=== PATIENT | male | born 1965 | race Caucasian/White ===

== ENCOUNTER 2016-10-08 23:39 | Inpatient (IN) | payer OTHER ==
[~2016-10-08] VITALS: Ht 190.5 cm; Wt 142.4 kg
--- NOTE | 2016-10-09 00:35 | NUR ---
PT AMBULATORY TO ER BED 12. PT C/O RIGHT LEG PAIN. PT WITH RIGHT LEG ABSCESS X 5 DAYS AND COVERED BY GUYANESE OINTMENT SINCE YESTERDAY. PT AOX4 RR EVEN AND UNLABORED. DAUGHTER AT BEDSIDE TO TRANSLATE. NO NVD AT THIS TIME. PT NOT DIAPHORETIC. PT GOWNED AND PLACED ON MONITOR WAITING FOR MD WOLFE.
--- NOTE | 2016-10-09 00:36 | NUR ---
DR. SIMMS AT BEDSIDE FOR EVAL.
--- NOTE | 2016-10-09 00:54 | NUR ---
LAB AT BEDSIDE FOR BLOOD/BLOOD CX DRAW.
[2016-10-09] MEDS ORDERED: MORPHINE SULFATE INJ 4 MG/ML DISP.SYRIN ONE (01:00)
[2016-10-09] MEDS ORDERED: ONDANSETRON HCL/PF 4 MG/2 ML VIAL IVP ONE (01:00)
[2016-10-09] MEDS ORDERED: VANCOMYCIN 1 GM in IV D5W 250 ML IV ONE (01:00)
[2016-10-09] MEDS ORDERED: MORPHINE SULFATE INJ 2 MG/ML DISP.SYRIN IV ONE (01:00)
[2016-10-09] MEDS ORDERED: ONDANSETRON HCL/PF 4 MG/2 ML VIAL ONE (01:00)
[2016-10-09] MEDS ORDERED: VANCOMYCIN 1 GM VIAL ONE (01:01)
[2016-10-09 01:19] LABS: BASOPHILS % (AUTO) 0.7 % (0.0-2.0); EOSINOPHILS # (AUTO) 0.1 /CMM (0.0-0.7); EOSINOPHILS % (AUTO) 3.1 % (0.0-6.0); HEMATOCRIT 35 % (39-51); HEMOGLOBIN 12.2 g/dL (13.5-17.5); LYMPHOCYTES # (AUTO) 1.2 /CMM (0.8-4.8); LYMPHOCYTES % (AUTO) 26.4 % (20.0-44.0); MEAN CORPUSCULAR HEMOGLOBIN 36 PG (26.0-33.0); MEAN CORPUSCULAR HGB CONC 35 g/dl (31.0-36.0); MEAN CORPUSCULAR VOLUME 102 fL (80-96); MONOCYTES # (AUTO) 0.6 /CMM (0.1-1.30); MONOCYTES % (AUTO) 12.3 % (2.0-12.0); NEUTROPHILS # (AUTO) 2.6 /CMM (1.8-8.9); NEUTROPHILS % (AUTO) 57.5 % (43.0-81.0); PLATELET COUNT (AUTO) 60 /CMM (150-450); RDW COEFFICIENT OF VARIATION 15.2 (11.5-15.0); RED BLOOD CELL COUNT(AUTO) 3.43 MIL/uL (4.5-6.0); WHITE BLOOD COUNT (AUTO) 4.6 K/uL (4.3-11.0)
[2016-10-09] MEDS ORDERED: IV NS 0.9% 1,000 ML ONE ×2 (01:28→09:42)
[2016-10-09] MEDS ORDERED: IV SET PRIMARY 1 EA INFUS.SET MC ONE (01:28)
[2016-10-09 01:30] LABS: CALCIUM, SERUM 8.5 mg/dL (8.5-10.1); CREATININE 1.1 mg/dL (0.6-1.3); POTASSIUM 3.4 mmol/L (3.5-5.1)
[2016-10-09] MEDS ORDERED: IV NS 0.9% 1,000 ML BAG IV ONE (01:30)
--- NOTE | 2016-10-09 01:40 | NUR ---
PANEL CALL MADE
--- NOTE | 2016-10-09 01:42 | NUR ---
DR. SIMMS SPOKE TO DR. HERB CATES REGARDING ADMISSION.
[2016-10-09] MEDS ORDERED: PROP40TA7 PO (01:55)
[2016-10-09] MEDS ORDERED: INSU100V28 SQ (01:55)
[2016-10-09] MEDS ORDERED: INSU3INS6 SQ (01:55)
[2016-10-09] MEDS ORDERED: METF500T4 PO (01:55)
[2016-10-09 02:00] VITALS: BP 149/94
--- NOTE | 2016-10-09 02:00 | NUR ---
PT [facility]ED [facility]
[2016-10-09 02:05] LABS: EOSINOPHILS % (MANUAL) 1 % (0-4); LYMPHOCYTES % (MANUAL) 23 % (16-48); MONOCYTES % (MANUAL) 10 % (0-11.0); NEUTROPHILS % (MANUAL) 66 (42-76)
[2016-10-09 02:10] VITALS: BP 149/94
--- NOTE | 2016-10-09 02:10 | NUR ---
RN ADMITTING NOTES RECEIVED REPORT FROM TUBING MACHINE OPERATORJAMISON. Pt ARRIVED ON FLOOR VIA GURNEY. AMBULATED WITH STEADY GAIT TO BED. NO S/S OF ACUTE DISTRESS OR SOB NOTED. Pt IS A/OX3, VERBAL, ABLE TO MAKE NEEDS KNOWN. IV ACCESS ON RAC #18G. SAFETY MEASURES IN PLACE. BED LOW, LOCKED, HOB ELEVATED, SIDE RAILS UP, CALL LIGHT AND BEDSIDE TABLE WITHIN REACH. WILL CONTINUE TO MONITOR Pt THROUGHOUT THE NIGHT FOR SAFETY.
[2016-10-09] MEDS ORDERED: Z GUARD REMEDY 2 OZ OINT TP PRN (03:30)
[2016-10-09] MEDS ORDERED: KETOROLAC TROMETHAMINE INJ 30 MG/ML VIAL IV PRN (03:30)
[2016-10-09] MEDS ORDERED: ENOXAPARIN SODIUM 40 MG/0.4 ML DISP.SYRIN SQ SCH (03:30)
[2016-10-09] MEDS ORDERED: DEXTROSE 50%-WATER 50 ML DISP.SYRIN IV PRN (03:30)
[2016-10-09] MEDS ORDERED: ONDANSETRON HCL/PF 4 MG/2 ML VIAL IVP PRN (03:30)
[2016-10-09] MEDS: INSULIN DETEMIR 100 UNIT/ML CARTRIDGE SQ SCH ×3 (03:30→21:38)
[2016-10-09] MEDS ORDERED: KETOROLAC TROMETHAMINE INJ 30 MG/ML VIAL IV ONE (03:30)
[2016-10-09] MEDS ORDERED: ACETAMINOPHEN 325 MG TABLET PO PRN (03:30)
--- NOTE | 2016-10-09 03:30 | NUR ---
RN NOTES LATE ADMISSION. CANNOT GIVE LEVEMIR AT THIS TIME. WILL ENDORSE TO NEXT RN TO START 1ST DOSE AT THE PROPER TIME TONIGHT.
[2016-10-09] MEDS ORDERED: ENOXAPARIN SODIUM 40 MG/0.4 ML DISP.SYRIN SQ ONE (03:34)
[2016-10-09] MEDS ORDERED: KETOROLAC TROMETHAMINE INJ 30 MG/ML VIAL ONE (03:34)
[2016-10-09] MEDS: BLOOD SUGAR DIAGNOSTIC 1 EACH STRIP IN SCH ×5 (03:56→21:20)
[2016-10-09] MEDS ORDERED: SECONDARY IV SET 1 EA INFUS.SET MC ONE ×3 (05:31→16:21)
[2016-10-09] MEDS ORDERED: PIPERACILLIN /TAZOBACTAM 3.375 G VIAL IV ONE (05:31)
[2016-10-09] MEDS ORDERED: IV D5W 50 ML IV ONE (05:31)
[2016-10-09] MEDS: PIPERACILLIN /TAZOBACTAM 3.375 G in IV D5W 50 ML IV SCH ×4 (06:08→23:37)
[2016-10-09 06:23] LABS: BASOPHILS % (AUTO) 0.9 % (0.0-2.0); EOSINOPHILS # (AUTO) 0.2 /CMM (0.0-0.7); EOSINOPHILS % (AUTO) 4.9 % (0.0-6.0); HEMATOCRIT 34 % (39-51); HEMOGLOBIN 12.1 g/dL (13.5-17.5); LYMPHOCYTES % (AUTO) 28.5 % (20.0-44.0); MEAN CORPUSCULAR HEMOGLOBIN 36 PG (26.0-33.0); MEAN CORPUSCULAR HGB CONC 36 g/dl (31.0-36.0); MEAN CORPUSCULAR VOLUME 101 fL (80-96); MONOCYTES # (AUTO) 0.4 /CMM (0.1-1.30); MONOCYTES % (AUTO) 11.4 % (2.0-12.0); NEUTROPHILS % (AUTO) 54.3 % (43.0-81.0); PLATELET COUNT (AUTO) 59 /CMM (150-450); RED BLOOD CELL COUNT(AUTO) 3.38 MIL/uL (4.5-6.0); WHITE BLOOD COUNT (AUTO) 3.6 K/uL (4.3-11.0)
--- NOTE | 2016-10-09 06:35 | NUR ---
RN CLOSING NOTES NO SIGNIFICANT CHANGES TO Pt's CONDITION. ALL NEEDS MET AND ATTENDED TO. SAFETY MEASURES IN PLACE. WILL ENDORSE TO DAYSHIFT RN FOR Pt's WENDY.
[2016-10-09 06:47] LABS: CALCIUM, SERUM 8.2 mg/dL (8.5-10.1); PHOSPHORUS 3.4 mg/dL (2.5-4.9); POTASSIUM 3.4 mmol/L (3.5-5.1)
[2016-10-09 06:55] LABS: MAGNESIUM 0.8 mg/dL (1.8-2.4)
--- NOTE | 2016-10-09 06:55 | NUR ---
RN NOTES BG 183. ADMINISTERED 4UN OF INSULIN PER SLIDING SCALE.
[2016-10-09] MEDS: INSULIN REGULAR, HUMAN 100 UNIT/ML 3 ML VIAL SQ PRN ×2 (07:08→15:24)
[2016-10-09 07:15] LABS: BAND % (MANUAL) 1 % (0.0-5.0); EOSINOPHILS % (MANUAL) 5 % (0-4); LYMPHOCYTES % (MANUAL) 24 % (16-48); MONOCYTES % (MANUAL) 8 % (0-11.0); NEUTROPHILS % (MANUAL) 62 (42-76)
[2016-10-09 08:00] VITALS: BP 147/80
[2016-10-09] MEDS ORDERED: POTASSIUM CHLORIDE 20 MEQ TAB.PRT.SR PO ONE (09:00)
[2016-10-09] MEDS ORDERED: FEE PK DOSING 1 MIN EA MC ONE (09:12)
[2016-10-09] MEDS ORDERED: IV SET PRIMARY PUMP SET 1 EA INFUS.SET MC ONE (09:22)
[2016-10-09] MEDS ORDERED: IV NS 0.9% 50 ML IV ONE (09:23)
[2016-10-09] MEDS: METFORMIN 500 MG TABLET PO SCH ×2 (09:54→17:56)
[2016-10-09] MEDS: Magnesium 1GM/D5W 100ML PREMIX 100 ML IV SCH ×4 (09:55→15:52)
[2016-10-09] MEDS: PROPRANOLOL HCL 40 MG TABLET PO SCH ×2 (09:55→17:57)
[2016-10-09] MEDS ORDERED: VANCOMYCIN 1.5 GM in IV D5W 500 ML IV SCH (11:00)
[2016-10-09 11:21] LABS: ALBUMIN 1.9 g/dL (3.4-5.0); BILIRUBIN,DIRECT 0.2 mg/dL (0.0-0.2); TOTAL PROTEIN, SERUM 6.3 g/dL (6.4-8.2)
--- NOTE | 2016-10-09 11:25 | NUR ---
WOUND CARE CONSULT: PT PRESENTS WITH RAISED RED BUMP TO RT LATERAL LOWER LEG, PRESENT ON ADMISSION. RECOMMENDATIONS MADE FOR SKIN PROTECTION. RECOMMEND SURGICAL CONSULT. WILL SEE PRN. PT IS AMBULATORY AND CONTINENT. FELIX SCORE IS CURRENTLY 21. Addendum: 10/09/16 at 1126 by JAILENE FAGAN WNDNU Amended: Links added.
[2016-10-09] MEDS ORDERED: ALBUTEROL FS 2.5 MG/3 ML VIAL.NEB NEB PRN (13:30)
--- NOTE | 2016-10-09 14:14 | NUR ---
PER RN CONGREGATIONAL PATIENT IS NOT NPO AT THIS TIME. RN WILL HOLD DINNER FOR ABDOMEN ULTRASOUND TO BE DONE THIS EVENING AT 1730
[2016-10-09] MEDS: MORPHINE SULFATE INJ 2 MG/ML DISP.SYRIN IV PRN ×2 (15:17→19:56)
[2016-10-09 16:00] VITALS: BP_SYST 142; BP_DIAS 90; BP_DIAS 98
[2016-10-09] MEDS ORDERED: LIDOCAINE 2%-EPI 1:100,000 30 ML VIAL TP ONE (16:30)
--- NOTE | 2016-10-09 19:20 | NUR ---
RN OPEN NOTES RECEIVED PATIENT AWAKE IN BED WITH FAMILY AT BEDSIDE. NO SIGNS OF DISTRESS OR DISCOMFORT BREATHING EVEN AND UNLABORED. STATES PAIN IS 9/10 IN R LEG. IV ACCESS IN RAC WITH VANCO CURRENTLY INFUSING, PATENT AND INTACT, NO SIGNS OF REDNESS OR INFILTRATION. BED IN LOW LOCKED POSITION WITH SIDE RAILS X2. CALL LIGHT WITHIN REACH. WILL CONTINUE TO MONITOR.
--- NOTE | 2016-10-09 19:34 | NUR ---
PATIENT IS NOTED IN A STABLE JOVIAL MOOD.PATIENT NOTED WITH ORDER :CONSENT FOR INCISION AND DRAINAGE OF WOUND TO RIGHT LOWER EXT.REPORT GIVEN TO INCOMING SHIFT.PATIENT WAS NOT MEDICATED FOR 342 BLOOD SUGAR INSULIN DOSE WAS PREVIOUSLY GIVEN AT A LATER TIME.METFORMIN GIVEN .PATIENT IS STABLE .
--- NOTE | 2016-10-09 19:56 | NUR ---
RN NOTES ADMINISTERED MORPHINE 2MG IV ORDERED FOR PAIN 9/10 IN R LOWER LEG. VSS. WILL CONTINUE TO MONITOR.
[2016-10-09 20:00] VITALS: BP 163/97
[2016-10-09 20:09] VITALS: BP 163/97
[2016-10-09] MEDS: *INSULIN REGULAR(HUMULIN R)HUM 100 UNIT/ML VIAL SQ PRN (21:48)
[2016-10-10] MEDS ORDERED: MORPHINE SULFATE INJ 2 MG/ML DISP.SYRIN ONE (00:08)
[2016-10-10] MEDS: MORPHINE SULFATE INJ 2 MG/ML DISP.SYRIN IV PRN (00:28)
--- NOTE | 2016-10-10 00:28 | NUR ---
RN NOTES ADMINISTERED MORPHINE 2MG IV ORDERED FOR PAIN 8/10 IN R LOWER LEG. VSS. WILL CONTINUE TO MONITOR.
[2016-10-10] MEDS: VANCOMYCIN 1.5 GM in IV D5W 500 ML IV SCH ×2 (02:31→16:42)
[2016-10-10] MEDS ORDERED: MORPHINE SULFATE INJ 4 MG/ML DISP.SYRIN ONE (06:17)
[2016-10-10] MEDS: PIPERACILLIN /TAZOBACTAM 3.375 G in IV D5W 50 ML IV SCH ×3 (06:24→20:44)
[2016-10-10] MEDS: MORPHINE SULFATE INJ 4 MG/ML DISP.SYRIN IV PRN ×4 (06:25→17:42)
--- NOTE | 2016-10-10 06:25 | NUR ---
RN NOTES ADMINISTERED MORPHINE 2MG IV ORDERED FOR PAIN 9/10 IN R LOWER LEG. VSS. WILL CONTINUE TO MONITOR.
[2016-10-10] MEDS: BLOOD SUGAR DIAGNOSTIC 1 EACH STRIP IN SCH ×4 (06:27→21:57)
[2016-10-10] MEDS: INSULIN REGULAR, HUMAN 100 UNIT/ML 3 ML VIAL SQ PRN ×3 (06:27→18:54)
[2016-10-10] MEDS ORDERED: MORPHINE SULFATE INJ 4 MG/ML DISP.SYRIN IV PRN ×2 (06:30)
[2016-10-10 07:12] LABS: BASOPHILS % (AUTO) 1.1 % (0.0-2.0); EOSINOPHILS # (AUTO) 0.3 /CMM (0.0-0.7); EOSINOPHILS % (AUTO) 6.8 % (0.0-6.0); HEMATOCRIT 35 % (39-51); HEMOGLOBIN 12.3 g/dL (13.5-17.5); LYMPHOCYTES # (AUTO) 0.8 /CMM (0.8-4.8); LYMPHOCYTES % (AUTO) 20.2 % (20.0-44.0); MEAN CORPUSCULAR HEMOGLOBIN 36 PG (26.0-33.0); MEAN CORPUSCULAR HGB CONC 35 g/dl (31.0-36.0); MEAN CORPUSCULAR VOLUME 102 fL (80-96); MONOCYTES # (AUTO) 0.4 /CMM (0.1-1.30); NEUTROPHILS # (AUTO) 2.5 /CMM (1.8-8.9); NEUTROPHILS % (AUTO) 61.9 % (43.0-81.0); PLATELET COUNT (AUTO) 64 /CMM (150-450); RDW COEFFICIENT OF VARIATION 15.2 (11.5-15.0); RED BLOOD CELL COUNT(AUTO) 3.42 MIL/uL (4.5-6.0)
[2016-10-10 07:28] LABS: CALCIUM, SERUM 8.1 mg/dL (8.5-10.1); CREATININE 1.1 mg/dL (0.6-1.3)
[2016-10-10 07:38] LABS: CHOLESTEROL 398 mg/dL (<200); HDL CHOLESTEROL 35 mg/dL (40-60); LDL 142 mg/dL (0-99); TRIGLYCERIDES 676 mg/dL (30-150)
--- NOTE | 2016-10-10 07:50 | NUR ---
RN CLOSING NOTES PATIENT AWAKE IN BED. A/O X4. NO SIGNS OF DISTRESS OR DISCOMFORT BREATHING EVEN AND UNLABORED. DENIES ANY PAIN AT THIS TIME. IV ACCESS IN RAC WITH VANCO CURRENTLY INFUSING, PATENT AND INTACT, NO SIGNS OF REDNESS OR INFILTRATION. ALL NEEDS MET. NO SIGNIFICANT CHANGES THROUGH THE NIGHT. BED IN LOW LOCKED POSITION WITH SIDE RAILS X2. CALL LIGHT WITHIN REACH. ENDORSED TO AM SHIFT FOR WENDY.
[2016-10-10 08:00] VITALS: BP 124/69
--- NOTE | 2016-10-10 08:30 | NUR ---
PATIENT AWAKE IN BED. A/O X4. NO SIGNS OF DISTRESS OR DISCOMFORT BREATHING EVEN AND UNLABORED. DENIES ANY PAIN AT THIS TIME. IV ACCESS IN RAC, PATENT AND INTACT, NO SIGNS OF REDNESS OR INFILTRATION. PATIENT REQUESTING FOR IV TO BE MOVED BECAUSE IT IS PAINFUL AND WILL NOT TAKE ANY MORE MEDS THROUGH THIS LINE. IV MOVED TO LAC 20G. NO S/S OF INFILTRATION, REDNESS OR SWELLING. BED IN LOW LOCKED POSITION WITH SIDE RAILS X2. CALL LIGHT WITHIN REACH.
[2016-10-10 08:31] LABS: THYROID STIMULATING HORMONE 2.655 uIU/mL (0.358-3.74)
[2016-10-10 08:54] LABS: EOSINOPHILS % (MANUAL) 5 % (0-4); MONOCYTES % (MANUAL) 6 % (0-11.0); NEUTROPHILS % (MANUAL) 72 (42-76)
[2016-10-10 08:56] LABS: LYMPHOCYTES % (MANUAL) 17 % (16-48)
[2016-10-10] MEDS ORDERED: ENOXAPARIN SODIUM 40 MG/0.4 ML DISP.SYRIN SQ SCH (09:00)
[2016-10-10] MEDS: METFORMIN 500 MG TABLET PO SCH ×2 (09:16→17:16)
[2016-10-10] MEDS: FOLIC ACID 1 MG TABLET PO SCH (09:16)
[2016-10-10] MEDS: THIAMINE HCL 100 MG TABLET PO SCH (09:16)
[2016-10-10] MEDS: PROPRANOLOL HCL 40 MG TABLET PO SCH ×2 (09:16→17:16)
--- NOTE | 2016-10-10 09:30 | NUR ---
MORPHINE PRN 2MG/0.5ML GIVEN FOR PAIN 8-10. WILL CONTINUE TO MONITOR AND REASSESS.
[2016-10-10] MEDS ORDERED: SECONDARY IV SET 1 EA INFUS.SET MC ONE (11:36)
[2016-10-10] MEDS: Magnesium 1GM/D5W 100ML PREMIX 100 ML IV SCH ×4 (11:42→19:28)
[2016-10-10 16:00] VITALS: BP 124/73
--- NOTE | 2016-10-10 17:52 | NUR ---
MORPHINE PRN 2MG/0.5ML GIVEN FOR PAIN 8-10. WILL CONTINUE TO MONITOR AND REASSESS.
--- NOTE | 2016-10-10 18:15 | NUR ---
CALL MADE TO [place] TO CONNECT WITH SHREDDER TENDER PEAT RUTH GILMORE. PT REFUSED TO EAT DINNER AND BLOOD SUGAR WAS 422. CALLED TO REQUEST ORDER DUE TO PATIENT NOT EATING. SHREDDER TENDER PEAT ORDER FOR 10 UNITS REGULAR INSULIN TO BE GIVEN AND FOLLOW UP INSULIN AT .
--- NOTE | 2016-10-10 19:05 | NUR ---
RN CLOSING NOTES PATIENT AWAKE IN BED. A/O X4. NO SIGNS OF DISTRESS OR DISCOMFORT BREATHING EVEN AND UNLABORED. RLE SWOLLEN, RED AND HOT TO TOUCH. MEPILEX ON WOUND. WOULD FAWAD BARBA CALLED FROM [facility] AND MESSAGE WAS LEFT FOR FOLLW UP TREATMENT. UPON PAIN REASSESSMENT, PT PAIN LEVEL AT 3 AND WITHIN PAIN GOAL LEVEL. DENIES ANY PAIN AT THIS TIME. IV ACCESS IN RAC WITH VANCO CURRENTLY INFUSING, PATENT AND INTACT, NO SIGNS OF REDNESS OR INFILTRATION. ALL NEEDS MET. NO SIGNIFICANT CHANGES THROUGH THE NIGHT. BED IN LOW LOCKED POSITION WITH SIDE RAILS X2. CALL LIGHT WITHIN REACH. ENDORSED TO AM SHIFT FOR WENDY. Addendum: 10/10/16 at 1911 by YAYO BOWEN RN RN CLOSING NOTES PATIENT AWAKE IN BED. A/O X4. NO SIGNS OF DISTRESS OR DISCOMFORT BREATHING EVEN AND UNLABORED. RLE SWOLLEN, RED AND HOT TO TOUCH. MEPILEX ON WOUND. WOULD FAWAD BARBA CALLED FROM [facility] CLIN[facility] AND MESSAGE WAS LEFT FOR FOLLW UP TREATMENT. UPON PAIN REASSESSMENT, PT PAIN LEVEL AT 3 AND WITHIN PAIN GOAL LEVEL. IV ACCESS IN LAC WITH VANCO CURRENTLY INFUSING, PATENT AND INTACT, NO SIGNS OF REDNESS OR INFILTRATION. ALL NEEDS MET. NO SIGNIFICANT CHANGES THROUGH THE NIGHT. BED IN LOW LOCKED POSITION WITH SIDE RAILS X2. CALL LIGHT WITHIN REACH. ENDORSED TO PM SHIFT FOR WENDY.
--- NOTE | 2016-10-10 19:30 | NUR ---
MS/RN NOTES PT AWAKE, SITTING UP IN BED WITH FAMILY AT BEDSIDE. A/OX3, SPEAKS ZAMBIAN. ON ROOM AIR, NO SOB OR DISTRESS NOTED. BREATHING EVEN AND UNLABORED. IV TO LAC PATENT AND INTACT. PT TO RECEIVE LAST BAG OF MAGNESIUM BY DAY SHIFT RN. BED IN LOW/LOCKED POSITION WITH CALL LIGHT IN REACH. SIDE RAILS UPX2. WILL CONTINUE TO MONITOR
[2016-10-10 20:00] VITALS: BP 143/82
[2016-10-10 20:07] VITALS: BP 143/82
--- NOTE | 2016-10-10 20:50 | NUR ---
MS/RN NOTES ADMINISTERED SCHEDULED 1800 ZOSYN LATE. PT RECEIVED 3 BAGS OF MAGNESIUM DURING DAY SHIFT WHICH DELAYED ADMINISTRATION OF ABX.
[2016-10-10] MEDS: ZOLPIDEM TARTRATE 5 MG TABLET PO PRN (21:57)
[2016-10-10] MEDS: INSULIN DETEMIR 100 UNIT/ML CARTRIDGE SQ SCH (22:02)
[2016-10-10] MEDS: *INSULIN REGULAR(HUMULIN R)HUM 100 UNIT/ML VIAL SQ PRN (22:03)
--- NOTE | 2016-10-10 22:16 | NUR ---
MS/RN NOTES BLOOD COSWB=425, SCHEDULED LEVEMIR AND 10 UNITS OF INSULIN PER SLIDING SCALE ADMINISTERED. SNACKS PROVIDED AT BEDSIDE. WILL MONITOR FOR S/S OF HYPOGLYCEMIA Addendum: 10/10/16 at 2220 by CHUCKY ZELAYA RN FAMILY MEMBER BROUGHT FOOD FROM HOME FOR DINNER
--- NOTE | 2016-10-10 22:28 | NUR ---
MS/RN NOTES PT NOTED THAT HE HAS NOT BEEN ABLE TO SLEEP THE LAST COUPLE NIGHTS. OFFERED PRN AMBIEN 10MG PO. PT ACCEPTED AND ADMINISTERED. WILL MONITOR FOR EFFECTIVENESS
[2016-10-11] MEDS: PIPERACILLIN /TAZOBACTAM 3.375 G in IV D5W 50 ML IV SCH ×4 (02:14→17:52)
[2016-10-11] MEDS: VANCOMYCIN 1.5 GM in IV D5W 500 ML IV SCH ×2 (03:43→14:46)
--- NOTE | 2016-10-11 05:32 | NUR ---
MS/RN NOTES PT PULLED OUT HIS IV. NEW IV INSERTED TO RIGHT HAND #22. IVF RESUMED.
[2016-10-11] MEDS: BLOOD SUGAR DIAGNOSTIC 1 EACH STRIP IN SCH ×4 (06:46→21:26)
[2016-10-11] MEDS: INSULIN REGULAR, HUMAN 100 UNIT/ML 3 ML VIAL SQ PRN ×2 (06:48→17:07)
--- NOTE | 2016-10-11 06:53 | NUR ---
MS/RN NOTES BLOOD KUDTU=084, ADMINISTERED 16 UNITS OF INSULIN PER SLIDING SCALE. WILL MONITOR FOR S/S OF HYPO/HYPERGLYCEMIA
--- NOTE | 2016-10-11 07:00 | NUR ---
MS/RN NOTES PT ASLEEP, EASILY AROUSABLE TO NAME/TOUCH. ON ROOM AIR, NO SOB OR DISTRESS NOTED. BREATHING EVEN AND UNLABORED. DENIES PAIN AT THIS TIME. MADE PT COMFORTABLE THROUGHOUT SHIFT. ALL NEEDS MET AND ATTENDED. IV TO RIGHT HAND PATENT AND INTACT. BED IN LOW/LOCKED POSITION WITH CALL LIGHT IN REACH. SIDE RAILS UPX2. WILL ENDORSE TO AM SHIFT WENDY.
[2016-10-11 07:11] LABS: CALCIUM, SERUM 8.4 mg/dL (8.5-10.1); CREATININE 1.2 mg/dL (0.6-1.3); POTASSIUM 4.3 mmol/L (3.5-5.1)
--- NOTE | 2016-10-11 07:30 | NUR ---
RN MS NOTES PT IN BED, ASLEEP, EASILY AROUSABLE BY VERBAL STIMULI, ALERT AND ORIENTED, NO COMPLAINT OF PAIN AT THIS TIME, RESPIRATIONS NORMAL AND NOT LABORED, CALL LIGHT WITHIN REACH.
[2016-10-11 07:39] LABS: FERRITIN 1311 ng/mL (8-388)
[2016-10-11 07:42] LABS: IRON, SERUM 117 ug/dl (50-175); TOTAL IRON BINDING CAPACITY 235 ug/dl (250-450)
[2016-10-11 08:00] VITALS: BP 154/88
[2016-10-11 08:07] LABS: IMMUNOGLOBULIN A, SERUM 548 mg/dL (90-386); IMMUNOGLOBULIN G, SERUM 1338 mg/dL (700-1600); IMMUNOGLOBULIN M, SERUM 228 mg/dL (20-172)
[2016-10-11] MEDS ORDERED: SECONDARY IV SET 1 EA INFUS.SET MC ONE (09:00)
[2016-10-11] MEDS: FOLIC ACID 1 MG TABLET PO SCH (09:05)
[2016-10-11] MEDS: PROPRANOLOL HCL 40 MG TABLET PO SCH ×2 (09:05→16:58)
[2016-10-11] MEDS: METFORMIN 500 MG TABLET PO SCH ×2 (09:06→16:57)
[2016-10-11] MEDS: THIAMINE HCL 100 MG TABLET PO SCH (09:06)
[2016-10-11] MEDS: Magnesium 1GM/D5W 100ML PREMIX 100 ML IV SCH ×6 (09:06→20:00)
--- NOTE | 2016-10-11 09:12 | NUR ---
RN MS NOTES PT SEEN BY RUTH CELESTIN, PLAN OF CARE DISCUSSED WITH PT, VERBALIZED UNDERSTANDING, MD AWARE OF ABNORMAL LAB RESULTS, ORDERS MADE AND CARRIED OUT.
[2016-10-11] MEDS: MORPHINE SULFATE INJ 4 MG/ML DISP.SYRIN IV PRN ×2 (12:06→19:05)
--- NOTE | 2016-10-11 13:00 | NUR ---
RN MS NOTES PT IN BED, SLEEPS INTERMITTENTLY, PAIN MEDICATION GIVEN FOR PAIN MANAGEMENT, BREATHING PATTERN NORMAL, CALL LIGHT WITHIN REACH, ABLE TO AMBULATE TO THE BATHROOM WITH STEADY GAIT, NEEDS ATTENDED.
[2016-10-11] MEDS: *INSULIN REGULAR(HUMULIN R)HUM 100 UNIT/ML VIAL SQ PRN ×2 (13:34→21:41)
[2016-10-11 16:00] VITALS: BP 144/79
--- NOTE | 2016-10-11 18:45 | NUR ---
RN MS NOTES PT IN BED, AWAKE, ALERT AND ORIENTED, NO COMPLAINT OF PAIN OR ANY DISCOMFORT AT THIS TIME, RESPIRATIONS NORMAL AND NOT LABORED, AMBULATES TO THE BATHROOM WITH STEADY GAIT, TREATMENT AND DRESSING CHANGE DONE TO RIGHT LOWER LEG WOUND, NO DRAINAGE NOTED, PM MEDS GIVEN, ALL NEEDS ATTENDED.
--- NOTE | 2016-10-11 19:30 | NUR ---
MS RN INITIAL NOTE RECEIVED PT AWAKE AND ALERT, AMBULATORY, ORIENTED X3, CLEAN/DRY AND COMFORTABLE, SAFETY MEASURES WILL BE MAINTAINED AT ALL TIMES, NEEDS WILL BE ANTICIPATED AND ATTENDED TO PROMPTLY.
[2016-10-11 20:00] VITALS: BP 121/70
[2016-10-11 20:38] VITALS: BP 121/70
[2016-10-11] MEDS ORDERED: INSULIN DETEMIR 100 UNIT/ML CARTRIDGE SQ SCH (22:00)
[2016-10-11] MEDS: ZOLPIDEM TARTRATE 5 MG TABLET PO PRN (22:07)
[2016-10-12] MEDS: PIPERACILLIN /TAZOBACTAM 3.375 G in IV D5W 50 ML IV SCH ×4 (00:22→20:08)
[2016-10-12] MEDS: VANCOMYCIN 1.5 GM in IV D5W 500 ML IV SCH ×2 (03:28→17:06)
[2016-10-12] MEDS: MORPHINE SULFATE INJ 4 MG/ML DISP.SYRIN IV PRN ×3 (05:48→16:18)
[2016-10-12] MEDS: INSULIN REGULAR, HUMAN 100 UNIT/ML 3 ML VIAL SQ PRN ×3 (06:23→17:20)
--- NOTE | 2016-10-12 07:01 | NUR ---
MS RN CLOSING NOTE PT REMAINED STABLE DURING PROPAGATION WORKER WITH NO SIGNIFICANT CHANGE IN CONDITION NOTED, WILL ENDORSE TO INCOMING NURSE FOR WENDY.
[2016-10-12 07:02] LABS: BASOPHILS % (AUTO) 0.9 % (0.0-2.0); EOSINOPHILS # (AUTO) 0.2 /CMM (0.0-0.7); EOSINOPHILS % (AUTO) 5.5 % (0.0-6.0); HEMATOCRIT 36 % (39-51); HEMOGLOBIN 12.7 g/dL (13.5-17.5); LYMPHOCYTES # (AUTO) 0.9 /CMM (0.8-4.8); MEAN CORPUSCULAR HEMOGLOBIN 36 PG (26.0-33.0); MEAN CORPUSCULAR HGB CONC 35 g/dl (31.0-36.0); MEAN CORPUSCULAR VOLUME 103 fL (80-96); MONOCYTES # (AUTO) 0.5 /CMM (0.1-1.30); MONOCYTES % (AUTO) 11.4 % (2.0-12.0); NEUTROPHILS # (AUTO) 2.4 /CMM (1.8-8.9); NEUTROPHILS % (AUTO) 59.2 % (43.0-81.0); PLATELET COUNT (AUTO) 70 /CMM (150-450); RDW COEFFICIENT OF VARIATION 15.7 (11.5-15.0); RED BLOOD CELL COUNT(AUTO) 3.49 MIL/uL (4.5-6.0); WHITE BLOOD COUNT (AUTO) 4.1 K/uL (4.3-11.0)
--- NOTE | 2016-10-12 07:25 | NUR ---
RN OPEN NOTES RECEIVED REPORT FROM DIGITAL PRINT OPERATOR. PATIENT IS IN BED, AWAKE AND ORIENTED TO NAME, PLACE AND TIME. NO SIGNS AND SYMPTOMS OF DISTRESS. DENIED PAIN. BED IN LOW POSITION, LOCKED AND TWO SIDE RAILS ARE UP. WILL CONTINUE TO MONITOR AND ASSESS PATIENT THROUGH OUT MY SHIFT.
[2016-10-12 07:30] LABS: CALCIUM, SERUM 8.8 mg/dL (8.5-10.1); CREATININE 1.1 mg/dL (0.6-1.3); POTASSIUM 4.2 mmol/L (3.5-5.1)
[2016-10-12] MEDS: BLOOD SUGAR DIAGNOSTIC 1 EACH STRIP IN SCH ×4 (07:30→21:12)
[2016-10-12 07:38] LABS: MAGNESIUM 1.1 mg/dL (1.8-2.4)
--- NOTE | 2016-10-12 07:42 | NUR ---
CRITICAL VALUE OD MAGNESIUM 1.1 REPORTED BY THE LAB. HIRAM CELESTIN NOTIFIED AND NEW ORDERS RECEIVED.
[2016-10-12 08:00] VITALS: BP 145/90
[2016-10-12] MEDS ORDERED: Magnesium 1GM/D5W 100ML PREMIX PIGGYBACK IV ONE (08:00)
[2016-10-12 08:37] LABS: BAND % (MANUAL) 4 % (0.0-5.0); EOSINOPHILS % (MANUAL) 6 % (0-4); LYMPHOCYTES % (MANUAL) 23 % (16-48); MONOCYTES % (MANUAL) 6 % (0-11.0); NEUTROPHILS % (MANUAL) 61 (42-76)
[2016-10-12] MEDS ORDERED: SECONDARY IV SET 1 EA INFUS.SET MC ONE (08:44)
[2016-10-12] MEDS: METFORMIN 500 MG TABLET PO SCH ×2 (09:06→17:07)
[2016-10-12] MEDS: Magnesium 1GM/D5W 100ML PREMIX 100 ML IV SCH ×8 (09:06→23:07)
[2016-10-12] MEDS: FOLIC ACID 1 MG TABLET PO SCH (09:06)
[2016-10-12] MEDS: PROPRANOLOL HCL 40 MG TABLET PO SCH ×2 (09:07→17:07)
[2016-10-12] MEDS: THIAMINE HCL 100 MG TABLET PO SCH (09:07)
[2016-10-12] MEDS ORDERED: HYDROCODONE/APAP 5/325MG 1 EACH TABLET PO PRN (09:30)
[2016-10-12 13:13] LABS: *SPE A/G RATIO 0.7 (0.7-1.7); *SPE ALBUMIN 2.5 g/dL (2.9-4.4); *SPE ALPHA-1-GLOBULIN 0.2 g/dL (0.0-0.4); *SPE ALPHA-2-GLOBULIN 0.7 g/dL (0.4-1.0); *SPE GLOBULIN, TOTAL 3.6 g/dL (2.2-3.9); *SPE M-SPIKE Not Observed g/dL (Not Observed); *SPE PROTEIN TOTAL 6.1 g/dL (6.0-8.5); *SPEGAMMA GLOBULIN 1.7 g/dL (0.4-1.8)
[2016-10-12 16:00] VITALS: BP 159/55
--- NOTE | 2016-10-12 18:31 | NUR ---
RN CLOSING NOTES PATIENT IS IN BED, ALERT AND ORIENTED TO NAME, PLACE AND TIME. NO SIGNS AND SYMPTOMS OF DISTRESS. PAIN LEVEL 7-9/10 CONTROLLED WITH NORCO AND MORPHINE. MAGNESIUM LEVEL 1.1, 8 BAGS OF MAGNESIUM ORDERED, 6 BAGS WERE GIVEN IN BETWEEN OTHER IVPB ANTIBIOTIC. PATIENT WOULD LIKE TO GO HOME IN AM. INCISION AND DRAINAGE COMPLETED AT BEDSIDE, PICTURE WERE TAKEN AND PLACED IN THE CHART. PATIENT TOLERATED PROCEDURE WELL. BED IN LOW POSITION, LOCKED AND TWO SIDE RAILS ARE UP. PATIENT KEPT CLEAN AND SAFE. WILL ENDORSE TO SHIPYARD HELPER NURSE.
--- NOTE | 2016-10-12 19:30 | NUR ---
RN NOTES RECEIVED PATIENT UP IN BED, AO X 3, ABLE TO MAKE NEEDS KNOWN. NO ACUTE DISTRESS NOTED. DENIES ANY PAIN AT THIS TIME. IV SITE PATENT, INTACT; FLUSHED. NO SYMPTOMS OF HYPER/HYPOGLYCEMIA. SAFETY REMINDERS GIVEN. ON LOW BED WITH BILATERAL UPPER SIDE RAILS UP. CALL LIGHT WITHIN EASY REACH. WILL CONTINUE TO MONITOR.
[2016-10-12 20:00] VITALS: BP 151/98
[2016-10-12] MEDS: MAGNESIUM OXIDE 400 MG TABLET PO SCH (21:13)
[2016-10-12] MEDS: INSULIN DETEMIR 100 UNIT/ML CARTRIDGE SQ SCH (21:15)
[2016-10-12] MEDS: *INSULIN REGULAR(HUMULIN R)HUM 100 UNIT/ML VIAL SQ PRN (21:23)
[2016-10-12] MEDS ORDERED: Magnesium 1GM/D5W 100ML PREMIX 200 ML IV ONE (21:29)
[2016-10-13] MEDS: MAG HYDROX/AL HYDROX/SIMETH 30 ML UDC PO PRN ×2 (00:37→16:00)
[2016-10-13] MEDS: PIPERACILLIN /TAZOBACTAM 3.375 G in IV D5W 50 ML IV SCH ×3 (00:37→13:48)
[2016-10-13] MEDS: VANCOMYCIN 1.5 GM in IV D5W 500 ML IV SCH ×2 (03:19→17:08)
--- NOTE | 2016-10-13 06:03 | NUR ---
RN NOTES PATIENT ASLEEP, EASILY AROUSABLE. RESPIRATIONS EVEN. NO SIGNS OF PAIN NOTED. DUE MEDS GIVEN WITH NO ASE NOTED. NEEDS ATTENDED. SAFETY PRECAUTIONS AND COMFORT MEASURES IN PLACE. WILL GIVE REPORT TO DAY SHIFT FOR CONTINUITY OF CARE.
[2016-10-13] MEDS: INSULIN REGULAR, HUMAN 100 UNIT/ML 3 ML VIAL SQ PRN ×3 (06:38→17:26)
[2016-10-13] MEDS: BLOOD SUGAR DIAGNOSTIC 1 EACH STRIP IN SCH ×4 (06:38→21:43)
[2016-10-13 06:54] LABS: BASOPHILS % (AUTO) 1.1 % (0.0-2.0); EOSINOPHILS # (AUTO) 0.2 /CMM (0.0-0.7); EOSINOPHILS % (AUTO) 5.4 % (0.0-6.0); HEMATOCRIT 36 % (39-51); HEMOGLOBIN 12.4 g/dL (13.5-17.5); LYMPHOCYTES # (AUTO) 1.1 /CMM (0.8-4.8); LYMPHOCYTES % (AUTO) 26.3 % (20.0-44.0); MEAN CORPUSCULAR HEMOGLOBIN 36 PG (26.0-33.0); MEAN CORPUSCULAR HGB CONC 35 g/dl (31.0-36.0); MEAN CORPUSCULAR VOLUME 103 fL (80-96); MONOCYTES # (AUTO) 0.6 /CMM (0.1-1.30); MONOCYTES % (AUTO) 13.3 % (2.0-12.0); NEUTROPHILS # (AUTO) 2.2 /CMM (1.8-8.9); NEUTROPHILS % (AUTO) 53.9 % (43.0-81.0); PLATELET COUNT (AUTO) 67 /CMM (150-450); RDW COEFFICIENT OF VARIATION 15.5 (11.5-15.0); RED BLOOD CELL COUNT(AUTO) 3.45 MIL/uL (4.5-6.0); WHITE BLOOD COUNT (AUTO) 4.1 K/uL (4.3-11.0)
[2016-10-13 07:01] LABS: CREATININE 1.1 mg/dL (0.6-1.3); MAGNESIUM 1.3 mg/dL (1.8-2.4)
--- NOTE | 2016-10-13 07:13 | NUR ---
MS/RN NOTES RECEIVED PT ASLEEP IN BED, EASILY AWAKENS. ALERT AND ORIENTED X3, NO/C/O PAIN OR DISCOMFORTS AT THIS TIME. ON ROOM AIR, BREATHING EVEN AND UNLABORED. IV ACCESS TO LEFT FOREARM PATENT AND INTACT. BED IN LOW POSITION AND LOCKED. CALL LIGHT IN REACH WITH SIDE RAILS UPX2. WILL MAINTAIN ALL SAFETY MEASURES AND WILL CONTINUE TO MONITOR PT ACCORDINGLY.
[2016-10-13 08:00] VITALS: BP 128/71
[2016-10-13] MEDS: FOLIC ACID 1 MG TABLET PO SCH (08:59)
[2016-10-13] MEDS: THIAMINE HCL 100 MG TABLET PO SCH (08:59)
[2016-10-13] MEDS: METFORMIN 500 MG TABLET PO SCH ×2 (08:59→16:41)
[2016-10-13] MEDS: PROPRANOLOL HCL 40 MG TABLET PO SCH ×2 (09:00→16:41)
--- NOTE | 2016-10-13 09:12 | NUR ---
PATIENT WANTS TO SPEAK WITH ORDERING PHYSICIAN REGARDING XRAY BONE SURVEY PRIOR TO EXAM. RN AWARE.
--- NOTE | 2016-10-13 09:37 | NUR ---
RN NOTES PATIENT WITH LOW MAGNESIUM LEVEL OF 1.3, TO BE REPLACED WITH 4 BAGS OF 1MG /100ML D5W. WILL CONTINUE TO MONITOR
[2016-10-13 10:13] LABS: BAND % (MANUAL) 1 % (0.0-5.0); EOSINOPHILS % (MANUAL) 6 % (0-4); LYMPHOCYTES % (MANUAL) 18 % (16-48); MONOCYTES % (MANUAL) 14 % (0-11.0); NEUTROPHILS % (MANUAL) 61 (42-76)
[2016-10-13] MEDS: Magnesium 1GM/D5W 100ML PREMIX 100 ML IV SCH ×4 (10:45→16:01)
[2016-10-13] MEDS ORDERED: SECONDARY IV SET 1 EA INFUS.SET MC ONE (10:47)
--- NOTE | 2016-10-13 12:30 | NUR ---
RN NOTES PATIENT WENT FOR X-RAY OF BONE SURVEY AMBULATORY ACCOMPANIED BY AND GENERAL CAR SUPERVISOR YARD.
[2016-10-13 16:00] VITALS: BP 128/69
[2016-10-13] MEDS ORDERED: LEVOFLOXACIN (500MG) 500 MG TABLET PO SCH ×2 (18:00→20:00)
--- NOTE | 2016-10-13 19:14 | NUR ---
MR/RN CLOSING NOTES PATIENT RESTING IN BED WITH DAUGHTER AT BEDSIDE. ALERT AND ORIENTED X3, NO VERBALIZATION OF PAIN DURING THE DAY. ON ROOM AIR, BREATHING EVEN AND UNLABORED. ALL DUE MEDS GIVEN ORDERED AND TOLERATED. IV ACCESS TO LEFT FOREARM PATENT AND INTACT. BED IN LOW POSITION AND LOCKED. CALL LIGHT IN REACH WITH SIDE RAILS UPX2. ALL SAFETY MEASURES MAINTAINED. ALL NEEDS AND CARE PROVIDED WELL. ENDORSED TO MEAT PRODUCTS DEMONSTRATOR NURSE FOR WENDY.
--- NOTE | 2016-10-13 19:20 | NUR ---
RN NOTES PT AWAKE, SITTING IN THE BED WITH FAMILY AT BEDSIDE. PT ALERT AND ORIENTED X3, DENIES ANY PAIN AND DISCOMFORT AT THIS TIME. ON ROOM AIR AND TOLERATED WELL. IV ACCESS ON LEFT FORE ARM INTACT AND FLUSHES WELL, NO REDNESS OR SIGNS OF INFILTRATE NOTED. DRESSING ON RIGHT LOWER LEG INTACT, DRY AND CLEAN. KEPT BED IN THE LOWEST POSITION, LOCKED SIDE RAILS UP X2 WITH CALL LIGHT WITH IN REACH. KEPT COMFORTABLE AND ATTENDED. WILL CONTINUE TO MONITOR PT.
[2016-10-13 20:00] VITALS: BP 125/61
[2016-10-13] MEDS: MAGNESIUM OXIDE 400 MG TABLET PO SCH (21:42)
[2016-10-13] MEDS: *INSULIN REGULAR(HUMULIN R)HUM 100 UNIT/ML VIAL SQ PRN (21:47)
--- NOTE | 2016-10-13 21:47 | NUR ---
RN NOTES BLOOD SUGAR CHECKED 287 MG/DL, 6 UNITS REGULAR INSULIN GIVEN SUBCU, UNABLE TO SCAN MEDICATION. DUE LEVEMIR 40 UNITS GIVEN SUBCU. WILL CONTINUE TO MONITOR PT.
[2016-10-13] MEDS: INSULIN DETEMIR 100 UNIT/ML CARTRIDGE SQ SCH (21:48)
[2016-10-13 22:00] VITALS: BP 125/61
[2016-10-14] MEDS: VANCOMYCIN 1.5 GM in IV D5W 500 ML IV SCH (03:16)
[2016-10-14] MEDS: BLOOD SUGAR DIAGNOSTIC 1 EACH STRIP IN SCH (06:32)
[2016-10-14] MEDS: INSULIN REGULAR, HUMAN 100 UNIT/ML 3 ML VIAL SQ PRN (06:33)
--- NOTE | 2016-10-14 06:33 | NUR ---
RN NOTES BLOOD SUGAR CHECKED 183 MG/DL, 4 UNITS INSULIN GIVEN SUBCU. NO SIGNS OF HYPOGLYCEMIA NOTED. WILL CONTINUE TO MONITOR PT.
[2016-10-14 06:46] LABS: BASOPHILS % (AUTO) 0.9 % (0.0-2.0); EOSINOPHILS # (AUTO) 0.2 /CMM (0.0-0.7); EOSINOPHILS % (AUTO) 5.3 % (0.0-6.0); HEMATOCRIT 35 % (39-51); HEMOGLOBIN 12.1 g/dL (13.5-17.5); LYMPHOCYTES # (AUTO) 1.1 /CMM (0.8-4.8); LYMPHOCYTES % (AUTO) 25.6 % (20.0-44.0); MEAN CORPUSCULAR HEMOGLOBIN 36 PG (26.0-33.0); MEAN CORPUSCULAR HGB CONC 35 g/dl (31.0-36.0); MEAN CORPUSCULAR VOLUME 102 fL (80-96); MONOCYTES # (AUTO) 0.7 /CMM (0.1-1.30); MONOCYTES % (AUTO) 15.5 % (2.0-12.0); NEUTROPHILS # (AUTO) 2.3 /CMM (1.8-8.9); NEUTROPHILS % (AUTO) 52.7 % (43.0-81.0); PLATELET COUNT (AUTO) 61 /CMM (150-450); RDW COEFFICIENT OF VARIATION 15.9 (11.5-15.0); WHITE BLOOD COUNT (AUTO) 4.4 K/uL (4.3-11.0)
--- NOTE | 2016-10-14 06:56 | NUR ---
RN NOTES PT AWAKE IN BED, NO SOB, NOT IN DISTRESS, ON ROOM AIR AND TOLERATED WELL. ALL DUE MEDS GIVEN. VITAL SIGNS STABLE, AFEBRILE. NO COMPLAIN OF PAIN. NO EPISODE OF NAUSEA AND VOMITING. KEPT RIGHT LOWER LEG ELEVATED. FALL PRECAUTION OBSERVED. NO SIGNIFICANT CHANGE IN CONDITION NOTED. WILL ENDORSE TO MORNING RN FOR CONTINUITY OF CARE.
[2016-10-14 07:18] LABS: CALCIUM, SERUM 9.1 mg/dL (8.5-10.1); CREATININE 1.1 mg/dL (0.6-1.3); PHOSPHORUS 3.7 mg/dL (2.5-4.9); POTASSIUM 3.8 mmol/L (3.5-5.1)
--- NOTE | 2016-10-14 07:49 | NUR ---
RN MS NOTES RECEIVED PT ASLEEP IN BED, EASILY AROUSABLE. ALERT AND ORIENTED X3, NO/C/O PAIN OR DISCOMFORTS AT THIS TIME. ON ROOM AIR, BREATHING EVEN AND UNLABORED. PIV TO LEFT FOREARM, PATENT AND INTACT, FLUSHES WELL, BED IN LOWEST POSITION AND LOCKED. CALL LIGHT IN REACH WITH SIDE RAILS UPX2. WILL MAINTAIN ALL SAFETY MEASURES AND WILL CONTINUE TO MONITOR PT ACCORDINGLY.
[2016-10-14 08:00] VITALS: BP 140/70
[2016-10-14 08:30] LABS: EOSINOPHILS % (MANUAL) 4 % (0-4); LYMPHOCYTES % (MANUAL) 14 % (16-48); MONOCYTES % (MANUAL) 9 % (0-11.0); NEUTROPHILS % (MANUAL) 73 (42-76)
[2016-10-14 08:54] VITALS: BP 140/70
[2016-10-14] MEDS: PROPRANOLOL HCL 40 MG TABLET PO SCH (08:54)
[2016-10-14] MEDS: THIAMINE HCL 100 MG TABLET PO SCH (08:54)
[2016-10-14] MEDS: FOLIC ACID 1 MG TABLET PO SCH (08:55)
[2016-10-14] MEDS: METFORMIN 500 MG TABLET PO SCH (08:55)
[2016-10-14 09:04] LABS: MAGNESIUM 1.1 mg/dL (1.8-2.4)
--- NOTE | 2016-10-14 09:30 | NUR ---
RN MS NOTES INFORMED PHARMACIST PATIENT'S MAGNESIUM LEVEL IS 1.1, PER PHARMACIST, WILL TAKE CARE OF IT.
[2016-10-14 10:17] LABS: BETA-2 MICROGLOBULIN, SERUM 2.4 mg/L (0.6-2.4)
--- NOTE | 2016-10-14 10:50 | NUR ---
RN MS NOTES PATIENT AMBULATING IN THE HALLWAY, SPOKE WITH ME AND I DISCUSSED PLAN OF CARE FOR TODAY, INFORMED PATIENT OF LOW MAGNESIUM LEVEL AND STILL WAITING FOR A DOCTORS ORDER OR A PHARMACIST ORDER FOR REPLACEMENT, PATIENT VERBALIZED UNDERSTANDING, HE ALSO ASKED ABOUT MEDICATION TIME AND INFORMED HIM OF NEXT MEDICATION DUE TIME. SAW PATIENT WALK BACK TO HIS ROOM.
--- NOTE | 2016-10-14 11:00 | NUR ---
RN MS NOTES INFORMED BY BRAND ATTENDANT PATIENT IS SITTING OUTSIDE THE FRONT LOBBY, MYRNA VELASCO WENT DOWNSTAIRS TO TALK TO THE PATIENT AND ENCOURAGED HIM TO GO BACK UPSTAIRS.
--- NOTE | 2016-10-14 11:05 | NUR ---
RN MS NOTES PER CRISIS NURSE, PATIENT INSISTED ON STAYING OUTSIDE THE LOBBY TO GET SOME FRESH AIR, ASKED THE SECURITY GUARDS SIDE SPLITTER TO WATCH THE PATIENT'S WHEREABOUTS AND CRISIS NURSE WENT BACK UPSTAIRS.
--- NOTE | 2016-10-14 11:10 | NUR ---
RN MS NOTES RECEIVED A CALL FROM HISTOLOGY TECHNICIAN, THAT PATIENT HAS LEFT THE FACILITY AGAINST MEDICAL ADVICE WITH THE PERIPHERAL IV LINE INTACT, THIS OPERATOR/ASSISTANT FOREMAN AND CAR DRYER WENT DOWNSTAIRS TO THE LOBBY TO LOOK FOR THE PATIENT, BUT HE'S NOWHERE TO BE FOUND. CHARGE NURSE MADE AWARE, NURSING GEAR REPAIR SUPERVISOR AWARE. Addendum: 10/14/16 at 1153 by ABHAY RANGEL RN ADDENDUM: DOCTOR JODY MADE AWARE.
--- NOTE | 2016-10-14 11:38 | NUR ---
STEPH MS NOTES POLICE REPORT FILED, ENDOSCOPY TECHNICIAN #[id number], INCIDENT REPORT # [id number].
--- NOTE | 2016-10-14 12:01 | NUR ---
RN MS NOTES LAUREN DAUGHTER MADE AWARE THAT THE PATIENT LEFT AGAINST MEDICAL ADVICE.
[2016-10-15] MEDS ORDERED: SULF1TAB48 PO (12:25)
== END 2016-10-14 11:10 | disposition left against medical advice (07) | DRG 383 ==
LOC: ER 23:41 → MED 10-09 01:47
PROVIDERS: ADMIT Nurse Practitioner Acute Care; ATTEND Nurse Practitioner Acute Care
PROC: 0JBN0ZZ Excision of Right Lower Leg Subcutaneous Tissue and Fascia, Open Approach (ICD-10-PCS; principal; 2016-10-13)
DX: L03.115 Cellulitis of right lower limb (principal); D61.818 Other pancytopenia; E11.40 Type 2 diabetes mellitus with diabetic neuropathy, unspecified; D69.59 Other secondary thrombocytopenia; E11.65 Type 2 diabetes mellitus with hyperglycemia; K70.30 Alcoholic cirrhosis of liver without ascites; E53.8 Deficiency of other specified B group vitamins; E83.42 Hypomagnesemia; D53.9 Nutritional anemia, unspecified; D73.1 Hypersplenism; E66.01 Morbid (severe) obesity due to excess calories; E78.5 Hyperlipidemia, unspecified; E87.6 Hypokalemia; F10.20 Alcohol dependence, uncomplicated; F17.210 Nicotine dependence, cigarettes, uncomplicated; I10 Essential (primary) hypertension; I87.8 Other specified disorders of veins; J44.9 Chronic obstructive pulmonary disease, unspecified; Z68.39 Body mass index [BMI] 39.0-39.9, adult; R74.0 Nonspecific elevation of levels of transaminase and lactic acid dehydrogenase [LDH]; L85.3 Xerosis cutis; I83.11 Varicose veins of right lower extremity with inflammation; B19.20 Unspecified viral hepatitis C without hepatic coma
CPT/HCPCS: 36415; 76700-TC; 77075-TC; 80048-TC; 80061-TC; 80076-TC; 80202-TC; 82105; 82232; 82728-TC; 82746; 82784; 82962-TC; 83540-TC; 83605-TC; 83735-TC; 84100-TC; 84155; 84165; 84439-TC; 84443-TC; 85025-TC; 86334; 86706; 86803; 87040-TC; 87070-TC; 87081-TC; 87340; 93970-TC; A4216; A4606; A6253; A6402; A6403; J1650; J1815; J1885; J2270; J2405; J2543; J3370; J3475; J3490; J7030; J7060; Z7610

== ENCOUNTER 2016-10-14 13:01 | Inpatient (IN) | payer OTHER ==
[~2016-10-14] VITALS: Ht 182.9 cm; Wt 140.6 kg
[~2016-10-14 13:01] MED LIST: INSU100V28 SQ; INSU3INS6 SQ; METF500T4 PO; PROP40TA7 PO
--- NOTE | 2016-10-14 13:34 | NUR ---
EPIC PAGED, DR.SIMONA Young MANAGER RELIABILITY
--- NOTE | 2016-10-14 13:39 | NUR ---
CALLED NURSING SUP. FOR MS BED
--- NOTE | 2016-10-14 14:19 | NUR ---
REPORT TO MYRNA. PT AWAITING TRANSFER TO FLOOR.
--- NOTE | 2016-10-14 14:35 | NUR ---
MS CHILD CARE LEADER NOTE PATIENT IS ALERT AND ORIENTED x4. NO PAIN AT THIS TIME. NO SOB OR DISTRESS NOTED. CALL LIGHT WITHIN REACH. SAFETY MEASURES IMPLEMENTED. ABLE TO COMMUNICATE NEEDS. IV INTACT AND PATENT NO REDNESS OR SWELLING NOTED. ADMITTED FROM EMERGENCY DEPARTMENT FOR CELLULITIS. AWAITING FOR MD ORDERS, LABS AND MED ORDERS. [facility] DIET. WILL CONTINUE TO MONITOR
--- NOTE | 2016-10-14 14:36 | NUR ---
PATIENT REFUSED TO HAVE PICTURE TAKEN UPON ADMISSION
[2016-10-14] MEDS ORDERED: IV D5/0.45 NACL 1,000 ML IV PRN (16:51)
[2016-10-14] MEDS ORDERED: ACETAMINOPHEN 325 MG TABLET PO PRN (17:00)
[2016-10-14] MEDS ORDERED: ONDANSETRON HCL/PF 4 MG/2 ML VIAL IVP PRN (17:00)
[2016-10-14] MEDS ORDERED: ZOLPIDEM TARTRATE 5 MG TABLET PO PRN (17:00)
[2016-10-14] MEDS ORDERED: *INSULIN REGULAR(HUMULIN R)HUM 100 UNIT/ML VIAL SQ PRN (17:00)
[2016-10-14] MEDS ORDERED: Z GUARD REMEDY 2 OZ OINT TP PRN (17:00)
[2016-10-14] MEDS ORDERED: MAGNESIUM HYDROXIDE 30 ML UDC PO PRN (17:00)
[2016-10-14] MEDS ORDERED: MAG HYDROX/AL HYDROX/SIMETH 30 ML UDC PO PRN (17:00)
[2016-10-14] MEDS ORDERED: DEXTROSE 50%-WATER 50 ML DISP.SYRIN IV PRN (17:00)
[2016-10-14] MEDS ORDERED: HYDROCODONE/APAP 5/325MG 1 EACH TABLET PO PRN (17:00)
[2016-10-14] MEDS: BLOOD SUGAR DIAGNOSTIC 1 EACH STRIP IN SCH ×2 (17:11→23:31)
[2016-10-14] MEDS ORDERED: MORPHINE SULFATE INJ 4 MG/ML DISP.SYRIN IV PRN (17:30)
[2016-10-14 17:38] LABS: AMYLASE 78 U/L (25-115); LIPASE 197 U/L (73-393)
--- NOTE | 2016-10-14 18:44 | NUR ---
MS RN CLOSING NOTE PATIENT IS ALERT AND ORIENTED x4. NO PAIN AT THIS TIME. NO SOB OR DISTRESS NOTED. CALL LIGHT WITHIN REACH AT ALL TIMES. SAFETY MEASURES IMPLEMENTED. ABLE TO COMMUNICATE NEEDS. IV INTACT AND PATENT NO REDNESS OR SWELLING NOTED. AMBULATORY. WILL ENDORSE TO CORPORATE LAW ASSISTANT NURSE
--- NOTE | 2016-10-14 19:45 | NUR ---
MS2/RN RECEIVE PATIENT ALERT, AWAKE, ORIENTED, WITH C/O STOMACH PAIN 9/10, MEDICATED WITH MORPHINE 2 MG IVP ORDERED. WILL MONITOR.
[2016-10-14 20:00] VITALS: BP 164/97
--- NOTE | 2016-10-14 20:00 | NUR ---
MS2/RN PATIENT IS VERY AGITATED AT THIS TIME DUE TO C/O ABDOMINAL PAIN, HE REFUSED SKIN ASSESSMENT.
--- NOTE | 2016-10-14 20:15 | NUR ---
ANGELICA/RN CHECKED THE PATIENT AGAIN, PER PATIENT, HE IS STILL IN PAIN EVEN AFTER THE MORPHINE. RE- ASSESS IN 20 MINUTES MORE AND IF STILL IN PAIN LET HIM KNOW. Addendum: 10/14/16 at 2204 by APARNA WYLIE RN ADDITIONAL INFORMATIONS OF THE ABOVE DOCUMENTATION. SPOKE TO FAWAD HINTON, AND HE TOLD ME TO RE-ASSESS IN 20 MINUTES MORE AND IF STILL IN PAIN, LET HIM KNOW.
[2016-10-14] MEDS ORDERED: MORPHINE SULFATE INJ 2 MG/ML DISP.SYRIN IV ONE (21:00)
[2016-10-14] MEDS ORDERED: IV SET PRIMARY PUMP SET 1 EA INFUS.SET MC ONE (21:18)
[2016-10-14] MEDS ORDERED: MORPHINE SULFATE INJ 4 MG/ML DISP.SYRIN IV ONE (21:30)
--- NOTE | 2016-10-14 21:30 | NUR ---
MS2/RN PATIENT REPORTS PAIN LEVEL 10/10, CALLED AND SPOKE TO FAWAD HINTON, WITH ORDER TO GIVE MORPHINE 2 MG IVP X 1. CARRIED OUT.
--- NOTE | 2016-10-14 21:41 | NUR ---
MS2/RN PATIENT IS SLEEPING AT THIS TIME, AROUSABLE, APPEAR COMFORTABLE, NO SIGNS OF DISTRESS NOTED, WILL CONTINUE TO MONITOR.
--- NOTE | 2016-10-14 23:11 | NUR ---
MS2/RN BLOOD SUGAR CHECKED, BLOOD SUGAR = 484, RECHECKED, BLOOD SUGAR = 467, ASYMPTOMATIC. MARY JANE MENDEZ MADE AWARE. PER MARY JANE, GIVE THE COVERAGE PER SLIDING SCALE, NO NEED TO DO BLOOD DRAW. 10 UNIT REGULAR INSULIN GIVEN. WILL MONITOR.
--- NOTE | 2016-10-15 04:37 | NUR ---
MS2/RN PATIENT IS SLEEPING AT THIS TIME, COMFORTABLE, NO DISTRESS NOTED, CALL LIGHT IN REACH WILL CONTINUE TO MONITOR.
[2016-10-15 06:32] LABS: BASOPHILS % (AUTO) 0.5 % (0.0-2.0); EOSINOPHILS # (AUTO) 0.2 /CMM (0.0-0.7); EOSINOPHILS % (AUTO) 3.2 % (0.0-6.0); HEMATOCRIT 35 % (39-51); HEMOGLOBIN 12.6 g/dL (13.5-17.5); LYMPHOCYTES # (AUTO) 1.1 /CMM (0.8-4.8); LYMPHOCYTES % (AUTO) 20.4 % (20.0-44.0); MEAN CORPUSCULAR HEMOGLOBIN 36 PG (26.0-33.0); MEAN CORPUSCULAR HGB CONC 35 g/dl (31.0-36.0); MEAN CORPUSCULAR VOLUME 102 fL (80-96); MONOCYTES # (AUTO) 0.7 /CMM (0.1-1.30); MONOCYTES % (AUTO) 13.7 % (2.0-12.0); NEUTROPHILS # (AUTO) 3.3 /CMM (1.8-8.9); NEUTROPHILS % (AUTO) 62.2 % (43.0-81.0); PLATELET COUNT (AUTO) 72 /CMM (150-450); RDW COEFFICIENT OF VARIATION 15.8 (11.5-15.0); RED BLOOD CELL COUNT(AUTO) 3.48 MIL/uL (4.5-6.0); WHITE BLOOD COUNT (AUTO) 5.4 K/uL (4.3-11.0)
[2016-10-15] MEDS: INSULIN REGULAR, HUMAN 100 UNIT/ML 3 ML VIAL SQ PRN ×3 (06:39→17:08)
[2016-10-15] MEDS: BLOOD SUGAR DIAGNOSTIC 1 EACH STRIP IN SCH ×3 (06:42→17:02)
--- NOTE | 2016-10-15 06:42 | NUR ---
MS2/RN PATIENT AWAKE AT THIS TIME, COMFORTABLE, NO C/O PAIN, BLOOD SUGAR PER ACCU CHECK = 327 COVERED PER SLIDING SCALE, NO S/S OF HYPERGLYCEMIA, ALL NEEDS ATTENDED AT THIS TIME. WILL CONTINUE TO MONITOR.
[2016-10-15 06:44] LABS: ALBUMIN 2.1 g/dL (3.4-5.0); BILIRUBIN,TOTAL 1.8 mg/dL (0.2-1.0); CALCIUM, SERUM 9.2 mg/dL (8.5-10.1); CREATININE 1.1 mg/dL (0.6-1.3); PHOSPHORUS 4.1 mg/dL (2.5-4.9); POTASSIUM 4.1 mmol/L (3.5-5.1); TOTAL PROTEIN, SERUM 6.8 g/dL (6.4-8.2)
[2016-10-15 06:45] LABS: INR 1.11 (0.87-1.13)
[2016-10-15 06:52] LABS: THYROID STIMULATING HORMONE 1.302 uIU/mL (0.358-3.74)
[2016-10-15] MEDS ORDERED: PANTOPRAZOLE 40 MG TABLET.DR PO SCH (07:30)
--- NOTE | 2016-10-15 07:55 | NUR ---
MS RN OPENING NOTE PATIENT IS ALERT AND ORIENTED x4. NO PAIN AT THIS TIME. NO SOB OR DISTRESS NOTED. CALL LIGHT WITHIN REACH. SAFETY MEASURES IMPLEMENTED. ABLE TO COMMUNICATE NEEDS. IV INTACT AND PATENT NO REDNESS OR SWELLING NOTED. AWAITING CONSULT WITH DR. GARRETT TODAY AND DR. MARTIN. WILL CONTINUE TO MONITOR.
[2016-10-15 08:00] VITALS: BP 142/92
[2016-10-15 08:52] LABS: EOSINOPHILS % (MANUAL) 3 % (0-4); LYMPHOCYTES % (MANUAL) 19 % (16-48); MONOCYTES % (MANUAL) 11 % (0-11.0); NEUTROPHILS % (MANUAL) 67 (42-76)
[2016-10-15] MEDS ORDERED: IV NS 0.9% 250 ML IV ONE (11:48)
[2016-10-15] MEDS ORDERED: SECONDARY IV SET 1 EA INFUS.SET MC ONE (11:48)
[2016-10-15] MEDS ORDERED: IV SET PRIMARY PUMP SET 1 EA INFUS.SET MC ONE (11:48)
[2016-10-15] MEDS: Magnesium 1GM/D5W 100ML PREMIX 100 ML IV SCH ×5 (11:58→16:37)
[2016-10-15] MEDS ORDERED: SULF1TAB48 PO (12:25)
[2016-10-15 16:00] VITALS: BP 144/78
--- NOTE | 2016-10-15 18:00 | NUR ---
MS JAW SKINNER NOTE PATIENT IS ALERT AND ORIENTED x4. NO PAIN AT THIS TIME. NO SOB OR DISTRESS NOTED. CALL LIGHT WITHIN REACH AT ALL TIMES. ALL DUE MEDICATION GIVEN ORDERED. ALL DISCHARGE INSTRUCTIONS GIVEN TO PATIENT AND AT BEDSIDE, VERBAL DISCHARGE INSTRUCTIONS RETURNED. ALL BELONGINGS WITH PATIENT AND . IV REMOVED, SKIN INTACT AND PATENT. REFUSED TO HAVE PICTURES TAKEN OF SKIN.
== END 2016-10-15 18:00 | disposition home or self-care (01) | DRG 383 ==
LOC: ER 13:03 → MEDSG2 14:14
PROVIDERS: ADMIT Internal Medicine; ATTEND Internal Medicine
DX: L03.115 Cellulitis of right lower limb (principal); D61.818 Other pancytopenia; E11.40 Type 2 diabetes mellitus with diabetic neuropathy, unspecified; E11.621 Type 2 diabetes mellitus with foot ulcer; D52.9 Folate deficiency anemia, unspecified; E11.65 Type 2 diabetes mellitus with hyperglycemia; K70.30 Alcoholic cirrhosis of liver without ascites; I10 Essential (primary) hypertension; E83.42 Hypomagnesemia; E87.6 Hypokalemia; E78.5 Hyperlipidemia, unspecified; F10.20 Alcohol dependence, uncomplicated; F17.210 Nicotine dependence, cigarettes, uncomplicated; J44.9 Chronic obstructive pulmonary disease, unspecified; E66.01 Morbid (severe) obesity due to excess calories; D47.2 Monoclonal gammopathy; Z68.41 Body mass index [BMI] 40.0-44.9, adult; B19.20 Unspecified viral hepatitis C without hepatic coma; S51.812A Laceration without foreign body of left forearm, initial encounter; X58.XXXA Exposure to other specified factors, initial encounter; Y93.9 Activity, unspecified; Y92.009 Unspecified place in unspecified non-institutional (private) residence as the place of occurrence of the external cause; L85.3 Xerosis cutis; I83.018 Varicose veins of right lower extremity with ulcer other part of lower leg; L97.819 Non-pressure chronic ulcer of other part of right lower leg with unspecified severity; I87.8 Other specified disorders of veins; L97.519 Non-pressure chronic ulcer of other part of right foot with unspecified severity
CPT/HCPCS: 36415; 80053-TC; 80061-TC; 82150-TC; 82962-TC; 83540-TC; 83690-TC; 83735-TC; 84100-TC; 84443-TC; 85025-TC; 85610-TC; 85652-TC; 85730-TC; 87040-TC; 97001-TC; A4606; J1815; J2270; J3475; J3490; J7050; Z7610

== ENCOUNTER 2016-11-23 12:45 | Emergency (ER) | payer OTHER ==
[~2016-11-23] VITALS: Ht 190.5 cm; Wt 136.1 kg
[2016-11-23 12:45] VITALS: BP 138/85
[~2016-11-23 12:45] MED LIST changes: +SULF1TAB48 PO
== END 2016-11-23 13:09 | disposition home or self-care (01) ==
LOC: ER 12:47
DX: H60.92 Unspecified otitis externa, left ear (principal); E78.5 Hyperlipidemia, unspecified; F17.200 Nicotine dependence, unspecified, uncomplicated; I10 Essential (primary) hypertension; E11.9 Type 2 diabetes mellitus without complications
CPT/HCPCS: 82962; 99283; A4606; Z7610

== ENCOUNTER 2017-06-04 19:04 | Emergency (ER) | payer OTHER ==
[~2017-06-04] VITALS: Ht 177.8 cm; Wt 81.6 kg
--- NOTE | 2017-06-04 19:20 | NUR ---
PT AMBULATORY TO ER BED 2. PT BIBSELF C/O "FEVER AND URINARY FREQUENCY X 3 DAYS". VSS/RESP EVEN UNLABORED/NAD NOTED/SKIN WARM AND DRY/DENIES N-V-D/AOX4. AWAITING MD SKY.
--- NOTE | 2017-06-04 19:25 | NUR ---
URINE SPECIMEN OBTAINED AND SENT TO THE LAB.
[2017-06-04] MEDS ORDERED: ACETAMINOPHEN 325 MG TABLET PO ONE (19:30)
--- NOTE | 2017-06-04 19:45 | NUR ---
PT REFUSED EKG, MADE AWARE.
--- NOTE | 2017-06-04 19:45 | NUR ---
18G IV TO R AC X 1 ATTEMPT USING ASEPTIC TECH, BLOOD CULT X 2 AND BLOOD HANDED OVER TO LAB AT THE BEDSIDE. IV FLUSHES EASILY, NO S/S INFILTRATION NOTED.
[2017-06-04 19:48] LABS: BASOPHILS % (AUTO) 0.6 % (0.0-2.0); EOSINOPHILS % (AUTO) 0.7 % (0.0-6.0); HEMATOCRIT 29 % (39-51); HEMOGLOBIN 10.4 g/dL (13.5-17.5); LYMPHOCYTES # (AUTO) 0.5 /CMM (0.8-4.8); LYMPHOCYTES % (AUTO) 11.9 % (20.0-44.0); MEAN CORPUSCULAR HEMOGLOBIN 34 PG (26.0-33.0); MEAN CORPUSCULAR HGB CONC 36 g/dl (31.0-36.0); MEAN CORPUSCULAR VOLUME 94 fL (80-96); MONOCYTES # (AUTO) 0.5 /CMM (0.1-1.30); MONOCYTES % (AUTO) 10.6 % (2.0-12.0); NEUTROPHILS # (AUTO) 3.5 /CMM (1.8-8.9); NEUTROPHILS % (AUTO) 76.2 % (43.0-81.0); PLATELET COUNT (AUTO) 90 /CMM (150-450); RDW COEFFICIENT OF VARIATION 14.5 (11.5-15.0); RED BLOOD CELL COUNT(AUTO) 3.07 MIL/uL (4.5-6.0); WHITE BLOOD COUNT (AUTO) 4.5 K/uL (4.3-11.0)
[2017-06-04] MEDS ORDERED: KETOROLAC TROMETHAMINE INJ 30 MG/ML VIAL ONE (19:49)
[2017-06-04] MEDS ORDERED: ACETAMINOPHEN 325 MG TABLET ONE (19:49)
--- NOTE | 2017-06-04 19:53 | NUR ---
XRAY AT BEDSIDE.
[2017-06-04] MEDS ORDERED: KETOROLAC TROMETHAMINE INJ 30 MG/ML VIAL IV ONE (20:00)
[2017-06-04 20:05] LABS: APPEARANCE,URINE Slightly Cloudy (CLEAR); BILIRUBIN,URINE MODERATE (NEGATIVE); BLOOD, URINE Large Ery/uL (NEGATIVE); COLOR,URINE Brown (YELLOW); KETONES,URINE Trace (NEGATIVE); LEUKOCYTE ESTERASE ,URINE Negative (NEGATIVE); NITRITE, URINE Negative (NEGATIVE); PROTEIN,URINE >=300 mg/dl (NEGATIVE); UGLUCOSE 100 MG/DL mg/dL (NEGATIVE); UROBILINOGEN,URINE >=8.0 EU/dL (0.2)
--- NOTE | 2017-06-04 20:19 | NUR ---
PT TO CT VIA STRETCHER, VSS.
[2017-06-04 20:21] LABS: ALBUMIN 1.8 g/dL (3.4-5.0); BILIRUBIN,DIRECT 0.5 mg/dL (0.0-0.2); BILIRUBIN,TOTAL 1.4 mg/dL (0.2-1.0); CALCIUM, SERUM 8.5 mg/dL (8.5-10.1); CREATININE 1.1 mg/dL (0.6-1.3); POTASSIUM 4.1 mmol/L (3.5-5.1); TOTAL PROTEIN, SERUM 6.6 g/dL (6.4-8.2)
[2017-06-04 20:30] LABS: INR 1.14 (0.85-1.15)
--- NOTE | 2017-06-04 20:30 | NUR ---
PT BACK FROM CT.
[2017-06-04 20:39] LABS: BACTERIA,URINE Few /HPF (None Seen); RBC,URINE TOO NUMEROUS TO COUN /HPF (0-2); SQUAMOUS EPITHELIAL CELL,UR Few /HPF (None Seen); WBC,URINE TOO NUMEROUS TO COUN /HPF (0-3)
--- NOTE | 2017-06-04 22:19 | NUR ---
IV removed. Catheter intact and site benign. Pressure and 4x4 applied to site. No bleeding noted. Patient discharged to home in stable condition. Written and verbal after care instructions given. Patient verbalizes understanding of instruction. Patient ambulatory with a steady gait.
[2017-06-04 22:20] VITALS: BP 118/69
== END 2017-06-04 22:21 | disposition home or self-care (01) ==
LOC: ER 19:14
DX: N30.01 Acute cystitis with hematuria (principal); D64.9 Anemia, unspecified; D69.6 Thrombocytopenia, unspecified; K74.60 Unspecified cirrhosis of liver; K76.6 Portal hypertension; B19.20 Unspecified viral hepatitis C without hepatic coma; E11.9 Type 2 diabetes mellitus without complications; E66.01 Morbid (severe) obesity due to excess calories; F17.210 Nicotine dependence, cigarettes, uncomplicated; E78.5 Hyperlipidemia, unspecified; I10 Essential (primary) hypertension; I70.0 Atherosclerosis of aorta; J44.9 Chronic obstructive pulmonary disease, unspecified; Z79.4 Long term (current) use of insulin
CPT/HCPCS: 36415; 71045; 74176; 80048; 80076; 81001; 82962; 83605; 85025; 85730; 87040 ×2; 87086; 93005; 96374; 99285; A4606; J1885; Z7610; 81000-TC

== ENCOUNTER 2017-09-02 13:55 | Emergency (ER) | payer OTHER ==
[~2017-09-02] VITALS: Ht 190.5 cm; Wt 120.2 kg
[~2017-09-02 13:55] MED LIST changes: +METF-440 PO; -METF500T4 PO
--- NOTE | 2017-09-02 14:01 | NUR ---
PATIENT TO ED TO RIGHT FLANK PAIN RADIATING TO ABDOMEN, PATIENT REPORTED NAUSEA AND VOMITTING. PATIENT IS AA04. APPEARS IN NO DISTRESS. RESPIRATION EVEN AND UNLABORED. SKIN IS WARM TO TOUCH AND NON DIAPHORETIC. PT IS AFEBRILE. VSS. PT ALSO NOTED WITH BLE SWELLING,
[2017-09-02] MEDS ORDERED: IV NS 0.9% 1,000 ML BAG IV ONE (14:30)
[2017-09-02 14:54] LABS: BASOPHILS % (AUTO) 1.3 % (0.0-2.0); EOSINOPHILS % (AUTO) 4.2 % (0.0-6.0); HEMATOCRIT 30 % (39-51); HEMOGLOBIN 11.1 g/dL (13.5-17.5); LYMPHOCYTES # (AUTO) 0.9 /CMM (0.8-4.8); LYMPHOCYTES % (AUTO) 23.7 % (20.0-44.0); MEAN CORPUSCULAR HGB CONC 37 g/dl (31.0-36.0); MEAN CORPUSCULAR VOLUME 96 fL (80-96); MONOCYTES # (AUTO) 0.4 /CMM (0.1-1.30); MONOCYTES % (AUTO) 11.2 % (2.0-12.0); NEUTROPHILS # (AUTO) 2.2 /CMM (1.8-8.9); NEUTROPHILS % (AUTO) 59.6 % (43.0-81.0); PLATELET COUNT (AUTO) 85 /CMM (150-450); RDW COEFFICIENT OF VARIATION 14.8 (11.5-15.0); RED BLOOD CELL COUNT(AUTO) 3.17 MIL/uL (4.5-6.0); WHITE BLOOD COUNT (AUTO) 3.7 K/uL (4.3-11.0)
[2017-09-02 14:56] LABS: INR 1.13 (0.85-1.15)
[2017-09-02 15:19] LABS: CALCIUM, SERUM 8.2 mg/dL (8.5-10.1); CREATININE 0.9 mg/dL (0.6-1.3); POTASSIUM 3.7 mmol/L (3.5-5.1)
[2017-09-02 15:25] LABS: ALBUMIN 2.2 g/dL (3.4-5.0); BILIRUBIN,DIRECT 0.3 mg/dL (0.0-0.2); BILIRUBIN,TOTAL 1.1 mg/dL (0.2-1.0); TOTAL PROTEIN, SERUM 5.8 g/dL (6.4-8.2)
[2017-09-02 15:26] LABS: TROPONIN I 0.021 ng/mL (0.00-0.056)
[2017-09-02 16:02] VITALS: BP 148/90
--- NOTE | 2017-09-02 16:03 | NUR ---
Patient discharged to home in stable condition. Written and verbal after care instructions given. Patient verbalizes understanding of instruction.IV removed. Catheter intact and site benign. Pressure and 4x4 applied to site. No bleeding noted.
[2017-09-02 16:05] LABS: APPEARANCE,URINE Clear (CLEAR); BILIRUBIN,URINE Negative (NEGATIVE); BLOOD, URINE Moderate Ery/uL (NEGATIVE); COLOR,URINE Yellow (YELLOW); KETONES,URINE Negative (NEGATIVE); LEUKOCYTE ESTERASE ,URINE Negative (NEGATIVE); NITRITE, URINE Negative (NEGATIVE); PH,URINE 6.5 (5.0-8.0); PROTEIN,URINE Negative (NEGATIVE); UGLUCOSE Negative (NEGATIVE); UROBILINOGEN,URINE 0.2 EU/dL (0.2)
[2017-09-02 16:19] LABS: BACTERIA,URINE None seen /HPF (None Seen); SQUAMOUS EPITHELIAL CELL,UR Few /HPF (None Seen); WBC,URINE 0-2 /HPF (0-3)
== END 2017-09-02 16:04 | disposition home or self-care (01) ==
LOC: ER 14:00
DX: D61.818 Other pancytopenia (principal); K70.30 Alcoholic cirrhosis of liver without ascites; F10.20 Alcohol dependence, uncomplicated; E11.65 Type 2 diabetes mellitus with hyperglycemia; I10 Essential (primary) hypertension; J44.9 Chronic obstructive pulmonary disease, unspecified; E78.5 Hyperlipidemia, unspecified; E66.1 Drug-induced obesity; D64.9 Anemia, unspecified; F17.200 Nicotine dependence, unspecified, uncomplicated; Z86.19 Personal history of other infectious and parasitic diseases; Z88.2 Allergy status to sulfonamides; Z79.4 Long term (current) use of insulin; Z79.84 Long term (current) use of oral hypoglycemic drugs
CPT/HCPCS: 36415; 71045; 80048; 80076; 80305; 81001; 83605; 83690; 83880; 84484; 85025; 85730; 87040 ×2; 93005; 96360; 99285; A4606; J7030; Z7610; 81000-TC; J7040

== ENCOUNTER 2017-11-14 05:06 | Emergency (ER) | payer OTHER ==
[~2017-11-14] VITALS: Ht 190.5 cm; Wt 111.1 kg
[~2017-11-14 05:06] MED LIST changes: -METF-440 PO; +METF500T6 PO
[2017-11-14 05:07] VITALS: BP 148/102
[2017-11-14] MEDS ORDERED: HYDROCODONE/APAP 5/325MG 1 EACH TABLET ONE (05:35)
[2017-11-14] MEDS: HYDROCODONE/APAP 5/325MG 1 EACH TABLET PO ONE (05:38)
== END 2017-11-14 05:40 | disposition home or self-care (01) ==
LOC: ER 05:07
DX: L03.115 Cellulitis of right lower limb (principal); I10 Essential (primary) hypertension; J44.9 Chronic obstructive pulmonary disease, unspecified; E11.9 Type 2 diabetes mellitus without complications; E78.5 Hyperlipidemia, unspecified; E66.9 Obesity, unspecified; D69.6 Thrombocytopenia, unspecified; R16.1 Splenomegaly, not elsewhere classified; F10.10 Alcohol abuse, uncomplicated; F17.200 Nicotine dependence, unspecified, uncomplicated; Y90.9 Presence of alcohol in blood, level not specified; Z86.19 Personal history of other infectious and parasitic diseases; Z79.4 Long term (current) use of insulin
CPT/HCPCS: 99283; A4606; Z7610

== ENCOUNTER 2017-12-25 20:14 | Inpatient (IN) | payer OTHER ==
[~2017-12-25] VITALS: Ht 190.5 cm; Wt 111.6 kg
[~2017-12-25 20:14] MED LIST changes: +METF-440 PO; -METF500T6 PO
--- NOTE | 2017-12-25 20:42 | NUR ---
BIBWIFE C/O SHARP LEFT CALF PAIN W/ SWELLING AND REDNESS, WARM TO TOUCH X 4 DAYS, WORSE TODAY. PT IS AAOX4. SKIN HOT AND DRY TO TOUCH. MILD S/S OF DISTRESS NOTED WHEN PT MOVES HIS LEFT FOOT CAUSING SEVERE SHARP PAIN. PT STATES HE HAS HX OF LOWER EXTREMITY SWELLING/REDNESS. RESPIRATIONS EVEN AND UNLABORED. PT PLACED ON WATER PROJECT ENGINEER AND POX. PT SAFETY AND COMFORT MEASURES IN PLACE. BEDSIDE. AWAITING MD FOR EVAL.
[2017-12-25] MEDS ORDERED: MORPHINE SULFATE INJ 4 MG/ML DISP.SYRIN ONE (20:52)
[2017-12-25] MEDS ORDERED: ONDANSETRON HCL/PF 4 MG/2 ML VIAL ONE (20:52)
[2017-12-25] MEDS ORDERED: ONDANSETRON HCL/PF 4 MG/2 ML VIAL IVP ONE (21:00)
[2017-12-25] MEDS ORDERED: VANCOMYCIN 1 GM in IV D5W 250 ML IV ONE (21:00)
[2017-12-25] MEDS ORDERED: MORPHINE SULFATE INJ 2 MG/ML DISP.SYRIN IV ONE (21:00)
[2017-12-25 21:08] LABS: BASOPHILS % (AUTO) 0.3 % (0.0-2.0); EOSINOPHILS % (AUTO) 2.4 % (0.0-6.0); HEMATOCRIT 30 % (39-51); HEMOGLOBIN 10.2 g/dL (13.5-17.5); LYMPHOCYTES % (AUTO) 14.3 % (20.0-44.0); MEAN CORPUSCULAR HGB CONC 34 g/dl (31.0-36.0); MEAN CORPUSCULAR VOLUME 97 fL (80-96); MONOCYTES # (AUTO) 1.5 /CMM (0.1-1.30); MONOCYTES % (AUTO) 22.1 % (2.0-12.0); NEUTROPHILS # (AUTO) 4.2 /CMM (1.8-8.9); NEUTROPHILS % (AUTO) 60.9 % (43.0-81.0); PLATELET COUNT (AUTO) 93 /CMM (150-450); RDW COEFFICIENT OF VARIATION 14.9 (11.5-15.0); RED BLOOD CELL COUNT(AUTO) 3.09 MIL/uL (4.5-6.0); WHITE BLOOD COUNT (AUTO) 6.9 K/uL (4.3-11.0)
[2017-12-25 21:19] LABS: CALCIUM, SERUM 8.7 mg/dL (8.5-10.1); CARBON DIOXIDE 31 mmol/L (21-32); CHLORIDE 102 mmol/L (98-107); CREATININE 1.6 mg/dL (0.6-1.3); GLUCOSE 167 mg/dL (74-106); POTASSIUM 3.6 mmol/L (3.5-5.1); SODIUM SERUM 136 mmol/L (136-145); UREA NITROGEN, BLOOD 32 mg/dL (7-18)
[2017-12-25 21:22] LABS: INR 1.11 (0.85-1.15)
[2017-12-25 21:26] LABS: TROPONIN I < 0.017 ng/mL (0.00-0.056)
[2017-12-25 21:31] LABS: ALANINE AMINOTRANSFERASE 36 U/L (12-78); ALBUMIN 2.2 g/dL (3.4-5.0); ALKALINE PHOSPHATASE 63 U/L (46-116); ASPARTATE AMINOTRANSFERASE 44 U/L (15-37); B-TYPE NATRIURETIC PEPTIDE 443 PG/ML (0-125); BILIRUBIN,DIRECT 0.5 mg/dL (0.0-0.2); BILIRUBIN,TOTAL 1.6 mg/dL (0.2-1.0); TOTAL PROTEIN, SERUM 6.8 g/dL (6.4-8.2)
[2017-12-25] MEDS ORDERED: VANCOMYCIN 1 GM VIAL ONE (21:41)
--- NOTE | 2017-12-25 22:07 | NUR ---
in tube conversion technician out of pt's room. pt requested to walk to the restroom assistated by
--- NOTE | 2017-12-25 22:19 | NUR ---
urine sample collected and called lab for pear picker
[2017-12-25 22:44] LABS: APPEARANCE,URINE SL CLOUDY (CLEAR); BILIRUBIN,URINE NEGATIVE (NEGATIVE); BLOOD, URINE 3+ Ery/uL (NEGATIVE); COLOR,URINE YELLOW (YELLOW); KETONES,URINE NEGATIVE (NEGATIVE); LEUKOCYTE ESTERASE ,URINE NEGATIVE (NEGATIVE); NITRITE, URINE NEGATIVE (NEGATIVE); PROTEIN,URINE 2+ mg/dl (NEGATIVE); UGLUCOSE NEGATIVE (NEGATIVE); UROBILINOGEN,URINE 0.2 EU/dL (0.2)
[2017-12-25 22:45] LABS: EOSINOPHILS % (MANUAL) 3 % (0-4); LYMPHOCYTES % (MANUAL) 20 % (16-48); MONOCYTES % (MANUAL) 17 % (0-11.0); NEUTROPHILS % (MANUAL) 60 (42-76)
[2017-12-25 22:52] LABS: BACTERIA,URINE None seen /HPF (None Seen); SQUAMOUS EPITHELIAL CELL,UR Few /HPF (None Seen)
[2017-12-26] MEDS ORDERED: ZOLPIDEM TARTRATE 5 MG TABLET PO PRN (01:00)
[2017-12-26] MEDS ORDERED: CLONIDINE HCL 0.1 MG TABLET PO PRN (01:00)
[2017-12-26] MEDS ORDERED: DEXTROSE 50%-WATER 50 ML DISP.SYRIN IV PRN (01:00)
[2017-12-26] MEDS ORDERED: ONDANSETRON HCL/PF 4 MG/2 ML VIAL IVP PRN (01:00)
[2017-12-26] MEDS ORDERED: ACETAMINOPHEN 325 MG TABLET PO PRN (01:00)
[2017-12-26] MEDS ORDERED: POLYETHYLENE GLYCOL 3350 17 GM POWD.PACK PO PRN (01:00)
[2017-12-26] MEDS ORDERED: MORPHINE SULFATE INJ 2 MG/ML DISP.SYRIN IV PRN (01:00)
--- NOTE | 2017-12-26 01:05 | NUR ---
REPORT GIVEN TO JACLYN PANDYA FOR WENDY
[2017-12-26 01:10] VITALS: BP 133/75
--- NOTE | 2017-12-26 01:10 | NUR ---
ADMISSION NOTES: RECEIVED REPORT FROM [facility] PACKING ROOM INSPECTOR. PT CAME IN TO THE UNIT, AMBULATORY ACCOMPANIED BY RESPIRATORY PHYSICIAN AND PT'S . TECH CLAIMED PT REFUSED WHEELCHAIR AND INSISTED TO WALK INSTEAD. PT IS A/O X3 ON RA RESPIRATION EVEN AND UNLABORED, NOW C/O SO MUCH PAIN DUE TO AMBULATING FROM ER TO 2ND FLOOR, REQUESTING FOR MORPHINE, STATED [facility]CO NEVER HELP WITH HIS PAIN. PT HAS RIGHT AC G 18, PATENT AND FLUSHING WELL, ON HL. PT INSISTED TO WEAR STREET CLOTHES, REFUSED WEARING HOSPITAL GOWN. ALSO PT ONLY LET US PERFORM BODY CHECK ON LEGS, TOOK PICTURE OF BLE, BUT PT REFUSED CHECKING UPPER BODY AND SACRAL/PERINEUM AREA, STATED HE'S NOT COMFORTABLE. INVENTORY OF BELONGINGS COMPLETED BY KRISTA CORRIGAN, PT REFUSED TO CHECK WHAT'S INSIDE HIS WALLET, EDUCATION PROVIDED TO PT. PT'S LLE NOTED TO BE RED, SWOLLEN, HOT TO TOUCH, PT ABLE TO MOVE AND WIGGLE TOES, WITH GOOD CAPILLARY REFILL NOTED, PT HAS POSITIVE SENSATION NOTED ON LEGS, PEDAL DORSALIS PEDIS PULSE NOTED. BLE US WAS NEGATIVE. ENCOURAGED PT TO ELEVATED LEGS, PROVIDED WITH PILLOWS. DISCUSSED PLAN OF CARE TO PT AND FAMILY. ORIENTED PT TO UNIT POLICY AND HOURLY ROUNDING, USE OF CALL LIGHT SYSTEM. SAFETY PRECAUTIONS FOR FALL INITIATED, CALL LIGHT IN REACH, WILL CONTINUE MONITORING PT.
[2017-12-26 01:30] VITALS: BP 137/75
[2017-12-26] MEDS: MORPHINE SULFATE INJ 4 MG/ML DISP.SYRIN IV PRN ×4 (01:39→20:28)
--- NOTE | 2017-12-26 01:39 | NUR ---
PRN MORPHINE: PT C/O SO MUCH PAIN 12/13 ON LEFT LEG, STATED ITS BURNING AND SHARP, PRN MORPHINE 2MG IVP ADMINISTERED AT THIS TIME, WILL CONTINUE TO MONITOR AND REASSESS
--- NOTE | 2017-12-26 02:21 | NUR ---
PRN AMBIEN: PT REQUESTED FOR SLEEPING MEDICATION, OKAY TO GIVE AT THIS TIME, PT IS A NEW ADMIT, PRN AMBIEN 5MG ADMINISTERED AT THIS TIME.
[2017-12-26] MEDS ORDERED: IPRATROPIUM NEB FS 0.5 MG/2.5 ML AMPUL.NEB NEB PRN (02:30)
[2017-12-26] MEDS ORDERED: ALBUTEROL FS 2.5 MG/3 ML VIAL.NEB NEB PRN (02:30)
--- NOTE | 2017-12-26 03:00 | NUR ---
RN NOTES: ORDER FOR POTASSIUM CHLORIDE 20MEQ IN 1/2 NS AT 75ML/HR, NOT AVAILABLE IN OMNICELL, HANDED THE PAPER ORDER TO RN SUP, UNFORTUNATELY THIS IVF NOT AVAILABLE IN ANY OF THE OMNICELL IN THE HOSPITAL (ER OMNICELL, N[facility] LOCKER, 3WEST OMNICELL, MS2 OMNICELL), CONTACTED MD METAL MOLDER, PER MD TO GIVE 1/2 NS AT 75 ML/HR.
[2017-12-26] MEDS: IV 1/2NS 1000 ML 1,000 ML IV PRN (03:18)
--- NOTE | 2017-12-26 03:25 | NUR ---
RN NOTES: PT SLEEPING COMFORTABLY, RESPIRATION EVEN AND UNLABORED, BLE OFFLOADED ON PILLOWS
[2017-12-26] MEDS ORDERED: PIPERACILLIN /TAZOBACTAM 2.25 G VIAL IV ONE (04:44)
[2017-12-26] MEDS: PIPERACILLIN /TAZOBACTAM 2.25 G in IV D5W 50 ML IV SCH ×2 (05:11→13:02)
--- NOTE | 2017-12-26 05:15 | NUR ---
RN NOTES: PLACED NEW IV SET UP , TUBING FOR IV ATB ZOSYN THE MEDICATION NOT SHOWING ANY COMPATIBILITY REPORT FOR 1/2 NS AND ZOSYN.
--- NOTE | 2017-12-26 05:29 | NUR ---
RN NOTES: PT REFUSED URINAL, INSISTED ON AMBULATING TO THE RESTROOM TO VOID, EVEN THOUGH HE'S HAVING A HARD TIME AMBULATING DUE TO SWELLING ON HIS LEGS
[2017-12-26] MEDS: BLOOD SUGAR DIAGNOSTIC 1 EACH STRIP IN SCH ×4 (05:47→21:30)
[2017-12-26] MEDS: INSULIN REGULAR, HUMAN 100 UNIT/ML 3 ML VIAL SQ PRN ×4 (05:48→21:31)
--- NOTE | 2017-12-26 06:14 | NUR ---
PRN MORPHINE: PT C/O LEFT CALF PAIN REQUESTING FOR MORPHINE, PS 11/12, PRN MORPHINE 2MG IVP ADMINISTERED AT THIS TIME, WILL CONTINUE TO MONITOR AND REASSESS
--- NOTE | 2017-12-26 07:06 | NUR ---
RN CLOSING NOTES: PT IN BED, AWAKE, ON RA, RESPIRATION EVEN AND UNLABORED, LAST PAIN MEDICATION ADMINISTERED AT 0610AM. IV ACCESS ON RIGHT AC PATENT AND FLUSHING WELL, ON HL. NO S/S OF INFILTRATION NOTED. VS REMAINS STABLE, BLE OFFLOADED, NEEDS ATTENDED. FOR WOUND CARE CONSULT. SAFETY PRECAUTIONS FOR FALL REMAINS ENGAGED, CALL LIGHT IN REACH, WILL ENDORSE TO DAY RN FOR CONTINUITY OF CARE.
[2017-12-26 07:36] LABS: BASOPHILS % (AUTO) 0.1 % (0.0-2.0); HEMATOCRIT 28 % (39-51); HEMOGLOBIN 9.2 g/dL (13.5-17.5); LYMPHOCYTES % (AUTO) 14.2 % (20.0-44.0); MEAN CORPUSCULAR HGB CONC 33 g/dl (31.0-36.0); MEAN CORPUSCULAR VOLUME 101 fL (80-96); MONOCYTES # (AUTO) 1.4 /CMM (0.1-1.30); MONOCYTES % (AUTO) 19.5 % (2.0-12.0); NEUTROPHILS # (AUTO) 4.6 /CMM (1.8-8.9); NEUTROPHILS % (AUTO) 63.2 % (43.0-81.0); PLATELET COUNT (AUTO) 79 /CMM (150-450); RDW COEFFICIENT OF VARIATION 16.1 (11.5-15.0); RED BLOOD CELL COUNT(AUTO) 2.73 MIL/uL (4.5-6.0); WHITE BLOOD COUNT (AUTO) 7.2 K/uL (4.3-11.0)
[2017-12-26 07:55] LABS: THYROID STIMULATING HORMONE 2.767 uIU/mL (0.358-3.74)
[2017-12-26] MEDS: PANTOPRAZOLE 40 MG TABLET.DR PO SCH (07:55)
[2017-12-26 08:00] VITALS: BP 117/73
[2017-12-26 08:06] LABS: ALBUMIN 1.8 g/dL (3.4-5.0); CALCIUM, SERUM 8.1 mg/dL (8.5-10.1); CREATININE 1.4 mg/dL (0.6-1.3); PHOSPHORUS 3.5 mg/dL (2.5-4.9); POTASSIUM 3.7 mmol/L (3.5-5.1)
[2017-12-26 08:08] LABS: MAGNESIUM 1.2 mg/dL (1.8-2.4)
[2017-12-26] MEDS: METOPROLOL TARTRATE 25 MG TABLET PO SCH ×2 (08:23→20:09)
[2017-12-26] MEDS: ASPIRIN 81 MG TAB.CHEW PO SCH (08:24)
[2017-12-26] MEDS: LISINOPRIL (5MG) 5 MG TABLET PO SCH (08:25)
[2017-12-26] MEDS: HYDROCODONE/APAP 5/325MG 1 EACH TABLET PO PRN ×2 (08:26→22:38)
[2017-12-26] MEDS ORDERED: FEE PK DOSING 1 MIN EA MC ONE (08:48)
--- NOTE | 2017-12-26 08:55 | NUR ---
MS RN Initial notes Patient is up sitting in the bed, had breakfast with good appetite. Breathing on room air, tolerating well. Complaint of leg pain 7/10, both legs with redness and warmth. PO PRN [place] given, will reassess. Per patient he is taking [place] 10 at home, will inform MD. Maintained safety. Will cont to monitor.
[2017-12-26 09:06] LABS: EOSINOPHILS % (MANUAL) 2 % (0-4); LYMPHOCYTES % (MANUAL) 17 % (16-48); MONOCYTES % (MANUAL) 18 % (0-11.0); NEUTROPHILS % (MANUAL) 63 (42-76)
[2017-12-26] MEDS: Magnesium 1GM/D5W 100ML PREMIX 100 ML IV SCH ×4 (11:53→19:53)
[2017-12-26] MEDS: VANCOMYCIN 1.5 GM in IV D5W 500 ML IV SCH (15:06)
[2017-12-26 16:00] VITALS: BP 138/70
--- NOTE | 2017-12-26 18:42 | NUR ---
MS RN Closing notes Patient is A/O x4, smoker, smoking cessation teaching and education provided, verbalized understanding, patient prefers not to stop at this time and aware of the risk and benefits of quit smoking, patient signed smoking consent and place in the chart. Leg pain managed by IV PRN Morphine and PO PRN [place]. Low magnesium level, supplemented today. Continued on IV Zosyn and IV Vancomycin for cellulitis legs as ordered. VS stable, ambulates independently. Call light within reach. Will endorse to oncoming RN.
--- NOTE | 2017-12-26 19:10 | NUR ---
RN INITIAL NOTES: RECEIVED REPORT FROM YAZMIN CHOI. PT AMBULATING IN THE HALLWAY WITH FAMILY MEMBER. PT IS A/O X3 ON RA RESPIRATION EVEN AND UNLABORED. PT HAS SMOKING PRIVILEGES, CONSENT SECURED, AND PT BEEN GOING DOWN TO SMOKE, PRIMARY REASON TO WHY THE MEDICATION/MAGNESIUM REPLACEMENT AND ANTIBIOTICS GOT BACK UP/BEHIND WITH SCHEDULE ADMINISTRATION TIME. [id number] TIMES PT HAS BEEN EDUCATED, BUT PT VERY PASSIVE ABOUT IT AND INSISTING THAT HE CANT HELP BUT SMOKE. EDUCATE AT BED SIDE ASIDE FROM PT. PT KNOWN TO BE NON COMPLIANT, AND ALTHOUGH ENCOURAGE TO ELEVATE HIS LEGS HE KEPT TAKING OFF THE PILLOWS AND AMBULATE IN THE HALLWAY AND LATER ON HE WILL COMPLAIN THAT HE'S LEGS BEEN IN PAIN. ENCOURAGE PT TO REST HIS LEGS ONE WAY TO KEEP THE BLOOD FLOWING AND RELIEVE PAIN, BUT PT NEVER LISTEN. IV ACCESS ON RIGHT AC PATENT AND FLUSHING WELL, INFUSING WITH MAGNESIUM BAG REPLACEMENT AT THIS TIME. ONE MORE BAG TO HANG FOR AIR CARRIER OPERATIONS INSPECTOR. EDUCATE PT AND FAMILY REGARDING IMPORTANCE OF KEEPING TRACT WITH MEDICATION ESPECIALLY WITH IV ANTIBIOTIC AND ITS SIGNIFICANCE TO BE ADMINISTERED AT SCHEDULED TIME. SAFETY PRECAUTIONS FOR FALL INITIATED, CALL LIGHT IN REACH, WILL CONTINUE MONITORING PT.
--- NOTE | 2017-12-26 19:26 | NUR ---
rn notes: organizational effectiveness director inpatient care manager rn awa came to see the pt discussed plan of care, pt and pt's communicating to the md, also id came to see the pt at this time
[2017-12-26] MEDS ORDERED: CEFTRIAXONE 1 G VIAL ONE (19:49)
[2017-12-26 20:00] VITALS: BP 125/67
[2017-12-26] MEDS: ACYCLOVIR 200 MG CAPSULE PO SCH (20:01)
[2017-12-26 20:06] VITALS: BP 125/67
--- NOTE | 2017-12-26 20:28 | NUR ---
prn morphine: pt c/o left calf pain, requesting for morphine, prn morphine 2mg ivp administered to the pt at this time, will continue to monitor and reassess
[2017-12-26] MEDS: CEFTRIAXONE 1 G in IV D5W 50 ML IV SCH (20:55)
[2017-12-26] MEDS ORDERED: SILVER SULFADIAZINE CREAM 25 GM TUBE ONE (21:13)
[2017-12-26] MEDS: SILVER SULFADIAZINE CREAM 25 GM TUBE TP SCH (21:26)
[2017-12-26] MEDS: ATORVASTATIN 40 MG TABLET PO SCH (21:30)
--- NOTE | 2017-12-26 21:32 | NUR ---
accu check 187: blood sugar checked result obtained is 187, 3units of insulin given per sliding scale, will monitor for any s/s of hypoglycemia
--- NOTE | 2017-12-26 21:42 | NUR ---
rn notes: pt insisted to smoke at this time, informed pt this will be the last smoking session he can have for the night, informed security, pt will,be accompanied by aidee lin, son accompanied the pt too. also informed pt's family that because its past visiting hours they can only stay for maximum of 10minutes.
--- NOTE | 2017-12-26 22:05 | NUR ---
STEPH NOTES: PT CAME BACK TO THE UNIT ACCOMPANIED BY KRISTA BERMUDEZ
--- NOTE | 2017-12-26 22:38 | NUR ---
prn norco: pt c/o 7/10 pain on left calf, requesting for pain medication. prn norco 5/325mg tab po administered at this time. will continue to monitor and reassess
[2017-12-27] MEDS: IV 1/2NS 1000 ML 1,000 ML IV PRN (00:33)
[2017-12-27] MEDS: MORPHINE SULFATE INJ 4 MG/ML DISP.SYRIN IV PRN ×4 (00:35→22:20)
--- NOTE | 2017-12-27 00:36 | NUR ---
PRN MORPHINE: PT C/O 01/12 LEFT CALF PAIN REQUESTING FOR MORPHINE, PRN MORPHINE 2MG IVP ADMINISTERED AT THIS TIME, WILL CONTINUE TO MONITOR AND REASSESS
--- NOTE | 2017-12-27 03:44 | NUR ---
RN NOTES: CONFISCATED PT'S CIGARETTE, PLACED ON BAG WITH PT'S BRAKE ADJUSTER IT
[2017-12-27] MEDS ORDERED: MORPHINE SULFATE INJ 4 MG/ML DISP.SYRIN ONE (04:29)
[2017-12-27] MEDS: BLOOD SUGAR DIAGNOSTIC 1 EACH STRIP IN SCH ×4 (06:45→21:10)
[2017-12-27] MEDS: INSULIN REGULAR, HUMAN 100 UNIT/ML 3 ML VIAL SQ PRN ×4 (06:46→21:13)
--- NOTE | 2017-12-27 06:47 | NUR ---
prn morphine: pt's c/o so much pain in his left calf requesting for morphine, prn morphine 2mg ivp administered at this time, will continue to monitor and reassess. also blood sugar is 136, 2units of insulin given per sliding scale
--- NOTE | 2017-12-27 06:59 | NUR ---
rn closing notes: pt in bed, awake, remains a/o x3, needs to be firm with decision and rules and regulation of the hospital as pt very manipulative and stubborn and wants to do things on his own way. iv access patent and flushing well, on hl, free from s/s of infiltration. pt refused ivf. ble kept offloaded on 2pillows. vs remains stable, needs attended. safety precautions for fall initiated, call light in reach, will endorse to day rn for continuity of care.
[2017-12-27 07:12] LABS: CALCIUM, SERUM 8.4 mg/dL (8.5-10.1); CREATININE 1.3 mg/dL (0.6-1.3); MAGNESIUM 1.7 mg/dL (1.8-2.4); POTASSIUM 4.7 mmol/L (3.5-5.1)
--- NOTE | 2017-12-27 07:55 | NUR ---
MS RN Initial notes Patient is ambulating independently, anxious and wants to smoke at times. Patient is aware of the risk and benefit of quit smoking and cessation aide to quit smoking but prefers not to stop smoking despite of teaching and education provided. Breathing on room air, tolerating well. BLE still with redness, encourage to elevate with pillows while in bed, verbalized understanding. Will cont to monitor.
[2017-12-27 08:00] VITALS: BP 111/77
[2017-12-27] MEDS: ASPIRIN 81 MG TAB.CHEW PO SCH (08:11)
[2017-12-27] MEDS: ACYCLOVIR 200 MG CAPSULE PO SCH ×2 (08:11→16:41)
[2017-12-27] MEDS: LISINOPRIL (5MG) 5 MG TABLET PO SCH (08:11)
[2017-12-27] MEDS: METOPROLOL TARTRATE 25 MG TABLET PO SCH ×2 (08:12→21:10)
[2017-12-27] MEDS: PANTOPRAZOLE 40 MG TABLET.DR PO SCH (08:13)
[2017-12-27] MEDS: VANCOMYCIN 1.5 GM in IV D5W 500 ML IV SCH (08:59)
[2017-12-27] MEDS: SILVER SULFADIAZINE CREAM 25 GM TUBE TP SCH ×2 (09:56→16:41)
[2017-12-27] MEDS ORDERED: FUROSEMIDE 20 MG/2 ML VIAL IV ONE (12:00)
[2017-12-27] MEDS: SPIRONOLACTONE 25 MG TABLET PO SCH (12:21)
[2017-12-27] MEDS: Magnesium 1GM/D5W 100ML PREMIX 100 ML IV SCH ×2 (13:42→14:57)
[2017-12-27 16:00] VITALS: BP 116/73
--- NOTE | 2017-12-27 18:41 | NUR ---
MS RN Closing notes Patient is A/O x4, good appetite. Leg pain managed by IV PRN Morphine. Low magnesium level, supplemented today. IVF not infusing, patient refusing despite of education and teaching. Continued on IV Zosyn and IV Vancomycin for cellulitis legs per ID. VS stable, afebrile during the shift, ambulates independently. Call light within reach. Will endorse to oncoming RN.
--- NOTE | 2017-12-27 19:10 | NUR ---
RN OPENING NOTES PT AWAKE AND ALERT, WALKING THE UNIT. NO COMPLAINS OF SOB OR DISTRESS AT THIS TIME. PT HAS A RIGHT AC #18, INTACT AND PATENT. PT REFUSING IVF MD AWARE. SAFETY PRECAUTIONS IN PLACE, BED IN LOWEST LOCKED POSITION, X2 SIDE RAILS UP, AND CALL LIGHT WITHIN REACH. WILL CONTINUE TO MONITOR.
[2017-12-27 20:00] VITALS: BP 118/66
[2017-12-27] MEDS: CEFTRIAXONE 1 G in IV D5W 50 ML IV SCH (21:00)
[2017-12-27] MEDS: ATORVASTATIN 40 MG TABLET PO SCH (21:10)
[2017-12-28] MEDS: VANCOMYCIN 1.5 GM in IV D5W 500 ML IV SCH (01:10)
[2017-12-28] MEDS: MORPHINE SULFATE INJ 4 MG/ML DISP.SYRIN IV PRN ×3 (03:06→17:11)
[2017-12-28] MEDS: BLOOD SUGAR DIAGNOSTIC 1 EACH STRIP IN SCH ×3 (07:08→16:31)
--- NOTE | 2017-12-28 07:15 | NUR ---
MS RN Initial notes Patient in bed, awake, A/O x4. Breathing on room air, tolerating well. BLE still with redness, encourage to elevate with pillows while in bed, verbalized understanding. IVF not infusing due to refusal. Call light within reach. Will cont to monitor.
[2017-12-28 07:20] LABS: CALCIUM, SERUM 7.4 mg/dL (8.5-10.1); CREATININE 1.4 mg/dL (0.6-1.3); MAGNESIUM 1.5 mg/dL (1.8-2.4); POTASSIUM 4.6 mmol/L (3.5-5.1)
--- NOTE | 2017-12-28 07:57 | NUR ---
RN CLOSING NOTES PT AWAKE AND ALERT. NO COMPLAINS OF SOB OR DISTRESS AT THIS TIME. PT HAS A RIGHT FOREARM #18, INTACT AND PATENT. PT REFUSING IVF MD AWARE. PT WENT OUT TO SMOKE AT 2030. ALL MEDICATIONS GIVEN ORDERED. ALL NEEDS MET. SAFETY PRECAUTIONS IN PLACE, BED IN LOWEST LOCKED POSITION, X2 SIDE RAILS UP, AND CALL LIGHT WITHIN REACH. WILL ENDORSE TO DAY SHIFT NURSE FOR CONTINUITY OF CARE.
[2017-12-28 08:03] VITALS: BP 101/65
[2017-12-28] MEDS: ACYCLOVIR 200 MG CAPSULE PO SCH ×2 (09:01→16:23)
[2017-12-28] MEDS: SPIRONOLACTONE 25 MG TABLET PO SCH (09:01)
[2017-12-28] MEDS: LISINOPRIL (5MG) 5 MG TABLET PO SCH (09:02)
[2017-12-28] MEDS: METOPROLOL TARTRATE 25 MG TABLET PO SCH (09:02)
[2017-12-28] MEDS: ASPIRIN 81 MG TAB.CHEW PO SCH (09:02)
[2017-12-28] MEDS: PANTOPRAZOLE 40 MG TABLET.DR PO SCH (09:03)
[2017-12-28] MEDS: SILVER SULFADIAZINE CREAM 25 GM TUBE TP SCH ×2 (09:07→16:26)
--- NOTE | 2017-12-28 10:10 | NUR ---
WOUND CARE CONSULT: PT PRESENTS WITH REDNESS, SWELLING TO LEFT LOWER LEG, PRESENT ON ADMISSION. PT ENCOURAGED TO ELEVATE LEG. DEFER TO MD. PT IS AMBULATORY AND CONTINENT. WILL SEE PRN.
[2017-12-28] MEDS ORDERED: MAGN400T26 PO (11:12)
[2017-12-28] MEDS ORDERED: ASPI-1169 PO (11:12)
[2017-12-28] MEDS ORDERED: ATOR40TA PO (11:12)
[2017-12-28] MEDS ORDERED: Silver Sulfadiazine Cream TP (11:12)
[2017-12-28] MEDS ORDERED: ACYC200C PO (11:12)
[2017-12-28] MEDS ORDERED: METO25TA20 PO (11:12)
[2017-12-28] MEDS ORDERED: SPIR25TA PO (11:12)
[2017-12-28] MEDS ORDERED: FURO-144 PO (11:12)
[2017-12-28] MEDS ORDERED: LISI5TAB45 PO (11:12)
[2017-12-28] MEDS: INSULIN REGULAR, HUMAN 100 UNIT/ML 3 ML VIAL SQ PRN ×2 (12:09→16:31)
[2017-12-28 16:00] VITALS: BP 132/69
[2017-12-28] MEDS: Magnesium 1GM/D5W 100ML PREMIX 100 ML IV SCH ×2 (16:48→17:53)
[2017-12-28] MEDS ORDERED: LACTOBACILLUS RHAMNOSUS GG 1 EACH CAP.SPRINK PO SCH (17:00)
--- NOTE | 2017-12-28 18:17 | NUR ---
MS RN Closing notes Patient is A/O x4, good appetite. Leg pain managed by IV PRN Morphine. Low magnesium level, supplemented today. IVF not infusing, patient refused despite of education and teaching. Continued on IV Zosyn and IV Vancomycin for cellulitis legs per ID. VS stable, afebrile during the shift, ambulates independently. Call light within reach. D/C planning, will endorse to oncoming RN.
--- NOTE | 2017-12-28 19:00 | NUR ---
RN OPENING NOTES PT AWAKE AND ALERT, WALKING THE UNIT. NO COMPLAINS OF SOB OR DISTRESS AT THIS TIME. PT HAS A RIGHT FOREARM #18, INTACT AND PATENT. PT REFUSING IVF MD AWARE. SAFETY PRECAUTIONS IN PLACE, BED IN LOWEST LOCKED POSITION, X2 SIDE RAILS UP, AND CALL LIGHT WITHIN REACH. WILL CONTINUE TO MONITOR.
--- NOTE | 2017-12-28 19:20 | NUR ---
RN NOTES PT STATING THAT HE WAS TOLD HE WAS LEAVING THIS EVENING. EXPLAINED TO PATIENT THAT IT WAS IMPORTANT TO BE SEEN BY INFECTIOUS DISEASE. LEFT MESSAGE FOR MARKET DEVELOPMENT EXECUTIVE, THAIS.
[2017-12-28 19:37] VITALS: BP 124/67
--- NOTE | 2017-12-28 19:55 | NUR ---
RN NOTES LOG TUMBLER THAIS ON FLOOR, PER HER PLAN: Stable, LLE looks slightly better, pt wants to go home, given his renal f-n will send on oral Doxy and Keflex, f/u with PMD and Dr Marcos de la fuente WILL FINISH DC PAPERWORK.
--- NOTE | 2017-12-28 20:05 | NUR ---
COUNTY PROGRAM TECHNICIAN NOTES PATIENT AMBULATED OFF OF THE UNIT AT 2004. FAMILY PICKING UP PT TO TAKE HOME. ALL DISCHARGE PAPERWORK SIGNED AND COPIED; ONE GIVEN TO PT AND ONE IN CHART. PATIENT VITAL SIGNS STABLE. ALL PATIENT BELONGINGS ACCOUNTED FOR AND SENT HOME WITH PATIENT. IV AND ID BAND REMOVED.
[2017-12-28] MEDS ORDERED: MAGNESIUM OXIDE 400 MG TABLET PO SCH (22:00)
== END 2017-12-28 20:05 | disposition home or self-care (01) | DRG 383 ==
LOC: ER 20:16 → MEDSG2 12-26 00:55
PROVIDERS: ADMIT Internal Medicine; ATTEND Internal Medicine
DX: L03.116 Cellulitis of left lower limb (principal); N17.0 Acute kidney failure with tubular necrosis; E44.0 Moderate protein-calorie malnutrition; D68.59 Other primary thrombophilia; E11.22 Type 2 diabetes mellitus with diabetic chronic kidney disease; E11.40 Type 2 diabetes mellitus with diabetic neuropathy, unspecified; E66.01 Morbid (severe) obesity due to excess calories; L03.115 Cellulitis of right lower limb; I73.9 Peripheral vascular disease, unspecified; K70.30 Alcoholic cirrhosis of liver without ascites; I12.9 Hypertensive chronic kidney disease with stage 1 through stage 4 chronic kidney disease, or unspecified chronic kidney disease; N18.9 Chronic kidney disease, unspecified; E78.5 Hyperlipidemia, unspecified; F17.210 Nicotine dependence, cigarettes, uncomplicated; J44.9 Chronic obstructive pulmonary disease, unspecified; Z79.4 Long term (current) use of insulin; Z68.30 Body mass index [BMI] 30.0-30.9, adult; B00.1 Herpesviral vesicular dermatitis; I87.8 Other specified disorders of veins; Z79.84 Long term (current) use of oral hypoglycemic drugs
CPT/HCPCS: 36415; 71045-TC; 80048-TC; 80053-TC; 80061-TC; 80076-TC; 80202-TC; 81000-TC; 82962-TC; 83540-TC; 83605-TC; 83735-TC; 83880; 84100-TC; 84443-TC; 84484-TC; 85025-TC; 85730-TC; 87040-TC; 87081-TC; 93970-TC; A4606; J0696; J1815; J1940; J2270; J2405; J2543; J3370; J3475; J3480; J3490; J7030; J7060; Z7610

== ENCOUNTER 2018-01-13 00:36 | Inpatient (IN) | payer OTHER ==
[~2018-01-13] VITALS: Ht 190.5 cm; Wt 119.7 kg
[~2018-01-13 00:36] MED LIST changes: +ACYC200C PO; +ASPI-1169 PO; +ATOR40TA PO; +FURO-144 PO; +LISI5TAB45 PO; +MAGN400T26 PO; +METO25TA20 PO; -PROP40TA7 PO; +SPIR25TA PO; -SULF1TAB48 PO; +Silver Sulfadiazine Cream TP
[2018-01-13] MEDS ORDERED: VANCOMYCIN 1 GM in IV D5W 250 ML IV ONE (01:00)
[2018-01-13] MEDS ORDERED: ONDANSETRON HCL/PF 4 MG/2 ML VIAL ONE (01:08)
[2018-01-13] MEDS ORDERED: MORPHINE SULFATE INJ 4 MG/ML DISP.SYRIN ONE (01:09)
[2018-01-13] MEDS ORDERED: VANCOMYCIN 1 GM VIAL ONE (01:09)
--- NOTE | 2018-01-13 01:20 | NUR ---
PATIENT CAME FROM HOME WITH FAMILY MEMBER. PATIENT IS ALERT/ORINTEDX4, WAS ABLE TO MAKE NEEDS KNOWN.PATIENT COMPLAINS OF LEFT LOWER LEG PAIN 10/10. LEFT LOWER LEG IS RED AND SWOLLEN. NO SOB, NO ACUTE RESPIRATORY DISTRESS NOTED AT THIS TIME. VITAL SIGNS ARE WNL, ON RA WITH SPO2 OF 100%. FAMILY MEMBER AT THE BEDSIDE. ALL SAFETY MEASURES ARE IMPLEMENTED, BED IN LOW, LOCKED POSITION, CALL LIGHT IN REACH. WILL CONT. TO MONITOR .
[2018-01-13 01:21] LABS: BASOPHILS % (AUTO) 0.4 % (0.0-2.0); EOSINOPHILS % (AUTO) 2.8 % (0.0-6.0); HEMATOCRIT 23 % (39-51); HEMOGLOBIN 7.7 g/dL (13.5-17.5); LYMPHOCYTES # (AUTO) 1.1 /CMM (0.8-4.8); LYMPHOCYTES % (AUTO) 15.9 % (20.0-44.0); MEAN CORPUSCULAR HGB CONC 33 g/dl (31.0-36.0); MEAN CORPUSCULAR VOLUME 100 fL (80-96); MONOCYTES # (AUTO) 0.9 /CMM (0.1-1.30); MONOCYTES % (AUTO) 13.2 % (2.0-12.0); NEUTROPHILS # (AUTO) 4.8 /CMM (1.8-8.9); NEUTROPHILS % (AUTO) 67.7 % (43.0-81.0); PLATELET COUNT (AUTO) 212 /CMM (150-450); RDW COEFFICIENT OF VARIATION 15.4 (11.5-15.0); RED BLOOD CELL COUNT(AUTO) 2.33 MIL/uL (4.5-6.0); WHITE BLOOD COUNT (AUTO) 7.1 K/uL (4.3-11.0)
--- NOTE | 2018-01-13 01:29 | NUR ---
BBSELF FROM HOME C/C LT CALF PAIN, REDNESS/SWELLING, DRAINAGE X 1 MOS, WAS ON ANTIBIOTICS FOR INFECTION W/ NO RELIEF. PT IS AAOX4. SKIN WNL. NO S/S OF ACUTE DISTRESS NOTED. RR EVEN AND UNLABORED. PT PLACED ON ARTIFICIAL FLOWERS DYER AND POX. PT SAFETY IN PLACE. BEDSIDE FOR EVAL
[2018-01-13] MEDS ORDERED: MORPHINE SULFATE INJ 2 MG/ML DISP.SYRIN IV ONE (01:30)
[2018-01-13] MEDS ORDERED: ONDANSETRON HCL/PF 4 MG/2 ML VIAL IV ONE (01:30)
[2018-01-13 01:45] LABS: CREATININE 1.3 mg/dL (0.6-1.3)
[2018-01-13 01:49] LABS: ALBUMIN 1.7 g/dL (3.4-5.0); BILIRUBIN,DIRECT 0.3 mg/dL (0.0-0.2); BILIRUBIN,TOTAL 0.6 mg/dL (0.2-1.0); TOTAL PROTEIN, SERUM 6.8 g/dL (6.4-8.2)
--- NOTE | 2018-01-13 02:20 | NUR ---
DR. DAVID VENEGAS, AWAITING CALL BACK
--- NOTE | 2018-01-13 02:41 | NUR ---
REPORT GIVEN TO STEPH SIDDIQI FOR WENDY
--- NOTE | 2018-01-13 02:43 | NUR ---
DR. DAVID VENEGAS, AWAITING CALL BACK
[2018-01-13 03:00] VITALS: BP 165/88
--- NOTE | 2018-01-13 03:00 | NUR ---
0300 PATIENT AMBULATED TO UNIT WITH CANE ACCOMPANIED BY RN EMMY, ASSISTED TO ROOM 104 AND TO BED. ADMISSION CARE RENDERED, VITAL SIGNS TAKEN, PT. WITH C/O SEVERE PAIN ON HIS LEFT LEG, NO ADMISSION ORDERS YET WHEN CHECKED. NOTED LEFT LEG WITH SWELLING AND REDNESS AND OPEN WOUND ON RIGHT GREAT TOE. ORIENTED TO ROOM AND CALL LIGHT PLACED WITHIN REACH AND INSTRUCTED TO CALL FOR ASSISTANCE.
[2018-01-13] MEDS ORDERED: ACETAMINOPHEN 325 MG TABLET PO PRN (03:30)
[2018-01-13] MEDS ORDERED: Z GUARD REMEDY 2 OZ OINT TP PRN (03:30)
[2018-01-13] MEDS ORDERED: DEXTROSE 50%-WATER 50 ML DISP.SYRIN IV PRN (03:30)
[2018-01-13] MEDS ORDERED: ONDANSETRON HCL/PF 4 MG/2 ML VIAL IVP PRN (03:30)
[2018-01-13] MEDS ORDERED: MAGNESIUM HYDROXIDE 30 ML UDC PO PRN (03:30)
[2018-01-13] MEDS ORDERED: ENOXAPARIN SODIUM 40 MG/0.4 ML DISP.SYRIN SQ SCH ×2 (03:30→04:05)
[2018-01-13] MEDS ORDERED: HYDROCODONE/APAP 5/325MG 1 EACH TABLET PO PRN (03:30)
[2018-01-13] MEDS ORDERED: ZOLPIDEM TARTRATE 5 MG TABLET PO PRN (03:30)
--- NOTE | 2018-01-13 03:30 | NUR ---
DR. CHANDA HERNANDEZ NOTIFIED OF PATIENT'S CONDITION, SEVERE PAIN TO BLE. PATIENT RECEIVED MORPHINE 4MG IN ER AND PATIENT CLAIMS THAT IT DOES NOT EVEN TOUCH HIM- NE NEW ORDERS RECEIVED
[2018-01-13] MEDS ORDERED: ENOXAPARIN SODIUM 40 MG/0.4 ML DISP.SYRIN SQ ONE (03:33)
[2018-01-13] MEDS ORDERED: MORPHINE SULFATE INJ 2 MG/ML DISP.SYRIN ONE (03:42)
[2018-01-13] MEDS: MORPHINE SULFATE INJ 2 MG/ML DISP.SYRIN IV PRN ×4 (03:45→22:44)
--- NOTE | 2018-01-13 03:45 | NUR ---
MORPHINE 2MG IVP IS GIVEN FOR BLE PAIN 01/12
--- NOTE | 2018-01-13 05:15 | NUR ---
PAIN REASSESSMENT -NO RELIEF
--- NOTE | 2018-01-13 06:10 | NUR ---
MESSAGE LEFT TO DR. CHANDA HERNANDEZ VIA EXCHANGE - PATIENT STILL C/O SEVERE PAIN 01/12 - AWATING FOR RESPONSE
--- NOTE | 2018-01-13 06:20 | NUR ---
DR. TAVAREZ CALLED BACK- NO NEW ORDERS FOR PAIN MANAGEMENT GIVEN, ORDER FOR PATIO PRIVILEGES RECEIVED
[2018-01-13] MEDS ORDERED: FEE PK DOSING 1 MIN EA MC ONE (06:59)
--- NOTE | 2018-01-13 07:10 | NUR ---
ROTARY PLANER SET UP OPERATOR NOTE RECEIVED PATIENT IN STABLE CONDITION, NO RESPIRATORY DISTRESS NOTED. COMPLAINING OF PAIN IN LEFT LOWER EXTREMITY, WILL ADMINISTER MORPHINE IV. IV SITE ON RIGHT AC INTACT SALINE LOCK. ABLE TO MAKE NEEDS KNOWN. BED IN LOCKED LOW POSITION, CALL LIGHT WITHIN REACH, WILL CONTINUE TO MONITOR.
[2018-01-13 08:00] VITALS: BP 133/65
[2018-01-13] MEDS: ASPIRIN 81 MG TAB.CHEW PO SCH (08:30)
[2018-01-13] MEDS: ACYCLOVIR 200 MG CAPSULE PO SCH ×2 (08:31→16:55)
[2018-01-13] MEDS: METFORMIN 500 MG TABLET PO SCH ×2 (08:31→16:55)
[2018-01-13] MEDS: LISINOPRIL (5MG) 5 MG TABLET PO SCH (08:31)
[2018-01-13] MEDS: SPIRONOLACTONE 25 MG TABLET PO SCH (08:31)
[2018-01-13] MEDS: FUROSEMIDE 40 MG TABLET PO SCH (08:31)
[2018-01-13] MEDS: METOPROLOL TARTRATE 25 MG TABLET PO SCH ×2 (08:31→21:00)
[2018-01-13] MEDS: BLOOD SUGAR DIAGNOSTIC 1 EACH STRIP IN SCH ×4 (08:33→21:26)
[2018-01-13] MEDS: HYDROCODONE/APAP 10/325MG 1 EA TABLET PO PRN (10:15)
[2018-01-13] MEDS: VANCOMYCIN 1.25 GM in IV D5W 500 ML IV SCH (12:14)
[2018-01-13] MEDS: INSULIN REGULAR, HUMAN 100 UNIT/ML 3 ML VIAL SQ PRN ×3 (12:15→21:33)
[2018-01-13 16:00] VITALS: BP 110/55
[2018-01-13] MEDS: MAG HYDROX/AL HYDROX/SIMETH 30 ML UDC PO PRN (16:53)
--- NOTE | 2018-01-13 19:34 | NUR ---
DISPENSING OPTICIAN APPRENTICE CLOSING PATIENT SLEEPING IN BED IN STABLE CONDITION, IV SITE INTACT ON RIGHT HAND. ABLE TO MAKE NEEDS KNOWN. BED IN LOW LOCKED POSITION, CALL LIGHT WITHIN REACH, ENDORSED TO GUNITE NOZZLE OPERATOR NURSE FOR CONTINUITY OF CARE.
[2018-01-13 20:00] VITALS: BP 107/54
[2018-01-13] MEDS: ATORVASTATIN 40 MG TABLET PO SCH (21:31)
[2018-01-13] MEDS: ENOXAPARIN SODIUM 40 MG/0.4 ML DISP.SYRIN SQ SCH (21:32)
[2018-01-13] MEDS: INSULIN GLARGINE, 100 UNIT/ML CARTRIDGE SQ SCH (21:34)
[2018-01-14] MEDS: VANCOMYCIN 1.25 GM in IV D5W 500 ML IV SCH ×2 (01:17→13:51)
--- NOTE | 2018-01-14 02:15 | NUR ---
RN NOTES PT REQUESTED NORCO, WHEN NORCO WAS RETRIEVED AND GIVEN, PT REFUSED. NORCO WAS WASTED WITH JOSE CHOI.
[2018-01-14] MEDS: MORPHINE SULFATE INJ 2 MG/ML DISP.SYRIN IV PRN ×3 (02:34→16:31)
[2018-01-14 04:00] VITALS: BP 117/63
[2018-01-14 06:23] LABS: BASOPHILS % (AUTO) 0.6 % (0.0-2.0); EOSINOPHILS % (AUTO) 3.8 % (0.0-6.0); HEMATOCRIT 22 % (39-51); HEMOGLOBIN 7.4 g/dL (13.5-17.5); LYMPHOCYTES # (AUTO) 1.1 /CMM (0.8-4.8); LYMPHOCYTES % (AUTO) 16.1 % (20.0-44.0); MEAN CORPUSCULAR HGB CONC 34 g/dl (31.0-36.0); MEAN CORPUSCULAR VOLUME 99 fL (80-96); MONOCYTES % (AUTO) 14.5 % (2.0-12.0); NEUTROPHILS # (AUTO) 4.4 /CMM (1.8-8.9); PLATELET COUNT (AUTO) 176 /CMM (150-450); RDW COEFFICIENT OF VARIATION 15.2 (11.5-15.0); WHITE BLOOD COUNT (AUTO) 6.7 K/uL (4.3-11.0)
[2018-01-14 06:50] LABS: CALCIUM, SERUM 7.7 mg/dL (8.5-10.1); CREATININE 1.2 mg/dL (0.6-1.3); PHOSPHORUS 2.9 mg/dL (2.5-4.9); POTASSIUM 4.2 mmol/L (3.5-5.1)
[2018-01-14 06:54] LABS: MAGNESIUM 1.2 mg/dL (1.8-2.4); THYROID STIMULATING HORMONE 2.889 uIU/mL (0.358-3.74)
--- NOTE | 2018-01-14 07:00 | NUR ---
MS RN INITAL NOTES RECEIVED PT PACING ROOM IN SEVERE PAIN. PT WANTED MORPHINE FOR LEG PAIN. LEFT LEG IS RED BUT BANDAGED. PT IS A/OX4. ON ROOM AIR SAT 97%. ADVISED PATIENT TO REST LEGS ON ELEVATED PILLOWS. PT STATES " NO, I NEED TO WALK". CALL LIGHT IN REACH. WILL CONT TO MONITOR.
--- NOTE | 2018-01-14 07:20 | NUR ---
RN NOTES. RECEIVED LAB RESULT MAGNESIUM 1.2. SPOKE WITH JANES EDWARDS NP AND RELATED ABNORMAL LAB RESULT. FOREST FIRE MANAGEMENT OFFICER WITH NO NEW ORDER YET. VERBALIZED SHE WILL CALL BACK. ENDORSED TO AM NURSE
[2018-01-14] MEDS: BLOOD SUGAR DIAGNOSTIC 1 EACH STRIP IN SCH ×4 (07:52→21:40)
[2018-01-14 08:00] VITALS: BP 126/68
[2018-01-14] MEDS: ACYCLOVIR 200 MG CAPSULE PO SCH ×2 (08:46→16:31)
[2018-01-14] MEDS: LISINOPRIL (5MG) 5 MG TABLET PO SCH (08:47)
[2018-01-14] MEDS: METFORMIN 500 MG TABLET PO SCH ×2 (08:47→16:30)
[2018-01-14] MEDS: ASPIRIN 81 MG TAB.CHEW PO SCH (08:49)
[2018-01-14] MEDS: FUROSEMIDE 40 MG TABLET PO SCH (08:49)
[2018-01-14] MEDS: METOPROLOL TARTRATE 25 MG TABLET PO SCH ×2 (08:49→21:38)
--- NOTE | 2018-01-14 09:05 | NUR ---
WOUND CARE CONSULT: PT NOT IN HIS ROOM AT THIS TIME. PER NURSING STAFF, PT IS AMBULATORY AND CONTINENT. PT FOLLOWED BY DPM. DEFER TO PODIATRY TEAM FOR LOWER LEGS. WILL SEE PRN.
--- NOTE | 2018-01-14 09:58 | NUR ---
WOUND CARE CONSULT: PT FOLLOWED BY DR EASTON BUT HE INSISTED ON REMOVING HIS LEFT LOWER LEG DRESSING. DRESSING WAS SATURATED WITH YELLOW DRAINAGE. MSG LEFT FOR DR CRUZ. PT ENCOURAGED TO ELEVATE HIS LEG MUCH POSSIBLE. WILL SEE PRN. Addendum: 01/14/18 at 1000 by JAILENE FAGAN WNDNU PT STATED HIS LEG WAS ITCHING. DR EASTON NOTIFIED.
[2018-01-14] MEDS: SPIRONOLACTONE 25 MG TABLET PO SCH (10:07)
[2018-01-14] MEDS: Magnesium 1GM/D5W 100ML PREMIX 100 ML IV SCH ×7 (11:10→22:38)
--- NOTE | 2018-01-14 11:20 | NUR ---
MS RN NOTES NURSE RITIKA MENDEZ. PT STATES:"I DONT WANT TO START THAT RIGHT NOW. I'M WAITING FOR MY FRIEND". WILL HOLD MED UNTIL PT SAYS HE IS READY.
[2018-01-14] MEDS: NEOMY SULF/BACITRAC ZN/POLY 15 GM TUBE TP SCH (11:53)
[2018-01-14] MEDS: INSULIN REGULAR, HUMAN 100 UNIT/ML 3 ML VIAL SQ PRN ×2 (13:21→17:48)
[2018-01-14 16:00] VITALS: BP 117/59
--- NOTE | 2018-01-14 17:00 | NUR ---
MS RN NOTES ADVISED PT THROUGHOUT THE DAY TO ELEVATE LOWER EXTREMITIES. PT STATES: "YES, BUT I NEED TO WALK."
[2018-01-14] MEDS: LEVOFLOXACIN (500MG) 500 MG TABLET PO SCH (18:57)
--- NOTE | 2018-01-14 19:05 | NUR ---
MS RN CLOSING NOTES ENDORSED PT TO PM NURSE FOR WENDY. SAFETY PRECAUTIONS IN PLACE. ALL NEEDS ATTENDED TO. CALL LIGHT IN REACH.
--- NOTE | 2018-01-14 19:30 | NUR ---
DARIEN/RN RECEIVE PATIENT AWAKE, ALERT, ORIENTED, COMFORTABLE, NO DISTRESS NOTED, CALL LIGHT IN REACH. WILL MONITOR.
[2018-01-14 20:00] VITALS: BP 129/72
[2018-01-14] MEDS: CEFTRIAXONE 1 G in IV D5W 50 ML IV SCH (20:28)
[2018-01-14] MEDS ORDERED: LINEZOLID 600 MG TABLET PO SCH (21:00)
[2018-01-14] MEDS: ENOXAPARIN SODIUM 40 MG/0.4 ML DISP.SYRIN SQ SCH ×2 (21:00→21:39)
[2018-01-14] MEDS: ATORVASTATIN 40 MG TABLET PO SCH (21:38)
[2018-01-14] MEDS ORDERED: INSULIN GLARGINE, 100 UNIT/ML CARTRIDGE SQ ONE (21:54)
[2018-01-14] MEDS: INSULIN GLARGINE, 100 UNIT/ML CARTRIDGE SQ SCH (22:00)
[2018-01-15] MEDS: MORPHINE SULFATE INJ 2 MG/ML DISP.SYRIN IV PRN ×4 (00:34→21:15)
[2018-01-15] MEDS: VANCOMYCIN 1.25 GM in IV D5W 500 ML IV SCH ×2 (01:09→13:17)
[2018-01-15 04:00] VITALS: BP 98/48
[2018-01-15] MEDS: MAG HYDROX/AL HYDROX/SIMETH 30 ML UDC PO PRN (05:13)
[2018-01-15 06:23] LABS: CALCIUM, SERUM 8.3 mg/dL (8.5-10.1); CREATININE 1.4 mg/dL (0.6-1.3); MAGNESIUM 1.9 mg/dL (1.8-2.4); POTASSIUM 4.2 mmol/L (3.5-5.1)
[2018-01-15] MEDS: BLOOD SUGAR DIAGNOSTIC 1 EACH STRIP IN SCH ×4 (06:53→21:25)
[2018-01-15] MEDS: INSULIN REGULAR, HUMAN 100 UNIT/ML 3 ML VIAL SQ PRN ×2 (06:54→12:41)
--- NOTE | 2018-01-15 07:14 | NUR ---
MS/RN PATIENT AWAKE, COMFORTABLE, NO DISTRESS NOTED, ALL NEEDS ATTENDED AT THIS TIME. WILL CONTINUE TO MONITOR.
[2018-01-15 08:00] VITALS: BP 109/53
[2018-01-15] MEDS: SPIRONOLACTONE 25 MG TABLET PO SCH (08:47)
[2018-01-15] MEDS: LISINOPRIL (5MG) 5 MG TABLET PO SCH (08:47)
[2018-01-15] MEDS: FUROSEMIDE 40 MG TABLET PO SCH (08:47)
[2018-01-15] MEDS: METFORMIN 500 MG TABLET PO SCH ×2 (08:48→16:39)
[2018-01-15] MEDS: METOPROLOL TARTRATE 25 MG TABLET PO SCH ×2 (08:48→21:23)
[2018-01-15] MEDS: ASPIRIN 81 MG TAB.CHEW PO SCH (08:52)
[2018-01-15] MEDS: NEOMY SULF/BACITRAC ZN/POLY 15 GM TUBE TP SCH (09:07)
--- NOTE | 2018-01-15 10:00 | NUR ---
RN NOTES RADHA WASTED, WITNESSED BY MONAE CHOI.
[2018-01-15 15:54] VITALS: BP 110/55
[2018-01-15 16:00] VITALS: BP 110/55
[2018-01-15] MEDS: LEVOFLOXACIN (500MG) 500 MG TABLET PO SCH (17:09)
--- NOTE | 2018-01-15 17:11 | NUR ---
STEPH LUQUE TABLE DROPPED ON THE FLOOR, WASTED. ANOTHER TABLET TAKEN OUT OF OMNICELL.
--- NOTE | 2018-01-15 18:13 | NUR ---
RN NOTES PATIENT A/OX4, BREATHING EVEN AND UNLABORED, WOUND TREATMENT RENDERED, DRESSING CHANGED. PATIENT IN NO DISTRESS. AMBULATORY, SMOKING CESSATION EDUCATION PROVIDED, BUT PATIENT STILL INSISTS ON SMOKING. NEEDS ATTENDED AND MET, CALL LIGHT WITHIN REACH, WILL ENDORSE TO CREW MANAGER FOR WENDY.
[2018-01-15 20:00] VITALS: BP 112/57
--- NOTE | 2018-01-15 20:00 | NUR ---
DARIEN RN NOTES RECEIVED BEDSIDE REPORT FROM AM NURSE. PATIENT IS A/OX4, BREATHING EVEN AND UNLABORED, NO SOB NOTED AT THIS TIME. PATIENT IS AMBULATING IN THE HALLWAY IN NO DISTRESS BUT COMPLAINT OF LEFT LOWER LEG PAIN 7/10. RIGHT UPPER ARM IV LINE IS INTACT, PATIENT.ALL SAFETY MEASURES ARE IMPLEMENTED, BED IN LOW, LOCKED POSITION, CALL LIGHT IN REACH. WILL CONTINUE TO MONITOR.
[2018-01-15] MEDS: ENOXAPARIN SODIUM 40 MG/0.4 ML DISP.SYRIN SQ SCH (21:21)
[2018-01-15] MEDS: ATORVASTATIN 40 MG TABLET PO SCH (21:22)
[2018-01-15] MEDS: CEFTRIAXONE 1 G in IV D5W 50 ML IV SCH (21:24)
[2018-01-15] MEDS ORDERED: IV 1/2NS 1000 ML 1,000 ML IV PRN (21:30)
[2018-01-15] MEDS: INSULIN GLARGINE, 100 UNIT/ML CARTRIDGE SQ SCH (21:30)
[2018-01-16] MEDS: VANCOMYCIN 1.25 GM in IV D5W 500 ML IV SCH ×2 (01:15→14:06)
[2018-01-16] MEDS: MORPHINE SULFATE INJ 2 MG/ML DISP.SYRIN IV PRN ×4 (03:49→20:24)
[2018-01-16 04:00] VITALS: BP 111/53
[2018-01-16 05:43] LABS: BASOPHILS # (AUTO) 0.1 /CMM (0.0-0.2); BASOPHILS % (AUTO) 2.2 % (0.0-2.0); EOSINOPHILS % (AUTO) 3.8 % (0.0-6.0); LYMPHOCYTES # (AUTO) 0.9 /CMM (0.8-4.8); LYMPHOCYTES % (AUTO) 18.7 % (20.0-44.0); MEAN CORPUSCULAR HGB CONC 33 g/dl (31.0-36.0); MEAN CORPUSCULAR VOLUME 99 fL (80-96); MONOCYTES # (AUTO) 0.8 /CMM (0.1-1.30); MONOCYTES % (AUTO) 16.9 % (2.0-12.0); NEUTROPHILS # (AUTO) 2.8 /CMM (1.8-8.9); NEUTROPHILS % (AUTO) 58.4 % (43.0-81.0); PLATELET COUNT (AUTO) 149 /CMM (150-450); RDW COEFFICIENT OF VARIATION 15.2 (11.5-15.0); RED BLOOD CELL COUNT(AUTO) 2.06 MIL/uL (4.5-6.0); WHITE BLOOD COUNT (AUTO) 4.8 K/uL (4.3-11.0)
[2018-01-16 05:52] LABS: HEMATOCRIT 20 % (39-51); HEMOGLOBIN 6.7 g/dL (13.5-17.5)
[2018-01-16 05:59] LABS: CALCIUM, SERUM 8.2 mg/dL (8.5-10.1); CREATININE 1.4 mg/dL (0.6-1.3); POTASSIUM 4.1 mmol/L (3.5-5.1)
--- NOTE | 2018-01-16 06:00 | NUR ---
DARIEN RN NOTES Received call from lab patient's Hgb is 6.7. MD TO GRACE NOTIFIED, WAITING FOR NEW ORDERS.
--- NOTE | 2018-01-16 06:14 | NUR ---
RN NOTES TALKED TO DR TO GRACE AND NEW TELEPHONE ORDER TRANSFUSION OF ONE UNIT RBC IN PLACE. ONE UNIT RBC HAS BEEN ORDERED.
--- NOTE | 2018-01-16 07:30 | NUR ---
MS RN OPENING NOTES RECEIVED PATIENT IN STABLE CONDITION. IN NO APPARENT DISTRESS. BEDSIDE RAILS ARE UPX2. BED IS LOCKED AND LOWERED. CALL LIGHT IS WITHIN REACH. IV LINE IS INTACT AND PATENT. WILL CONTINUE TO MONITOR PATIENT
[2018-01-16] MEDS: BLOOD SUGAR DIAGNOSTIC 1 EACH STRIP IN SCH ×4 (07:59→22:55)
[2018-01-16 08:00] VITALS: BP 106/64
[2018-01-16] MEDS: LISINOPRIL (5MG) 5 MG TABLET PO SCH (08:00)
[2018-01-16] MEDS: ASPIRIN 81 MG TAB.CHEW PO SCH (08:00)
[2018-01-16] MEDS: SPIRONOLACTONE 25 MG TABLET PO SCH (08:00)
[2018-01-16] MEDS: METOPROLOL TARTRATE 25 MG TABLET PO SCH ×2 (08:00→21:00)
[2018-01-16] MEDS: FUROSEMIDE 40 MG TABLET PO SCH (08:00)
[2018-01-16] MEDS: METFORMIN 500 MG TABLET PO SCH ×2 (08:00→17:26)
[2018-01-16] MEDS: NEOMY SULF/BACITRAC ZN/POLY 15 GM TUBE TP SCH (08:02)
[2018-01-16 10:55] LABS: BASOPHILS % (AUTO) 0.5 % (0.0-2.0); EOSINOPHILS % (AUTO) 3.5 % (0.0-6.0); HEMATOCRIT 25 % (39-51); HEMOGLOBIN 8.3 g/dL (13.5-17.5); LYMPHOCYTES # (AUTO) 1.3 /CMM (0.8-4.8); LYMPHOCYTES % (AUTO) 17.2 % (20.0-44.0); MEAN CORPUSCULAR HGB CONC 34 g/dl (31.0-36.0); MEAN CORPUSCULAR VOLUME 99 fL (80-96); MONOCYTES # (AUTO) 1.2 /CMM (0.1-1.30); MONOCYTES % (AUTO) 15.7 % (2.0-12.0); NEUTROPHILS # (AUTO) 4.7 /CMM (1.8-8.9); NEUTROPHILS % (AUTO) 63.1 % (43.0-81.0); PLATELET COUNT (AUTO) 238 /CMM (150-450); RDW COEFFICIENT OF VARIATION 15.4 (11.5-15.0); RED BLOOD CELL COUNT(AUTO) 2.49 MIL/uL (4.5-6.0); WHITE BLOOD COUNT (AUTO) 7.5 K/uL (4.3-11.0)
[2018-01-16 11:31] LABS: EOSINOPHILS % (MANUAL) 3 % (0-4); LYMPHOCYTES % (MANUAL) 15 % (16-48); MONOCYTES % (MANUAL) 14 % (0-11.0); NEUTROPHILS % (MANUAL) 68 (42-76)
[2018-01-16 12:00] VITALS: BP 106/64
[2018-01-16] MEDS: INSULIN REGULAR, HUMAN 100 UNIT/ML 3 ML VIAL SQ PRN ×3 (12:29→23:19)
[2018-01-16 13:01] LABS: EOSINOPHILS % (MANUAL) 3 % (0-4); LYMPHOCYTES % (MANUAL) 13 % (16-48); MONOCYTES % (MANUAL) 14 % (0-11.0); NEUTROPHILS % (MANUAL) 70 (42-76)
--- NOTE | 2018-01-16 13:57 | NUR ---
ATTEMPTED TO ADMINISTER VANCOMYCIN FOR PATIENT BUT PATIENT INSISTED ON GOING OUTSIDE TO SMOKE AND THEN EAT IN THE [place]. ATTEMPTED TO START VANCOMYCIN AGAIN BUT PATIENT INSISTED ON TAKING A SHOWER. WILL ADMINISTER VANCOMYCIN AFTER THE PATIENT HAS TAKEN A SHOWER.
[2018-01-16 16:00] VITALS: BP 106/54
[2018-01-16] MEDS: LEVOFLOXACIN (500MG) 500 MG TABLET PO SCH (17:26)
--- NOTE | 2018-01-16 18:28 | NUR ---
MS RN CLOSING NOTES PATIENT IS IN STABLE CONDITION. IN NO APPARENT DISTRESS. BEDSIDE RAILS ARE UPX2. BED IS LOCKED AND LOWERED. CALL LIGHT IS WITHIN REACH. IV LINE IS INTACT AND PATENT. ALL NEEDS WERE MET. WILL ENDORSE CARE TO PIN INSERTER REGULATOR NURSE FOR WENDY.
--- NOTE | 2018-01-16 19:10 | NUR ---
RN MS NOTES RECEIVED PATIENT AWAKE ALERT AND ORIENTED X4, RESPIRATIONS EVEN AND UNLABORED WITH EQUAL RISE AND FALL OF CHEST, DENIES ANY PAIN OR DISCOMFORT AT THIS TIME. PATIENT IS AMBULATORY AND STABLE, PATIENT HAS SMOKING PRIVILEGES WITH CONSENT SIGNED. LEFT LOWER DRESSING INTACT. IV SITE TO RIGHT UA #18G INTACT AND PATENT, SAFETY PRECAUTIONS IN PLACE, ORIENTED TO STAFF AND CALL LIGHT, ALL NEEDS ATTENDED AT THIS TIME, PATIENT REMAINS COMFORTABLE CALL LIGHT WITHIN REACH WILL CONTINUE TO MONITOR.
[2018-01-16] MEDS: CEFTRIAXONE 1 G in IV D5W 50 ML IV SCH (19:53)
[2018-01-16 20:00] VITALS: BP 118/46
[2018-01-16] MEDS: INSULIN GLARGINE, 100 UNIT/ML CARTRIDGE SQ SCH (22:00)
[2018-01-16] MEDS: ATORVASTATIN 40 MG TABLET PO SCH (23:11)
[2018-01-16] MEDS: ENOXAPARIN SODIUM 40 MG/0.4 ML DISP.SYRIN SQ SCH (23:17)
--- NOTE | 2018-01-17 | NUR ---
RN MS NOTES PATIENT DID NOT WANT PICTURE TAKEN TO LEFT LEG, EXPLAINED PURPOSE OF PICTURE. PATIENT DOES NOT WANT DRESSING REMOVED AT THIS TIME SINCE IT WAS DONE IN AM WAS ABLE TO TAKE PICTURE OF RIGHT GREAT TOE AND RIGHT LOWER EXTREMITY.
[2018-01-17] MEDS: MORPHINE SULFATE INJ 2 MG/ML DISP.SYRIN IV PRN ×2 (00:34→08:33)
[2018-01-17] MEDS: VANCOMYCIN 1.25 GM in IV D5W 500 ML IV SCH (01:28)
[2018-01-17 04:00] VITALS: BP 108/55
[2018-01-17] MEDS: BLOOD SUGAR DIAGNOSTIC 1 EACH STRIP IN SCH ×4 (06:14→21:30)
[2018-01-17 06:42] LABS: CALCIUM, SERUM 8.2 mg/dL (8.5-10.1); CREATININE 1.4 mg/dL (0.6-1.3); POTASSIUM 4.2 mmol/L (3.5-5.1)
--- NOTE | 2018-01-17 06:49 | NUR ---
RN MS CLOSING NOTES PATIENT IS SLEEPING EASILY AROUSABLE, ALERT AND ORIENTED X4, RESPIRATIONS EVEN AND UNLABORED WITH EQUAL RISE AND FALL OF CHEST, DENIES ANY PAIN OR DISCOMFORT AT THIS TIME. PATIENT IS AMBULATORY AND STABLE, PATIENT HAS SMOKING PRIVILEGES WITH CONSENT SIGNED. LEFT LOWER DRESSING INTACT. IV SITE TO RIGHT UA #18G INTACT AND PATENT, NO REDNESS NO INFILTRATION PRESENT, SAFETY PRECAUTIONS IN PLACE, CALL LIGHT KEPT WITHIN REACH , ALL NEEDS ATTENDED AT THIS TIME, IV INFUSE ORDERED , PATIENT REMAINS COMFORTABLE CALL LIGHT WITHIN REACH WILL CONTINUE TO MONITOR AND ENDORSE TO NEXT SHIFT.
--- NOTE | 2018-01-17 07:30 | NUR ---
RN MS OPENING NOTES REPORT RECEIVED FROM PM NURSE.PATIENT OUT FOR SMOKING.WAITING FOR PATIENT TO COME BACK.
[2018-01-17 08:00] VITALS: BP 128/66
[2018-01-17] MEDS: ASPIRIN 81 MG TAB.CHEW PO SCH (09:16)
[2018-01-17] MEDS: SPIRONOLACTONE 25 MG TABLET PO SCH (09:16)
[2018-01-17] MEDS: FUROSEMIDE 40 MG TABLET PO SCH (09:17)
[2018-01-17] MEDS: LISINOPRIL (5MG) 5 MG TABLET PO SCH (09:17)
[2018-01-17] MEDS: METOPROLOL TARTRATE 25 MG TABLET PO SCH ×2 (09:17→20:33)
[2018-01-17] MEDS: METFORMIN 500 MG TABLET PO SCH ×2 (09:17→17:40)
[2018-01-17] MEDS: HYDROCODONE/APAP 10/325MG 1 EA TABLET PO PRN ×2 (09:26→19:06)
[2018-01-17] MEDS: NEOMY SULF/BACITRAC ZN/POLY 15 GM TUBE TP SCH (13:03)
[2018-01-17] MEDS: INSULIN REGULAR, HUMAN 100 UNIT/ML 3 ML VIAL SQ PRN ×2 (13:03→21:35)
[2018-01-17] MEDS ORDERED: MORPHINE SULFATE INJ 4 MG/ML DISP.SYRIN IV PRN (13:30)
--- NOTE | 2018-01-17 13:30 | NUR ---
RN NOTES PATIENT REFUSED INSULIN.
--- NOTE | 2018-01-17 13:54 | NUR ---
RN NOTES SEEN BY DRESSING CHANGE DONE AND UPDATED ABOUT PATIENT CONDITION AND ABOUT PATIENT GOING OUT FOR LONG TIME.GOT NEW ORDERS.
[2018-01-17 16:00] VITALS: BP 102/46
--- NOTE | 2018-01-17 16:38 | NUR ---
RN NOTES SEEN BY DIETITIAN CHANGED DIET TO CCHO.
--- NOTE | 2018-01-17 16:41 | NUR ---
RN NOTES SEEN BY FAWAD FARIAS ,REQUESTED TO INSERT PICC LINE.GOING HOME WITH ATB. EVENTUALLY.
[2018-01-17] MEDS: LEVOFLOXACIN (500MG) 500 MG TABLET PO SCH (17:36)
--- NOTE | 2018-01-17 18:30 | NUR ---
RN NOTES PATIENT REQUESTED AND REFUSED NORCO.DISCARDED.
[2018-01-17] MEDS: MORPHINE SULFATE INJ 4 MG/ML DISP.SYRIN IV PRN (19:05)
--- NOTE | 2018-01-17 19:23 | NUR ---
RN CLOSING NOTE PATIENT IS AXOX4 IN BED.NO SOB NO DISTRESS NOTED AT THIS TIME.ON ROOM AIR .PRN PAIN MEDICATION GIVEN.IV IS INTACT AND PATENT.PATIENT WENT OUT WITH OUT INFORMING STAFF MANY TIMES, AWARE.SAFETY MEASURES IN PLACE.PATIENT LEFT ROOM TO SMOKE.CALLED TO COME TO THE ROOM.ENDORSED TO PM NURSE FOR WENDY.
[2018-01-17 20:00] VITALS: BP 112/58
[2018-01-17] MEDS: CEFTRIAXONE 1 G in IV D5W 50 ML IV SCH (20:16)
[2018-01-17] MEDS: ENOXAPARIN SODIUM 40 MG/0.4 ML DISP.SYRIN SQ SCH (20:32)
[2018-01-17] MEDS: ATORVASTATIN 40 MG TABLET PO SCH (21:30)
[2018-01-17] MEDS: INSULIN GLARGINE, 100 UNIT/ML CARTRIDGE SQ SCH (21:33)
[2018-01-17] MEDS: MAG HYDROX/AL HYDROX/SIMETH 30 ML UDC PO PRN (22:09)
[2018-01-18] VITALS: BP 122/54
[2018-01-18] MEDS: MORPHINE SULFATE INJ 4 MG/ML DISP.SYRIN IV PRN (06:10)
[2018-01-18 06:27] LABS: BASOPHILS % (AUTO) 0.5 % (0.0-2.0); EOSINOPHILS % (AUTO) 1.7 % (0.0-6.0); HEMATOCRIT 24 % (39-51); HEMOGLOBIN 7.9 g/dL (13.5-17.5); LYMPHOCYTES % (AUTO) 16.1 % (20.0-44.0); MEAN CORPUSCULAR HGB CONC 34 g/dl (31.0-36.0); MEAN CORPUSCULAR VOLUME 99 fL (80-96); MONOCYTES # (AUTO) 0.8 /CMM (0.1-1.30); MONOCYTES % (AUTO) 13.7 % (2.0-12.0); NEUTROPHILS # (AUTO) 4.2 /CMM (1.8-8.9); PLATELET COUNT (AUTO) 168 /CMM (150-450); RED BLOOD CELL COUNT(AUTO) 2.38 MIL/uL (4.5-6.0); WHITE BLOOD COUNT (AUTO) 6.1 K/uL (4.3-11.0)
[2018-01-18 06:37] LABS: CALCIUM, SERUM 8.9 mg/dL (8.5-10.1); CREATININE 1.2 mg/dL (0.6-1.3); POTASSIUM 4.7 mmol/L (3.5-5.1)
[2018-01-18] MEDS: BLOOD SUGAR DIAGNOSTIC 1 EACH STRIP IN SCH ×3 (07:31→16:43)
--- NOTE | 2018-01-18 08:00 | NUR ---
M/S RN - AM Assessment Patient awake, A/O x 4, denies pain, no evidence of resp. distress. Saline lock on the RUE is patent, intact, with no complications. Skin is intact, left leg cellulitis improved, still noted with swelling. Patient educated on the importance of elevating BLE. Patient independent with bed mobility and ambulatory with steady gait. All attended and met. Patient educated on the plan of care. Possible discharge home today.
[2018-01-18 08:24] VITALS: BP 109/62
[2018-01-18] MEDS: METFORMIN 500 MG TABLET PO SCH ×2 (08:32→16:43)
[2018-01-18] MEDS: SPIRONOLACTONE 25 MG TABLET PO SCH (08:32)
[2018-01-18] MEDS: ASPIRIN 81 MG TAB.CHEW PO SCH (08:32)
[2018-01-18] MEDS: FUROSEMIDE 40 MG TABLET PO SCH (08:32)
[2018-01-18] MEDS: NEOMY SULF/BACITRAC ZN/POLY 15 GM TUBE TP SCH (08:33)
[2018-01-18] MEDS: LISINOPRIL (5MG) 5 MG TABLET PO SCH (08:33)
[2018-01-18] MEDS: METOPROLOL TARTRATE 25 MG TABLET PO SCH (08:34)
[2018-01-18] MEDS ORDERED: VANCOMYCIN 1 GM in IV D5W 250 ML IV SCH (09:00)
[2018-01-18] MEDS: INSULIN REGULAR, HUMAN 100 UNIT/ML 3 ML VIAL SQ PRN (12:23)
--- NOTE | 2018-01-18 14:00 | NUR ---
M/S RN - PICC line RUE PICC line in place, ok to use per PICC line STEPH [place]. Patient tolerated procedure well.
[2018-01-18 16:14] VITALS: BP 118/69
[2018-01-18] MEDS: HYDROCODONE/APAP 10/325MG 1 EA TABLET PO PRN (16:57)
--- NOTE | 2018-01-18 17:45 | NUR ---
M/S RN - Discharge Patient discharged to home with home health for IV antibiotic and wound management. Patient in stable condition. Reviewed discharge instructions with pt and he verbalized full understanding of all teachings including f/u care with his PCP. All belongings with the pt and he denies any missing items. VSS, denies pain, no c/o SOB, not in any form of distress. RUE PICC line both ports flushing well. Pt refused photos to be taken on his LLE venous ulceration and right great toe venous ulcer. Pt stated "I just want to go home now." Discharge papers signed and copy was given per protocol. Accompanied to the lobby and transported via private car by son.
== END 2018-01-18 18:36 | disposition home health service (06) | DRG 383 ==
LOC: ER 00:38 → MEDSG1 02:32
PROC: 02HV33Z Insertion of Infusion Device into Superior Vena Cava, Percutaneous Approach (ICD-10-PCS; principal; 2018-01-18)
PROC: B548ZZA Ultrasonography of Superior Vena Cava, Guidance (ICD-10-PCS; principal; 2018-01-18)
DX: L03.116 Cellulitis of left lower limb (principal); N17.0 Acute kidney failure with tubular necrosis; E43 Unspecified severe protein-calorie malnutrition; D69.6 Thrombocytopenia, unspecified; E11.51 Type 2 diabetes mellitus with diabetic peripheral angiopathy without gangrene; E11.42 Type 2 diabetes mellitus with diabetic polyneuropathy; E88.09 Other disorders of plasma-protein metabolism, not elsewhere classified; I87.2 Venous insufficiency (chronic) (peripheral); K74.60 Unspecified cirrhosis of liver; E11.9 Type 2 diabetes mellitus without complications; D63.8 Anemia in other chronic diseases classified elsewhere; E78.5 Hyperlipidemia, unspecified; Z79.84 Long term (current) use of oral hypoglycemic drugs; J44.9 Chronic obstructive pulmonary disease, unspecified; F17.210 Nicotine dependence, cigarettes, uncomplicated; E66.9 Obesity, unspecified; Z68.33 Body mass index [BMI] 33.0-33.9, adult; F19.10 Other psychoactive substance abuse, uncomplicated; B19.20 Unspecified viral hepatitis C without hepatic coma; N18.9 Chronic kidney disease, unspecified; L97.519 Non-pressure chronic ulcer of other part of right foot with unspecified severity; I12.9 Hypertensive chronic kidney disease with stage 1 through stage 4 chronic kidney disease, or unspecified chronic kidney disease; Z91.19 Patient's noncompliance with other medical treatment and regimen
CPT/HCPCS: 36415; 36569; 80048-TC; 80061-TC; 80076-TC; 80202-TC; 82962-TC; 83605-TC; 83735-TC; 84100-TC; 84443-TC; 85025-TC; 86850-TC; 86921-TC; 87040-TC; 87081-TC; 93926-TC; 93970-TC; A4606; A6253; C1751; G0378; J0696; J1650; J1815; J2270; J2405; J3370; J3475; J7050; J7060; Z7610

== ENCOUNTER 2018-03-23 23:50 | Emergency (ER) | payer OTHER ==
[~2018-03-23] VITALS: Ht 190.5 cm; Wt 113.4 kg
--- NOTE | 2018-03-24 00:05 | NUR ---
PT BIBRA C/O DYSURIA AND URINARY FREQUENCY X 1 DAY. PT DENIES HEMATURIA. PT ON MONITOR IN BED 11. WILL CONTINUE TO MONITOR.
--- NOTE | 2018-03-24 00:18 | NUR ---
URINE COLLECTED AND SENT TO LAB
[2018-03-24] MEDS ORDERED: LIDOCAINE 2% JEL UROJET 10 ML MM ONE ×2 (00:24→00:30)
[2018-03-24 00:39] LABS: APPEARANCE,URINE SL CLOUDY (CLEAR); BILIRUBIN,URINE NEGATIVE (NEGATIVE); BLOOD, URINE 3+ Ery/uL (NEGATIVE); COLOR,URINE YELLOW (YELLOW); KETONES,URINE TRACE (NEGATIVE); LEUKOCYTE ESTERASE ,URINE 1+ (NEGATIVE); NITRITE, URINE POSITIVE (NEGATIVE); PROTEIN,URINE 3+ mg/dl (NEGATIVE); UGLUCOSE NEGATIVE (NEGATIVE); UROBILINOGEN,URINE 0.2 EU/dL (0.2)
[2018-03-24 00:51] LABS: RBC,URINE 51-80 /HPF (0-2)
[2018-03-24 00:52] LABS: BACTERIA,URINE Few /HPF (None Seen); SQUAMOUS EPITHELIAL CELL,UR Rare /HPF (None Seen); WBC,URINE TOO NUMEROUS TO COUN /HPF (0-3)
[2018-03-24] MEDS ORDERED: PHENAZOPYRIDINE HCL 200 MG TABLET PO ONE (01:00)
[2018-03-24] MEDS ORDERED: ONDANSETRON HCL/PF 4 MG/2 ML VIAL IVP ONE (01:00)
[2018-03-24] MEDS ORDERED: CEFTRIAXONE 1GM BAG (ER ONLY) 50 ML IV ONE ×2 (01:00→01:21)
[2018-03-24] MEDS ORDERED: IV NS 0.9% 500 ML BAG IV ONE (01:00)
[2018-03-24] MEDS ORDERED: HYDROMORPHONE INJ 2 MG/ML DISP.SYRIN IV ONE (01:00)
--- NOTE | 2018-03-24 01:00 | NUR ---
ADDENDUM: Intravenous End Time Documentation: Rocephin 1 gram IVPB: start time: 0100 am; end time: 0129 am IV site: [facility] # [id number] Port #: 1
[2018-03-24 01:16] LABS: BASOPHILS # (AUTO) 0.1 /CMM (0.0-0.2); EOSINOPHILS % (AUTO) 1.1 % (0.0-6.0); HEMOGLOBIN 9.6 g/dL (13.5-17.5); LYMPHOCYTES # (AUTO) 0.7 /CMM (0.8-4.8); MEAN CORPUSCULAR HGB CONC 35 g/dl (31.0-36.0); MONOCYTES # (AUTO) 1.1 /CMM (0.1-1.30)
[2018-03-24] MEDS ORDERED: ONDANSETRON HCL/PF 4 MG/2 ML VIAL ONE (01:21)
[2018-03-24] MEDS ORDERED: HYDROMORPHONE 1 MG/1 ML DISP.SYRIN ONE (01:21)
[2018-03-24] MEDS ORDERED: PHENAZOPYRIDINE HCL 200 MG TABLET ONE (01:22)
[2018-03-24 01:24] LABS: BASOPHILS % (AUTO) 0.8 % (0.0-2.0); HEMATOCRIT 27 % (39-51); LYMPHOCYTES % (AUTO) 6.6 % (20.0-44.0); MEAN CORPUSCULAR VOLUME 97 fL (80-96); NEUTROPHILS % (AUTO) 80.5 % (43.0-81.0); PLATELET COUNT (AUTO) 85 /CMM (150-450); RED BLOOD CELL COUNT(AUTO) 2.81 MIL/uL (4.5-6.0); WHITE BLOOD COUNT (AUTO) 9.9 K/uL (4.3-11.0)
[2018-03-24 01:30] LABS: CALCIUM, SERUM 8.9 mg/dL (8.5-10.1)
--- NOTE | 2018-03-24 01:35 | NUR ---
PT TAKEN TO RADIOLOGY FOR CT VIA MALIA
[2018-03-24 01:37] LABS: ALBUMIN 2.5 g/dL (3.4-5.0); BILIRUBIN,DIRECT 0.3 mg/dL (0.0-0.2); BILIRUBIN,TOTAL 1.3 mg/dL (0.2-1.0); TOTAL PROTEIN, SERUM 6.6 g/dL (6.4-8.2)
[2018-03-24 01:41] LABS: EOSINOPHILS % (MANUAL) 1 % (0-4); LYMPHOCYTES % (MANUAL) 4 % (16-48); MONOCYTES % (MANUAL) 6 % (0-11.0); NEUTROPHILS % (MANUAL) 89 (42-76)
--- NOTE | 2018-03-24 02:40 | NUR ---
IV removed. Catheter intact and site benign. Pressure and 4x4 applied to site. No bleeding noted.Patient discharged to home in stable condition. Written and verbal after care instructions given. Patient verbalizes understanding of instruction. PT AMBULATORY WITH STEADY GAIT.
[2018-03-24 02:41] VITALS: BP 168/87
== END 2018-03-24 02:42 | disposition home or self-care (01) ==
LOC: ER 23:53
DX: N39.0 Urinary tract infection, site not specified (principal); I10 Essential (primary) hypertension; E11.9 Type 2 diabetes mellitus without complications; D64.9 Anemia, unspecified; E78.5 Hyperlipidemia, unspecified; E66.01 Morbid (severe) obesity due to excess calories; D69.6 Thrombocytopenia, unspecified; F17.200 Nicotine dependence, unspecified, uncomplicated; Z68.31 Body mass index [BMI] 31.0-31.9, adult; Z86.19 Personal history of other infectious and parasitic diseases; Z79.82 Long term (current) use of aspirin; Z79.84 Long term (current) use of oral hypoglycemic drugs; Z79.4 Long term (current) use of insulin; Z79.899 Other long term (current) drug therapy
CPT/HCPCS: 36415; 51702; 74176; 80048; 80076; 81001; 83605; 85025; 85730; 87040 ×2; 87077; 87086; 87186; 96365; 96375; 99284; 99406; A4606; J0696; J1170; J2405; J3490; J7040; Z7610; 81000-TC

== ENCOUNTER 2018-07-23 04:43 | Emergency (ER) | payer OTHER ==
[~2018-07-23] VITALS: Ht 177.8 cm; Wt 111.6 kg
--- NOTE | 2018-07-23 04:45 | NUR ---
PT BIBSELF COMPLAINING OF ABD PAIN X 30 MIN, -N/V/D. PT AXO4. RESPIRATIONS EVEN AND UNLABORED. PT APPEARS TO BE VERY ANXIOUS. PT PUT ON THE SOLAR INSTALLATION MANAGER AND PULSE OX. PENDING EVAL FROM ER .
[2018-07-23 05:08] LABS: BASOPHILS # (AUTO) 0.1 /CMM (0.0-0.2); BASOPHILS % (AUTO) 1.2 % (0.0-2.0); EOSINOPHILS % (AUTO) 7.8 % (0.0-6.0); HEMATOCRIT 29 % (39-51); HEMOGLOBIN 10.4 g/dL (13.5-17.5); LYMPHOCYTES # (AUTO) 1.2 /CMM (0.8-4.8); LYMPHOCYTES % (AUTO) 19.2 % (20.0-44.0); MEAN CORPUSCULAR HGB CONC 36 g/dl (31.0-36.0); MEAN CORPUSCULAR VOLUME 98 fL (80-96); MONOCYTES # (AUTO) 0.9 /CMM (0.1-1.30); MONOCYTES % (AUTO) 14.3 % (2.0-12.0); NEUTROPHILS # (AUTO) 3.6 /CMM (1.8-8.9); NEUTROPHILS % (AUTO) 57.5 % (43.0-81.0); PLATELET COUNT (AUTO) 117 /CMM (150-450); RED BLOOD CELL COUNT(AUTO) 2.99 MIL/uL (4.5-6.0); WHITE BLOOD COUNT (AUTO) 6.3 K/uL (4.3-11.0)
[2018-07-23 05:15] LABS: BILIRUBIN,DIRECT 0.2 mg/dL (0.0-0.2); BILIRUBIN,TOTAL 0.7 mg/dL (0.2-1.0); CALCIUM, SERUM 8.6 mg/dL (8.5-10.1); POTASSIUM 4.3 mmol/L (3.5-5.1); TOTAL PROTEIN, SERUM 6.6 g/dL (6.4-8.2)
[2018-07-23 05:16] LABS: CREATININE 1.4 mg/dL (0.6-1.3)
[2018-07-23 05:19] LABS: MAGNESIUM 1.4 mg/dL (1.8-2.4)
[2018-07-23 05:20] LABS: ALCOHOL, BLOOD < 3 mg/dL (0-0)
--- NOTE | 2018-07-23 05:20 | NUR ---
PT AMBULATORY WITH STEADY GAIT. URINE SAMPLE OBTAINED AND SENT TO LAB.
--- NOTE | 2018-07-23 05:30 | NUR ---
PT YELLING AND COMPLAINING OF PAIN, ER MD AWARE.
[2018-07-23] MEDS ORDERED: MORPHINE SULFATE INJ 2 MG/ML DISP.SYRIN ONE ×2 (05:43→05:51)
[2018-07-23] MEDS ORDERED: ONDANSETRON HCL/PF 4 MG/2 ML VIAL ONE (05:43)
[2018-07-23 05:45] LABS: APPEARANCE,URINE Clear (CLEAR); BILIRUBIN,URINE Negative (NEGATIVE); BLOOD, URINE Moderate Ery/uL (NEGATIVE); COLOR,URINE Yellow (YELLOW); KETONES,URINE Negative (NEGATIVE); LEUKOCYTE ESTERASE ,URINE Negative (NEGATIVE); NITRITE, URINE Negative (NEGATIVE); PH,URINE 6.5 (5.0-8.0); PROTEIN,URINE >=300 mg/dl (NEGATIVE); UGLUCOSE Negative (NEGATIVE)
--- NOTE | 2018-07-23 05:45 | NUR ---
AMOL HERRMANN AT BEDSIDE.
[2018-07-23] MEDS ORDERED: IV NS 0.9% 500 ML BAG IV ONE (06:00)
[2018-07-23] MEDS ORDERED: ONDANSETRON HCL/PF - ER 4 MG/2 ML VIAL IV ONE (06:00)
[2018-07-23] MEDS ORDERED: MORPHINE SULFATE INJ 2 MG/ML DISP.SYRIN IV ONE ×2 (06:00)
[2018-07-23] MEDS ORDERED: MAGNESIUM OXIDE 400 MG TABLET PO ONE (06:00)
[2018-07-23 06:06] LABS: BACTERIA,URINE None seen /HPF (None Seen); SQUAMOUS EPITHELIAL CELL,UR 0-2 /HPF (None Seen); WBC,URINE 0-2 /HPF (0-3)
[2018-07-23] MEDS ORDERED: MAGNESIUM OXIDE 400 MG TABLET ONE (06:08)
--- NOTE | 2018-07-23 06:14 | NUR ---
DOUBLE ORDER OF MAG OXIDE, NOT GIVEN.
--- NOTE | 2018-07-23 06:44 | NUR ---
PT RESTING IN BED COMFORTABLY, NAD NOTED.
--- NOTE | 2018-07-23 07:00 | NUR ---
Patient discharged to home in stable condition. Written and verbal after care instructions given. Patient verbalizes understanding of instruction. IV removed. Catheter intact and site benign. Pressure and 4x4 applied to site. No bleeding noted.
[2018-07-23 07:01] VITALS: BP 145/83
[2018-07-23] MEDS ORDERED: LIDOCAINE 1% INJ 50 ML MDV IJ ONE (12:06)
== END 2018-07-23 07:03 | disposition home or self-care (01) ==
LOC: ER 04:48
DX: K80.50 Calculus of bile duct without cholangitis or cholecystitis without obstruction (principal); E83.42 Hypomagnesemia; D64.9 Anemia, unspecified; D69.6 Thrombocytopenia, unspecified; J44.9 Chronic obstructive pulmonary disease, unspecified; E78.5 Hyperlipidemia, unspecified; E11.9 Type 2 diabetes mellitus without complications; I10 Essential (primary) hypertension; F17.210 Nicotine dependence, cigarettes, uncomplicated; Z86.19 Personal history of other infectious and parasitic diseases; Z79.4 Long term (current) use of insulin; Z79.82 Long term (current) use of aspirin; Z79.84 Long term (current) use of oral hypoglycemic drugs; Z79.899 Other long term (current) drug therapy
CPT/HCPCS: 36415; 80048; 80076; 80307; 81001; 82962; 83690; 83735; 85025; 96374; 96375; 99283; J2270 ×2; J2405; J3490; J7040; 81000-TC; G0480

== ENCOUNTER 2018-08-02 00:36 | Emergency (ER) | payer OTHER ==
[~2018-08-02] VITALS: Ht 190.5 cm; Wt 109.3 kg
[2018-08-02] MEDS ORDERED: KETOROLAC TROMETHAMINE INJ 30 MG/ML VIAL IV ONE (01:00)
[2018-08-02] MEDS ORDERED: HYDROMORPHONE INJ 2 MG/ML DISP.SYRIN IV ONE (01:00)
[2018-08-02] MEDS ORDERED: ONDANSETRON HCL/PF 4 MG/2 ML VIAL IVP ONE (01:00)
[2018-08-02] MEDS ORDERED: IV NS 0.9% 500 ML BAG IV ONE (01:00)
[2018-08-02] MEDS ORDERED: HYDROMORPHONE 1 MG/1 ML DISP.SYRIN ONE (01:04)
[2018-08-02] MEDS ORDERED: ONDANSETRON HCL/PF 4 MG/2 ML VIAL ONE (01:04)
[2018-08-02] MEDS ORDERED: KETOROLAC TROMETHAMINE 15 MG/ML VIAL ONE (01:04)
[2018-08-02 01:15] LABS: BASOPHILS # (AUTO) 0.1 /CMM (0.0-0.2); BASOPHILS % (AUTO) 0.9 % (0.0-2.0); EOSINOPHILS % (AUTO) 5.1 % (0.0-6.0); HEMATOCRIT 28 % (39-51); LYMPHOCYTES # (AUTO) 1.4 /CMM (0.8-4.8); LYMPHOCYTES % (AUTO) 19.9 % (20.0-44.0); MEAN CORPUSCULAR HGB CONC 36 g/dl (31.0-36.0); MEAN CORPUSCULAR VOLUME 99 fL (80-96); MONOCYTES % (AUTO) 14.3 % (2.0-12.0); NEUTROPHILS # (AUTO) 4.3 /CMM (1.8-8.9); NEUTROPHILS % (AUTO) 59.8 % (43.0-81.0); PLATELET COUNT (AUTO) 109 /CMM (150-450); RED BLOOD CELL COUNT(AUTO) 2.83 MIL/uL (4.5-6.0); WHITE BLOOD COUNT (AUTO) 7.1 K/uL (4.3-11.0)
[2018-08-02 01:22] LABS: CALCIUM, SERUM 8.6 mg/dL (8.5-10.1); CREATININE 1.5 mg/dL (0.6-1.3); POTASSIUM 4.3 mmol/L (3.5-5.1)
[2018-08-02 01:28] LABS: BILIRUBIN,DIRECT 0.2 mg/dL (0.0-0.2); BILIRUBIN,TOTAL 0.8 mg/dL (0.2-1.0); TOTAL PROTEIN, SERUM 6.5 g/dL (6.4-8.2)
[2018-08-02] MEDS ORDERED: HYDROCODONE/APAP 10/325MG 1 EA TABLET ONE (02:19)
[2018-08-02] MEDS ORDERED: HYDROCODONE/APAP 10/325MG 1 EA TABLET PO ONE (02:30)
[2018-08-02 02:35] VITALS: BP 140/88
== END 2018-08-02 02:35 | disposition home or self-care (01) ==
LOC: ER 00:39
DX: K80.20 Calculus of gallbladder without cholecystitis without obstruction (principal); F17.210 Nicotine dependence, cigarettes, uncomplicated; I10 Essential (primary) hypertension; E11.9 Type 2 diabetes mellitus without complications; D64.9 Anemia, unspecified; E78.5 Hyperlipidemia, unspecified; G89.4 Chronic pain syndrome; E66.01 Morbid (severe) obesity due to excess calories; Z68.30 Body mass index [BMI] 30.0-30.9, adult; Z79.82 Long term (current) use of aspirin; Z79.899 Other long term (current) drug therapy; Z79.84 Long term (current) use of oral hypoglycemic drugs; Z79.4 Long term (current) use of insulin
CPT/HCPCS: 36415; 71045; 76705; 80048; 80076; 83690; 84484; 85025; 93005; 96361; 96374; 96375; 99284; 99406; J1170; J1885; J2405; J7040

== ENCOUNTER 2018-08-14 02:09 | Inpatient (IN) | payer OTHER ==
[~2018-08-14] VITALS: Ht 182.9 cm; Wt 111.1 kg
--- NOTE | 2018-08-14 02:20 | NUR ---
PT BIBFAMILY C/O ABD PAIN AND VOMITING BLOOD X 2 HOURS. PATIENT SEEN HERE LAST WEEKEND AND DX WITH GALL STONES. PT AOX4. NAD NOTED. RESP EVEN AND UNLABORED. PT ON MONITOR IN BED 12 WITH FAMILY AT BEDSIDE. WILL CONTINUE TO MONITOR.
[2018-08-14] MEDS ORDERED: IV NS 0.9% 1,000 ML BAG IV ONE (02:30)
[2018-08-14] MEDS ORDERED: HYDROMORPHONE INJ 2 MG/ML DISP.SYRIN IV ONE (02:30)
[2018-08-14] MEDS ORDERED: PANTOPRAZOLE 40 MG VIAL IV ONE (02:30)
[2018-08-14] MEDS ORDERED: ONDANSETRON HCL/PF 4 MG/2 ML VIAL IVP ONE (02:30)
[2018-08-14] MEDS ORDERED: HYDROMORPHONE 1 MG/1 ML DISP.SYRIN ONE (03:03)
[2018-08-14] MEDS ORDERED: PANTOPRAZOLE 40 MG VIAL ONE (03:03)
[2018-08-14] MEDS ORDERED: ONDANSETRON HCL/PF 4 MG/2 ML VIAL ONE ×2 (03:03→05:06)
[2018-08-14 03:09] LABS: BASOPHILS % (AUTO) 0.7 % (0.0-2.0); EOSINOPHILS % (AUTO) 6.2 % (0.0-6.0); HEMATOCRIT 27 % (39-51); HEMOGLOBIN 9.6 g/dL (13.5-17.5); LYMPHOCYTES # (AUTO) 1.6 /CMM (0.8-4.8); LYMPHOCYTES % (AUTO) 26.3 % (20.0-44.0); MEAN CORPUSCULAR HGB CONC 35 g/dl (31.0-36.0); MEAN CORPUSCULAR VOLUME 99 fL (80-96); MONOCYTES # (AUTO) 0.7 /CMM (0.1-1.30); NEUTROPHILS # (AUTO) 3.5 /CMM (1.8-8.9); NEUTROPHILS % (AUTO) 55.8 % (43.0-81.0); PLATELET COUNT (AUTO) 108 /CMM (150-450); RED BLOOD CELL COUNT(AUTO) 2.78 MIL/uL (4.5-6.0); WHITE BLOOD COUNT (AUTO) 6.2 K/uL (4.3-11.0)
[2018-08-14 03:10] LABS: CALCIUM, SERUM 8.7 mg/dL (8.5-10.1); CREATININE 1.7 mg/dL (0.6-1.3)
--- NOTE | 2018-08-14 03:10 | NUR ---
BLOOD DRAWN AND GIVEN TO LAB
--- NOTE | 2018-08-14 03:12 | NUR ---
TECH AT BEDSIDE FOR EKG
[2018-08-14 03:14] LABS: ALBUMIN 2.9 g/dL (3.4-5.0); BILIRUBIN,DIRECT 0.2 mg/dL (0.0-0.2); BILIRUBIN,TOTAL 0.7 mg/dL (0.2-1.0); TOTAL PROTEIN, SERUM 6.3 g/dL (6.4-8.2)
--- NOTE | 2018-08-14 03:33 | NUR ---
PT TAKEN TO RADIOLOGY VIA MALIA
[2018-08-14] MEDS ORDERED: OCTREOTIDE 50 MCG/ML AMPUL IV ONE (04:00)
--- NOTE | 2018-08-14 04:01 | NUR ---
RADIOLOGY AT BEDSIDE FOR XRAY
[2018-08-14] MEDS ORDERED: OCTREOTIDE 100 MCG/ML VIAL ONE (04:20)
[2018-08-14] MEDS ORDERED: ONDANSETRON HCL/PF - ER 4 MG/2 ML VIAL IV ONE (04:30)
[2018-08-14] MEDS ORDERED: Z GUARD REMEDY 2 OZ OINT TP PRN (06:00)
[2018-08-14] MEDS ORDERED: IV LR 1000 ML 1,000 ML IV PRN (06:00)
[2018-08-14] MEDS ORDERED: ONDANSETRON HCL/PF 4 MG/2 ML VIAL IVP PRN (06:00)
[2018-08-14] MEDS ORDERED: MORPHINE SULFATE INJ 2 MG/ML DISP.SYRIN IV PRN (06:00)
[2018-08-14] MEDS ORDERED: ACETAMINOPHEN 325 MG TABLET PO PRN (06:00)
--- NOTE | 2018-08-14 06:20 | NUR ---
REPORT GIVEN TO STEPH WATKINS FOR WENDY
[2018-08-14 07:03] VITALS: BP 129/72
--- NOTE | 2018-08-14 07:30 | NUR ---
MS RN OPENING NOTE RECEIVED PT STANDING UP IN ROOM, ALERT AND ORIENTED X4. DENIES CHEST PAIN, SOB, N/V. BREATHING IS EVEN AND UNLABORED ON ROOM AIR. REPORTS THAT HE HAS ABD PAIN THAT "COMES AND GOES" AND HAS NONE AT THIS TIME. DENIES EPISODES OF EMESIS W/ BLOOD AT THIS TIME. PT REFUSING FULL SKIN CHECK AND TO CHANGE INTO GOWN AT THIS TIME. RIGHT AC #20 IV IS SALINE LOCKED WITHOUT REDNESS OR SWELLING. PT EDUCATED ON USE OF CALL LIGHT SYSTEM AND TO NOT EXIT THE BED WITHOUT STAFF ASSISTANCE. VERBALIZED UNDERSTANDING AND AGREEMENT. ALL NEEDS ATTENDED TO. BED IS LOCKED AND IN LOWEST POSITION, SIDE RAILS UP X2, CALL LIGHT AND POSSESSIONS WITHIN REACH.
[2018-08-14 08:00] VITALS: BP 134/77
[2018-08-14] MEDS ORDERED: PANTOPRAZOLE 40 MG VIAL IV SCH (09:00)
[2018-08-14] MEDS ORDERED: ZOLP10TA6 PO (09:18)
[2018-08-14] MEDS ORDERED: ERGO500040 PO (09:18)
[2018-08-14] MEDS ORDERED: OMEP20CA10 PO (09:18)
[2018-08-14] MEDS ORDERED: INSU100V7 SQ (09:18)
[2018-08-14] MEDS ORDERED: PROP40TA7 PO (09:18)
[2018-08-14] MEDS ORDERED: SITA1TAB6 PO (09:18)
[2018-08-14] MEDS ORDERED: TAMS-12 PO (09:18)
[2018-08-14] MEDS ORDERED: GLIM4TAB2 PO (09:18)
[2018-08-14] MEDS ORDERED: AMLO5TAB9 PO (09:18)
[2018-08-14] MEDS ORDERED: CARV12.52 PO (09:18)
[2018-08-14] MEDS ORDERED: LOSA1TAB39 PO (09:19)
[2018-08-14] MEDS ORDERED: ASPI-1152 PO (09:19)
--- NOTE | 2018-08-14 11:54 | NUR ---
MS RN NOTE SPOKE WITH JADIEL WANG NP REGARDING PT REQUEST TO SMOKE AND TO START DIET. ORDERS RECEIVED TO BEGIN CLEAR LIQUID DIET. PER JADIEL, PT IS NOT CLEAR FOR SMOKING PRIVILEGES AT THIS TIME. INFORMED PT AND OFFERED NICOTINE PATCH, PT DECLINED AT THIS TIME. INFORMED PT AND AT THE BEDSIDE THAT HE IS NOT CLEAR TO GO OUT AND SMOKE AT THIS TIME. PT AND VERBALIS UNDERSTANDING AND AGREEMENT. PROVIDED PT WITH ICE WATER AND JUICE.
[2018-08-14 12:38] LABS: BASOPHILS # (AUTO) 0.1 /CMM (0.0-0.2); BASOPHILS % (AUTO) 1.3 % (0.0-2.0); EOSINOPHILS % (AUTO) 5.6 % (0.0-6.0); HEMATOCRIT 27 % (39-51); HEMOGLOBIN 9.3 g/dL (13.5-17.5); LYMPHOCYTES # (AUTO) 1.2 /CMM (0.8-4.8); LYMPHOCYTES % (AUTO) 25.6 % (20.0-44.0); MEAN CORPUSCULAR HGB CONC 34 g/dl (31.0-36.0); MEAN CORPUSCULAR VOLUME 99 fL (80-96); MONOCYTES # (AUTO) 0.5 /CMM (0.1-1.30); MONOCYTES % (AUTO) 11.4 % (2.0-12.0); NEUTROPHILS # (AUTO) 2.6 /CMM (1.8-8.9); NEUTROPHILS % (AUTO) 56.1 % (43.0-81.0); PLATELET COUNT (AUTO) 99 /CMM (150-450); RED BLOOD CELL COUNT(AUTO) 2.73 MIL/uL (4.5-6.0); WHITE BLOOD COUNT (AUTO) 4.7 K/uL (4.3-11.0)
[2018-08-14 16:00] VITALS: BP 127/75
--- NOTE | 2018-08-14 17:30 | NUR ---
MS EMPLOYEE RELATIONS DIRECTOR NOTE PATIENT DISCHARGED HOME IN MEDICALLY STABLE CONDITION VIA PRIVATE CARE AND ACCOMPANIED BY . PATIENT IS A/OX4, DENIES CHEST PAIN, SHORTNESS OF BREATH, NAUSEA/VOMITING. NO EPISODES OF BLOODY EMESIS THROUGHOUT DURATION OF SHIFT. BREATHING EVEN, UNLABORED AND ON RA. RAC PIV REMOVED WITH CATHETER TIP INTACT, NO REDNESS OR SWELLING NOTED AT SITE. ALL BELONGING ACCOUNTED FOR AND BELONGINGS LIST SIGNED AND PLACED IN CHART. DISCHARGE EDUCATION PROVIDED PER PROTOCOL TO PATIENT AND . DISCUSSED RECOMMENDATION TO FOLLOW UP WITH PRIMARY AND GI WITHIN 1 WEEK WELL TO AVOID BLOOD THINNERS AND ASPIRIN. INFORMED TO CALL 911 OR RETURN TO NEAREST ER FOR EPISODES OF CHEST PAIN OR SOB, UNILATERAL CALF SWELLING, OR REOCCURRENCE OF CHIEF COMPLAINT. PATIENT AND VERBALIZED AGREEMENT AND UNDERSTANDING OF DISCHARGE RECOMMENDATIONS. NURSE ACCOMPANIED PATIENT TO MAIN LOBBY WITHOUT INCIDENT.
== END 2018-08-14 17:30 | disposition home or self-care (01) | DRG 253 ==
LOC: ER 02:11 → TELE 06:05 → MED 06:14
PROVIDERS: ADMIT Nurse Practitioner Acute Care; ATTEND Nurse Practitioner Acute Care
DX: K92.0 Hematemesis (principal); N17.0 Acute kidney failure with tubular necrosis; E43 Unspecified severe protein-calorie malnutrition; D68.59 Other primary thrombophilia; D69.6 Thrombocytopenia, unspecified; K70.30 Alcoholic cirrhosis of liver without ascites; E88.09 Other disorders of plasma-protein metabolism, not elsewhere classified; E11.9 Type 2 diabetes mellitus without complications; D63.8 Anemia in other chronic diseases classified elsewhere; E78.5 Hyperlipidemia, unspecified; F17.210 Nicotine dependence, cigarettes, uncomplicated; Z79.4 Long term (current) use of insulin; G89.4 Chronic pain syndrome; I10 Essential (primary) hypertension; J44.9 Chronic obstructive pulmonary disease, unspecified; E66.9 Obesity, unspecified; Z68.33 Body mass index [BMI] 33.0-33.9, adult; K80.20 Calculus of gallbladder without cholecystitis without obstruction; B19.20 Unspecified viral hepatitis C without hepatic coma; R59.0 Localized enlarged lymph nodes
CPT/HCPCS: 36415; 71045-TC; 80048-TC; 80076-TC; 82962-TC; 85025-TC; 85730-TC; 86850-TC; 87081-TC; C9113; G0378; J1170; J2354; J2405; J7030; J7120

== ENCOUNTER 2018-12-21 11:27 | Emergency (ER) | payer OTHER ==
[~2018-12-21] VITALS: Ht 190.5 cm; Wt 108.9 kg
[~2018-12-21 11:27] MED LIST changes: -ACYC200C PO; +AMLO5TAB9 PO; +ASPI-1152 PO; -ASPI-1169 PO; -ATOR40TA PO; +CARV12.52 PO; +ERGO500040 PO; -FURO-144 PO; +GLIM4TAB2 PO; +INSU100V7 SQ; -INSU3INS6 SQ; -LISI5TAB45 PO; +LOSA1TAB39 PO; -MAGN400T26 PO; -METF-440 PO; -METO25TA20 PO; +OMEP20CA11 PO; +PROP40TA7 PO; +SITA1TAB6 PO; -SPIR25TA PO; -Silver Sulfadiazine Cream TP; +TAMS-12 PO; +ZOLP10TA6 PO
--- NOTE | 2018-12-21 11:42 | NUR ---
IV LINE ESTABLISHED, BLOOD DRAWNED AND SENT TO LAB.
--- NOTE | 2018-12-21 11:45 | NUR ---
[id number], FROM HOME, C/O ABD PAIN LUQ 2hrs KAIAKO KURA TUARUA, FENTANYL 50MG GIVEN BY EMS BS 162. PT AAOX4, VSS. DENIES CP, SOB, DIZZINESS, N/V/D @ THIS TIME. AWAITING EVAL BY JACKSON/PA. WILL CONT TO MONITOR.
[2018-12-21 12:57] LABS: BASOPHILS # (AUTO) 0.1 /CMM (0.0-0.2); BASOPHILS % (AUTO) 1.4 % (0.0-2.0); EOSINOPHILS % (AUTO) 7.5 % (0.0-6.0); HEMATOCRIT 33 % (39-51); HEMOGLOBIN 11.7 g/dL (13.5-17.5); LYMPHOCYTES # (AUTO) 1.6 /CMM (0.8-4.8); LYMPHOCYTES % (AUTO) 26.8 % (20.0-44.0); MEAN CORPUSCULAR HGB CONC 36 g/dl (31.0-36.0); MEAN CORPUSCULAR VOLUME 96 fL (80-96); MONOCYTES # (AUTO) 0.7 /CMM (0.1-1.30); MONOCYTES % (AUTO) 11.2 % (2.0-12.0); NEUTROPHILS # (AUTO) 3.3 /CMM (1.8-8.9); NEUTROPHILS % (AUTO) 53.1 % (43.0-81.0); PLATELET COUNT (AUTO) 120 /CMM (150-450); RED BLOOD CELL COUNT(AUTO) 3.42 MIL/uL (4.5-6.0); WHITE BLOOD COUNT (AUTO) 6.1 K/uL (4.3-11.0)
[2018-12-21 12:59] LABS: APPEARANCE,URINE Slightly Cloudy (CLEAR); BILIRUBIN,URINE Negative (NEGATIVE); BLOOD, URINE Large Ery/uL (NEGATIVE); COLOR,URINE Yellow (YELLOW); KETONES,URINE Negative (NEGATIVE); LEUKOCYTE ESTERASE ,URINE Negative (NEGATIVE); NITRITE, URINE Negative (NEGATIVE); PROTEIN,URINE >=300 mg/dl (NEGATIVE); UGLUCOSE Negative (NEGATIVE)
[2018-12-21] MEDS ORDERED: MORPHINE SULFATE INJ 4 MG/ML DISP.SYRIN ONE (13:01)
[2018-12-21 13:05] LABS: BACTERIA,URINE Rare /HPF (None Seen); RBC,URINE TOO NUMEROUS TO COUN /HPF (0-2); SQUAMOUS EPITHELIAL CELL,UR Few /HPF (None Seen)
[2018-12-21 13:10] LABS: CALCIUM, SERUM 9.1 mg/dL (8.5-10.1); CARBON DIOXIDE 23 mmol/L (21-32); CHLORIDE 110 mmol/L (98-107); CREATININE 1.1 mg/dL (0.6-1.3); GLUCOSE 163 mg/dL (74-106); POTASSIUM 4.4 mmol/L (3.5-5.1); SODIUM SERUM 142 mmol/L (136-145); UREA NITROGEN, BLOOD 18 mg/dL (7-18)
[2018-12-21 13:14] LABS: ALANINE AMINOTRANSFERASE 25 U/L (12-78); ALBUMIN 2.5 g/dL (3.4-5.0); ALKALINE PHOSPHATASE 51 U/L (46-116); ASPARTATE AMINOTRANSFERASE 46 U/L (15-37); BILIRUBIN,DIRECT 0.2 mg/dL (0.0-0.2); BILIRUBIN,TOTAL 0.9 mg/dL (0.2-1.0); LIPASE 229 U/L (73-393); TOTAL PROTEIN, SERUM 6.5 g/dL (6.4-8.2)
[2018-12-21] MEDS: IV NS 0.9% 1,000 ML BAG IV ONE (13:24)
[2018-12-21] MEDS: MORPHINE SULFATE INJ 2 MG/ML DISP.SYRIN IV ONE (13:25)
--- NOTE | 2018-12-21 13:25 | NUR ---
MEDICATED FOR PAIN PER ERMD ORDER, PT ANNA WELL. GOODYEAR STITCHER @ BS FOR EVAL.
[2018-12-21] MEDS ORDERED: CT SWABBABLE VALVE TRANS SET 1 EA INFUS.SET MC ONE (14:00)
[2018-12-21] MEDS ORDERED: IV NS 0.9% 250 ML IV ONE (14:00)
[2018-12-21] MEDS ORDERED: IOHEXOL-300 100 ML VIAL IV ONE (14:00)
[2018-12-21 15:47] VITALS: BP 148/92
== END 2018-12-21 15:48 | disposition home or self-care (01) ==
LOC: ER 11:31
DX: K80.20 Calculus of gallbladder without cholecystitis without obstruction (principal); I10 Essential (primary) hypertension; E11.9 Type 2 diabetes mellitus without complications; D64.9 Anemia, unspecified; E78.5 Hyperlipidemia, unspecified; D69.6 Thrombocytopenia, unspecified; G89.4 Chronic pain syndrome; F17.210 Nicotine dependence, cigarettes, uncomplicated; E66.01 Morbid (severe) obesity due to excess calories; Z68.30 Body mass index [BMI] 30.0-30.9, adult; Z86.19 Personal history of other infectious and parasitic diseases; Z79.82 Long term (current) use of aspirin; Z79.899 Other long term (current) drug therapy; Z79.4 Long term (current) use of insulin
CPT/HCPCS: 36415; 74177; 76705; 80048; 80076; 81001; 83605; 83690; 84484; 85025; 85730; 96374; 99284; J2270; J7030; J7050; Q9967; 81000-TC

== ENCOUNTER 2020-09-01 15:55 | Emergency (ER) | payer MEDICAID, OTHER ==
[~2020-09-01] VITALS: Ht 190.5 cm; Wt 111.1 kg
[~2020-09-01 15:55] MED LIST changes: +AMLO-212 PO; -AMLO5TAB9 PO; -ASPI-1152 PO; +ASPI-1420 PO; -GLIM4TAB2 PO; +GLIM4TAB37 PO; -OMEP20CA11 PO; +OMEP20CA15 PO
--- NOTE | 2020-09-01 16:02 | NUR ---
THE PATIENT IS BIB DAUGHTER, L SIDED RIB, LUE PAIN, .SOB S/P GLF. RATES PAIN 10/10. ATTACHED TO THE MONITOR. WILL CONTINUE TO MONITOR THE PATIENT.
[2020-09-01] MEDS ORDERED: MORPHINE SULFATE INJ 4 MG/ML DISP.SYRIN ONE (16:08)
[2020-09-01 16:18] LABS: BASOPHILS # (AUTO) 0.1 /CMM (0.0-0.2); BASOPHILS % (AUTO) 1.6 % (0.0-2.0); EOSINOPHILS % (AUTO) 5.5 % (0.0-6.0); HEMATOCRIT 30 % (39-51); HEMOGLOBIN 10.2 g/dL (13.5-17.5); LYMPHOCYTES # (AUTO) 1.2 /CMM (0.8-4.8); LYMPHOCYTES % (AUTO) 21.4 % (20.0-44.0); MEAN CORPUSCULAR HGB CONC 35 g/dl (31.0-36.0); MEAN CORPUSCULAR VOLUME 100 fL (80-96); MONOCYTES # (AUTO) 0.6 /CMM (0.1-1.30); MONOCYTES % (AUTO) 10.8 % (2.0-12.0); NEUTROPHILS # (AUTO) 3.3 /CMM (1.8-8.9); NEUTROPHILS % (AUTO) 60.7 % (43.0-81.0); PLATELET COUNT (AUTO) 110 /CMM (150-450); RED BLOOD CELL COUNT(AUTO) 2.96 MIL/uL (4.5-6.0); WHITE BLOOD COUNT (AUTO) 5.4 K/uL (4.3-11.0)
[2020-09-01 16:26] LABS: CARBON DIOXIDE 25 mmol/L (21-32); CHLORIDE 111 mmol/L (98-107); CREATININE 1.2 mg/dL (0.6-1.3); GLUCOSE 225 mg/dL (74-106); POTASSIUM 4.8 mmol/L (3.5-5.1); SODIUM SERUM 143 mmol/L (136-145); UREA NITROGEN, BLOOD 23 mg/dL (7-18)
[2020-09-01] MEDS ORDERED: IV NS 0.9% 1,000 ML BAG IV ONE (16:30)
[2020-09-01] MEDS ORDERED: MORPHINE SULFATE INJ 2 MG/ML DISP.SYRIN IV ONE (16:30)
[2020-09-01] MEDS ORDERED: CT SWABBABLE VALVE TRANS SET 1 EA INFUS.SET MC ONE (16:49)
[2020-09-01] MEDS ORDERED: IOHEXOL-350 100 ML VIAL IV ONE (16:49)
[2020-09-01] MEDS ORDERED: IV NS 0.9% 250 ML IV ONE (16:49)
--- NOTE | 2020-09-01 16:57 | NUR ---
COVID SWAB DONE AND SENT TO THE LAB
--- NOTE | 2020-09-01 16:58 | NUR ---
THE PATIENT IS TAKEN TO CT
--- NOTE | 2020-09-01 16:59 | NUR ---
MOVE SHEET SUBMITTED
--- NOTE | 2020-09-01 17:12 | NUR ---
THE PATIENT IS BACK FROM CT
[2020-09-01] MEDS ORDERED: KETOROLAC TROMETHAMINE 15 MG/ML VIAL ONE ×2 (17:25→17:55)
[2020-09-01] MEDS ORDERED: KETOROLAC TROMETHAMINE INJ 30 MG/ML VIAL IV ONE ×2 (17:30→18:00)
[2020-09-01] MEDS ORDERED: METF-442 PO (17:37)
[2020-09-01] MEDS ORDERED: SITA1TAB6 PO (17:37)
[2020-09-01] MEDS ORDERED: KETOROLAC TROMETHAMINE INJ 30 MG/ML VIAL IM ONE (18:00)
--- NOTE | 2020-09-01 18:00 | NUR ---
Patient does not wish to proceed with medical care recommended by Dr. Bennett. Patient given information related to possible complications, up to and including , which could occur as a result of leaving the hospital at this time. Patient verbalizes understanding of risks involved due to leaving against medical advice. Patient has signed AMA form.
[2020-09-01 18:25] VITALS: BP 182/69
== END 2020-09-01 18:00 | disposition left against medical advice (07) ==
LOC: ER 15:56
DX: R07.9 Chest pain, unspecified (principal); R79.1 Abnormal coagulation profile; I11.9 Hypertensive heart disease without heart failure; Z20.822 Contact with and (suspected) exposure to COVID-19; F17.290 Nicotine dependence, other tobacco product, uncomplicated; E78.5 Hyperlipidemia, unspecified; K74.60 Unspecified cirrhosis of liver; G89.4 Chronic pain syndrome; E66.01 Morbid (severe) obesity due to excess calories; Z68.30 Body mass index [BMI] 30.0-30.9, adult; Z86.19 Personal history of other infectious and parasitic diseases; E11.9 Type 2 diabetes mellitus without complications; Z79.4 Long term (current) use of insulin; Z91.14 Patient's other noncompliance with medication regimen; D64.9 Anemia, unspecified; Z79.899 Other long term (current) drug therapy; M79.602 Pain in left arm
CPT/HCPCS: 36415; 71100; 71275; 73060; 73090; 80048; 83880; 84484; 85025; 85378; 87081; 87426; 93005; 96361; 96374; 96375; 99291; 99406; C9803; J1885 ×2; J2270; J7030; J7050; Q9967

== ENCOUNTER 2020-09-13 11:08 | Inpatient (IN) | payer MEDICAID ==
[~2020-09-13] VITALS: Ht 190.5 cm; Wt 126.1 kg
[~2020-09-13 11:08] MED LIST changes: -AMLO-212 PO; -ASPI-1420 PO; -CARV12.52 PO; -ERGO500040 PO; -GLIM4TAB37 PO; -INSU100V7 SQ; -LOSA1TAB39 PO; +METF-442 PO; -OMEP20CA15 PO; -TAMS-12 PO; -ZOLP10TA6 PO
[2020-09-13] MEDS ORDERED: MORPHINE SULFATE INJ 4 MG/ML DISP.SYRIN ONE (11:38)
[2020-09-13] MEDS ORDERED: ONDANSETRON HCL/PF 4 MG/2 ML VIAL ONE (11:38)
[2020-09-13 11:53] LABS: BASOPHILS % (AUTO) 0.2 % (0.0-2.0); EOSINOPHILS % (AUTO) 0.1 % (0.0-6.0); HEMATOCRIT 34 % (39-51); HEMOGLOBIN 11.4 g/dL (13.5-17.5); LYMPHOCYTES # (AUTO) 0.2 /CMM (0.8-4.8); LYMPHOCYTES % (AUTO) 1.5 % (20.0-44.0); MEAN CORPUSCULAR HGB CONC 34 g/dl (31.0-36.0); MEAN CORPUSCULAR VOLUME 99 fL (80-96); MONOCYTES # (AUTO) 0.4 /CMM (0.1-1.30); MONOCYTES % (AUTO) 4.1 % (2.0-12.0); NEUTROPHILS # (AUTO) 9.9 /CMM (1.8-8.9); NEUTROPHILS % (AUTO) 94.1 % (43.0-81.0); PLATELET COUNT (AUTO) 86 /CMM (150-450); RED BLOOD CELL COUNT(AUTO) 3.39 MIL/uL (4.5-6.0); WHITE BLOOD COUNT (AUTO) 10.6 K/uL (4.3-11.0)
--- NOTE | 2020-09-13 11:56 | NUR ---
DR. HILL NOTIFIED THAT PT'S BP IS 101/62 BECASUE PT HAS AN ORDER FOR MORPHINE. OK TO GIVE THE MORPHINE AND AWARE OF BP. NOTED AND CARRIED OUT
--- NOTE | 2020-09-13 11:58 | NUR ---
BIBS FROM HOME TO ER BED 7. AAOX4. SOB, BREATHING RAPID. BROUGHT IN FOR LEFT SIDED CHEST PAIN NON RADIATING X 10DAYS. 8/10 SHARP. AGGREVATED BY BREATHING. PER PT, HE HASNT SLEPT GOOD FOR THE PAST 10DAYS BECAUSE HE CANT LIE DOWN. PT IS NOTED WITH BILAT LOWER LEG EDEMA. PT PLACED ON 02 VIA NC @ 2LPM, SATTING @ 98% W/ SOME DISTRESS ALLEVIATION. WAS AT THE BEDSIDE FOR EVAL. ORDERS RECEIVED, NOTED AND CARRIED OUT. IV LINE ESTABLISHED ON THE L AC 18G, BLOOD DRAWN AND GIVEN TO PHLEB. PT ON MONITOR. EKG DONE.
[2020-09-13] MEDS ORDERED: VANCOMYCIN 1 GM in IV D5W 250 ML IV ONE (12:00)
[2020-09-13] MEDS ORDERED: MORPHINE SULFATE INJ 2 MG/ML DISP.SYRIN IV ONE (12:00)
[2020-09-13] MEDS ORDERED: ONDANSETRON HCL/PF 4 MG/2 ML VIAL IVP ONE (12:00)
[2020-09-13] MEDS ORDERED: CEFEPIME 1 GM in IV D5W 50 ML IV ONE (12:00)
[2020-09-13 12:06] LABS: CALCIUM, SERUM 8.3 mg/dL (8.5-10.1); CARBON DIOXIDE 26 mmol/L (21-32); CHLORIDE 105 mmol/L (98-107); CREATININE 3.4 mg/dL (0.6-1.3); GLUCOSE 158 mg/dL (74-106); POTASSIUM 4.6 mmol/L (3.5-5.1); SODIUM SERUM 138 mmol/L (136-145); UREA NITROGEN, BLOOD 44 mg/dL (7-18)
[2020-09-13 12:21] LABS: ALANINE AMINOTRANSFERASE 62 U/L (12-78); ALBUMIN 1.9 g/dL (3.4-5.0); ALKALINE PHOSPHATASE 116 U/L (46-116); ASPARTATE AMINOTRANSFERASE 50 U/L (15-37); BILIRUBIN,TOTAL 2.6 mg/dL (0.2-1.0); NT-PRO BNP 6391 pg/mL (0-125); TOTAL PROTEIN, SERUM 5.6 g/dL (6.4-8.2)
[2020-09-13 12:55] LABS: BAND % (MANUAL) 2 % (0.0-5.0); LYMPHOCYTES % (MANUAL) 1 % (16-48); MONOCYTES % (MANUAL) 4 % (0-11.0); NEUTROPHILS % (MANUAL) 93 (42-76)
[2020-09-13] MEDS ORDERED: LOSA100T31 PO (12:55)
--- NOTE | 2020-09-13 13:11 | NUR ---
DR COOLEY SPEAKING WITH DR HILL
--- NOTE | 2020-09-13 14:41 | NUR ---
nurse still unavailable to receive report or pt.
--- NOTE | 2020-09-13 14:50 | NUR ---
REPORT GIVEN TO STEPH EVANGELISTA FOR WENDY
--- NOTE | 2020-09-13 14:55 | NUR ---
DR. COOLEY AT BEDSIDE TALKING TO PT
--- NOTE | 2020-09-13 15:15 | NUR ---
RN NOTE PT REPORT GIVEN BY STEPH EVANGELISTA. PT BROUGHT IN RWISHEK, A/Ox4, BREATHING NC 2L SPO2 96% WITH NO SIGNS OF SOB OR RESP DISTRESS, BREATHING EVEN AND UNLABORED. PT AMBULATORY, STEADY GAIT. PT SR HR 80s. PT STATES 10/10 LT SIDED CHEST PAIN, WILL ADMIN PAIN MEDS PER MD ORDERS. PT HAS LAC #18, FLUSHED AND PATENT. PT RT LEG CELLULITIS NOTED. ALL PT SAFETY PRECAUTIONS IN PLACE, BED LOCKED AND IN LOWEST POSITION, SR UP x2, CALL LIGHT WITHIN REACH. PT SON AT BEDSIDE. WILL CONT TO MONITOR
--- NOTE | 2020-09-13 15:15 | NUR ---
pt transported to unit on gurney with EMT and RN at bedside w/ acls protocol. nad noted during transport. pt ambulatyed form gurney to bed on steady gait w/o assist
[2020-09-13] MEDS ORDERED: HEPARIN SODIUM, PORCINE 5000 UNITS/1 ML VIAL SQ SCH (15:30)
[2020-09-13] MEDS ORDERED: CEFAZOLIN IV SCH (15:30)
[2020-09-13] MEDS ORDERED: D5W IV SCH (15:30)
[2020-09-13] MEDS ORDERED: DEXTROSE 50%-WATER 50 ML DISP.SYRIN IV PRN (15:30)
[2020-09-13] MEDS ORDERED: HYDROMORPHONE MDV 1 MG in IV D5W 50 ML IV PRN (15:30)
[2020-09-13] MEDS ORDERED: ZOLPIDEM TARTRATE 5 MG TABLET PO PRN (15:30)
[2020-09-13] MEDS: HYDROMORPHONE 1 MG/1 ML DISP.SYRIN IV PRN (15:58)
[2020-09-13] MEDS: ANCEF 1 GM/50 ML D5W IV SCH ×2 (15:58→23:01)
[2020-09-13 16:00] VITALS: BP 105/56
[2020-09-13] MEDS ORDERED: ONDANSETRON HCL/PF 4 MG/2 ML VIAL IVP PRN (16:00)
[2020-09-13] MEDS: FUROSEMIDE 20 MG TABLET PO SCH (16:31)
[2020-09-13] MEDS: BLOOD SUGAR DIAGNOSTIC 1 EACH STRIP VI SCH ×2 (18:20→22:28)
[2020-09-13] MEDS: INSULIN REGULAR, HUMAN 100 UNIT/ML 3 ML VIAL SQ PRN ×2 (18:21→22:30)
--- NOTE | 2020-09-13 19:25 | NUR ---
RN OPENING NOTES: RECEIVED PT A/OX4 IN BED RESTING COMFORTABLY. PATIENT IN NO S/SX OF ACUTE DISTRESS AT THIS TIME. NO SOB NOTED. PATIENT'S BREATHING IS EVEN AND UNLABORED. PATIENT IS ON ROOM AIR; TOLERATING WELL WITH 02 SAT OF 96% AT THE TIME OF RECEIVED. PATIENT ON TELE MONITORING READING SINUS RHYTHM HR IS @80 AT THE TIME OF RECEIVED. PT IS AMBULATORY. PATIENT ON CONSISTENT CARB DIET; TOLERATES WELL. NOTED IV SITE ON L AC#18; PATENT, INTACT AND FLUSHING WELL; NO S/S OF INFECTION OR INFILTRATION. SAFETY MEASURES HAVE BEEN PROVIDED AND IMPLEMENTED. PATIENT BED ALARM IS ON. HEAD OF BED ELEVATED. BED IS LOCKED, IN LOWEST POSITION AND SIDE RAILS UP. CALL LIGHT WITHIN REACH OF THE PATIENT. APPLICABLE ISOLATION PRECAUTIONS IN PLACE. WILL CONTINUE TO MONITOR AND REASSESS FOR ANY CHANGES AND WILL CARRY OUT ANY ONGOING AND ACTIVE MD ORDER.
--- NOTE | 2020-09-13 19:30 | NUR ---
RN CLOSING NOTE PT IN STABLE CONDITION, CHEST PAIN 2/10 CURRENTLY. PT ON RA SPO2 96% WITH NO S/S OR RESP DISTRESS OR SOB. ALL PT SAFETY PRECAUTIONS IN PLACE. WENDY ENDORSED TO NUCLEAR PLANT EQUIPMENT OPERATOR RN
[2020-09-13 20:00] VITALS: BP 93/56
--- NOTE | 2020-09-13 23:00 | NUR ---
RN NOTES NO CHANGE IN PATIENT CONDITION AT THIS TIME PATIENT VITALS STABLE, NO SIGNS OF ACUTE RESPIRATORY DISTRESS. CLOTH CARRIER MADE AWARE. WILL CONTINUE TO MONITOR AND REASSESS FOR ANY CHANGES THROUGHOUT THE SHIFT.
[2020-09-14] VITALS (7 sets, daily range): BP systolic 93–110; BP diastolic 48–66
[2020-09-14] MEDS: HYDROMORPHONE 1 MG/1 ML DISP.SYRIN IV PRN (04:19)
--- NOTE | 2020-09-14 04:35 | NUR ---
RN NOTES PATIENT REMAINS IN NO ACUTE RESPIRATORY DISTRESS AT THIS TIME, NO CHANGES TO CONDITION/STATUS. NBA PLAYER WELL AWARE. WILL CONTINUE TO MONITOR AND REASSESS FOR ANY CHANGES THROUGHOUT THE SHIFT
[2020-09-14 06:41] LABS: BASOPHILS % (AUTO) 0.1 % (0.0-2.0); EOSINOPHILS % (AUTO) 0.2 % (0.0-6.0); HEMATOCRIT 33 % (39-51); HEMOGLOBIN 11.1 g/dL (13.5-17.5); LYMPHOCYTES # (AUTO) 0.5 /CMM (0.8-4.8); LYMPHOCYTES % (AUTO) 4.5 % (20.0-44.0); MEAN CORPUSCULAR HGB CONC 34 g/dl (31.0-36.0); MEAN CORPUSCULAR VOLUME 100 fL (80-96); MONOCYTES # (AUTO) 0.4 /CMM (0.1-1.30); MONOCYTES % (AUTO) 3.9 % (2.0-12.0); NEUTROPHILS # (AUTO) 9.6 /CMM (1.8-8.9); NEUTROPHILS % (AUTO) 91.3 % (43.0-81.0); PLATELET COUNT (AUTO) 82 /CMM (150-450); RED BLOOD CELL COUNT(AUTO) 3.27 MIL/uL (4.5-6.0); WHITE BLOOD COUNT (AUTO) 10.6 K/uL (4.3-11.0)
[2020-09-14 06:58] LABS: ALBUMIN 1.6 g/dL (3.4-5.0); BILIRUBIN,TOTAL 2.6 mg/dL (0.2-1.0); CALCIUM, SERUM 8.1 mg/dL (8.5-10.1); CREATININE 4.4 mg/dL (0.6-1.3); POTASSIUM 6.1 mmol/L (3.5-5.1); TOTAL PROTEIN, SERUM 5.2 g/dL (6.4-8.2)
--- NOTE | 2020-09-14 07:20 | NUR ---
RN OPENING NOTES RECEIVED PT AWAKE, A/O X4. STABLE ON ROOM AIR. NO SOB OR ANY S/SX OF ACUTE DISTRESS AT THIS TIME. TELE MONITORING READING SINUS RHYTHM. AMBULATORY. ON CONSISTENT CARB DIET. IV SITE ON L AC#18, INTACT AND FLUSHING WELL. DENIES PAIN AT THIS TIME. SAFETY MEASURES IMPLEMENTED. BED ALARM ON. HOB ELEVATED. BED LOCKED AND IN LOWEST POSITION WITH SIDE RAILS UP X2. CALL LIGHT WITHIN. WILL CONTINUE TO MONITOR.
[2020-09-14] MEDS: INSULIN REGULAR, HUMAN 100 UNIT/ML 3 ML VIAL SQ PRN ×2 (07:46→12:57)
[2020-09-14] MEDS: BLOOD SUGAR DIAGNOSTIC 1 EACH STRIP VI SCH ×4 (07:46→22:10)
[2020-09-14] MEDS: ANCEF 1 GM/50 ML D5W IV SCH (08:13)
[2020-09-14] MEDS: FUROSEMIDE 20 MG TABLET PO SCH (08:14)
[2020-09-14] MEDS ORDERED: SODIUM POLYSTYRENE SULFONATE 15 G/60 ML BOTTLE PO ONE (09:00)
[2020-09-14] MEDS: IV 1/2NS 1000 ML 1,000 ML IV PRN ×2 (09:02→19:50)
[2020-09-14] MEDS ORDERED: FUROSEMIDE 100 MG/10 ML VIAL IV ONE (10:00)
[2020-09-14 10:16] LABS: BAND % (MANUAL) 10 % (0.0-5.0); LYMPHOCYTES % (MANUAL) 4 % (16-48); MONOCYTES % (MANUAL) 5 % (0-11.0); NEUTROPHILS % (MANUAL) 81 (42-76)
[2020-09-14] MEDS ORDERED: CEFEPIME 1 GM VIAL IV SCH (13:00)
[2020-09-14] MEDS: CEFEPIME 2 GM in IV D5W 100 ML IV SCH (13:06)
[2020-09-14 13:30] LABS: CALCIUM, SERUM 7.9 mg/dL (8.5-10.1); CREATININE 4.7 mg/dL (0.6-1.3); POTASSIUM 5.2 mmol/L (3.5-5.1)
[2020-09-14] MEDS: VANCOMYCIN 1.25 GM in IV D5W 250 ML IV SCH (13:57)
--- NOTE | 2020-09-14 19:28 | NUR ---
RN CLOSING NOTES NO SIGNIFICANT CHANGES THROUGHOUT THE SHIFT. STABLE ON ROOM AIR. NO PAIN REPORTED AT THIS TIME. REFUSED INSULIN COVERAGE DESPITE EDUCATION X3. PULLED OUT IV, REFUSES REINSERTION AT THIS TIME. SAFETY PRECAUTIONS IN PLACE. WILL ENDORSE TO NIGHT RN FOR WENDY.
[2020-09-14] MEDS ORDERED: IV NS 0.9% 500 ML IV ONE (20:30)
--- NOTE | 2020-09-14 20:30 | NUR ---
RN NOTE RECEIVED PT LAYING FLAT ON BED ALERT AND ORIENTED, WITH AT BEDSIDE. COMPLAINS OF MILD SOB, O2 SAT AT 89-90. NO DISTRESS NOTED, HOB ELEVATED. O2 APPLIED AT 3LPM. PTS BP AT 90S DURING THE DAY. BP READS NOW AT 93/54 AND 86/46. DR COOLEY MADE AWARE. ORDERED TO START BOLUS NS 500ML. NEW IV LINE INSERTED ON LFA 20G WITH GOOD BLOOD RETURN. WILL CONTINUE TO MONITOR. TELE MONITOR SHOWS SR HR 92
--- NOTE | 2020-09-14 22:08 | NUR ---
RN NOTE NS BOLUS GIVEN, PT BP 104/61 HR 92. NO SIGNS OF DISTRESS.
[2020-09-14] MEDS: *INSULIN REGULAR(HUMULIN R)HUM 100 UNIT/ML VIAL SQ PRN (22:11)
[2020-09-15] VITALS (7 sets, daily range): BP systolic 102–114; BP diastolic 49–67
--- NOTE | 2020-09-15 00:58 | NUR ---
RN NOTE PT SLEEPING, AROUSES EASILY. NO SIGNS OF DISTRESS NOTED. PT ABLE TO MAKE NEEDS KNOWN. TOLERATING O2 THERAPY. WILL CONTINUE TO MONITOR.
[2020-09-15] MEDS: IV 1/2NS 1000 ML 1,000 ML IV PRN ×2 (04:03→16:37)
--- NOTE | 2020-09-15 04:38 | NUR ---
RN NOTE PT WITH EPISODES OF SOB ON EXERTION AND AMBULATING TO RESTROOM. GONE ABOUT 3 -4 TIMES. STAND BY ASSIST. ADVICE PT TO JUST URINAL BECAUSE OF SOB, PT INSISTENT TO GO TO RESTROOM, VERBALIZES UNDERSTANDING.
[2020-09-15 06:24] LABS: BASOPHILS % (AUTO) 0.1 % (0.0-2.0); EOSINOPHILS % (AUTO) 0.9 % (0.0-6.0); HEMATOCRIT 29 % (39-51); HEMOGLOBIN 9.8 g/dL (13.5-17.5); LYMPHOCYTES # (AUTO) 0.8 /CMM (0.8-4.8); LYMPHOCYTES % (AUTO) 4.6 % (20.0-44.0); MEAN CORPUSCULAR HGB CONC 34 g/dl (31.0-36.0); MEAN CORPUSCULAR VOLUME 99 fL (80-96); MONOCYTES # (AUTO) 0.5 /CMM (0.1-1.30); MONOCYTES % (AUTO) 2.7 % (2.0-12.0); NEUTROPHILS % (AUTO) 91.7 % (43.0-81.0); PLATELET COUNT (AUTO) 79 /CMM (150-450); WHITE BLOOD COUNT (AUTO) 17.5 K/uL (4.3-11.0)
--- NOTE | 2020-09-15 06:35 | NUR ---
RN NOTE PT ABLE TO MAKE NEEDS KNOWN. NOT IN ANY DISTRESS. DENIES SOB AT THIS TIME, RESTING IN BED. CONTINUE ON O2 VIA NC AT 3LPM. SATING 94 %. KEPT HOB ELEVATED. IVF 0.45% NS RUNNING AT 125ML/HR, IV REMAIN PATENT AND INTACT, NO SIGNS OF INFILTRATION NOTED. PT WITH WATERY STOOL. URINE SAMPLE COLLECTED, SENT TO LABS. ALL SAFETY MEASURES IN PLACE. WILL ENDORSE TO NEXT SHIFT NURSE FOR WENDY.
[2020-09-15 06:49] LABS: BILIRUBIN,TOTAL 2.3 mg/dL (0.2-1.0); CALCIUM, SERUM 7.4 mg/dL (8.5-10.1); CREATININE 4.7 mg/dL (0.6-1.3); MAGNESIUM 1.7 mg/dL (1.8-2.4); PHOSPHORUS 5.5 mg/dL (2.5-4.9); POTASSIUM 4.1 mmol/L (3.5-5.1); TOTAL PROTEIN, SERUM 4.8 g/dL (6.4-8.2)
[2020-09-15 07:18] LABS: BILIRUBIN,URINE SMALL (NEGATIVE); LEUKOCYTE ESTERASE ,URINE SMALL (NEGATIVE); NITRITE, URINE NEGATIVE (NEGATIVE); PROTEIN,URINE 100 mg/dl (NEGATIVE); UGLUCOSE NEGATIVE (NEGATIVE)
[2020-09-15 07:25] LABS: CREATININE, URINE 229.1 MG/DL (30.0-125.0); URINE TOTAL PROTEIN 153.5 mg/dL (0-11.9)
[2020-09-15 07:32] LABS: ALBUMIN 1.4 g/dL (3.4-5.0)
[2020-09-15 07:35] LABS: COLOR,URINE DARK YELLOW (YELLOW)
[2020-09-15 07:44] LABS: BACTERIA,URINE Moderate /HPF (None Seen); COARSE GRANULAR CASTS,URINE Few /LPF (None Seen); SQUAMOUS EPITHELIAL CELL,UR Few /HPF (None Seen); URINE AMORPHOUS URATE Moderate /HPF (None Seen)
[2020-09-15 08:04] LABS: BAND % (MANUAL) 11 % (0.0-5.0); EOSINOPHILS % (MANUAL) 2 % (0-4); LYMPHOCYTES % (MANUAL) 5 % (16-48); MONOCYTES % (MANUAL) 3 % (0-11.0); NEUTROPHILS % (MANUAL) 79 (42-76)
[2020-09-15] MEDS ORDERED: IPRATROPIUM NEB FS 0.5 MG/2.5 ML AMPUL.NEB NEB PRN (08:30)
[2020-09-15] MEDS ORDERED: ALBUTEROL FS 2.5 MG/0.5 ML VIAL.NEB NEB PRN (08:30)
[2020-09-15] MEDS ORDERED: FUROSEMIDE 20 MG/2 ML VIAL IV ONE (08:30)
[2020-09-15 08:35] LABS: EOSINOPHIL,URINE None Seen
[2020-09-15] MEDS: BLOOD SUGAR DIAGNOSTIC 1 EACH STRIP VI SCH ×4 (09:26→22:05)
[2020-09-15] MEDS: INSULIN REGULAR, HUMAN 100 UNIT/ML 3 ML VIAL SQ PRN ×2 (09:27→18:43)
[2020-09-15] MEDS: CEFEPIME 2 GM in IV D5W 100 ML IV SCH (13:31)
--- NOTE | 2020-09-15 19:20 | NUR ---
RN OPENING NOTES RECEIVED PT IN BED AWAKE, FAMILY AT BEDSIDE. PT IS A/O X4 ECUADOREAN SPEAKING, UNDERSTANDS THAI. DRESS CUTTER UTILIZED WHEN NEEDED. PT IS ON 3L OF O2 VIA NASAL CANNULA. NO SOB OR RESP DISTRESS NOTED. PT TOLERATING WELL. O2 SAT 94% PT ON TELE MONITORING HEART RATE OF 101 NOTED. BASELINE TO PT. IV SITE FLUSHED ASEPTICALLY. IVF 0.45% NS RUNNING ORDERED. NO S/S OF INFILTRATION NOTED. EDUCATED PT NOT TO GET OUT OF BED FOR SAFETY, CALL WHEN NEED OF ASSISTANCE, PT VERBALIZED UNDERSTANDING. SAFETY MEASURES IN PLACE HOB ELEVATED SIDE RAILS UP X2 BED LOCKED IN LOWEST POSITION WITH BED ALARM ON. CALL LIGHT WITHIN REACH.
[2020-09-15] MEDS: *INSULIN REGULAR(HUMULIN R)HUM 100 UNIT/ML VIAL SQ PRN (22:13)
[2020-09-16] VITALS: BP 108/60
--- NOTE | 2020-09-16 00:56 | NUR ---
RN NOTE PT USED RESTROOM, MADE BM X1 WNL FORMED. PT IS AMBULATORY WITH ASSIST, DISCOURAGE AMBULATION. PT BECOMES SHORT OF BREATH. PT EDUCATED ON USING THE URINAL. PT VERBALIZES UNDERSTANDING.
[2020-09-16] MEDS: VANCOMYCIN 1.25 GM in IV D5W 250 ML IV SCH (01:06)
[2020-09-16 04:00] VITALS: BP 133/60
[2020-09-16] MEDS: IV 1/2NS 1000 ML 1,000 ML IV PRN (04:14)
[2020-09-16 06:48] LABS: BASOPHILS # (AUTO) 0.1 /CMM (0.0-0.2); BASOPHILS % (AUTO) 0.4 % (0.0-2.0); EOSINOPHILS % (AUTO) 2.3 % (0.0-6.0); HEMATOCRIT 27 % (39-51); HEMOGLOBIN 9.3 g/dL (13.5-17.5); LYMPHOCYTES # (AUTO) 0.9 /CMM (0.8-4.8); LYMPHOCYTES % (AUTO) 5.5 % (20.0-44.0); MEAN CORPUSCULAR HGB CONC 34 g/dl (31.0-36.0); MEAN CORPUSCULAR VOLUME 98 fL (80-96); MONOCYTES % (AUTO) 5.8 % (2.0-12.0); NEUTROPHILS # (AUTO) 14.5 /CMM (1.8-8.9); PLATELET COUNT (AUTO) 69 /CMM (150-450); RED BLOOD CELL COUNT(AUTO) 2.77 MIL/uL (4.5-6.0); WHITE BLOOD COUNT (AUTO) 16.9 K/uL (4.3-11.0)
[2020-09-16 07:17] LABS: BILIRUBIN,TOTAL 2.1 mg/dL (0.2-1.0); CALCIUM, SERUM 7.3 mg/dL (8.5-10.1); CREATININE 4.5 mg/dL (0.6-1.3); POTASSIUM 3.5 mmol/L (3.5-5.1); TOTAL PROTEIN, SERUM 4.7 g/dL (6.4-8.2)
--- NOTE | 2020-09-16 07:20 | NUR ---
RN OPENING NOTES PATIENT RECEIVED SITTING AT EDGE OF BED. PT IS A/O X4 INDONESIAN SPEAKING, UNDERSTANDS WELSH. PT ON O2 THERAPY VIA NC AT 3 LPM WITH SLIGHT SOB NOTED UPON EXERTION. TELE MONITOR ON. LEFT HAND IV SITE #20 INTACT AND PATENT, RUNNING 0.45% NS RUNNING AT 75 ML/HR. NO S/S OF INFILTRATION NOTED. SAFETY PRECAUTIONS IMPLEMENTED, SIDE RAILS UP X2, BED LOCKED IN LOWEST POSITION, BED ALARM ON, CALL LIGHT WITHIN REACH. WILL CONTINUE TO MONITOR AND PROVIDE CARE THROUGHOUT SHIFT.
[2020-09-16] MEDS: BLOOD SUGAR DIAGNOSTIC 1 EACH STRIP VI SCH ×4 (07:30→21:27)
--- NOTE | 2020-09-16 07:32 | NUR ---
RN CLOSING NOTE PT REMAINS SITTING IN BED, VERBALIZES FEELING BETTER ABLE TO BREATHE. O2 SATURATION AT THIS TIME IS 95% STILL ONE 3L NASAL CANNULA. NO SIGNIFICANT CHANGES IN PT CONDITION. ALL NEEDS ATTENDED. ALL SAFETY MEASURES IN PLACE. HOB ELEVATED. SIDE RAILS UP X2 BED LOCKED IN LOWEST POSITION WITH BED ALARM ON. CALL LIGHT WITHIN REACH. ENDORSED TO DAY SHIFT FOR CONTINUATION OF CARE.
[2020-09-16 07:55] LABS: ALBUMIN 1.3 g/dL (3.4-5.0)
[2020-09-16 08:00] VITALS: BP 124/55
[2020-09-16 08:06] LABS: PTH, INTACT 99 pg/mL (15-65)
[2020-09-16] MEDS: HYDROCODONE/APAP 5/325MG TABLET PO PRN (08:47)
[2020-09-16] MEDS: INSULIN REGULAR, HUMAN 100 UNIT/ML 3 ML VIAL SQ PRN ×3 (08:50→17:00)
[2020-09-16 09:21] LABS: BAND % (MANUAL) 8 % (0.0-5.0); EOSINOPHILS % (MANUAL) 2 % (0-4); LYMPHOCYTES % (MANUAL) 4 % (16-48); METAMYELOCYTES % 1 % (0-0); MONOCYTES % (MANUAL) 4 % (0-11.0); MYELOCYTES % 1 % (0-0); NEUTROPHILS % (MANUAL) 80 (42-76)
[2020-09-16 12:00] VITALS: BP 116/58
[2020-09-16] MEDS: CEFEPIME 2 GM in IV D5W 100 ML IV SCH (12:14)
[2020-09-16 16:00] VITALS: BP 131/60
--- NOTE | 2020-09-16 18:43 | NUR ---
RN CLOSING NOTES PATIENT RESTING IN SEMI-FOWLERS POSITION. PT IS A/O X4 ESTONIAN SPEAKING, UNDERSTANDS ANGUILLAN. PT ON O2 THERAPY VIA NC AT 3 LPM WITH SLIGHT SOB NOTED UPON EXERTION. LEFT HAND IV SITE #20 INTACT AND PATENT, RUNNING 0.45% NS RUNNING AT 75 ML/HR. NO S/S OF INFILTRATION NOTED. SAFETY PRECAUTIONS IMPLEMENTED, SIDE RAILS UP X2, BED LOCKED IN LOWEST POSITION, BED ALARM ON, CALL LIGHT WITHIN REACH. WILL ENDORSE CARE TO UPCOMING SHIFT.
--- NOTE | 2020-09-16 19:35 | NUR ---
RN OPENING NOTES RECEIVED PT IN BED AWAKE, FAMILY AT BEDSIDE. PT IS A/O X4 COMORAN SPEAKING, UNDERSTANDS FAROESE. EXAMINER RATING CLERK UTILIZED WHEN NEEDED. PT IS ON 3L OF O2 VIA NASAL CANNULA. NO SOB OR RESP DISTRESS NOTED. PT TOLERATING WELL. PT ON MED SURG MONITORING. PT C/O OF PAIN WHEN FLUSHING IV, WILL REMOVE AND REINSERT. EDUCATED PT NOT TO GET OUT OF BED FOR SAFETY, CALL WHEN NEED OF ASSISTANCE, PT VERBALIZED UNDERSTANDING. SAFETY MEASURES IN PLACE HOB ELEVATED SIDE RAILS UP X2 BED LOCKED IN LOWEST POSITION WITH BED ALARM ON. CALL LIGHT WITHIN REACH.
[2020-09-16 20:00] VITALS: BP 137/59
[2020-09-16] MEDS: *INSULIN REGULAR(HUMULIN R)HUM 100 UNIT/ML VIAL SQ PRN (21:39)
[2020-09-17 04:00] VITALS: BP 149/71
[2020-09-17 06:20] LABS: BASOPHILS # (AUTO) 0.1 /CMM (0.0-0.2); EOSINOPHILS % (AUTO) 2.4 % (0.0-6.0); HEMATOCRIT 26 % (39-51); HEMOGLOBIN 8.4 g/dL (13.5-17.5); LYMPHOCYTES # (AUTO) 1.3 /CMM (0.8-4.8); LYMPHOCYTES % (AUTO) 10.8 % (20.0-44.0); MEAN CORPUSCULAR HGB CONC 32 g/dl (31.0-36.0); MEAN CORPUSCULAR VOLUME 92 fL (80-96); MONOCYTES # (AUTO) 0.9 /CMM (0.1-1.30); MONOCYTES % (AUTO) 7.7 % (2.0-12.0); NEUTROPHILS # (AUTO) 9.4 /CMM (1.8-8.9); NEUTROPHILS % (AUTO) 78.1 % (43.0-81.0); PLATELET COUNT (AUTO) 343 /CMM (150-450); RED BLOOD CELL COUNT(AUTO) 2.84 MIL/uL (4.5-6.0)
[2020-09-17 06:27] LABS: URIC ACID 3.6 mg/dL (2.6-7.2)
[2020-09-17 06:28] LABS: CALCIUM, SERUM 8.8 mg/dL (8.5-10.1); POTASSIUM 3.9 mmol/L (3.5-5.1)
--- NOTE | 2020-09-17 06:47 | NUR ---
RN CLOSING NOTE PT CONDITION REMAINS UNCHANGED. PT IS LABORED BREATHING ON EXERTION. PT DENIES PAIN. ALL NEEDS ATTENDED. SAFETY MEASURES IN PLACE HOB ELEVATED SIDE RAILS UP X2 BED LOCKED IN LOWEST POSITION WITH BED ALARM ON. CALL LIGHT WITHIN REACH. WILL ENDORSE TO DAY SHIFT FOR CONTINUATION OF CARE.
--- NOTE | 2020-09-17 07:20 | NUR ---
ms rn received on bed, awake,alert,oriented x 4,on o2 4l saturating 92%, denies pain at this time,no sob noted,will monitor patient's condition.
[2020-09-17 08:07] LABS: *SPE A/G RATIO 0.6 (0.7-1.7); *SPE ALBUMIN 1.5 g/dL (2.9-4.4); *SPE ALPHA-1-GLOBULIN 0.4 g/dL (0.0-0.4); *SPE ALPHA-2-GLOBULIN 0.8 g/dL (0.4-1.0); *SPE BETA GLOBULIN 0.8 g/dL (0.7-1.3); *SPE GLOBULIN, TOTAL 2.5 g/dL (2.2-3.9); *SPE M-SPIKE Not Observed g/dL (Not Observed); *SPEGAMMA GLOBULIN 0.6 g/dL (0.4-1.8)
[2020-09-17] MEDS: BLOOD SUGAR DIAGNOSTIC 1 EACH STRIP VI SCH ×4 (08:10→21:43)
[2020-09-17] MEDS: INSULIN REGULAR, HUMAN 100 UNIT/ML 3 ML VIAL SQ PRN ×2 (08:20→12:30)
[2020-09-17] MEDS: METOPROLOL TARTRATE 25 MG TABLET PO SCH ×2 (08:22→21:43)
--- NOTE | 2020-09-17 08:35 | NUR ---
ms rn was seen by dr jayce pool/ orders made and carried out.
--- NOTE | 2020-09-17 08:40 | NUR ---
ms patino breakfast served, due meds given, tolerating well.
[2020-09-17] MEDS ORDERED: KEY,NONCONTROL,TO KEEP IN PYXI 1 EA MC ONE (12:00)
[2020-09-17] MEDS: CEFEPIME 2 GM in IV D5W 100 ML IV SCH (12:27)
--- NOTE | 2020-09-17 13:30 | NUR ---
ms rn was seen by dr. berman w/ orders made and carried out.
[2020-09-17] MEDS: VANCOMYCIN 1.25 GM in IV D5W 250 ML IV SCH (13:48)
--- NOTE | 2020-09-17 18:00 | NUR ---
roel patino bs - 285- 9 uniots of regular insulin given.
--- NOTE | 2020-09-17 18:51 | NUR ---
ms rn on bed, no distress noted,all needs attended.
--- NOTE | 2020-09-17 19:30 | NUR ---
RN OPENING NOTE PATIENT IN BED, FAMILY AT BEDSIDE. ABLE TO MAKE NEEDS KNOWN. PATIENT CURRENTLY HAS 4 L OF O2 SUPPLEMENTATION, TOLERATING AT 94%. PATIENT COMPLAINS OF CHEST PAIN, HOWEVER, DID NOT WANT PAIN MEDICATION FOR IT. RFA IV ACCESS PATENT AND INTACT. SAFETY MEASURES IN PLACE: CALL LIGHT WITHIN REACH, BED IN LOCKED AND LOWEST POSITION, SIDE RAILS UP, HOB ELEVATED. WILL CONTINUE TO MONITOR PATIENT CLOSELY.
[2020-09-17 20:00] VITALS: BP 136/71
[2020-09-17] MEDS: *INSULIN REGULAR(HUMULIN R)HUM 100 UNIT/ML VIAL SQ PRN (22:16)
[2020-09-18 07:26] LABS: BASOPHILS % (AUTO) 0.1 % (0.0-2.0); EOSINOPHILS % (AUTO) 2.2 % (0.0-6.0); HEMATOCRIT 28 % (39-51); HEMOGLOBIN 9.7 g/dL (13.5-17.5); LYMPHOCYTES # (AUTO) 1.4 /CMM (0.8-4.8); LYMPHOCYTES % (AUTO) 7.3 % (20.0-44.0); MEAN CORPUSCULAR HGB CONC 34 g/dl (31.0-36.0); MEAN CORPUSCULAR VOLUME 97 fL (80-96); MONOCYTES # (AUTO) 1.8 /CMM (0.1-1.30); MONOCYTES % (AUTO) 8.9 % (2.0-12.0); NEUTROPHILS # (AUTO) 16.2 /CMM (1.8-8.9); NEUTROPHILS % (AUTO) 81.5 % (43.0-81.0); PLATELET COUNT (AUTO) 91 /CMM (150-450); RED BLOOD CELL COUNT(AUTO) 2.93 MIL/uL (4.5-6.0); WHITE BLOOD COUNT (AUTO) 19.9 K/uL (4.3-11.0)
[2020-09-18 08:00] VITALS: BP 142/72
[2020-09-18 08:03] LABS: CREATININE 2.8 mg/dL (0.6-1.3); POTASSIUM 3.3 mmol/L (3.5-5.1)
[2020-09-18] MEDS: BLOOD SUGAR DIAGNOSTIC 1 EACH STRIP VI SCH ×4 (08:10→22:56)
[2020-09-18] MEDS: METOPROLOL TARTRATE 25 MG TABLET PO SCH ×2 (08:11→22:37)
[2020-09-18] MEDS: INSULIN REGULAR, HUMAN 100 UNIT/ML 3 ML VIAL SQ PRN ×3 (08:48→18:12)
[2020-09-18] MEDS ORDERED: POTASSIUM CHLORIDE 20 MEQ TAB.PRT.SR PO ONE (09:00)
[2020-09-18] MEDS ORDERED: POTASSIUM CHLORIDE 10 MEQ TABLET.SA PO ONE (09:00)
[2020-09-18] MEDS: INSULIN GLARGINE, 100 UNIT/ML CARTRIDGE SQ SCH (09:00)
[2020-09-18 09:35] LABS: EOSINOPHILS % (MANUAL) 2 % (0-4); LYMPHOCYTES % (MANUAL) 7 % (16-48); MONOCYTES % (MANUAL) 8 % (0-11.0); MYELOCYTES % 1 % (0-0); NEUTROPHILS % (MANUAL) 82 (42-76)
[2020-09-18] MEDS: FUROSEMIDE 40 MG TABLET PO SCH (09:39)
[2020-09-18 12:00] VITALS: BP 138/77
--- NOTE | 2020-09-18 12:00 | NUR ---
Patient's verbalized that patient is anxious today and has been in the past. Per patient took marjuana for anxiety. MD Hamm made aware. Received order for XANAX 0.25 mg po prn.
[2020-09-18] MEDS: ALPRAZOLAM 0.25 MG TABLET PO PRN ×2 (12:17→22:38)
[2020-09-18] MEDS: CEFEPIME 2 GM in IV D5W 100 ML IV SCH (12:17)
--- NOTE | 2020-09-18 13:00 | NUR ---
PATIENT NOTED WITH TENDERNESS TO RIGHT FOREARM IV. RECEIVED ORDERS FOR MIDLINE BY DR COOLEY.CURRENTLY AWAITING MIDLINE NURSE.
[2020-09-18 16:00] VITALS: BP 138/69
--- NOTE | 2020-09-18 19:26 | NUR ---
RN CLOSING NOTES Patient is alert and oriented. Breathing even and unlabored. No c/o pain or discomfort. No iv line, currently awaiting midline . Patient noted with urine output of 1400cc during shift. Endorsed to next shift to follow up with iv line. Bed is in lowest and locked position. Call light with in reach. Family at bedside.
[2020-09-18 20:00] VITALS: BP 139/70
[2020-09-18] MEDS: *INSULIN REGULAR(HUMULIN R)HUM 100 UNIT/ML VIAL SQ PRN (22:53)
[2020-09-18] MEDS: ACETAMINOPHEN 325 MG TABLET PO PRN (23:00)
[2020-09-19] MEDS ORDERED: CEFEPIME 2 GM in IV D5W 100 ML IV SCH
[2020-09-19] MEDS: VANCOMYCIN 1.25 GM in IV D5W 250 ML IV SCH (02:00)
[2020-09-19 04:00] VITALS: BP 134/75
--- NOTE | 2020-09-19 05:39 | NUR ---
patient has a rt. upper midline put in yesterday. blood sugar 213 covered with 4 units of reg insulins.s.q. patient given xanax 0.25 [id number] 09/18/20. at bedside. both legs pink and swollen no c/o of pain. using urinal 450 out.
[2020-09-19 07:40] LABS: CALCIUM, SERUM 7.9 mg/dL (8.5-10.1); CREATININE 2.5 mg/dL (0.6-1.3); POTASSIUM 3.5 mmol/L (3.5-5.1)
[2020-09-19 07:47] LABS: BASOPHILS % (AUTO) 0.1 % (0.0-2.0); HEMATOCRIT 28 % (39-51); HEMOGLOBIN 9.5 g/dL (13.5-17.5); LYMPHOCYTES # (AUTO) 0.8 /CMM (0.8-4.8); MEAN CORPUSCULAR HGB CONC 34 g/dl (31.0-36.0); MEAN CORPUSCULAR VOLUME 98 fL (80-96); MONOCYTES % (AUTO) 9.6 % (2.0-12.0); NEUTROPHILS # (AUTO) 17.9 /CMM (1.8-8.9); NEUTROPHILS % (AUTO) 84.3 % (43.0-81.0); PLATELET COUNT (AUTO) 102 /CMM (150-450); RED BLOOD CELL COUNT(AUTO) 2.85 MIL/uL (4.5-6.0); WHITE BLOOD COUNT (AUTO) 21.2 K/uL (4.3-11.0)
--- NOTE | 2020-09-19 07:58 | NUR ---
RN OPENING NOTE RECEIVED PATIENT IN BED, AO X 3-4, ABLE TO RESPONDS ALL STIMULI. NO S/S OF DISTRESS OBSERVED. SKIN IS WARM TO TOUCH KEEP CLEAN/DRY, INTACT IV SITE, NO FEVER OBSERVED. RESPIRATORY EVEN AND UNLABORED WITH OXYGEN AT 4LPM, NO DISTRESS OBSERVED. KEPT ELEVATED HOB FOR ENSURE AIRWAY AND ASPIRATION PRECAUTION, ALSO LOWEST BED POSITION FOR SAFETY. CALL LIGHT WITHIN REACH, WILL CONTINUE TO MONITOR.
[2020-09-19] MEDS: METOPROLOL TARTRATE 25 MG TABLET PO SCH ×2 (08:27→21:52)
[2020-09-19] MEDS: FUROSEMIDE 40 MG TABLET PO SCH (08:27)
[2020-09-19] MEDS: BLOOD SUGAR DIAGNOSTIC 1 EACH STRIP VI SCH ×4 (08:27→21:45)
[2020-09-19] MEDS: POTASSIUM CHLORIDE 20 MEQ TAB.PRT.SR PO SCH (08:27)
[2020-09-19] MEDS: INSULIN REGULAR, HUMAN 100 UNIT/ML 3 ML VIAL SQ PRN ×3 (09:00→16:31)
[2020-09-19] MEDS ORDERED: CEFTRIAXONE 2 G in IV D5W 100 ML IV SCH (09:00)
[2020-09-19] MEDS: INSULIN GLARGINE, 100 UNIT/ML CARTRIDGE SQ SCH (09:04)
[2020-09-19 09:13] LABS: BAND % (MANUAL) 3 % (0.0-5.0); EOSINOPHILS % (MANUAL) 2 % (0-4); LYMPHOCYTES % (MANUAL) 4 % (16-48); MONOCYTES % (MANUAL) 10 % (0-11.0); MYELOCYTES % 1 % (0-0); NEUTROPHILS % (MANUAL) 80 (42-76)
[2020-09-19] MEDS: METOLAZONE 2.5 MG TABLET PO SCH (09:33)
[2020-09-19] MEDS: NS 0.9% IV SCH ×2 (11:52→17:03)
[2020-09-19] MEDS: NAFCILLIN IV SCH ×2 (11:52→17:03)
--- NOTE | 2020-09-19 18:52 | NUR ---
RN CLOSING NOTE PATIENT IN BED, NO S/S OF DISTRESS OBSERVED. SKIN IS WARM TO TOUCH,KEEP CLEAN/DRY. DRESSING CHANGE PROVIDED ON AFFECTED LEG . RESPIRATORY EVEN AND UNLABORED ON ROOM AIR(PATIENT REMOVED OXYGEN). KEPT ELEVATED HOB FOR ENSURE AIRWAY AND ASPIRATION PRECAUTION, ALSO LOWEST BED POSITION FOR SAFETY. CALL LIGHT WITHIN REACH, WILL ENDORSE OLIVE PICKER.
[2020-09-19 20:00] VITALS: BP 124/62
--- NOTE | 2020-09-19 20:00 | NUR ---
MS RN NOTE RECEIVED PATIENT IN BED. A/OX4. ON OXYGEN 2-3L/MIN. PATIENT KEEPS REMOVING O2, REMIND AND PLACE PATIENT BACK ON O2 BUT CONTINUES TO REMOVE. O2 SAT 91- 92% ON ROOM AIR. RESPIRATIONS ARE EVEN AND UNLABORED. NO S/S SOB NOTED. NO C/O PAIN AT THIS TIME. IN NO APPARENT DISTRESS. IV ACCESS IN YOHANNES MIDLINE PATENT AND SALINE LOCKED. FAMILY AT BEDSIDE. BED IS LOW AND LOCKED, HOB ELEVATED IN HIGH FOWLERS, SIDE RAILS UP X2, CALL LIGHT WITHIN REACH. WILL CONTINUE TO MONITOR THROUGHOUT SHIFT.
[2020-09-19] MEDS: HYDROCODONE/APAP 5/325MG TABLET PO PRN (20:12)
--- NOTE | 2020-09-19 20:15 | NUR ---
RN NOTE PATIENT STATES HE HAS CHEST PAIN 6-10/12. BP 124/62. NORCO 5/325 PULLED AND TAKEN OUT OF PACKAGING. PATIENT DID NOT WANT TO TAKE IT RIGHT AWAY, WANTED TO TAKE IT AFTER SONS MASSAGE, INFORMED PATIENT IT WILL TAKE A WHILE FOR MEDICATION TO WORK, AND I CAN NOT LEAVE IT AT BED SIDE SINCE IT IS A NARCOTIC. PATIENT STATED HE DID NOT WANT TO TAKE IT AT ALL. WILL WASTE MEDICATION IN THE NARCOTIC WASTE BIN.
[2020-09-19] MEDS: ALPRAZOLAM 0.25 MG TABLET PO PRN (20:19)
[2020-09-19] MEDS: *INSULIN REGULAR(HUMULIN R)HUM 100 UNIT/ML VIAL SQ PRN (21:55)
[2020-09-19] MEDS: ACETAMINOPHEN 325 MG TABLET PO PRN (21:56)
[2020-09-20] MEDS: NS 0.9% IV SCH ×4 (00:05→18:00)
[2020-09-20] MEDS: NAFCILLIN IV SCH ×4 (00:05→18:00)
[2020-09-20 04:00] VITALS: BP 122/72
--- NOTE | 2020-09-20 06:18 | NUR ---
MS RN NOTE PATIENT RESTING IN BED. A/OX4. PATIENT DID NOT WANT O2 ON THROUGHOUT SHIFT, CONTINUES TO SATURATE 91-92%.C/O CHEST PAIN DURING SHIFT BUT REFUSED TO TAKE NORCO. PATIENT STATED HIS BASSETT OCCURS WHEN HE COUGHS OR BREATHES IN DEEPLY. PATIENT DID TAKE A XANNAX AND DID HELP IMPROVE HIS ANXIETY AND MOOD. NO OTHER DISTRESS. IV IN YOHANNES MIDLINE. BED REMAINS LOW AND LOCKED, HOB ELEVATED IN HIGH FOWLERS, SIDE RAILS UP X2, CALL LIGHT WITHIN REACH. WILL ENDORSE TO ONCOMING SHIFT.
[2020-09-20 07:21] LABS: BASOPHILS % (AUTO) 0.2 % (0.0-2.0); HEMATOCRIT 28 % (39-51); HEMOGLOBIN 9.5 g/dL (13.5-17.5); LYMPHOCYTES # (AUTO) 0.8 /CMM (0.8-4.8); LYMPHOCYTES % (AUTO) 5.1 % (20.0-44.0); MEAN CORPUSCULAR HGB CONC 34 g/dl (31.0-36.0); MEAN CORPUSCULAR VOLUME 97 fL (80-96); MONOCYTES # (AUTO) 1.4 /CMM (0.1-1.30); MONOCYTES % (AUTO) 8.5 % (2.0-12.0); NEUTROPHILS # (AUTO) 13.7 /CMM (1.8-8.9); NEUTROPHILS % (AUTO) 84.2 % (43.0-81.0); PLATELET COUNT (AUTO) 105 /CMM (150-450); RED BLOOD CELL COUNT(AUTO) 2.85 MIL/uL (4.5-6.0); WHITE BLOOD COUNT (AUTO) 16.3 K/uL (4.3-11.0)
[2020-09-20] MEDS: BLOOD SUGAR DIAGNOSTIC 1 EACH STRIP VI SCH ×3 (07:30→17:55)
[2020-09-20 07:48] LABS: CALCIUM, SERUM 7.8 mg/dL (8.5-10.1); CREATININE 2.4 mg/dL (0.6-1.3); POTASSIUM 3.3 mmol/L (3.5-5.1)
--- NOTE | 2020-09-20 08:10 | NUR ---
RN OPENING NOTES WOW is not working properly IT contacted will be here in 30 min or less to fix WOW computer, i am unable to scan medications and get the meds to each patient on time at this time as i am awaiting for IT to come and HELP FIX. WILL NEED TO BORROW ANOTHER COMPUTER IF IT IS NOT HERE SOON, RECEIVED PT IN BED SLEEPING, NO DISTRESS NOTED, AND NO SOB NOTED, ALL SAFETY MEASURES IN PLACE, BED LOCKED LOW TO FLOOR, CALL LIGHT IN REACH.
[2020-09-20] MEDS: POTASSIUM CHLORIDE 20 MEQ TAB.PRT.SR PO SCH (09:07)
[2020-09-20 09:08] VITALS: BP 140/68
[2020-09-20] MEDS: METOLAZONE 2.5 MG TABLET PO SCH (09:08)
[2020-09-20] MEDS: METOPROLOL TARTRATE 25 MG TABLET PO SCH (09:08)
[2020-09-20] MEDS: FUROSEMIDE 40 MG TABLET PO SCH (09:08)
[2020-09-20] MEDS ORDERED: ALPR0.255 PO (09:16)
[2020-09-20] MEDS ORDERED: METO2.5T7 PO (09:16)
[2020-09-20] MEDS ORDERED: Insulin Glargine,Hum SQ (09:16)
[2020-09-20] MEDS ORDERED: *INS REG SQ (09:16)
[2020-09-20] MEDS ORDERED: METO25TA20 PO (09:16)
[2020-09-20] MEDS ORDERED: INSU100V28 SQ (09:16)
[2020-09-20] MEDS ORDERED: POTA20TA83 PO (09:16)
[2020-09-20] MEDS ORDERED: NAFC2FRO2 IV (09:16)
[2020-09-20] MEDS ORDERED: FURO40TA5 PO (09:16)
[2020-09-20] MEDS ORDERED: HYDR-3972 PO (09:16)
[2020-09-20] MEDS ORDERED: POTASSIUM CHLORIDE 20 MEQ TAB.PRT.SR PO ONE (09:30)
[2020-09-20] MEDS ORDERED: [UNRECOGNIZED DRUG - CODE] SQ (09:35)
[2020-09-20] MEDS ORDERED: HEPA50008 SQ (09:38)
[2020-09-20] MEDS: INSULIN REGULAR, HUMAN 100 UNIT/ML 3 ML VIAL SQ PRN (12:39)
--- NOTE | 2020-09-20 18:19 | NUR ---
RN NOTES 1603 TRANSPORT ARRIVED TO TRANSFER PT TO [facility] HOT THE [facility] HELD AND WILL BE ADMIN AT FACILITY, RN AGRICULTURAL LOAN OFFICER OF [facility] IS AWARE TO CONTINUE TO CARRY OUT THE ABT TX ORDERS AND THE FOLLOWING MD ORDER LIST PROVIDED IN PACKET TO FACILITY, IV SITES KEPT INTACT FOR FACILITY TO HAVE ACCESS AND PROVIDE CARE PER RECOMMENDATION, SAFE TRANSFER FROM [facility] TO [facility] AND OUT OF HOSPITAL TO TRANSPORT VEHICLE, DAUGHTER WITH PT AT SIDE AND WILL FOLLOW TO [facility], THE CHEST PAIN OF THE PT COMES AND GOES AT THE TIME THE ISSUE HAS NOT BEEN COMPLETELY RESOLVED BUT WILL CONTINUE TO MONITOR, FACILITY AWARE OF PT CONDITION AT THIS TIME AND WILL CLOSELY MONITOR FOR ANY SIGNIFICANT CHANGES. PT HAS CHOOSE TO GO TO FACILITY AT THIS TIME BUT AGREES TO F/U WITH MD AND BE COMPLIANT WITH ALL ORDERS AND ABT TX ORDERS.
[2020-09-21] MEDS ORDERED: INSULIN GLARGINE, 100 UNIT/ML CARTRIDGE SQ SCH (09:00)
[2020-09-21] MEDS ORDERED: HEPARIN SODIUM, PORCINE 5000 UNITS/1 ML VIAL SQ SCH (10:00)
== END 2020-09-20 18:20 | DRG 720 ==
LOC: ER 11:09 → MEDSG1 14:27 → TELE-TD 15:07 → TELE1 09-14 07:53 → MEDSG1 09-16 12:02
PROVIDERS: ADMIT Internal Medicine; ATTEND Internal Medicine
PROC: 05H533Z Insertion of Infusion Device into Right Subclavian Vein, Percutaneous Approach (ICD-10-PCS; principal; 2020-09-18)
PROC: B546ZZA Ultrasonography of Right Subclavian Vein, Guidance (ICD-10-PCS; 2020-09-18)
DX: A41.01 Sepsis due to Methicillin susceptible Staphylococcus aureus (principal); N17.0 Acute kidney failure with tubular necrosis; E43 Unspecified severe protein-calorie malnutrition; E87.2 Acidosis; J18.9 Pneumonia, unspecified organism; D69.59 Other secondary thrombocytopenia; E87.5 Hyperkalemia; K70.30 Alcoholic cirrhosis of liver without ascites; D53.9 Nutritional anemia, unspecified; E86.0 Dehydration; E11.9 Type 2 diabetes mellitus without complications; B19.20 Unspecified viral hepatitis C without hepatic coma; N39.0 Urinary tract infection, site not specified; E78.5 Hyperlipidemia, unspecified; F17.210 Nicotine dependence, cigarettes, uncomplicated; G89.4 Chronic pain syndrome; L03.115 Cellulitis of right lower limb; K80.20 Calculus of gallbladder without cholecystitis without obstruction; Z79.4 Long term (current) use of insulin; E88.09 Other disorders of plasma-protein metabolism, not elsewhere classified; Z79.84 Long term (current) use of oral hypoglycemic drugs; E66.9 Obesity, unspecified; Z68.34 Body mass index [BMI] 34.0-34.9, adult; Z91.81 History of falling; R07.89 Other chest pain; Z20.822 Contact with and (suspected) exposure to COVID-19; J44.0 Chronic obstructive pulmonary disease with (acute) lower respiratory infection; I10 Essential (primary) hypertension
CPT/HCPCS: 36415; 71045-TC; 73700-TC; 76770-TC; 80048-TC; 80053-TC; 80076-TC; 80202-TC; 81001; 82550-TC; 82553; 82570-TC; 82962-TC; 83605-TC; 83735-TC; 83880; 83970; 84100-TC; 84155; 84155-TC; 84165; 84300-TC; 84443-TC; 84484-TC; 84550-TC; 85025-TC; 85045-TC; 85610-TC; 85730-TC; 87040-TC; 87081-TC; 87086-TC; 93307-TC; 93970-TC; 94799-TC; A6403; C9803; G0378; J0690; J0692; J1170; J1815; J1940; J2270; J2405; J3370; J3490; J7040; J7050; J7060

== ENCOUNTER 2020-09-27 18:24 | Emergency (ER) | payer MEDICAID ==
[~2020-09-27] VITALS: Ht 188 cm; Wt 119.7 kg
[~2020-09-27 18:24] MED LIST changes: +*INS REG SQ; +ALPR0.255 PO; +FURO40TA5 PO; +HEPA50008 SQ; +HYDR-3972 PO; +Insulin Glargine,Hum SQ; -METF-442 PO; +METO2.5T7 PO; +METO25TA20 PO; +NAFC2FRO2 IV; +POTA20TA83 PO; -PROP40TA7 PO; -SITA1TAB6 PO
[2020-09-27] MEDS ORDERED: NAFCILLIN IV ONE (19:00)
[2020-09-27] MEDS ORDERED: D5W IV ONE (19:00)
--- NOTE | 2020-09-27 19:07 | NUR ---
SPOKE TO SHELLIE, FROM , SHE STATED PICC LINE FELL OFF 2 DAYS AGO, PATIENT MISSED ANTIBIOTIC AND WAS FEBRILE AT HOME, SO ANTIBIOTIC WAS CHANGED TO ZOSYN 3.375 GM IV Q8 X 10 DAYS AND VANCOMYCIN 1GM IV QD X10 DAYS - ANTIBIOTICS WERE NEVER STARTED DUE TO HAVING NO IV ACCESS. SO NOW, FAMILY ONLY WANTS RE-INSERTION OF PICC LINE AND TO START THE NEW IV ANTIBIOTICS AND THEN GO HOME.
--- NOTE | 2020-09-27 19:09 | NUR ---
[facility] [phone] SHELLIE
[2020-09-27] MEDS ORDERED: PIPERACILLIN /TAZOBACTAM 3.375 G VIAL IV ONE (19:19)
[2020-09-27] MEDS ORDERED: VANCOMYCIN 1 GM VIAL ONE (19:19)
[2020-09-27] MEDS: PIPERACILLIN /TAZOBACTAM 3.375 G in IV D5W 50 ML IV ONE (19:29)
[2020-09-27] MEDS: VANCOMYCIN 1 GM in IV D5W 250 ML IV ONE (19:57)
--- NOTE | 2020-09-27 20:58 | NUR ---
ANTIBIOTICS FINISHED. NO REACTION NOTED. PATIENT TOLERATED MEDICATION WELL.
--- NOTE | 2020-09-27 23:50 | NUR ---
PATIENT UNWILLING TO WAIT FOR PICC LINE NURSE. PATIENT IS DISCHARGED HOME. IV LEFT IN FOR HOME NURSE MOMO BY .
--- NOTE | 2020-09-27 23:51 | NUR ---
Patient discharged to home in stable condition. Written and verbal after care instructions given. Patient verbalizes understanding of instruction.
[2020-09-27 23:53] VITALS: BP 134/78
== END 2020-09-27 23:54 | disposition home or self-care (01) ==
LOC: ER 18:31
DX: L03.115 Cellulitis of right lower limb (principal); I10 Essential (primary) hypertension; E11.9 Type 2 diabetes mellitus without complications; D64.9 Anemia, unspecified; E78.5 Hyperlipidemia, unspecified; G89.4 Chronic pain syndrome; F17.210 Nicotine dependence, cigarettes, uncomplicated; Z79.899 Other long term (current) drug therapy; Z79.84 Long term (current) use of oral hypoglycemic drugs
CPT/HCPCS: 96365; 96368; 99284; J2543; J3370; J3490; J7030; J7060

== ENCOUNTER 2020-09-28 12:14 | Emergency (ER) | payer MEDICAID ==
[~2020-09-28] VITALS: Ht 190.5 cm; Wt 117.9 kg
--- NOTE | 2020-09-28 12:33 | NUR ---
BIB DAUGHTER FOR PICC LINE INSERTION. PT AAOX4, RR EVEN & UNLABORED. DENIES CP, SOB, DIZZINESS, N/V AT THIS TIME. PT SEEN & EVAL'D BY DR. ROBLES. WILL CONT TO MONITOR.
--- NOTE | 2020-09-28 12:34 | NUR ---
DR. COOLEY SPEAKING WITH DR. ROBLES
--- NOTE | 2020-09-28 12:34 | NUR ---
[facility] CALLED FOR PICC LINE
--- NOTE | 2020-09-28 12:52 | NUR ---
[facility] PHYSICAL LABORATORY ASSISTANT [phone]
[2020-09-28 12:56] LABS: BASOPHILS # (AUTO) 0.1 K/uL (0.0-0.2); BASOPHILS % (AUTO) 1.8 % (0.0-2.0); EOSINOPHILS % (AUTO) 3.4 % (0.0-6.0); HEMATOCRIT 23 % (39-51); HEMOGLOBIN 7.6 g/dL (13.5-17.5); LYMPHOCYTES % (AUTO) 15.7 % (20.0-44.0); MEAN CORPUSCULAR HGB CONC 34 g/dl (31.0-36.0); MEAN CORPUSCULAR VOLUME 99 fL (80-96); MONOCYTES # (AUTO) 0.8 K/uL (0.1-1.30); MONOCYTES % (AUTO) 12.5 % (2.0-12.0); NEUTROPHILS # (AUTO) 4.1 K/uL (1.8-8.9); NEUTROPHILS % (AUTO) 66.6 % (43.0-81.0); PLATELET COUNT (AUTO) 176 K/uL (150-450); RED BLOOD CELL COUNT(AUTO) 2.27 MIL/uL (4.5-6.0); WHITE BLOOD COUNT (AUTO) 6.2 K/uL (4.3-11.0)
[2020-09-28 13:04] LABS: CALCIUM, SERUM 7.6 mg/dL (8.5-10.1); CREATININE 2.1 mg/dL (0.6-1.3); POTASSIUM 4.7 mmol/L (3.5-5.1)
--- NOTE | 2020-09-28 13:24 | NUR ---
RENATE, PICC LINE RN AT FOR PICC INSERTION. PT SIGNED CONSENT FORM.
--- NOTE | 2020-09-28 14:24 | NUR ---
Patient discharged to home in stable condition. Written and verbal after care instructions given. Patient verbalizes understanding of instruction.
[2020-09-28 14:25] VITALS: BP 131/88
== END 2020-09-28 14:27 | disposition home or self-care (01) ==
LOC: ER 12:14
DX: L03.115 Cellulitis of right lower limb (principal); N28.9 Disorder of kidney and ureter, unspecified; D64.9 Anemia, unspecified; I10 Essential (primary) hypertension; E11.9 Type 2 diabetes mellitus without complications; E78.5 Hyperlipidemia, unspecified; F17.210 Nicotine dependence, cigarettes, uncomplicated; Z79.899 Other long term (current) drug therapy; Z79.4 Long term (current) use of insulin
CPT/HCPCS: 36415; 80048-TC; 85025-TC

== ENCOUNTER 2020-10-03 11:22 | Inpatient (IN) | payer MEDICAID ==
[~2020-10-03] VITALS: Ht 180.3 cm; Wt 109.8 kg
--- NOTE | 2020-10-03 12:34 | NUR ---
SENT HERE BY PMD DUE TO LOW H/H. PT AAOX4, VSS. RR EVEN & UNLABORED. DENIES CP, SOB, DIZZINESS, N/V AT THIS TIME. PT SEEN & EVAL'D BY DR. COY. WILL CONT TO MONITOR.
[2020-10-03 12:35] LABS: BASOPHILS # (AUTO) 0.1 K/uL (0.0-0.2); BASOPHILS % (AUTO) 1.4 % (0.0-2.0); LYMPHOCYTES % (AUTO) 16.7 % (20.0-44.0); MEAN CORPUSCULAR HGB CONC 34 g/dl (31.0-36.0); MEAN CORPUSCULAR VOLUME 98 fL (80-96); MONOCYTES # (AUTO) 0.8 K/uL (0.1-1.30); NEUTROPHILS # (AUTO) 3.7 K/uL (1.8-8.9); NEUTROPHILS % (AUTO) 63.9 % (43.0-81.0); PLATELET COUNT (AUTO) 108 K/uL (150-450); RED BLOOD CELL COUNT(AUTO) 2.04 MIL/uL (4.5-6.0); WHITE BLOOD COUNT (AUTO) 5.8 K/uL (4.3-11.0)
[2020-10-03 12:36] LABS: HEMATOCRIT 20 % (39-51)
[2020-10-03 12:37] LABS: HEMOGLOBIN 6.8 g/dL (13.5-17.5)
[2020-10-03 12:47] LABS: CALCIUM, SERUM 7.4 mg/dL (8.5-10.1); CREATININE 2.2 mg/dL (0.6-1.3); POTASSIUM 4.8 mmol/L (3.5-5.1)
--- NOTE | 2020-10-03 13:21 | NUR ---
covid swab done and sent to the lab
[2020-10-03] MEDS ORDERED: AMLO-212 PO (13:22)
[2020-10-03] MEDS ORDERED: PROP40TA7 PO (13:22)
[2020-10-03] MEDS ORDERED: ASPI-1420 PO (13:22)
[2020-10-03] MEDS ORDERED: LOSA100T31 PO (13:22)
[2020-10-03 13:23] LABS: BAND % (MANUAL) 2 % (0.0-5.0); EOSINOPHILS % (MANUAL) 3 % (0-4); LYMPHOCYTES % (MANUAL) 17 % (16-48); MONOCYTES % (MANUAL) 13 % (0-11.0); NEUTROPHILS % (MANUAL) 65 (42-76)
--- NOTE | 2020-10-03 13:27 | NUR ---
PT ASLEEP, EASILY AWAKEN BY VERBAL STIMULI. RR EVEN & UNLABORED. DENIES ANY DISCOMFORT AT THIS TIME. WILL CONT TO MONITOR. AT BS.
--- NOTE | 2020-10-03 13:44 | NUR ---
covid negative per lab
[2020-10-03] MEDS ORDERED: INSU100V3 IJ (14:33)
[2020-10-03] MEDS ORDERED: INSU100V7 SQ (14:33)
--- NOTE | 2020-10-03 14:58 | NUR ---
DR GORDON'S OFFICE CALLED FOR GI CONSULT ORDERED BY DR COOLEY FOR EGD,RAIN BOURGEOIS, SPOKE WITH YANELI
[2020-10-03] MEDS ORDERED: PROPRANOLOL HCL 40 MG TABLET PO SCH (15:00)
[2020-10-03] MEDS ORDERED: ALPRAZOLAM 0.25 MG TABLET PO PRN (15:00)
[2020-10-03] MEDS ORDERED: AMLODIPINE BESYLATE 5 MG TABLET PO SCH (15:00)
[2020-10-03] MEDS ORDERED: INSULIN REGULAR, HUMAN 100 UNIT/ML 3 ML VIAL SQ PRN ×2 (15:30→18:45)
[2020-10-03] MEDS ORDERED: HYDROMORPHONE MDV 0.5 MG in IV D5W 50 ML IV PRN (15:30)
[2020-10-03] MEDS ORDERED: HYDROCODONE/APAP 5/325MG TABLET PO PRN (15:30)
[2020-10-03] MEDS ORDERED: IV 1/2NS 1000 ML 1,000 ML IV PRN (15:30)
[2020-10-03] MEDS ORDERED: ACETAMINOPHEN 325 MG TABLET PO PRN (15:30)
[2020-10-03] MEDS ORDERED: HEPARIN SODIUM, PORCINE 5000 UNITS/1 ML VIAL SQ SCH (15:30)
[2020-10-03] MEDS ORDERED: ZOLPIDEM TARTRATE 5 MG TABLET PO PRN (15:30)
[2020-10-03] MEDS ORDERED: DEXTROSE 50%-WATER 50 ML DISP.SYRIN IV PRN (15:30)
[2020-10-03] MEDS ORDERED: HYDROMORPHONE 1 MG/1 ML DISP.SYRIN IV PRN (16:00)
[2020-10-03] MEDS ORDERED: ALPRAZOLAM 0.25 MG TABLET ONE (17:00)
[2020-10-03] MEDS ORDERED: BLOOD SUGAR DIAGNOSTIC 1 EACH STRIP IN SCH (18:00)
--- NOTE | 2020-10-03 18:05 | NUR ---
NURSING SUP GAVE [phone].
[2020-10-03] MEDS ORDERED: VANCOMYCIN 1 GM in IV D5W 250ml IV SCH (18:30)
[2020-10-03] MEDS ORDERED: VANCOMYCIN 1 GM in IV D5W 250ml IV ONE ×2 (18:30→21:00)
--- NOTE | 2020-10-03 18:37 | NUR ---
REPORT GIVEN TO STEPH HEBERT FOR WENDY.
[2020-10-03 20:35] VITALS: BP 156/95
[2020-10-03] MEDS: PROPRANOLOL HCL 40 MG TABLET PO SCH (21:00)
[2020-10-03] MEDS: CEFEPIME 1 GM in IV D5W 50 ML IV SCH (21:02)
[2020-10-03] MEDS ORDERED: Medication Not On Formulary EA (Insulin Glargine,Hum.rec.anlog (Lantus) 20 UNIT) SQ SCH (22:00)
[2020-10-03] MEDS: INSULIN GLARGINE, 100 UNIT/ML CARTRIDGE SQ SCH (22:00)
[2020-10-03 22:26] VITALS: BP 173/94
--- NOTE | 2020-10-03 22:30 | NUR ---
RN OPENING NOTES: RECEIVED PATIENT SLEEP IN BED AROUSABLE TO STIMULI, ALERT AND ORIENTED X3 CAME FROM ER WITH BLOOD TRANSFUSION ONGOING AT RIGHT MIDLINE INFUSING WELL, WITH 0.9NSS S/D, NO COMPLAIN OF PAIN AND DISCOMFORT AT THIS TIME, ON BED REST USING URINAL, PATIENT A TTEMPT TO GO TO BATHROOM 1 TIME WITH FAMILY STABLE WITH SUPERVISION, ORIENTED TO ROOM, REMIND PATIENT TO USE THE CALL LIGHTS, WHEN NEEDED ASSISTANCE, ON MONITORING DUE TO POSSIBLE BLEEDING DUE TO LOW H&H ON RACHEL MONITORING WITH READING OF SR HR-87, HOB AT 30 DEGREE ON ROOM AIR, KEPT CLEAN AND DRY, WILL CONTINUE TO MONITOR.
[2020-10-03] MEDS: CLONIDINE HCL 0.1 MG TABLET PO PRN (22:38)
[2020-10-03] MEDS: ZOLPIDEM TARTRATE 5 MG TABLET PO PRN (22:46)
[2020-10-03 23:21] VITALS: BP 158/93
[2020-10-03 23:45] VITALS: BP 158/93
[2020-10-04] VITALS (15 sets, daily range): BP systolic 110–169; BP diastolic 72–97
--- NOTE | 2020-10-04 | NUR ---
RN NOTES: BLOOD TRANSFUSION 2ND BAG OF RBC HH-6.8, WAS GIVEN,V/S ARE WITHIN NORMAL RANGE BP -151/85, HR-83, RR-19,TEMP 98.4, CONSENT FORM SIGNED, NO ADVERSE REACTION WAS OBSERVED
[2020-10-04] MEDS: BLOOD SUGAR DIAGNOSTIC 1 EACH STRIP IN SCH ×4 (01:00→17:37)
--- NOTE | 2020-10-04 01:02 | NUR ---
RN NOTES: BS-108 LANTUS NOT GIVEN DUE TO LOW SUGAR AND NPO STATUS
--- NOTE | 2020-10-04 03:58 | NUR ---
STEPH NOTES: VANCOMYCIN G Addendum: 10/04/20 at 0400 by KIMBERLYN CASH RN VANCOMYCIN 1 GM LATE ONE TIME IN D5W GIVEN AT 0400 DUE TO BLOOOD TRANSFUSION
--- NOTE | 2020-10-04 06:44 | NUR ---
RN CLOSING NOTES: PATIENT SLEEP IN BED COMFORTABLY, AROUSABLE TO STIMULI, NO COMPLAIN OF PAIN AND DISCOMFORT AT THIS TIME, BED IN LOW POSITION, CALL LIGHTS WITHIN REACH, PAATIENT WITH YOHANNES MIDLINE WITH ONGOING IV HYDRATION OF 1/2 NSS @75ML/HR INFUSING WELL. ON MONITORING FOR BLEEDING ,NO BLEEDING WAS OBSERVED, 2 PACKS OF LRBC TRANSFUSE NO ADVERSE REACTION WAS OBSERVED, PATIENT AMBULATES TO RESTROOM WITH SUPERVISION ALL NEEDS MET, KEPT CLEAN AND DRY, CONTINUE TO MONITOR, ENDORSE TO INCOMING SHIFT.
[2020-10-04] MEDS: CEFEPIME 1 GM in IV D5W 50 ML IV SCH ×2 (07:59→20:19)
[2020-10-04] MEDS: PROPRANOLOL HCL 40 MG TABLET PO SCH ×3 (08:07→21:29)
[2020-10-04] MEDS: AMLODIPINE BESYLATE 5 MG TABLET PO SCH (08:51)
[2020-10-04] MEDS: PANTOPRAZOLE 40 MG VIAL IV SCH ×3 (08:51→17:37)
[2020-10-04 09:12] LABS: BASOPHILS # (AUTO) 0.1 K/uL (0.0-0.2); BASOPHILS % (AUTO) 0.9 % (0.0-2.0); EOSINOPHILS % (AUTO) 4.7 % (0.0-6.0); HEMATOCRIT 24 % (39-51); HEMOGLOBIN 8.1 g/dL (13.5-17.5); LYMPHOCYTES # (AUTO) 1.1 K/uL (0.8-4.8); LYMPHOCYTES % (AUTO) 17.1 % (20.0-44.0); MEAN CORPUSCULAR HGB CONC 34 g/dl (31.0-36.0); MEAN CORPUSCULAR VOLUME 95 fL (80-96); MONOCYTES # (AUTO) 0.7 K/uL (0.1-1.30); MONOCYTES % (AUTO) 11.5 % (2.0-12.0); NEUTROPHILS # (AUTO) 4.2 K/uL (1.8-8.9); NEUTROPHILS % (AUTO) 65.8 % (43.0-81.0); PLATELET COUNT (AUTO) 110 K/uL (150-450); RED BLOOD CELL COUNT(AUTO) 2.48 MIL/uL (4.5-6.0); WHITE BLOOD COUNT (AUTO) 6.4 K/uL (4.3-11.0)
[2020-10-04 09:17] LABS: CALCIUM, SERUM 7.5 mg/dL (8.5-10.1); CREATININE 2.1 mg/dL (0.6-1.3)
--- NOTE | 2020-10-04 10:31 | NUR ---
WOUND CARE CONSULT: PT PRESENTS WITH RT LOWER LEG DRY WOUNDS AND REDNESS WITH TENDERNESS,PRESENT ON ADMISSION. PT ALSO MENTIONED ITCHING TO HIS BUTTOCKS. RECOMMENDATIONS MADE FOR SKIN CARE AND PROTECTION. DISCUSSED WITH NURSING STAFF. DR VALDEZ NOTIFIED OF DPM CONSULT REQUEST. IN AGREEMENT WITH PLAN OF CARE.
[2020-10-04] MEDS ORDERED: Z GUARD REMEDY 2 OZ OINT TP PRN ×2 (11:00)
--- NOTE | 2020-10-04 11:46 | NUR ---
RN OPENING NOTE PT AWAKE IN BED. A/O X4 AND UNDERSTANDS TAMAZIGHT. NO COMPLAINT OF PAIN OR NAUSEA PRESENT. ON RA WITH NO SOB OR RESPIRATORY DISTRESS PRESENT. ON COMMERCIAL ARTIST LETTERING. NO EDEMA PRESENT. RLE CELLULITIS PRESENT AND WOUND PICTURES IN CHART. TO BE SEEN BY BODY SERVICE TEAM MEMBER. PT IS SELF AMBULATORY WITH STEADY GAIT. YOHANNES PICCLINE PRESENT AND FLUSHES WELL. NPO STATUS DUE TO UPCOMING EGD. LABS AND ORDERS REVIEWED. SAFETY MEASURES IN PLACE. SIDE RAILS RAISED. BED LOWERED. CALL LIGHT WITHIN REACH. WILL CONTINUE TO MONITOR.
[2020-10-04] MEDS: SOD FERRIC GLUC 125 MG in IV NS 0.9% 100 ML IV SCH (14:22)
[2020-10-04] MEDS: ZOLPIDEM TARTRATE 5 MG TABLET PO PRN (17:37)
[2020-10-04] MEDS: CLOTRIMAZOLE 1% 15 GM TUBE TP SCH (17:38)
--- NOTE | 2020-10-04 18:00 | NUR ---
RN NOTE PT ONGOING BLOOD TRANSFUSION BP OF 156/81. ID OF [id number]. CN NOTIFIED. V/S WNL OF PT BASELINE. NO FEVER. NO SIGNS OF TRANSFUSION REACTION. WILL CONTINUE TRANSFUSION AND TO MONITOR.
--- NOTE | 2020-10-04 18:35 | NUR ---
RN NOTE PT TOOK OFF TELE MONITOR, CLAIMING THAT HE GETS ITCHY OFF OF IT. CN NOTIFIED. NOTIFIED. NO S/S OF DISTRESS. WILL CONTINUE TO MONITOR.
--- NOTE | 2020-10-04 18:55 | NUR ---
RN CLOSING NOTE PT AWAKE IN BED. A/O X4 AND UNDERSTANDS INDONESIAN. NO COMPLAINT OF PAIN OR NAUSEA PRESENT. ON RA WITH NO SOB OR RESPIRATORY DISTRESS PRESENT. PT REFUSES BRAIN PICKER. NO EDEMA PRESENT. RLE CELLULITIS PRESENT AND WOUND PICTURES IN CHART. WOUND CARE PLAN IS TO APPLY LOTRIM AND KEEP OPEN TO AIR. PT IS SELF AMBULATORY WITH STEADY GAIT. YOHANNES PICCLINE PRESENT AND FLUSHES WELL. TO BE PLACED NPO POST MIDNIGHT FOR UPCOMING EGD. ROUTINE MEDS GIVEN. LABS AND ORDERS REVIEWED. SAFETY MEASURES IN PLACE. SIDE RAILS RAISED. BED LOWERED. CALL LIGHT WITHIN REACH. REPORT TO BE GIVEN TO NIGHT NURSE FOR WENDY.
--- NOTE | 2020-10-04 20:00 | NUR ---
RN OPENING NOTES: RECEIVE PATIENT AWAKE IN BED A/OX3-4, NO COMPLAIN OF PAIN AND DISCOMFORT AT THIS TIME, BED IN LOW POSITION, CALL LIGHTS WITHN REACH, WITH MID UPPER PIC LINE RIGHT ARM ON 04/06 NSS @75ML PER HOUR INFUSING WELL, WILL CONTINUE TO MONITOR.
[2020-10-04] MEDS: INSULIN GLARGINE, 100 UNIT/ML CARTRIDGE SQ SCH (22:00)
--- NOTE | 2020-10-04 22:00 | NUR ---
RN NOTES BS-168, NO LONG ACTING INSULIN GIVEN PATIENT NPO POST MIDNIGHT WITH EGD PROCEDURE IN AM
--- NOTE | 2020-10-04 23:00 | NUR ---
SCIENTIFIC LABORATORY SUPERVISOR NOTES: PATIENT REFUSED CONNECTING TELEMONITORING OFFERED SEERAL TIMES EXPLAIN THE RISK AND BENEFITS BUT STILL REFUSED STATE OK FOR TOMORROW MORNING.
--- NOTE | 2020-10-04 23:35 | NUR ---
RN NOTES: PATIENT ADDITIONAL 5MG OF AMBIEN GIVEN PER TELEPHONE ORDER FROM DR ROBBINS.
[2020-10-05] VITALS: BP 171/93
--- NOTE | 2020-10-05 | NUR ---
RN NOTES BS-135, NO INSULIN GIVEN PATIENT NPO POST MIDNIGHT WITH EGD PROCEDURE IN AM
[2020-10-05] MEDS: ZOLPIDEM TARTRATE 5 MG TABLET PO PRN (00:14)
[2020-10-05] MEDS: CLONIDINE HCL 0.1 MG TABLET PO PRN (00:15)
[2020-10-05 04:00] VITALS: BP 179/94
[2020-10-05] MEDS ORDERED: VANCOMYCIN 1 GM in IV D5W 250ml IV SCH (04:00)
[2020-10-05] MEDS: BLOOD SUGAR DIAGNOSTIC 1 EACH STRIP IN SCH ×3 (06:00→12:14)
--- NOTE | 2020-10-05 06:15 | NUR ---
RN NOTES: BS-131,- NO INSULIN COVERAGE, PATIENT ON NPO PRIOR TO PROCEDURE
--- NOTE | 2020-10-05 06:38 | NUR ---
MS TELE CLOSING NOTE: PATIENT SLEEP IN BED COMFORTABLY, BED IN LOW POSITION, CALL LIGHTS WITHIN REACH, NPO POST MIDNIGHT, WITH EGD PROCEDURE AT 0900AM, FAMILY AND RESIDENT WAS MADE AWARE ON THE PROCEDURE, WITH YOHANNES PICC LINE, ON 12NSS@75ML/HR INFUSING WELL, ON TELEMONITORING, READING SR WITH HR-72, ALL NEEDS MET, KEPT CLEAN AND DRY,CONTINUE TO MONITOR. ENDORSE TO INCOMING SHIFT.
[2020-10-05 06:53] LABS: BASOPHILS # (AUTO) 0.1 K/uL (0.0-0.2); BASOPHILS % (AUTO) 0.9 % (0.0-2.0); EOSINOPHILS % (AUTO) 4.8 % (0.0-6.0); HEMATOCRIT 26 % (39-51); HEMOGLOBIN 8.8 g/dL (13.5-17.5); LYMPHOCYTES % (AUTO) 12.4 % (20.0-44.0); MEAN CORPUSCULAR HGB CONC 34 g/dl (31.0-36.0); MEAN CORPUSCULAR VOLUME 94 fL (80-96); MONOCYTES # (AUTO) 0.9 K/uL (0.1-1.30); MONOCYTES % (AUTO) 11.2 % (2.0-12.0); NEUTROPHILS # (AUTO) 5.9 K/uL (1.8-8.9); NEUTROPHILS % (AUTO) 70.7 % (43.0-81.0); PLATELET COUNT (AUTO) 123 K/uL (150-450); RED BLOOD CELL COUNT(AUTO) 2.72 MIL/uL (4.5-6.0); WHITE BLOOD COUNT (AUTO) 8.4 K/uL (4.3-11.0)
[2020-10-05 07:07] LABS: CALCIUM, SERUM 7.5 mg/dL (8.5-10.1); CREATININE 2.1 mg/dL (0.6-1.3); POTASSIUM 4.9 mmol/L (3.5-5.1)
[2020-10-05 08:00] VITALS: BP 154/80
[2020-10-05] MEDS: PROPRANOLOL HCL 40 MG TABLET PO SCH (08:02)
[2020-10-05] MEDS: AMLODIPINE BESYLATE 5 MG TABLET PO SCH (08:02)
--- NOTE | 2020-10-05 08:07 | NUR ---
RN OPENING NOTE PT AWAKE IN BED RESTING. A/O X4 AND UNDERSTANDS DANISH. ON RA WITH NO SOB OR RESPIRATORY DISTRESS PRESENT. NO COMPLAINT OF PAIN OR NAUSEA. ON DREDGE PIPE OPERATOR. NO EDEMA PRESENT. ON BEDREST. RLE CELLULITIS NOTED AND WOUND PICTURES IN CHART. WOUND TO KEPT OPEN TO AIR WITH LOTRIM APPLIED. NPO POST MIDNIGHT FOR EGD. YOHANNES PICCLINE PRESENT AND FLUSHES WELL. LABS AND ORDERS REVIEWED. SAFETY MEASURES IN PLACE. SIDE RAILS RAISED. BED LOWERED. CALL LIGHT WITHIN REACH. WILL CONTINUE TO MONITOR.
[2020-10-05] MEDS ORDERED: ANESTHESIA TRAY IN PYXIS 1 EA TRAY MC ONE (08:13)
[2020-10-05 09:00] VITALS: BP 154/82
[2020-10-05] MEDS ORDERED: LOSARTAN POTASSIUM 50 MG TABLET PO SCH (09:00)
[2020-10-05] MEDS: CLOTRIMAZOLE 1% 15 GM TUBE TP SCH (09:02)
[2020-10-05] MEDS: CEFEPIME 1 GM in IV D5W 50 ML IV SCH (09:02)
[2020-10-05] MEDS: PANTOPRAZOLE 40 MG VIAL IV SCH (09:02)
[2020-10-05] MEDS ORDERED: ALBUTEROL FS 2.5 MG/3 ML VIAL.NEB ONE (09:55)
[2020-10-05] MEDS: SOD FERRIC GLUC 125 MG in IV NS 0.9% 100 ML IV SCH (13:22)
--- NOTE | 2020-10-05 16:00 | NUR ---
SECURITY ASSURANCE ANALYST NOTE PT DISCHARGED HOME IN STABLE CONDITION. ID BAND REMOVED. PICC LINE PRESENT OF IV ABX TO BE GIVEN OUTSIDE OF HOSPITAL. BELONGINGS CHECKED AND GIVEN TO PT. PRESCRIPTION GIVEN TO PT. EXITCARE EDUCATION UTILIZED AND EDUCATION GIVEN TO PT. PT REFUSED SKIN PHOTOS PRIOR TO DISCHARGE. PT REFUSED TO SIGN DISCHARGE PAPERWORK. SIGNED BY TWO RN.
[2020-10-05] MEDS ORDERED: LORAZEPAM INJ 2 MG/ML VIAL ONE (18:11)
== END 2020-10-05 16:00 | disposition home or self-care (01) | DRG 242 ==
LOC: ER 11:29 → TELE 19:40
PROVIDERS: ADMIT Internal Medicine; ATTEND Internal Medicine
PROC: 30233N1 Transfusion of Nonautologous Red Blood Cells into Peripheral Vein, Percutaneous Approach (ICD-10-PCS; 2020-10-03)
PROC: 06L38CZ Occlusion of Esophageal Vein with Extraluminal Device, Via Natural or Artificial Opening Endoscopic (ICD-10-PCS; principal; 2020-10-05)
DX: I85.01 Esophageal varices with bleeding (principal); D69.6 Thrombocytopenia, unspecified; E11.22 Type 2 diabetes mellitus with diabetic chronic kidney disease; E11.40 Type 2 diabetes mellitus with diabetic neuropathy, unspecified; N18.4 Chronic kidney disease, stage 4 (severe); F11.20 Opioid dependence, uncomplicated; K76.6 Portal hypertension; L03.115 Cellulitis of right lower limb; K70.30 Alcoholic cirrhosis of liver without ascites; D62 Acute posthemorrhagic anemia; B19.20 Unspecified viral hepatitis C without hepatic coma; I12.9 Hypertensive chronic kidney disease with stage 1 through stage 4 chronic kidney disease, or unspecified chronic kidney disease; Z20.822 Contact with and (suspected) exposure to COVID-19; K31.89 Other diseases of stomach and duodenum; Z79.4 Long term (current) use of insulin; E78.5 Hyperlipidemia, unspecified; Z79.899 Other long term (current) drug therapy; K80.20 Calculus of gallbladder without cholecystitis without obstruction; J44.9 Chronic obstructive pulmonary disease, unspecified; F17.210 Nicotine dependence, cigarettes, uncomplicated; Z79.82 Long term (current) use of aspirin; I87.8 Other specified disorders of veins; I87.311 Chronic venous hypertension (idiopathic) with ulcer of right lower extremity; L97.919 Non-pressure chronic ulcer of unspecified part of right lower leg with unspecified severity; E66.9 Obesity, unspecified; Z68.33 Body mass index [BMI] 33.0-33.9, adult
CPT/HCPCS: 36415; 80048-TC; 80202-TC; 82962-TC; 85025-TC; 85610-TC; 85730-TC; 86850-TC; 87081-TC; 93970-TC; C9113; C9803; G0378; J0330; J0692; J1815; J2060; J2704; J2916; J3370; J3490; J7030; J7040; J7050; J7060; P9016

== ENCOUNTER 2020-10-15 13:44 | Inpatient (IN) | payer MEDICAID ==
[~2020-10-15] VITALS: Ht 198.1 cm; Wt 117.9 kg
[~2020-10-15 13:44] MED LIST changes: -*INS REG SQ; +AMLO-212 PO; +ASPI-1420 PO; -FURO40TA5 PO; -HEPA50008 SQ; -HYDR-3972 PO; -INSU100V28 SQ; +INSU100V3 IJ; +INSU100V7 SQ; -Insulin Glargine,Hum SQ; +LOSA100T31 PO; -METO2.5T7 PO; -METO25TA20 PO; -NAFC2FRO2 IV; -POTA20TA83 PO; +PROP40TA7 PO
[2020-10-15] MEDS ORDERED: SOD FERRIC GLUC 125 MG in IV NS 0.9% 100 ML IV SCH (14:00)
--- NOTE | 2020-10-15 14:36 | NUR ---
PROVIDED WITH URINAL.
[2020-10-15 15:15] LABS: BASOPHILS # (AUTO) 0.1 K/uL (0.0-0.2); BASOPHILS % (AUTO) 1.3 % (0.0-2.0); EOSINOPHILS % (AUTO) 3.4 % (0.0-6.0); HEMATOCRIT 22 % (39-51); HEMOGLOBIN 7.5 g/dL (13.5-17.5); LYMPHOCYTES # (AUTO) 1.1 K/uL (0.8-4.8); MEAN CORPUSCULAR HGB CONC 34 g/dl (31.0-36.0); MEAN CORPUSCULAR VOLUME 95 fL (80-96); MONOCYTES # (AUTO) 0.8 K/uL (0.1-1.30); MONOCYTES % (AUTO) 11.6 % (2.0-12.0); NEUTROPHILS # (AUTO) 4.4 K/uL (1.8-8.9); NEUTROPHILS % (AUTO) 66.7 % (43.0-81.0); PLATELET COUNT (AUTO) 122 K/uL (150-450); RED BLOOD CELL COUNT(AUTO) 2.28 MIL/uL (4.5-6.0); WHITE BLOOD COUNT (AUTO) 6.6 K/uL (4.3-11.0)
[2020-10-15 15:22] LABS: CALCIUM, SERUM 7.1 mg/dL (8.5-10.1); CREATININE 6.1 mg/dL (0.6-1.3); POTASSIUM 4.8 mmol/L (3.5-5.1)
[2020-10-15] MEDS ORDERED: AMLO-212 PO (17:25)
[2020-10-15] MEDS ORDERED: FERR325T23 PO (17:27)
[2020-10-15] MEDS ORDERED: ASPI-1420 PO (17:27)
--- NOTE | 2020-10-15 17:30 | NUR ---
MOVE SHEET SUBMITTED AND CALLED FOR TELE BED.
[2020-10-15] MEDS ORDERED: HYDROCODONE/APAP 5/325MG TABLET ONE (17:42)
[2020-10-15 17:56] LABS: BILIRUBIN,URINE MODERATE (NEGATIVE); COLOR,URINE RED (YELLOW); LEUKOCYTE ESTERASE ,URINE Negative (NEGATIVE); NITRITE, URINE Negative (NEGATIVE); PROTEIN,URINE >=300 mg/dl (NEGATIVE); UGLUCOSE Negative (NEGATIVE); UROBILINOGEN,URINE 0.2 EU/dL (0.2)
[2020-10-15] MEDS ORDERED: HYDROCODONE/APAP 5/325MG TABLET PO ONE (18:00)
[2020-10-15] MEDS ORDERED: FUROSEMIDE 40 MG/4 ML VIAL IV ONE (18:00)
[2020-10-15 18:05] LABS: BACTERIA,URINE Rare /HPF (None Seen); RBC,URINE TOO NUMEROUS TO COUN /HPF (0-2); SQUAMOUS EPITHELIAL CELL,UR Few /HPF (None Seen); WBC,URINE NONE SEEN /HPF (0-3)
--- NOTE | 2020-10-15 18:05 | NUR ---
DR. COOLEY SPEAKING WITH DR. CERNA
[2020-10-15] MEDS ORDERED: FUROSEMIDE 40 MG/4 ML VIAL ONE (18:29)
--- NOTE | 2020-10-15 18:30 | NUR ---
CALLED DR. MATS [phone] DR. ANDRES TRIP MOTOR OPERATOR
[2020-10-15] MEDS ORDERED: ONDANSETRON HCL/PF 4 MG/2 ML VIAL ONE (18:46)
[2020-10-15] MEDS ORDERED: MORPHINE SULFATE INJ 2 MG/ML DISP.SYRIN ONE (18:47)
--- NOTE | 2020-10-15 18:50 | NUR ---
BED ASSIGNED= 325-2
[2020-10-15] MEDS ORDERED: ONDANSETRON HCL/PF - ER 4 MG/2 ML VIAL IV ONE (19:00)
[2020-10-15] MEDS ORDERED: MORPHINE SULFATE INJ 2 MG/ML DISP.SYRIN IV ONE (19:00)
--- NOTE | 2020-10-15 19:11 | NUR ---
REPORT GIVEN TO TITUS CHOI FOR WENDY.
--- NOTE | 2020-10-15 19:47 | NUR ---
pt was transferred to 325 under acls
[2020-10-15 19:50] VITALS: BP 186/98
--- NOTE | 2020-10-15 19:50 | NUR ---
MS RN ADMITTING NOTES RECEIVED PATIENT VIA GURNEY, AWAKE, ALERT AND ORIENTED X4, ABLE TO MAKE NEEDS KNOWN. PATIENT WAS ABLE TO AMBULATE UPON TRANSFER TO BED. NOTED WITH HALE CATHETER CONNECTED TO URINE BAG DRAINING PINKISH COLORED URINE. VS TAKEN AND RECORDED FOLLOWS TEMP 97.9, HR 89, RR 20, BP OF 186/98. WITH COMPLAINTS OF PAIN ON SCROTAL AREA. NOTED WITH PITTING EDEMA ON RIGHT AND LEFT HAND (+2), PITTING EDEMA ON BOTH LOWER EXTREMITIES (+3). NOTED WITH ENLARGED SCROTUM. REDNESS ON BLE AND LEFT LATERAL HIP RASHES WERE ASLO NOTED. PICTURES TAKEN AND FILED IN PATIENT'S CHART. SAFETY PRECAUTIONS OBSERVED: BED ON LOWEST LOCKED POSITION, SIDE RAILS UP X2, CALL LIGHT WITHIN EASY REACH. WILL CONTINUE TO MONITOR PATIENT'S CURRENT STATUS.
[2020-10-15] MEDS ORDERED: FUROSEMIDE 40 MG/4 ML VIAL IV SCH (20:30)
[2020-10-15] MEDS ORDERED: DEXTROSE 50%-WATER 50 ML DISP.SYRIN IV PRN (20:30)
[2020-10-15] MEDS ORDERED: ALBUMIN 25% 25 GM in PREMIX 1 EA IV ONE (21:00)
[2020-10-15] MEDS ORDERED: ALBUMIN 25% 12.5 GM/50 ML BOTTLE IV ONE (21:00)
[2020-10-15] MEDS: AMLODIPINE BESYLATE 5 MG TABLET PO SCH (21:14)
[2020-10-15] MEDS: PANTOPRAZOLE 40 MG TABLET.DR PO SCH (21:14)
[2020-10-15] MEDS ORDERED: FUROSEMIDE 100 MG in IV NS 0.9% 90 ML IV PRN (21:30)
[2020-10-15] MEDS ORDERED: MORPHINE SULFATE INJ 2 MG/ML DISP.SYRIN IV PRN (22:00)
[2020-10-15] MEDS ORDERED: ZOLPIDEM TARTRATE 5 MG TABLET PO PRN (22:00)
[2020-10-15] MEDS ORDERED: ACETAMINOPHEN 325 MG TABLET PO PRN (22:00)
[2020-10-15] MEDS: INSULIN GLARGINE, 100 UNIT/ML CARTRIDGE SQ SCH (22:00)
[2020-10-15] MEDS: HYDROCODONE/APAP 5/325MG TABLET PO PRN (22:00)
[2020-10-15] MEDS ORDERED: hydrALAZINE HCL 10 MG TABLET PO PRN (22:00)
--- NOTE | 2020-10-15 22:00 | NUR ---
PAIN MANAGEMENT PATIENT HAS C/O OF PAIN ON SCROTAL AREA WITH PAIN SCALE OF 7/10. DUE NORCO GIVEN ORDERED. WILL CONTINUE TO MONITOR PATIENT'S PAIN STATUS.
--- NOTE | 2020-10-15 22:10 | NUR ---
RN NOTES CHECKED PATIENT'S BLOOD SUGAR ORDERED. RESULT 96, NO REGULAR INSULIN COVERAGE. PATIENT REFUSED DUE INSULIN GLARGINE 20 UNITS. RISK AND BENEFITS EXPLAINED, BUT PATIENT STILL REFUSED.
[2020-10-15] MEDS: BLOOD SUGAR DIAGNOSTIC 1 EACH STRIP VI SCH (22:17)
[2020-10-15] MEDS: *INSULIN REGULAR(HUMULIN R)HUM 100 UNIT/ML VIAL SQ PRN (22:18)
--- NOTE | 2020-10-15 22:30 | NUR ---
RN NOTES RECHECKED PATIENT'S BLOOD PRESSURE , RESULT 156/72,
[2020-10-15 22:51] LABS: BILIRUBIN,DIRECT 0.4 mg/dL (0.0-0.2); BILIRUBIN,TOTAL 0.9 mg/dL (0.2-1.0); TOTAL PROTEIN, SERUM 6.8 g/dL (6.4-8.2)
--- NOTE | 2020-10-15 22:59 | NUR ---
RN NOTES RECEIVED A CRITICAL VALUE RESULT OF ALBUMIN, RESULT 1.0. RELAYED TO DR. COOLEY, ACKNOWLEDGED WITH NO NEW ORDERS MADE.
[2020-10-16] MEDS: HYDROCODONE/APAP 5/325MG TABLET PO PRN ×2 (05:39→17:04)
[2020-10-16 06:05] LABS: BASOPHILS # (AUTO) 0.1 K/uL (0.0-0.2); BASOPHILS % (AUTO) 1.1 % (0.0-2.0); EOSINOPHILS % (AUTO) 2.9 % (0.0-6.0); HEMATOCRIT 24 % (39-51); LYMPHOCYTES # (AUTO) 1.1 K/uL (0.8-4.8); LYMPHOCYTES % (AUTO) 16.5 % (20.0-44.0); MEAN CORPUSCULAR HGB CONC 34 g/dl (31.0-36.0); MEAN CORPUSCULAR VOLUME 96 fL (80-96); MONOCYTES # (AUTO) 0.6 K/uL (0.1-1.30); MONOCYTES % (AUTO) 9.7 % (2.0-12.0); NEUTROPHILS # (AUTO) 4.7 K/uL (1.8-8.9); NEUTROPHILS % (AUTO) 69.8 % (43.0-81.0); PLATELET COUNT (AUTO) 139 K/uL (150-450); RED BLOOD CELL COUNT(AUTO) 2.45 MIL/uL (4.5-6.0); WHITE BLOOD COUNT (AUTO) 6.7 K/uL (4.3-11.0)
--- NOTE | 2020-10-16 06:28 | NUR ---
MS RN CLOSING NOTES PATIENT SITTING ON BED, AWAKE, A&O X 4, IN NO ACUTE DISTRESS NOTED. WITH FC CONNECTED TO URINE BAG. HEMATURIA NOTED. NO COMPLAINTS OF PAIN AT THIS TIME. SAFETY PRECAUTIONS OBSERVED AND MAINTAINED DURING THE SHIFT: BED IS LOCKED IN THE LOWEST POSITION WITH SIDE RAILS UP X2 , CALL LIGHT WITHIN REACH. ALL NEEDS ATTENDED AND MET. WILL ENDORSE TO MORNING SHIFT NURSE FOR WENDY.
[2020-10-16 06:49] LABS: BILIRUBIN,TOTAL 1.2 mg/dL (0.2-1.0); CALCIUM, SERUM 7.5 mg/dL (8.5-10.1); CREATININE 6.5 mg/dL (0.6-1.3); POTASSIUM 4.8 mmol/L (3.5-5.1); TOTAL PROTEIN, SERUM 7.2 g/dL (6.4-8.2)
[2020-10-16 06:56] LABS: ALBUMIN 1.3 g/dL (3.4-5.0)
--- NOTE | 2020-10-16 07:36 | NUR ---
MS RN OPENING NOTES RECEIVED PATIENT ASLEEP IN BED, EASY TO AROUSE. ALERT AND ORIENTED X4. ABLE TO MAKE NEEDS KNOWN. NO SIGNS OR SYMPTOMS OF DISTRESS NOTED. NO COMPLAINTS OF PAIN AT THIS TIME. BREATHING IS EVEN AND UNLABORED. IV ACCESS YOHANNES PICC LINE PATENT AND INTACT. HALE CATHETER DRAINING WELL WITH YELLOW CLEAR URINE. SAFETY MEASURES IN PLACE WITH BED LOCKED AT LOWEST POSITION, SIDE RAILS UP X2. CALL LIGHT AND TABLE ARE WITHIN REACH. WILL CONTINUE TO MONITOR PATIENT THROUGHOUT SHIFT.
[2020-10-16] MEDS: BLOOD SUGAR DIAGNOSTIC 1 EACH STRIP VI SCH ×4 (07:41→22:23)
[2020-10-16 08:00] VITALS: BP 178/81
[2020-10-16] MEDS ORDERED: FUROSEMIDE 40 MG/4 ML VIAL IV SCH (09:00)
[2020-10-16] MEDS: PANTOPRAZOLE 40 MG TABLET.DR PO SCH ×2 (09:06→20:23)
[2020-10-16] MEDS: PROPRANOLOL HCL 40 MG TABLET PO SCH ×2 (09:06→17:04)
[2020-10-16] MEDS: ASPIRIN EC 81 MG TABLET.DR PO SCH (09:06)
[2020-10-16] MEDS: AMLODIPINE BESYLATE 5 MG TABLET PO SCH (09:06)
[2020-10-16 09:38] LABS: EOSINOPHILS % (MANUAL) 4 % (0-4); LYMPHOCYTES % (MANUAL) 13 % (16-48); MONOCYTES % (MANUAL) 3 % (0-11.0); NEUTROPHILS % (MANUAL) 80 (42-76)
[2020-10-16] MEDS ORDERED: FUROSEMIDE 100 MG in IV NS 0.9% 90 ML IV ONE ×2 (11:00→13:00)
[2020-10-16] MEDS: CIPROFLOXACIN HCL 250 MG TABLET PO SCH ×2 (11:09→20:23)
[2020-10-16] MEDS: ALPRAZOLAM 0.25 MG TABLET PO PRN ×2 (12:15→22:27)
[2020-10-16] MEDS: SOD FERRIC GLUC 125 MG in IV NS 0.9% 100 ML IV SCH (14:03)
[2020-10-16] MEDS: ALBUMIN 25% 25 GM in PREMIX 1 EA IV SCH ×2 (14:19→22:23)
[2020-10-16 16:00] VITALS: BP 145/76
--- NOTE | 2020-10-16 17:15 | NUR ---
MS RN CLOSING NOTES PATIENT IS AWAKE IN BED, WITH , RHONDA AT BEDSIDE. ABLE TO MAKE NEEDS KNOWN. NO SIGNS OR SYMPTOMS OF DISTRESS NOTED. NO COMPLAINTS OF PAIN AT THIS TIME. BREATHING IS EVEN AND UNLABORED. IV ACCESS YOHANNES PICC LINE PATENT AND INTACT. HALE CATHETER DRAINING WELL WITH DARK LIZABETH URINE. ALL MEDICATIONS GIVEN ORDERED. SAFETY MEASURES IN PLACE WITH BED LOCKED AT LOW POSITION, SIDE RAILS UP X2. CALL LIGHT AND TABLE ARE WITHIN REACH. WILL ENDORSE CONTINUITY OF CARE TO NEXT SHIFT NURSE.
--- NOTE | 2020-10-16 19:35 | NUR ---
RN NOTES RECEIVED PATIENT AWAKE ON HIS BED A/OX4, MONGOLIAN SPEAKING, , RIGHT UPPER ARM PICC LINE IN PLACE. NOTICED HALE CATHETER HAS REDDISH URINE OUTPUT, DENIES PAIN NO SOB, CALL LIGHT WITHIN REACH, SIDERAILSUPX2, WILL CONTINUE TO MONITOR
[2020-10-16 20:00] VITALS: BP 127/74
--- NOTE | 2020-10-16 20:00 | NUR ---
RN NOTES NOTICED PATIENT SCROTUM WAS SWOLLEN
[2020-10-16] MEDS: INSULIN GLARGINE, 100 UNIT/ML CARTRIDGE SQ SCH (22:00)
--- NOTE | 2020-10-16 22:00 | NUR ---
RN NOTES BLOOD SUGAR-139 PATIENT REFUSED HIS INSULIN COVERAGE AND LANTUS 20 UNITS
[2020-10-17] VITALS (13 sets, daily range): BP systolic 141–158; BP diastolic 74–94
--- NOTE | 2020-10-17 01:30 | NUR ---
RN NOTES PATIENT COMPLAINING OF ITCHINESS - GOT AN ORDER FROM CASTRO QUAN-FAWAD - BENADRYL 25MG PO PRN , ORDER NOTED AND CARRIED OUT
--- NOTE | 2020-10-17 01:35 | NUR ---
RN NOTES PT. COMPLAINED OF ITCHINESS AT HIS BACK- BED BATH WAS GIVEN, ITCHINESS WAS RELIEF
[2020-10-17] MEDS ORDERED: diphenhydrAMINE HCL 25 MG CAPSULE PO PRN (02:00)
[2020-10-17] MEDS: ALBUMIN 25% 25 GM in PREMIX 1 EA IV SCH ×2 (06:01→20:05)
--- NOTE | 2020-10-17 06:21 | NUR ---
RN NOTES sleeping but arousable, not in distress, denies pain, F/C still draining blood tinged urine, call light within reach, siderailsupx2, pt. needs attende
[2020-10-17 06:28] LABS: BASOPHILS # (AUTO) 0.1 K/uL (0.0-0.2); BASOPHILS % (AUTO) 1.2 % (0.0-2.0); EOSINOPHILS % (AUTO) 4.1 % (0.0-6.0); LYMPHOCYTES # (AUTO) 1.1 K/uL (0.8-4.8); LYMPHOCYTES % (AUTO) 18.8 % (20.0-44.0); MEAN CORPUSCULAR HGB CONC 35 g/dl (31.0-36.0); MEAN CORPUSCULAR VOLUME 94 fL (80-96); MONOCYTES # (AUTO) 0.6 K/uL (0.1-1.30); NEUTROPHILS # (AUTO) 3.7 K/uL (1.8-8.9); NEUTROPHILS % (AUTO) 64.9 % (43.0-81.0); PLATELET COUNT (AUTO) 113 K/uL (150-450); RED BLOOD CELL COUNT(AUTO) 2.05 MIL/uL (4.5-6.0); WHITE BLOOD COUNT (AUTO) 5.7 K/uL (4.3-11.0)
[2020-10-17 06:44] LABS: HEMATOCRIT 19 % (39-51); HEMOGLOBIN 6.8 g/dL (13.5-17.5)
--- NOTE | 2020-10-17 06:55 | NUR ---
RN NOTES LAB CALLED AND INFORMED ME THAT PATIENT H&H IS 6.8/, CALLED DR. COOLEY AND INFORMED HIM REGARDING PATIENT'S H&H, DR. COOLEY ORDERED, 2 UNITS PRBC, ORDER NOTED AND CARRIED OUT
[2020-10-17 07:09] LABS: CALCIUM, SERUM 7.4 mg/dL (8.5-10.1); CREATININE 6.5 mg/dL (0.6-1.3); POTASSIUM 4.3 mmol/L (3.5-5.1)
--- NOTE | 2020-10-17 07:10 | NUR ---
RN NOTES CALLED PATIENT'S AND INFORMED HER THAT HER IS GOING TO HAVE BLOOD TRANSFUSION AND SHE GAVE A TELEPHONE CONSENT WITNESSED BY ANOTHER RN- SYMONE FOFANA
[2020-10-17] MEDS: BLOOD SUGAR DIAGNOSTIC 1 EACH STRIP VI SCH ×4 (07:35→21:09)
--- NOTE | 2020-10-17 07:57 | NUR ---
MS RN OPENING NOTES PATIENT RECEIVED AWAKE IN BED IN NO ACUTE SIGNS OF DISTRESS. A/O X4. ABLE TO MAKE NEEDS KNOWN, NO C/O PAIN AT THIS TIME. ON ROOM AIR, BREATHING EVEN AND UNLABORED. YOHANNES PICC LINE PATENT, INTACT AND FLUSHING WELL. HALE IN PLACE, DRAINING CLEAR PALE YELLOW URINE WITH HEMATURIA OUTPUT. SAFETY MEASURES IN PLACE: BED LOCKED AND AT LOWEST POSITION, SIDE-RAILS UP X2. CALL LIGHT WITH EASY REACH OF PT. WILL CONTINUE TO MONITOR PT.
[2020-10-17] MEDS: PANTOPRAZOLE 40 MG TABLET.DR PO SCH ×2 (09:00→20:48)
[2020-10-17] MEDS: PROPRANOLOL HCL 40 MG TABLET PO SCH ×2 (09:00→16:44)
[2020-10-17] MEDS: AMLODIPINE BESYLATE 5 MG TABLET PO SCH (09:00)
[2020-10-17] MEDS: CIPROFLOXACIN HCL 250 MG TABLET PO SCH ×2 (09:00→20:48)
[2020-10-17] MEDS: ASPIRIN EC 81 MG TABLET.DR PO SCH (09:00)
--- NOTE | 2020-10-17 09:10 | NUR ---
STEPH NOTES PT PICKED-UP VIA HIS BED BY Juana STANLEY FOR SPINE SURGERY. Addendum: 10/17/20 at 1030 by DHEERAJ LUTHER RN CORRECTION: WRONG PATIENT.
--- NOTE | 2020-10-17 10:06 | NUR ---
RN NOTES PT STARTED ON BLOOD TRANSFUSION OF PRBC X1, 340ML VIA YOHANNES PICC LINE WITH INITIAL RATE OF 40ML/HR AT 1005. PRE- BLOOD TRANSFUSION V/S: BP 143/74, P 83, R 18 AND T 98f. WILL MONITOR FOR ANY ADVERSE/ALLERGIC REACTIONS. Addendum: 10/17/20 at 1625 by DHEERAJ LUTHER RN correction: Blood transfusion started at initial rate of 60ml/hr, not 40ml/hr
--- NOTE | 2020-10-17 10:21 | NUR ---
RN NOTES NO ADVERSE/ ALLERGIC REACTIONS NOTED AFTER 15MINS OF STARTING BLOOD TRANSFUSION. WILL CONTINUE TO MONITOR.
[2020-10-17 10:30] LABS: BASOPHILS % (MANUAL) 1 % (0.0-2.0); EOSINOPHILS % (MANUAL) 2 % (0-4); LYMPHOCYTES % (MANUAL) 13 % (16-48); MONOCYTES % (MANUAL) 4 % (0-11.0); NEUTROPHILS % (MANUAL) 80 (42-76)
[2020-10-17] MEDS: ALPRAZOLAM 0.25 MG TABLET PO PRN (11:08)
--- NOTE | 2020-10-17 11:11 | NUR ---
RN NOTES PT NOTED ANXIOUS, DAUGHTER AT BEDSIDE. PRN XANAX 0.25MG PO GIVEN AT 1108. WILL CONTINUE TO MONITOR .
[2020-10-17] MEDS: INSULIN REGULAR, HUMAN 100 UNIT/ML 3 ML VIAL SQ PRN (11:30)
[2020-10-17] MEDS ORDERED: HEMOSTATIC MATRIX 8 ML 1 EACH PAD MC ONE (12:25)
--- NOTE | 2020-10-17 13:19 | NUR ---
RN NOTES BLOOD TRANSFUSION OF 1 OF 2 BAGS OF PRBC FINISHED AND PT TOLERATED WELL WITH NO ADVERSE OR ALLERGIC REACTIONS NOTED POST BP V/S: BP 148/76, P 77. R 18 AND T 98.3f. WILL CONTINUE TO MONITOR.
--- NOTE | 2020-10-17 13:32 | NUR ---
RN NOTES PT SEEN BY DR HANLEY AND AWARE THAT PT HAS HEMATURIA. HE'S ALSO AWARE THAT PT IS RECEIVING PRBC X2 BAGS TODAY.
[2020-10-17] MEDS: SOD FERRIC GLUC 125 MG in IV NS 0.9% 100 ML IV SCH (14:46)
--- NOTE | 2020-10-17 16:09 | NUR ---
RN NOTES PT STARTED ON BLOOD TRANSFUSION OF PRBC 2nd bag, 270ML VIA YOHANNES PICC LINE WITH INITIAL RATE OF 600ML/HR AT 1607. PRE- BLOOD TRANSFUSION V/S: BP 158/82, P 78, R 18 AND T 98.7f. WILL MONITOR FOR ANY ADVERSE/ALLERGIC REACTIONS.
--- NOTE | 2020-10-17 16:26 | NUR ---
RN NOTES NO ADVERSE/ ALLERGIC REACTIONS NOTED AFTER 15MINS OF STARTING 2nd BAG OF BLOOD TRANSFUSION. WILL CONTINUE TO MONITOR.
[2020-10-17] MEDS: HYDROCODONE/APAP 5/325MG TABLET PO PRN ×2 (16:48→21:09)
--- NOTE | 2020-10-17 16:49 | NUR ---
RN NOTES/PAIN MAGNT PT C/O ACHING/THROBBING PAIN ON SCROTUM, 7/10 SCALE. PRN NORCO 5/325MG PO GIVEN AT 1648. WILL CONTINUE TO MONITOR AND REASSESS PT.
--- NOTE | 2020-10-17 19:15 | NUR ---
MS RN CLOSING NOTES PATIENT IN BED AWAKE WITH DAUGHTER AT BEDSIDE. A/O X4. ABLE TO MAKE NEEDS KNOWN. PT JUST FINISHED HIS 2ND BAG OF PRBC WITH NO ALLERGIC OR ADVERSE REACTIONS NOTED. ON ROOM AIR, TOLERATING WELL WITH NO SOB NOTED DURING SHIFT. YOHANNES PICC LINE PATENT, INTACT AND FLUSHING WELL. HALE IN PLACE, DRAINING CLEAR YELLOW URINE WITH HEMATURIA OUTPUT NOTED, HALE CARE DONE. ALL NEEDS AND CARE ATTENDED WELL. SAFETY MEASURES KEPT IN PLACE: BED LOCKED AND AT LOWEST POSITION, SIDE-RAILS UP X2 AND CALL LIGHT WITH EASY REACH OF PT. WILL ENDORSE WENDY TO ACCOUNT STRATEGIST NURSE.
--- NOTE | 2020-10-17 19:30 | NUR ---
RN NOTES RECEIVED PATIENT AWAKE ON HIS BED, A/OX3-4. PERSIAN SPEAKING, BUT CAN SPEAK HONDURAN, NOTICED HEMATURIA ON HIS F/C OUTPUT -MD IS AWARE, DENIES PAIN, NO SOB, CALL LIGHT WITHIN REACH, SIDERAILSUPX2 CONTINUE TO MONITOR
[2020-10-17] MEDS: FUROSEMIDE 100 MG in IV NS 0.9% 90 ML IV SCH (20:19)
--- NOTE | 2020-10-17 21:10 | NUR ---
RN NOTES PATIENT COMPLAINED OF PAIN ON HIS SCROTUM- NORCO 5/325 MG PO GIVEN ORDERED
--- NOTE | 2020-10-17 21:45 | NUR ---
RN NOTES SPOKE TO DR. COOLEY AND INFORMED HIM THAT PATIENT IS IN TERRIBLE PAIN AND NORCO 5/325MG PO IS NOT WORKING, DR. COOLEY ORDERED NORCO 10/325MG PO PRN, ORDER NOTED AND CARRIED OUT
[2020-10-17] MEDS: INSULIN GLARGINE, 100 UNIT/ML CARTRIDGE SQ SCH (22:00)
--- NOTE | 2020-10-17 23:00 | NUR ---
RN NOTES COMPLAINED OF TERRIBLE PAIN- NORCO 10/325MG PO GIVEN S ORDERED, V/S STABLE
[2020-10-17] MEDS: HYDROCODONE/APAP 10/325MG TABLET PO PRN (23:16)
[2020-10-18] MEDS: ALPRAZOLAM 0.25 MG TABLET PO PRN (00:53)
--- NOTE | 2020-10-18 00:56 | NUR ---
RN NOTES PATIENT IS ANXIOUS- XANAX 0.25MG PO GIVEN ORDERED
[2020-10-18] MEDS: ALBUMIN 25% 25 GM in PREMIX 1 EA IV SCH ×2 (02:47→11:16)
[2020-10-18 06:25] LABS: BASOPHILS # (AUTO) 0.1 K/uL (0.0-0.2); BASOPHILS % (AUTO) 1.2 % (0.0-2.0); EOSINOPHILS % (AUTO) 3.8 % (0.0-6.0); HEMATOCRIT 22 % (39-51); HEMOGLOBIN 7.7 g/dL (13.5-17.5); LYMPHOCYTES # (AUTO) 1.2 K/uL (0.8-4.8); LYMPHOCYTES % (AUTO) 18.7 % (20.0-44.0); MEAN CORPUSCULAR HGB CONC 35 g/dl (31.0-36.0); MEAN CORPUSCULAR VOLUME 92 fL (80-96); MONOCYTES # (AUTO) 0.7 K/uL (0.1-1.30); MONOCYTES % (AUTO) 11.2 % (2.0-12.0); NEUTROPHILS # (AUTO) 4.1 K/uL (1.8-8.9); NEUTROPHILS % (AUTO) 65.1 % (43.0-81.0); PLATELET COUNT (AUTO) 115 K/uL (150-450); WHITE BLOOD COUNT (AUTO) 6.3 K/uL (4.3-11.0)
--- NOTE | 2020-10-18 06:45 | NUR ---
RN NOTES AWAKE, DENIES PAIN, NO SOB, PATIENT STILL HAVING HEMATURIA ON HIS F/C. ,NO SOB, CALL LIGHT WITHIN REACH, SIDERAILSUPX2, PT. NEEDS ATTENDED
[2020-10-18 07:06] LABS: CALCIUM, SERUM 7.6 mg/dL (8.5-10.1); CREATININE 6.6 mg/dL (0.6-1.3); POTASSIUM 4.2 mmol/L (3.5-5.1)
--- NOTE | 2020-10-18 07:10 | NUR ---
MS RN NOTE OPENING NOTE PATIENT ON BED ALERT AND ORIENTED X 4. PATIENT IS ON ROOM AIR. WITH NO SIGNS OF DISTRESS. PATIENT WITH IV ACCESS ON THE RIGHT UPPER ARM PICC LINE WITH LASIX DRIP RUNNING AT 5ML/HR, INFUSING WELL. SAFETY MEASURES ENSURED. BED LOCKED IN POSITION AND PLACED IN LOWEST POSITION. CALL LIGHT AND BEDSIDE TABLE WITHIN REACH AT ALL TIMES. NOTED EDEMA ON BOTH LOWER EXTREMITIES INCLUDING SCROTAL EDEMA. WILL CONTINUE TO MONITOR PATIENT.
[2020-10-18] MEDS: BLOOD SUGAR DIAGNOSTIC 1 EACH STRIP VI SCH ×4 (07:33→22:53)
[2020-10-18] MEDS: PANTOPRAZOLE 40 MG TABLET.DR PO SCH ×2 (08:55→21:34)
[2020-10-18] MEDS: ASPIRIN EC 81 MG TABLET.DR PO SCH (08:55)
[2020-10-18] MEDS: AMLODIPINE BESYLATE 5 MG TABLET PO SCH (08:55)
[2020-10-18] MEDS: PROPRANOLOL HCL 40 MG TABLET PO SCH ×2 (08:56→16:27)
[2020-10-18] MEDS: CIPROFLOXACIN HCL 250 MG TABLET PO SCH ×2 (08:56→21:34)
--- NOTE | 2020-10-18 09:45 | NUR ---
MS RN NOTES PATIENT SEEN BY DR. COOLEY.
[2020-10-18] MEDS: HYDROCODONE/APAP 10/325MG TABLET PO PRN ×2 (11:11→21:34)
--- NOTE | 2020-10-18 14:20 | NUR ---
MS RN NOTES FOR REMOVAL OF HALE CATHETER ORDERED BY DR. HANLEY BUT IS SLEEPING. AT BESIDE AND REQUESTED TO REMOVE IT WHEN HE WAKES UP. WILL CONTINUE TO MONITOR PATIENT.
--- NOTE | 2020-10-18 14:30 | NUR ---
MS RN NOTES PATIENT SEEN BY DR. HNALEY AND DISCUSSED DISEASE PROCESS AND MANAGEMENT AND PLANS. PATIENT VERBALIZED UNDERSTANDING. WILL CONTINUE TO MONITOR PATIENT.
[2020-10-18] MEDS: SOD FERRIC GLUC 125 MG in IV NS 0.9% 100 ML IV SCH (15:08)
--- NOTE | 2020-10-18 15:30 | NUR ---
MS RN NOTE HALE CATHETER REMOVED ORDERED. PROCEDURE TOLERATED WELL. PATIENT FOR BLADDER SCAN AFTER 4 HOURS ORDERED. WILL CONTINUE TO MONITOR PATIENT.
[2020-10-18] MEDS: FUROSEMIDE 100 MG in IV NS 0.9% 90 ML IV SCH (16:26)
--- NOTE | 2020-10-18 19:05 | NUR ---
MS RN NOTE CLOSING NOTE PATIENT ON BED ALERT AND ORIENTED X 4. PATIENT IS ON ROOM AIR. WITH NO SIGNS OF DISTRESS. PATIENT WITH IV ACCESS ON THE RIGHT UPPER ARM PICC LINE WITH LASIX DRIP RUNNING AT 5ML/HR, INFUSING WELL. SAFETY MEASURES ENSURED. BED LOCKED IN POSITION AND PLACED IN LOWEST POSITION. CALL LIGHT AND BEDSIDE TABLE WITHIN REACH AT ALL TIMES. NOTED EDEMA ON BOTH LOWER EXTREMITIES INCLUDING SCROTAL EDEMA. ENDORSE PATIENT FOR CONTINUITY OF CARE.
--- NOTE | 2020-10-18 19:51 | NUR ---
MS RN OPENING NOTE A/OX4; ABLE TO MAKE NEEDS KNOWN. TOLERATING ROOM AIR WELL WITH NO SOB. YOHANNES PICCLINE #18G LASIX @ 5ML/HR; PATENT AND INTACT. FAMILY AT BEDSIDE. SAFETY MEASURES IN PLACE: BED IN LOWEST LOCKED POSITION, SIDE RAILS UPX2, CALL LIGHT WITHIN REACH, BED ALARMS ON. NO ACUTE DISTRESS NOTED. WILL CONTINUE PLAN OF CARE.
[2020-10-18 20:00] VITALS: BP 134/83
--- NOTE | 2020-10-18 20:45 | NUR ---
RN WENDY NOTE PATIENT SITTING AT THE SIDE OF THE BED, RHONDA AT BEDSIDE. PATIENT CURRENTLY ON RA, NO SOB AT REST. SOB UPON EXERTION NOTED. PATIENT IS ABLE TO MAKE NEEDS KNOWN. EL ENDORSED HD CATH PLACEMENT TONIGHT BY KRISTEN CELESTIN. PATIENT NOT IN ANY APPARENT DISTRESS. EDEMA ON UPPER AND LOWER EXTREMITY NOTED. LASIX 5ML/HR ONGOING, YOHANNES PICC LINE PATENT AND INTACT. SAFETY MEASURES IN PLACE: BED IN LOCKED AND LOWEST POSITION, CALL LIGHT WITHIN REACH, SIDE RAILS UP. WILL MONITOR PATIENT CLOSELY.
--- NOTE | 2020-10-18 20:50 | NUR ---
MS RN NOTE RECEIVED VERBAL ORDER FROM [facility] FOR DIALYSIS CATHETER PLACEMENT PROCEDURE. RHONDA SIGNED CONSENT FORM.
--- NOTE | 2020-10-18 20:51 | NUR ---
MS RN NOTE - DIALYSIS CONSENT RECEIVED VERBAL ORDER FROM DR. HANLEY FOR DIALYSIS CATHETER PLACEMENT PROCEDURE. RHONDA SIGNED CONSENT FORM.
[2020-10-18] MEDS: TAMSULOSIN 0.4 MG CAP.SR.24H PO SCH (21:34)
[2020-10-18] MEDS: INSULIN GLARGINE, 100 UNIT/ML CARTRIDGE SQ SCH (22:00)
--- NOTE | 2020-10-18 22:00 | NUR ---
BS 100 MG/DL. NO COVERAGE GIVEN. LANTUS NOT GIVEN WELL. WILL MONITOR FOR HYPOGLYCEMIA/HYPERGLYCEMIA.
--- NOTE | 2020-10-19 00:20 | NUR ---
RN NOTE KRISTEN CELESTIN WAITING FOR SON TO ARRIVE TO DISCUSS HD CATH PLACEMENT WITH PATIENT. PATIENT REFUSES DIALYSIS AT THIS TIME. PATIENT'S SON CAME TO DISCUSS DIALYSIS AND HD CATH PLACEMENT WITH PATIENT. ALSO TALKED TO PATIENT. KRISTEN CELESTIN DISCUSSED OPTIONS WITH PATIENT AND FAMILY WELL RISKS AND BENEFITS, HOWEVER, PATIENT STILL REFUSES. KRISTEN WILL NOTIFY NEPHRO MD REGARDING SITUATION.
[2020-10-19 06:15] LABS: BASOPHILS # (AUTO) 0.1 K/uL (0.0-0.2); BASOPHILS % (AUTO) 0.8 % (0.0-2.0); EOSINOPHILS % (AUTO) 2.7 % (0.0-6.0); HEMATOCRIT 25 % (39-51); HEMOGLOBIN 8.5 g/dL (13.5-17.5); LYMPHOCYTES # (AUTO) 1.1 K/uL (0.8-4.8); LYMPHOCYTES % (AUTO) 13.8 % (20.0-44.0); MEAN CORPUSCULAR HGB CONC 35 g/dl (31.0-36.0); MEAN CORPUSCULAR VOLUME 92 fL (80-96); MONOCYTES # (AUTO) 0.7 K/uL (0.1-1.30); MONOCYTES % (AUTO) 8.4 % (2.0-12.0); NEUTROPHILS # (AUTO) 5.7 K/uL (1.8-8.9); NEUTROPHILS % (AUTO) 74.3 % (43.0-81.0); PLATELET COUNT (AUTO) 118 K/uL (150-450); RED BLOOD CELL COUNT(AUTO) 2.68 MIL/uL (4.5-6.0); WHITE BLOOD COUNT (AUTO) 7.7 K/uL (4.3-11.0)
[2020-10-19 06:34] LABS: ALBUMIN 1.7 g/dL (3.4-5.0); BILIRUBIN,TOTAL 1.3 mg/dL (0.2-1.0); CALCIUM, SERUM 7.7 mg/dL (8.5-10.1); CREATININE 6.6 mg/dL (0.6-1.3); POTASSIUM 4.1 mmol/L (3.5-5.1); TOTAL PROTEIN, SERUM 6.6 g/dL (6.4-8.2)
[2020-10-19] MEDS: BLOOD SUGAR DIAGNOSTIC 1 EACH STRIP VI SCH ×4 (06:36→21:57)
--- NOTE | 2020-10-19 06:58 | NUR ---
RN CLOSING NOTE CALLED DR. COOLEY REGARDING PAIN MEDICATION NORCO 10/325 IS NOT WORKING, VERBAL ORDER OF MORPHINE 2MG Q3HR PRN GIVEN. PATIENT SLEEPING AT THIS TIME. NOT IN ANY APPARENT DISTRESS. ALL ORDERS CARRIED OUT. SAFETY MEASURES MAINTAINED. WILL ENDORSE TO DAY SHIFT NURSE FOR WENDY.
--- NOTE | 2020-10-19 07:20 | NUR ---
MS RN NOTE OPENING NOTE PATIENT ON BED ALERT AND ORIENTED X 4. PATIENT IS ON ROOM AIR. WITH NO SIGNS OF DISTRESS. PATIENT WITH IV ACCESS ON THE RIGHT UPPER ARM PICC LINE WITH LASIX DRIP RUNNING AT 5ML/HR, INFUSING WELL. SAFETY MEASURES ENSURED. BED LOCKED IN POSITION AND PLACED IN LOWEST POSITION. CALL LIGHT AND BEDSIDE TABLE WITHIN REACH AT ALL TIMES. NOTED EDEMA ON ALL EXTREMITIES INCLUDING SCROTAL EDEMA. WILL CONTINUE TO MONITOR PATIENT.
--- NOTE | 2020-10-19 07:20 | NUR ---
RN CLOSING NOTE PATIENT IN BED, SLEEPING. EASILY AROUSED. PATIENT NOT IN ANY APPARENT DISTRESS. BS FOR 0600 IS 121, NO COVERAGE GIVEN. OFFERED SNACKS BUT PATIENT REFUSED. LASIX 5 ML/HR STILL ONGOING. SAFETY MEASURES MAINTAINED. ALL NEEDS MET AND ATTENDED. ALL ORDERS CARRIED OUT. ENDORSED TO DAY SHIFT NURSE FOR WENDY.
[2020-10-19] MEDS: PROPRANOLOL HCL 40 MG TABLET PO SCH ×2 (10:08→18:24)
[2020-10-19] MEDS: ASPIRIN EC 81 MG TABLET.DR PO SCH (10:08)
[2020-10-19] MEDS: AMLODIPINE BESYLATE 5 MG TABLET PO SCH (10:09)
[2020-10-19] MEDS: PANTOPRAZOLE 40 MG TABLET.DR PO SCH ×2 (10:09→21:39)
[2020-10-19] MEDS: CIPROFLOXACIN HCL 250 MG TABLET PO SCH ×2 (10:09→21:39)
[2020-10-19] MEDS: FUROSEMIDE 100 MG in IV NS 0.9% 90 ML IV SCH (13:11)
[2020-10-19] MEDS: SOD FERRIC GLUC 125 MG in IV NS 0.9% 100 ML IV SCH (14:19)
[2020-10-19] MEDS: MORPHINE SULFATE INJ 2 MG/ML DISP.SYRIN IV PRN (15:05)
--- NOTE | 2020-10-19 16:00 | NUR ---
MS RN NOTES FEMORAL CATHETER INSERTED ORDERED. WITH FAMILY AT BEDSIDE. PROCEDURE TOLERATED WELL. WILL CONTINUE TO MONITOR PATIENT. DR. HANLEY NOTIFIED.
[2020-10-19] MEDS ORDERED: MORPHINE SULFATE INJ 2 MG/ML DISP.SYRIN IV STA (16:11)
--- NOTE | 2020-10-19 18:57 | NUR ---
MS RN NOTES sECURED VERBAL CONSENT DELORES ELLIS FOR HEMODIALYSIS WITHNESSED BY STEPH WATKINS. CONSENT ATTACHED TO CHART.
--- NOTE | 2020-10-19 19:00 | NUR ---
MS RN OPENING NOTE PT AWAKE IN BED AT THIS TIME. AOX4, ABLE TO MAKE NEEDS KNOWN. NO SOB NOTED. NO C/O PAIN AT THIS TIME, NO S/O ANY ACUTE DISTRESS NOTED. RESPIRATIONS EVEN AND UNLABORED, STABLE ON RA RECEIVING HD @ R FEMORAL . IV ACCESS YOHANNES PICC LINE. SAFETY PRECAUTIONS IN PLACE AND MAINTAINED AT ALL TIMES. BED IN LOWEST LOCKED POSITION, HOB ELEVATED, SIDE RAILS UP X2, CALL LIGHT AND TABLE WITHIN REACH. FAMILY AT BEDSIDE. WILL CONTINUE TO MONITOR
--- NOTE | 2020-10-19 19:00 | NUR ---
MS RN NOTE CLOSING NOTE PATIENT ON BED ALERT AND ORIENTED X 4. PATIENT IS ON ROOM AIR. WITH NO SIGNS OF DISTRESS. PATIENT WITH IV ACCESS ON THE RIGHT UPPER ARM PICC LINE WITH LASIX DRIP RUNNING AT 5ML/HR, INFUSING WELL. WITH RIGHT FEMORAL CATHETER FOR HD ACCESS. SAFETY MEASURES ENSURED. BED LOCKED IN POSITION AND PLACED IN LOWEST POSITION. CALL LIGHT AND BEDSIDE TABLE WITHIN REACH AT ALL TIMES. NOTED EDEMA ON ALL EXTREMITIES INCLUDING SCROTAL EDEMA. PATIENT FOR HEMODIALYSIS WITH HEMODIALYSIS NURSE TO DO THE DIALYSIS DURING THIS ENDORSEMENT. ENDORSE PATIENT FOR CONTINUITY OF CARE.
[2020-10-19 20:00] VITALS: BP 142/81
[2020-10-19] MEDS: TAMSULOSIN 0.4 MG CAP.SR.24H PO SCH (21:39)
[2020-10-19] MEDS: HYDROCODONE/APAP 10/325MG TABLET PO PRN (21:51)
--- NOTE | 2020-10-19 21:59 | NUR ---
BS 128
[2020-10-19] MEDS: INSULIN GLARGINE, 100 UNIT/ML CARTRIDGE SQ SCH (22:00)
--- NOTE | 2020-10-19 22:04 | NUR ---
INSULIN GLARGINE HELD. PT NOT EATING
--- NOTE | 2020-10-20 06:00 | NUR ---
MS RN CLOSING NOTE PT IS IN BED WITH EYES CLOSED, EASY TO AROUSE. PT IS STABLE ON RA, NO SOB NOTED. NO S/S OF RESPIRATORY DISTRESS. PT IS AMBULATORY WITH BRP. IV ACCESS IS INTACT, PATENT, AND FLUSHING WELL. ALL NEEDS HAVE BEEN MET. ALL CARE, NEEDS, MEDICATIONS, AND TREATMENT ADMINISTERED ANTICIPATED PER ORDER. PAIN MANAGEMENT ADMINISTERED PER ORDER. PT ENCOURAGED TO REPOSITION Q2H AND PRN. SAFETY, SEIZURE, AND ASPIRATION PRECAUTIONS MAINTAINED AT ALL TIMES. BED IN LOWEST LOCKED POSITION, HOB ELEVATED, SIDE RAILS UPX2. CALL LIGHT AND TABLE WITHIN REACH. WILL ENDORSE TO ONCOMING NURSE FOR WEDNY.
--- NOTE | 2020-10-20 06:06 | NUR ---
BS 122
[2020-10-20 06:34] LABS: BASOPHILS # (AUTO) 0.1 K/uL (0.0-0.2); EOSINOPHILS % (AUTO) 4.8 % (0.0-6.0); HEMATOCRIT 22 % (39-51); HEMOGLOBIN 7.5 g/dL (13.5-17.5); LYMPHOCYTES # (AUTO) 1.1 K/uL (0.8-4.8); MEAN CORPUSCULAR HGB CONC 35 g/dl (31.0-36.0); MEAN CORPUSCULAR VOLUME 93 fL (80-96); MONOCYTES # (AUTO) 0.7 K/uL (0.1-1.30); NEUTROPHILS # (AUTO) 3.8 K/uL (1.8-8.9); NEUTROPHILS % (AUTO) 63.2 % (43.0-81.0); PLATELET COUNT (AUTO) 107 K/uL (150-450); RED BLOOD CELL COUNT(AUTO) 2.32 MIL/uL (4.5-6.0)
--- NOTE | 2020-10-20 07:10 | NUR ---
MS RN NOTE OPENING NOTE PATIENT ON BED ALERT AND ORIENTED X 4. PATIENT IS ON ROOM AIR. WITH NO SIGNS OF DISTRESS. PATIENT WITH IV ACCESS ON THE RIGHT UPPER ARM PICC LINE WITH LASIX DRIP RUNNING AT 5ML/HR, INFUSING WELL. WITH RIGHT FEMORAL CATHETER FOR HEMODIALYSIS. SAFETY MEASURES ENSURED. BED LOCKED IN POSITION AND PLACED IN LOWEST POSITION. CALL LIGHT AND BEDSIDE TABLE WITHIN REACH AT ALL TIMES. NOTED EDEMA ON ALL EXTREMITIES INCLUDING SCROTAL EDEMA. WILL CONTINUE TO MONITOR PATIENT.
[2020-10-20] MEDS: BLOOD SUGAR DIAGNOSTIC 1 EACH STRIP VI SCH ×4 (07:20→23:13)
[2020-10-20 08:45] LABS: CALCIUM, SERUM 7.3 mg/dL (8.5-10.1); CREATININE 5.9 mg/dL (0.6-1.3); POTASSIUM 3.6 mmol/L (3.5-5.1)
[2020-10-20 08:57] VITALS: BP 112/62
[2020-10-20] MEDS: FUROSEMIDE 100 MG in IV NS 0.9% 90 ML IV SCH (09:33)
[2020-10-20] MEDS: PANTOPRAZOLE 40 MG TABLET.DR PO SCH ×2 (09:34→21:59)
[2020-10-20] MEDS: ASPIRIN EC 81 MG TABLET.DR PO SCH (09:34)
[2020-10-20] MEDS: AMLODIPINE BESYLATE 5 MG TABLET PO SCH (09:35)
[2020-10-20] MEDS: PROPRANOLOL HCL 40 MG TABLET PO SCH ×2 (09:36→17:13)
[2020-10-20] MEDS: CIPROFLOXACIN HCL 250 MG TABLET PO SCH ×2 (09:37→21:59)
[2020-10-20] MEDS: SOD FERRIC GLUC 125 MG in IV NS 0.9% 100 ML IV SCH (14:21)
[2020-10-20] MEDS: MORPHINE SULFATE INJ 2 MG/ML DISP.SYRIN IV PRN ×2 (14:43→22:05)
--- NOTE | 2020-10-20 15:00 | NUR ---
MS RN NOTES RECEIVED A CALL FROM DR. GARRETT. HE SAID THAT PATIENT WILL UNDERGOPERMACATH PLACEMENT TOMORROW AROUND 7AM. PATIENT WILL BE NPO POST MIDNIGHT. PATIENT AND NOTIFIED. AWAITING TO SIGN THE CONSENT FOR THE PROCEDURE. ALSO RECEIVED A CALL FROM DR. COOLEY WITH ORDER TO DISCONTINUE ASA BECAUSE OF NOTED HEMATURIA AND PETECCHIAE ON BOTH FEET. WILL CONTINUE TO MONITOR PATIENT.
[2020-10-20 16:00] VITALS: BP 141/83
[2020-10-20 20:00] VITALS: BP 136/74
--- NOTE | 2020-10-20 20:00 | NUR ---
MS RN OPENING NOTES Patient is awake, A&Ox4. currently receiving hemodialysis, trying to rest. VSS. Will check back frequently.
[2020-10-20] MEDS: TAMSULOSIN 0.4 MG CAP.SR.24H PO SCH (21:59)
[2020-10-20] MEDS: INSULIN GLARGINE, 100 UNIT/ML CARTRIDGE SQ SCH (22:00)
--- NOTE | 2020-10-20 22:30 | NUR ---
Dialysis ended. 2.5L taken off. Tolerated well.
--- NOTE | 2020-10-20 23:14 | NUR ---
Patient bedtime BS is 123. Patient will be NPO overnight. Refuses Lantus long-acting insulin.
--- NOTE | 2020-10-20 23:19 | NUR ---
Photos of skin issues taken but not were not able to be uploaded to storage card -unclear as to why. Images disappeared. Went back in to try again but patient refused the process the 2nd time as he was tired from dialysis pt states.
--- NOTE | 2020-10-21 06:12 | NUR ---
Patient taken down to OR at 0610 for permacath placement. BS 122. BP 160/86, RR 19, HR 80, O2 sat 94%, Temp 98.2. In stable condition. Dressed in clean gown. with consents and checklist completed.
[2020-10-21] MEDS ORDERED: ANESTHESIA TRAY IN PYXIS 1 EA TRAY MC ONE (06:26)
[2020-10-21] MEDS ORDERED: HEPARIN SODIUM, PORCINE 1,000 UNIT/ML VIAL ONE (06:26)
[2020-10-21] MEDS ORDERED: LIDOCAINE HCL/MPF 1% 30 ML VIAL IJ ONE (06:26)
[2020-10-21] MEDS ORDERED: FENTANYL PF 250MCG/5ML AMPUL ONE (06:27)
[2020-10-21 06:45] LABS: BASOPHILS # (AUTO) 0.1 K/uL (0.0-0.2); BASOPHILS % (AUTO) 0.9 % (0.0-2.0); EOSINOPHILS % (AUTO) 4.2 % (0.0-6.0); HEMATOCRIT 23 % (39-51); LYMPHOCYTES # (AUTO) 1.3 K/uL (0.8-4.8); LYMPHOCYTES % (AUTO) 18.1 % (20.0-44.0); MEAN CORPUSCULAR HGB CONC 34 g/dl (31.0-36.0); MEAN CORPUSCULAR VOLUME 94 fL (80-96); MONOCYTES # (AUTO) 0.8 K/uL (0.1-1.30); MONOCYTES % (AUTO) 11.2 % (2.0-12.0); NEUTROPHILS # (AUTO) 4.7 K/uL (1.8-8.9); NEUTROPHILS % (AUTO) 65.6 % (43.0-81.0); PLATELET COUNT (AUTO) 127 K/uL (150-450); RED BLOOD CELL COUNT(AUTO) 2.49 MIL/uL (4.5-6.0); WHITE BLOOD COUNT (AUTO) 7.2 K/uL (4.3-11.0)
--- NOTE | 2020-10-21 07:12 | NUR ---
Patient came back from OR at 0710 after having refused permacath procedure last minute. Immediately nauseous with minimal clear emesis x1 only. Called daughter to let her know about refusal per request. Endorsed to oncoming nurse.
[2020-10-21] MEDS: BLOOD SUGAR DIAGNOSTIC 1 EACH STRIP VI SCH ×4 (07:17→22:01)
[2020-10-21 07:28] LABS: CALCIUM, SERUM 7.6 mg/dL (8.5-10.1); CREATININE 4.6 mg/dL (0.6-1.3); POTASSIUM 3.5 mmol/L (3.5-5.1)
[2020-10-21 08:00] VITALS: BP 153/84
[2020-10-21] MEDS: PROPRANOLOL HCL 40 MG TABLET PO SCH ×2 (08:15→16:58)
[2020-10-21] MEDS: AMLODIPINE BESYLATE 5 MG TABLET PO SCH (08:15)
--- NOTE | 2020-10-21 08:15 | NUR ---
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 mendosa with new orders. pt for hd today, b/p meds held. orders acknowledged.
[2020-10-21] MEDS: CIPROFLOXACIN HCL 250 MG TABLET PO SCH ×2 (08:26→22:01)
[2020-10-21] MEDS: PANTOPRAZOLE 40 MG TABLET.DR PO SCH ×2 (08:26→22:01)
[2020-10-21] MEDS ORDERED: CYCLOBENZAPRINE 10 MG TABLET PO PRN (08:30)
--- NOTE | 2020-10-21 09:20 | NUR ---
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 eduardo with order for psych eval due to capacity to make decision and depression. facesheet faxed to gps unit and for dr. meredith (consult).
[2020-10-21] MEDS ORDERED: HYDROMORPHONE MDV 1 MG in IV D5W 50 ML IV PRN (09:30)
[2020-10-21] MEDS ORDERED: ONDANSETRON HCL/PF 4 MG/2 ML VIAL IV PRN (09:30)
[2020-10-21] MEDS: INSULIN REGULAR, HUMAN 100 UNIT/ML 3 ML VIAL SQ PRN (11:34)
--- NOTE | 2020-10-21 12:45 | NUR ---
m/s editor dictionary: psych consult dr. meredith at bedside interviewing the pt at this time r/t depression and capacity to make decision.
--- NOTE | 2020-10-21 14:30 | NUR ---
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
--- NOTE | 2020-10-21 15:37 | NUR ---
m/s sports management intern: notes f/u made to dr. mendosa re: hd tx today and will call vicky as stated. also dr. eduardo spoke to the daughter about permacath insertion and pt is agreeable. spoke to dr. eduardo and informed me to keep pt npo after midnight and call dr. montaño. left message to dr. montaño (vascular) via office.
--- NOTE | 2020-10-21 16:30 | NUR ---
m/s assistant credit manager: notes before daughter left the hospital not to disturb his dad when he is sleeping.
--- NOTE | 2020-10-21 16:38 | NUR ---
m/s algebra teacher: notes dr. eduardo called and informed me that dr. montaño will do the procedure on wednesday. daughter notified and made aware, spoke to her over the phone.
--- NOTE | 2020-10-21 16:58 | NUR ---
m/s final inspector motorcyles: notes pt scheduled for hd tx, held [employer].
[2020-10-21 17:33] VITALS: BP 150/81
--- NOTE | 2020-10-21 17:40 | NUR ---
m/s die repairer trimmer dies: notes f/u made to dr. mendosa re: hd tx today, spoke to him over the phone, stated, "i already called vicky." gave vicky's phone # [phone]. placed a call to vicky and informed him that dr. mendosa scheduled him for hd tx and will be here later tonight. pt made aware. cn made aware.
--- NOTE | 2020-10-21 18:49 | NUR ---
m/s transition nurse: notes deandra (hd nurse) at bedside preparing pt for hd tx. at bedside. call light within reach.
--- NOTE | 2020-10-21 19:10 | NUR ---
m/s lap machine operator: notes report given to alex (rn) for continuity of care.
--- NOTE | 2020-10-21 19:30 | NUR ---
RN OPENING NOTE PATIENT IN BED AWAKE, A/O X 3. PATIENT IS ABLE TO MAKE NEEDS KNOWN. PRESENT AT BEDSIDE. PATIENT HAD JUST CURRENTLY STARTED DIALYSIS WITH GARFIELD CHOI. PATIENT REMAINS STABLE AT THIS TIME. PATIENT TOLERATES ROOM AIR, 94-95%. PATIENT REPORTS NO PAIN AT THIS TIME. YOHANNES PICC LINE FLUSHING WELL. SAFETY MEASURES IN PLACE: BED IN LOCKED AND LOWEST POSITION, SIDE RAILS UP, CALL LIGHT WITHIN REACH. WILL MONITOR PATIENT CLOSELY.
[2020-10-21 20:00] VITALS: BP 151/79
--- NOTE | 2020-10-21 21:18 | NUR ---
PATIENT ASKED FOR MEDS TO BE GIVEN AFTER DIALYSIS.
[2020-10-21] MEDS: INSULIN GLARGINE, 100 UNIT/ML CARTRIDGE SQ SCH (22:00)
--- NOTE | 2020-10-21 22:00 | NUR ---
HD COMPLETED: 5220 OUTPUT
[2020-10-21] MEDS: risperiDONE 1 MG TABLET PO SCH (22:01)
[2020-10-21] MEDS: TAMSULOSIN 0.4 MG CAP.SR.24H PO SCH (22:01)
[2020-10-21] MEDS: HYDROMORPHONE 1 MG/1 ML DISP.SYRIN IV PRN (22:04)
[2020-10-21] MEDS: *INSULIN REGULAR(HUMULIN R)HUM 100 UNIT/ML VIAL SQ PRN (22:15)
[2020-10-22] VITALS (13 sets, daily range): BP systolic 128–159; BP diastolic 67–85
[2020-10-22 06:21] LABS: BASOPHILS % (AUTO) 0.7 % (0.0-2.0); EOSINOPHILS % (AUTO) 3.3 % (0.0-6.0); LYMPHOCYTES # (AUTO) 1.3 K/uL (0.8-4.8); LYMPHOCYTES % (AUTO) 18.7 % (20.0-44.0); MEAN CORPUSCULAR HGB CONC 35 g/dl (31.0-36.0); MEAN CORPUSCULAR VOLUME 94 fL (80-96); MONOCYTES # (AUTO) 0.9 K/uL (0.1-1.30); MONOCYTES % (AUTO) 12.7 % (2.0-12.0); NEUTROPHILS # (AUTO) 4.4 K/uL (1.8-8.9); NEUTROPHILS % (AUTO) 64.6 % (43.0-81.0); PLATELET COUNT (AUTO) 113 K/uL (150-450); RED BLOOD CELL COUNT(AUTO) 2.14 MIL/uL (4.5-6.0); WHITE BLOOD COUNT (AUTO) 6.8 K/uL (4.3-11.0)
[2020-10-22 06:34] LABS: CALCIUM, SERUM 7.4 mg/dL (8.5-10.1); CREATININE 3.8 mg/dL (0.6-1.3); POTASSIUM 3.1 mmol/L (3.5-5.1)
--- NOTE | 2020-10-22 06:54 | NUR ---
RN CLOSING NOTE PATIENT SLEEPING, EASILY AWAKENED. A/O X 3 AT THIS TIME. PATIENT DOES NOT REPORT OF ANY PAIN, DIZZINESS. DILAUDID GIVEN AT 2204 FOR 10/10 RIGHT HIP PAIN. PATIENT IS ABLE TO MAKE NEEDS KNOWN. PATIENT IS NOW ON BARIMAX BED. BED DOES NOT HAVE A SCALE, ASKED PATIENT TO BE WEIGHED ON CHAIR SCALE BUT PATIENT REFUSED AT THIS TIME. BREATHING EVEN AND UNLABORED. YOHANNES PICC LINE PATENT AND INTACT. SAFETY MEASURES MAINTAINED. ALL ORDERS CARRIED OUT. ALL NEEDS MET AND ATTENDED. WILL ENDORSE TO DAY SHIFT NURSE FOR WENDY.
--- NOTE | 2020-10-22 07:30 | NUR ---
RN MS NOTES PT IN BED, SLEEPING, EASILY AROUSABLE, ALERT AND ORIENTED, NO COMPLAINT OF PAIN OR ANY DISCOMFORT, BREATHING PATTERN NORMAL, CALL LIGHT WITHIN REACH, NO BLEEDING NOTED AT HD CATH SITE AT RIGHT FEMORAL AREA, KEPT COMFORTABLE.
[2020-10-22] MEDS: BLOOD SUGAR DIAGNOSTIC 1 EACH STRIP VI SCH ×4 (07:37→22:39)
[2020-10-22] MEDS ORDERED: POTASSIUM CHLORIDE 20 MEQ TAB.PRT.SR PO ONE ×2 (08:00→09:00)
[2020-10-22 08:07] LABS: HEMATOCRIT 20 % (39-51)
--- NOTE | 2020-10-22 08:30 | NUR ---
RN MS NOTES RECEIVED LATEST H/H RESULT, DR. COOLEY INFORMED, ORDERED TO TRANSFUSE 2 UNITS PRBC, PT INFORMED AND AGREED.
[2020-10-22] MEDS: PANTOPRAZOLE 40 MG TABLET.DR PO SCH ×2 (09:01→21:35)
[2020-10-22] MEDS: CIPROFLOXACIN HCL 250 MG TABLET PO SCH ×2 (09:01→21:35)
[2020-10-22] MEDS: risperiDONE 1 MG TABLET PO SCH ×2 (09:02→21:37)
[2020-10-22] MEDS: AMLODIPINE BESYLATE 5 MG TABLET PO SCH (09:05)
[2020-10-22] MEDS: PROPRANOLOL HCL 40 MG TABLET PO SCH ×2 (09:05→16:50)
[2020-10-22] MEDS: BUMETANIDE INJ 0.25 MG/ML VIAL IV SCH ×2 (09:10→16:49)
[2020-10-22 13:12] LABS: EOSINOPHILS % (MANUAL) 3 % (0-4); LYMPHOCYTES % (MANUAL) 19 % (16-48); MONOCYTES % (MANUAL) 11 % (0-11.0); NEUTROPHILS % (MANUAL) 67 (42-76)
--- NOTE | 2020-10-22 18:50 | NUR ---
PATIENT ONGOING BLOOD TRANSFUSION AT THIS TIME. NO C/O OF ANY ADVERSE REACTIONS TO TRANSFUSION, NO SOB, NO BACK ACHE, NO CHILLS. PATIENT REMAINS AFEBRILE. VS BP 128/70, HR 76, RR 18, T 98.3, SPO2 96%. WILL CONTINUE TO MONITOR
[2020-10-22] MEDS: HYDROMORPHONE 1 MG/1 ML DISP.SYRIN IV PRN (18:53)
--- NOTE | 2020-10-22 19:00 | NUR ---
MS RN OPENING NOTE PT AWAKE IN BED AT THIS TIME. AOX4, ABLE TO MAKE NEEDS KNOWN. NO SOB NOTED. NO C/O PAIN AT THIS TIME, NO S/O ANY ACUTE DISTRESS NOTED. RESPIRATIONS EVEN AND UNLABORED, STABLE ON RA, HD SITE @ R FEMORAL . IV ACCESS YOHANNES PICC LINE. PT RECEIVING BLOOD . SAFETY PRECAUTIONS IN PLACE AND MAINTAINED AT ALL TIMES. BED IN LOWEST LOCKED POSITION, HOB ELEVATED, SIDE RAILS UP X2, CALL LIGHT AND TABLE WITHIN REACH. FAMILY AT BEDSIDE. WILL CONTINUE TO MONITOR
--- NOTE | 2020-10-22 19:21 | NUR ---
RN MS NOTES PT AWAKE, ALERT AND ORIENTED, PAIN MEDS GIVEN ORDERED, FAMILY AT BEDSIDE, NOT IN DISTRESS, WITH ONGOING BLOOD TRANSFUSION, TOLERATING WELL, PM MEDS GIVEN, PT TRANSFERRED TO BED 2, STATED THAT HIS BED IS NOT COMFORTABLE, REFUSED BEFORE DINNER ACCU CHECK, SAID THAT HIS SUGAR IS OK, ALL NEEDS ATTENDED.
--- NOTE | 2020-10-22 19:50 | NUR ---
PATIENT ONGOING BLOOD TRANSFUSION AT THIS TIME. VS BP 140/80, HR 92, RR 20, T 97.9, SPO2 94% NO C/O OF ANY ADVERSE REACTIONS TO TRANSFUSION. NO SOB, NO BACK ACHE, NO CHILLS. PATIENT REMAINS AFEBRILE. WILL CONTINUE TO MONITOR
--- NOTE | 2020-10-22 20:50 | NUR ---
PATIENT ONGOING BLOOD TRANSFUSION AT THIS TIME. VS BP 140/80, HR 92, RR 20, T 97.9, SPO2 94% NO C/O OF ANY ADVERSE REACTIONS TO TRANSFUSION. NO SOB, NO BACK ACHE, NO CHILLS. PATIENT REMAINS AFEBRILE. WILL CONTINUE TO MONITOR Addendum: 10/22/20 at 2055 by VINOD RANDOLPH RN PATIENT ONGOING BLOOD TRANSFUSION AT THIS TIME. VS BP 145/78, HR 92, RR 20, T 98.4, SPO2 97% NO C/O OF ANY ADVERSE REACTIONS TO TRANSFUSION. NO SOB, NO BACK ACHE, NO CHILLS. PATIENT REMAINS AFEBRILE. WILL CONTINUE TO MONITOR
--- NOTE | 2020-10-22 21:11 | NUR ---
BLOOD TRANSFUSION ENDED AT THIS TIME. VITAL SIGNS BP 147/76, HR 85,RR 19,T 98.6, SPO2 94%. NO TRANSFUSION REACTIONS NOTED. WILL CONTINUE TO MONITOR PT.
[2020-10-22] MEDS: TAMSULOSIN 0.4 MG CAP.SR.24H PO SCH (21:35)
[2020-10-22] MEDS: INSULIN GLARGINE, 100 UNIT/ML CARTRIDGE SQ SCH (22:00)
[2020-10-22] MEDS: *INSULIN REGULAR(HUMULIN R)HUM 100 UNIT/ML VIAL SQ PRN (22:38)
--- NOTE | 2020-10-22 22:39 | NUR ---
BS 154. INSULIN GLARGINE HELD. PT NOT EATING
[2020-10-23] MEDS: INSULIN REGULAR, HUMAN 100 UNIT/ML 3 ML VIAL SQ PRN (02:02)
--- NOTE | 2020-10-23 06:00 | NUR ---
MS RN CLOSING NOTE PT IS IN BED WITH EYES CLOSED, EASY TO AROUSE. PT IS STABLE ON RA, NO SOB NOTED. NO S/S OF RESPIRATORY DISTRESS. PT IS AMBULATORY WITH BRP. IV ACCESS IS INTACT, PATENT, AND FLUSHING WELL. ALL NEEDS HAVE BEEN MET. ALL CARE, NEEDS, MEDICATIONS, AND TREATMENT ADMINISTERED ANTICIPATED PER ORDER. PT ENCOURAGED TO REPOSITION Q2H AND PRN. SAFETY, SEIZURE, AND ASPIRATION PRECAUTIONS MAINTAINED AT ALL TIMES. BED IN LOWEST LOCKED POSITION, HOB ELEVATED, SIDE RAILS UPX2. CALL LIGHT AND TABLE WITHIN REACH. WILL ENDORSE TO ONCOMING NURSE FOR WENDY.
[2020-10-23 06:01] LABS: BASOPHILS # (AUTO) 0.1 K/uL (0.0-0.2); BASOPHILS % (AUTO) 0.8 % (0.0-2.0); EOSINOPHILS % (AUTO) 4.4 % (0.0-6.0); HEMATOCRIT 24 % (39-51); HEMOGLOBIN 8.4 g/dL (13.5-17.5); LYMPHOCYTES # (AUTO) 1.3 K/uL (0.8-4.8); LYMPHOCYTES % (AUTO) 16.5 % (20.0-44.0); MEAN CORPUSCULAR HGB CONC 35 g/dl (31.0-36.0); MEAN CORPUSCULAR VOLUME 92 fL (80-96); MONOCYTES # (AUTO) 0.9 K/uL (0.1-1.30); MONOCYTES % (AUTO) 10.8 % (2.0-12.0); NEUTROPHILS # (AUTO) 5.4 K/uL (1.8-8.9); NEUTROPHILS % (AUTO) 67.5 % (43.0-81.0); PLATELET COUNT (AUTO) 111 K/uL (150-450)
[2020-10-23 06:36] LABS: CALCIUM, SERUM 7.2 mg/dL (8.5-10.1); CREATININE 4.3 mg/dL (0.6-1.3); MAGNESIUM 1.3 mg/dL (1.8-2.4); POTASSIUM 3.3 mmol/L (3.5-5.1)
[2020-10-23] MEDS: BLOOD SUGAR DIAGNOSTIC 1 EACH STRIP VI SCH ×4 (07:30→22:00)
--- NOTE | 2020-10-23 07:30 | NUR ---
RN MS NOTES PT IN BED, ASLEEP, EASY TO AROUSE, ALERT AND ORIENTED, NO COMPLAINT OF PAIN OR ANY DISCOMFORT AT THIS TIME, BREATHING PATTERN NORMAL, CALL LIGHT WITHIN REACH, NEEDS ATTENDED.
[2020-10-23 08:00] VITALS: BP 153/79
[2020-10-23] MEDS ORDERED: LACT10SO3 PO (08:51)
[2020-10-23] MEDS ORDERED: RIFA550T PO (08:51)
[2020-10-23] MEDS ORDERED: RISP1TAB7 PO (08:51)
[2020-10-23] MEDS ORDERED: PANT40TA2 PO (08:51)
[2020-10-23] MEDS ORDERED: FURO-144 PO (08:54)
--- NOTE | 2020-10-23 08:54 | NUR ---
RN MS NOTES PT SEEN BY DR. COOLEY, PLAN OF CARE DISCUSSED WITH PT, VERBALIZED UNDERSTANDING, NEW ORDERS GIVEN, NOTED AND CARRIED OUT.
[2020-10-23] MEDS: PROPRANOLOL HCL 40 MG TABLET PO SCH ×4 (09:00→22:36)
[2020-10-23] MEDS ORDERED: POTASSIUM CHLORIDE 20 MEQ TAB.PRT.SR PO ONE (09:00)
[2020-10-23] MEDS: BUMETANIDE INJ 0.25 MG/ML VIAL IV SCH ×2 (09:54→17:00)
[2020-10-23] MEDS: Magnesium 1GM/D5W 100ML PREMIX 100 ML IV SCH ×4 (09:54→17:47)
[2020-10-23] MEDS: RIFAXIMIN 550 MG TABLET PO SCH ×2 (09:55→17:00)
[2020-10-23] MEDS: LACTULOSE 10 G/15 ML UDC (PYXIS) PO SCH ×2 (09:55→17:00)
[2020-10-23] MEDS: PANTOPRAZOLE 40 MG TABLET.DR PO SCH ×2 (09:55→22:34)
[2020-10-23] MEDS: CIPROFLOXACIN HCL 250 MG TABLET PO SCH ×2 (09:55→22:35)
[2020-10-23] MEDS: AMLODIPINE BESYLATE 5 MG TABLET PO SCH (09:58)
[2020-10-23] MEDS: risperiDONE 1 MG TABLET PO SCH ×3 (09:59→22:34)
[2020-10-23] MEDS ORDERED: ANESTHESIA TRAY IN PYXIS 1 EA TRAY MC ONE (12:08)
[2020-10-23] MEDS ORDERED: HEPARIN SODIUM, PORCINE 1,000 UNIT/ML VIAL ONE (12:09)
[2020-10-23] MEDS ORDERED: LIDOCAINE HCL/MPF 1% 30 ML VIAL IJ ONE (12:09)
--- NOTE | 2020-10-23 12:45 | NUR ---
RN MS NOTES PT PICKED UP BY O.R. STAFF VIA [facility] FOR PERMACATH PLACEMENT, VITAL SIGNS STABLE, NO COMPLAINT OF PAIN, NOT IN DISTRESS, IN STABLE CONDITION.
[2020-10-23] MEDS ORDERED: FENTANYL PF 100MCG/2ML AMPUL ONE (12:51)
--- NOTE | 2020-10-23 14:38 | NUR ---
RN MS NOTES PT BACK FROM SURGERY, S/P PERMACATH PLACEMENT, PT IS SLEEPY BUT EASILY AROUSABLE, NO BLEEDING NOTED TO NEW PERMACATH SITE AT RIGHT IJ, RIGHT FEMORAL HD CATH REMOVED, NO BLEEDING NOTED, POST OP ORDERS RECEIVED FROM MD, KEPT PT WARM AND COMFORTABLE.
[2020-10-23] MEDS: HYDROMORPHONE 1 MG/1 ML DISP.SYRIN IV PRN (14:45)
[2020-10-23 16:00] VITALS: BP 142/78
--- NOTE | 2020-10-23 19:00 | NUR ---
RN MS NOTES PT IN BED, AWAKE, ALERT AND ORIENTED, NO COMPLAINT OF PAIN AT THIS TIME, NOT IN DISTRESS, NO BLEEDING NOTED AT NEW RIGHT IJ PERMACATH AND OLD RIGHT FEMORAL CATH SITE, DRESSING DRY AND INTACT, PT SCHEDULED FOR HEMODIALYSIS TONIGHT, PER DR. COOLEY PT CAN GO HOME TOMORROW, PT REFUSED ALL PM MEDS AND BLOOD SUGAR CHECK, ALL NEEDS ATTENDED.
--- NOTE | 2020-10-23 19:35 | NUR ---
RN NOTES RECEIVED PATIENT AWAKE ON HIS BED, FAMILY AT BEDSIDE, WAITING FOR DIALYSIS NURSE, SAM, YAJAIRA SPEAKING BUT UNDERSTAND OCCITAN, NOT IN DISTRESS DENIES PAIN,. CALL LIGHT WITHIN REACH, SIDERAILSUPX2, WILL CONTINUE TO MONITOR
--- NOTE | 2020-10-23 19:55 | NUR ---
RN NOTES PATIENT'S DAUGHTER SEBASTIAN CAME AND TOLD ME THAT SHE WANTS TO SPEAK WITH DR. COOLEY, PER PATENT'S DAUGHTER SEBASTIAN SHE ALWAYS TALK TO DR. COOLEY ON THE CELLPHONE, PAGED DR. COOLEY , WAITING FOR HIM TO CALL BACK
--- NOTE | 2020-10-23 20:30 | NUR ---
RN NOTES DR. COOLEY CALLED BACK AND SPOKE TO PATIENT'S DAUGHTER SEBASTIAN
--- NOTE | 2020-10-23 21:02 | NUR ---
RN NOTES DR. COOLEY WAS ASKING REGARDING OUTPATIENT DIALYSIS SET UP , THERE'S NO SET UP YET , ACCREDITATION MANAGER WILL SET UP IN THE MORNING. DR. COOLEY GAVE A HOLD DISCHARGE ORDER FOR TONYOHANA, ORDER NOTED AND CARRIED OUT
--- NOTE | 2020-10-23 21:35 | NUR ---
RN NOTES SPOKE TO DR. COOLEY AND INFORMED HIM THAT PER PATIENT'S RHONDA, MARINE ELECTRICIAN APPRENTICE WILL CALL HER TOMORROW TO DISCUSSED THE SET UP OF OUTPATIENT DIALYSIS. DR. COOLEY GAVE A DISCHARGE ORDER , ORDER NOTED AND CARRIED OUT
[2020-10-23] MEDS: INSULIN GLARGINE, 100 UNIT/ML CARTRIDGE SQ SCH (22:00)
[2020-10-23] MEDS: TAMSULOSIN 0.4 MG CAP.SR.24H PO SCH (22:33)
--- NOTE | 2020-10-23 22:35 | NUR ---
RN NOTES DIALYSIS FINISHED , 2.5 L WAS REMOVED, WILL MONITOR THE PATIENT
[2020-10-23 22:36] VITALS: BP 151/90
--- NOTE | 2020-10-23 22:55 | NUR ---
RN NOTES PATIENT WAS SO EAGER TO GO HOME, PT ALREADY STANDING IN THE [address] WAY, REFUSED TO GO BACK TO HIS ROOM, PATIENT WAS RUSHING TO GO HOME, DISCHARGE INSTRUCTION WAS GIVEN IN FRONT OF PATIENT'S DAUGHTER, PT'S UNDERSTOOD, DISCHARGE PAPER WAS SIGNED BY HIS DAUGHTER, PATIENT DISCHARGE ON STABLE CONDITION
--- NOTE | 2020-10-23 23:05 | NUR ---
RN NOTES TRYING TO GET HOLD OF THE PATIENT BECAUSE VERIFY WITH CHARGE NURSE PICC LINE IS NOT GOING TO BE USE AT HOME,
--- NOTE | 2020-10-23 23:10 | NUR ---
RN NOTES CALLED PATIENT'S RHONDA NOBODY'S ANSWERING, LEFT A MESSAGE
--- NOTE | 2020-10-23 23:15 | NUR ---
RN NOTES CALLED AGAIN AND SPOKE TO RHONDA (PATIENT'S ) AND EXPLAINED THE SITUATION , SHE SAID SHE'S GOING TO CALL HER STEPDAUGHTER SEBASTIAN TO GO BACK TO OUR HOSPITAL SO WE Can remove the picc line
--- NOTE | 2020-10-23 23:45 | NUR ---
RN NOTES CALLED PATIENT'S AGAIN NOBODY'S ANSWERING THE PHONE, LEFT A MESSAGE
--- NOTE | 2020-10-24 | NUR ---
RN NOTES PATIENT'S ALL CALLED AND INFORMED ME THAT PT REFUSED TO COME BACK TO THE HOSPITAL AND RATHER WILL COME HERE IN THE MORNING, CHARGE NURSE MADE AWARE
== END 2020-10-23 22:55 | disposition home health service (06) | DRG 469 ==
LOC: ER 13:51 → TELE 19:49 → MED 22:41
PROVIDERS: ADMIT Internal Medicine; ATTEND Internal Medicine
PROC: 30233N1 Transfusion of Nonautologous Red Blood Cells into Peripheral Vein, Percutaneous Approach (ICD-10-PCS; principal; 2020-10-17)
PROC: 06HY33Z Insertion of Infusion Device into Lower Vein, Percutaneous Approach (ICD-10-PCS; 2020-10-19)
PROC: 5A1D70Z Performance of Urinary Filtration, Intermittent, Less than 6 Hours Per Day (ICD-10-PCS; 2020-10-19)
PROC: 02H633Z Insertion of Infusion Device into Right Atrium, Percutaneous Approach (ICD-10-PCS; 2020-10-23)
PROC: B5181ZA Fluoroscopy of Superior Vena Cava using Low Osmolar Contrast, Guidance (ICD-10-PCS; 2020-10-23)
DX: N17.9 Acute kidney failure, unspecified (principal); J90 Pleural effusion, not elsewhere classified; D69.6 Thrombocytopenia, unspecified; E11.22 Type 2 diabetes mellitus with diabetic chronic kidney disease; E88.09 Other disorders of plasma-protein metabolism, not elsewhere classified; I12.9 Hypertensive chronic kidney disease with stage 1 through stage 4 chronic kidney disease, or unspecified chronic kidney disease; K70.30 Alcoholic cirrhosis of liver without ascites; N18.9 Chronic kidney disease, unspecified; K80.20 Calculus of gallbladder without cholecystitis without obstruction; K70.40 Alcoholic hepatic failure without coma; J98.11 Atelectasis; Z20.822 Contact with and (suspected) exposure to COVID-19; B19.20 Unspecified viral hepatitis C without hepatic coma; N45.1 Epididymitis; Z87.19 Personal history of other diseases of the digestive system; D63.1 Anemia in chronic kidney disease; E78.5 Hyperlipidemia, unspecified; E66.9 Obesity, unspecified; Z68.30 Body mass index [BMI] 30.0-30.9, adult; G31.84 Mild cognitive impairment of uncertain or unknown etiology; F29 Unspecified psychosis not due to a substance or known physiological condition
CPT/HCPCS: 36415; 71045-TC; 76700-TC; 76870-TC; 80048-TC; 80053-TC; 80076-TC; 81001; 82140-TC; 82962-TC; 83735-TC; 85025-TC; 85610-TC; 85730-TC; 86704; 86705; 86706; 86803; 86850-TC; 87081-TC; 87340; 90935-TC; 97112-TC; 97530-TC; A4216; C1750; C1769; C9803; G0378; J0690; J1170; J1644; J1815; J1940; J2270; J2405; J2704; J2916; J3010; J3475; J3490; J7030; J7040; J7050; P9016; P9047

== ENCOUNTER 2020-11-04 18:35 | Emergency (ER) | payer MEDICAID ==
[~2020-11-04] VITALS: Ht 198.1 cm; Wt 113.4 kg
[~2020-11-04 18:35] MED LIST changes: -ALPR0.255 PO; -ASPI-1420 PO; +FERR325T23 PO; +FURO-144 PO; -INSU100V3 IJ; +INSU100V3 SQ; +LACT10SO3 PO; -LOSA100T31 PO; +PANT40TA2 PO; +RIFA550T PO; +RISP1TAB7 PO
--- NOTE | 2020-11-04 20:25 | NUR ---
pt bibwife c/o back pain and chestpain x3days. pt aaox4 breathing evenly and unlabored. pt armeanian speaking. Per , pt is supposed to get dialysis at 0400 on wednesday morning, but pt pain was so bad that pt could not wait. Pt has dialysis port in rt upper chest. MD at bedside for eval. upon assessment, pt has bilateral lower extremity swelling. Skin is warm and dry. pt attached to monitor and pox. Pt given call light within reach. will continue to monitor.
--- NOTE | 2020-11-04 20:28 | NUR ---
TO ER BED 4
[2020-11-04] MEDS ORDERED: ONDANSETRON HCL/PF 4 MG/2 ML VIAL ONE (21:26)
[2020-11-04] MEDS ORDERED: MORPHINE SULFATE INJ 2 MG/ML DISP.SYRIN ONE (21:26)
[2020-11-04] MEDS ORDERED: MORPHINE SULFATE INJ 2 MG/ML DISP.SYRIN IV ONE (21:30)
[2020-11-04] MEDS ORDERED: ONDANSETRON HCL/PF - ER 4 MG/2 ML VIAL IV ONE (21:30)
[2020-11-04 21:59] LABS: BASOPHILS # (AUTO) 0.1 K/uL (0.0-0.2); BASOPHILS % (AUTO) 1.3 % (0.0-2.0); EOSINOPHILS % (AUTO) 4.6 % (0.0-6.0); HEMATOCRIT 23 % (39-51); HEMOGLOBIN 7.8 g/dL (13.5-17.5); LYMPHOCYTES # (AUTO) 1.6 K/uL (0.8-4.8); LYMPHOCYTES % (AUTO) 24.3 % (20.0-44.0); MEAN CORPUSCULAR HGB CONC 35 g/dl (31.0-36.0); MEAN CORPUSCULAR VOLUME 95 fL (80-96); MONOCYTES # (AUTO) 0.8 K/uL (0.1-1.30); MONOCYTES % (AUTO) 13.1 % (2.0-12.0); NEUTROPHILS # (AUTO) 3.7 K/uL (1.8-8.9); NEUTROPHILS % (AUTO) 56.7 % (43.0-81.0); PLATELET COUNT (AUTO) 198 K/uL (150-450); RED BLOOD CELL COUNT(AUTO) 2.37 MIL/uL (4.5-6.0); WHITE BLOOD COUNT (AUTO) 6.4 K/uL (4.3-11.0)
[2020-11-04 22:07] LABS: CALCIUM, SERUM 7.6 mg/dL (8.5-10.1); CARBON DIOXIDE 26 mmol/L (21-32); CHLORIDE 107 mmol/L (98-107); CREATININE 4.1 mg/dL (0.6-1.3); GLUCOSE 137 mg/dL (74-106); POTASSIUM 3.8 mmol/L (3.5-5.1); SODIUM SERUM 140 mmol/L (136-145); UREA NITROGEN, BLOOD 30 mg/dL (7-18)
[2020-11-04 22:20] LABS: ALANINE AMINOTRANSFERASE 12 U/L (12-78); ALKALINE PHOSPHATASE 66 U/L (46-116); ASPARTATE AMINOTRANSFERASE 42 U/L (15-37); BILIRUBIN,DIRECT 0.3 mg/dL (0.0-0.2); BILIRUBIN,TOTAL 0.8 mg/dL (0.2-1.0); TOTAL PROTEIN, SERUM 7.3 g/dL (6.4-8.2)
[2020-11-04 22:26] LABS: ALBUMIN 1.4 g/dL (3.4-5.0)
[2020-11-04 22:44] LABS: BASOPHILS % (MANUAL) 0 % (0.0-2.0); EOSINOPHILS % (MANUAL) 5 % (0-4); LYMPHOCYTES % (MANUAL) 19 % (16-48); MONOCYTES % (MANUAL) 12 % (0-11.0); NEUTROPHILS % (MANUAL) 64 (42-76)
--- NOTE | 2020-11-04 23:04 | NUR ---
Patient discharged to home in stable condition. Written and verbal after care instructions given. Patient verbalizes understanding of instruction. IV removed. Catheter intact and site benign. Pressure and 4x4 applied to site. No bleeding noted. Pt wheeled to son's car
[2020-11-04 23:26] VITALS: BP 160/90
[2020-11-05] MEDS ORDERED: METF-440 PO (08:08)
[2020-11-05] MEDS ORDERED: LACT10SO3 PO (08:08)
[2020-11-05] MEDS ORDERED: HYDR-4209 PO (08:08)
[2020-11-05] MEDS ORDERED: FURO-144 PO (08:08)
== END 2020-11-04 23:04 | disposition home or self-care (01) ==
LOC: ER 18:38
DX: G89.29 Other chronic pain (principal); M54.6 Pain in thoracic spine; I13.2 Hypertensive heart and chronic kidney disease with heart failure and with stage 5 chronic kidney disease, or end stage renal disease; E11.22 Type 2 diabetes mellitus with diabetic chronic kidney disease; N18.6 End stage renal disease; I50.9 Heart failure, unspecified; E78.5 Hyperlipidemia, unspecified; F17.210 Nicotine dependence, cigarettes, uncomplicated; Z99.2 Dependence on renal dialysis; Z79.899 Other long term (current) drug therapy; Z79.4 Long term (current) use of insulin
CPT/HCPCS: 36415; 71045; 80048; 80076; 83880; 84484; 85007; 85025; 85730; 93005; 96374; 96375; 99291; J2270; J2405 ×2

== ENCOUNTER 2020-11-05 03:09 | Inpatient (IN) | payer MEDICAID ==
[~2020-11-05] VITALS: Ht 172.7 cm; Wt 113.4 kg
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
[2020-11-05 03:30] LABS: BASOPHILS # (AUTO) 0.1 K/uL (0.0-0.2); HEMATOCRIT 23 % (39-51); LYMPHOCYTES # (AUTO) 1.9 K/uL (0.8-4.8); MEAN CORPUSCULAR HGB CONC 34 g/dl (31.0-36.0); MONOCYTES # (AUTO) 0.9 K/uL (0.1-1.30); RED BLOOD CELL COUNT(AUTO) 2.47 MIL/uL (4.5-6.0)
[2020-11-05 03:35] LABS: BASOPHILS % (AUTO) 1.2 % (0.0-2.0); EOSINOPHILS % (AUTO) 4.6 % (0.0-6.0); LYMPHOCYTES % (AUTO) 26.6 % (20.0-44.0); MEAN CORPUSCULAR VOLUME 95 fL (80-96); MONOCYTES % (AUTO) 13.4 % (2.0-12.0); NEUTROPHILS # (AUTO) 3.8 K/uL (1.8-8.9); NEUTROPHILS % (AUTO) 54.2 % (43.0-81.0); PLATELET COUNT (AUTO) 193 K/uL (150-450)
[2020-11-05 03:39] LABS: CALCIUM, SERUM 7.7 mg/dL (8.5-10.1); CARBON DIOXIDE 26 mmol/L (21-32); CHLORIDE 108 mmol/L (98-107); GLUCOSE 135 mg/dL (74-106); POTASSIUM 3.7 mmol/L (3.5-5.1); SODIUM SERUM 142 mmol/L (136-145); UREA NITROGEN, BLOOD 29 mg/dL (7-18)
--- NOTE | 2020-11-05 03:54 | NUR ---
RADIOLOGY AT BEDSIDE
[2020-11-05 04:07] LABS: LYMPHOCYTES % (MANUAL) 15 % (16-48); NEUTROPHILS % (MANUAL) 70 (42-76)
[2020-11-05 04:08] LABS: BASOPHILS % (MANUAL) 0 % (0.0-2.0); EOSINOPHILS % (MANUAL) 5 % (0-4); MONOCYTES % (MANUAL) 10 % (0-11.0)
--- NOTE | 2020-11-05 04:29 | NUR ---
called carina to have images read
[2020-11-05] MEDS ORDERED: MAGNESIUM HYDROXIDE 30 ML UDC PO PRN (05:00)
[2020-11-05] MEDS ORDERED: ZOLPIDEM TARTRATE 5 MG TABLET PO PRN (05:00)
[2020-11-05] MEDS ORDERED: ACETAMINOPHEN 325 MG TABLET PO PRN (05:00)
[2020-11-05] MEDS ORDERED: Z GUARD REMEDY 2 OZ OINT TP PRN (05:00)
[2020-11-05] MEDS ORDERED: DEXTROSE 50%-WATER 50 ML DISP.SYRIN IV PRN (05:00)
[2020-11-05] MEDS ORDERED: hydrALAZINE HCL IV 20 MG VIAL IV PRN (05:00)
[2020-11-05] MEDS ORDERED: ONDANSETRON HCL/PF 4 MG/2 ML VIAL IVP PRN (05:00)
[2020-11-05 05:36] LABS: MAGNESIUM 1.6 mg/dL (1.8-2.4); PHOSPHORUS 5.5 mg/dL (2.5-4.9)
--- NOTE | 2020-11-05 06:42 | NUR ---
verbal order 10mg jose juan
[2020-11-05] MEDS ORDERED: ZIPRASIDONE MESYLATE 20 MG/VIAL VIAL IM ONE (07:00)
[2020-11-05] MEDS: BLOOD SUGAR DIAGNOSTIC 1 EACH STRIP IN SCH ×4 (07:30→21:28)
[2020-11-05] MEDS ORDERED: FURO-144 PO (08:08)
[2020-11-05] MEDS ORDERED: LACT10SO3 PO (08:08)
[2020-11-05] MEDS ORDERED: METF-440 PO (08:08)
[2020-11-05] MEDS ORDERED: HYDR-4209 PO (08:08)
[2020-11-05] MEDS: HEPARIN SODIUM, PORCINE 5000 UNITS/1 ML VIAL SQ SCH ×2 (09:00→21:17)
--- NOTE | 2020-11-05 09:48 | NUR ---
report given to Narciso CHOI for marita.
--- NOTE | 2020-11-05 12:28 | NUR ---
Admission for a 55 year old male with increased difficulty at home. Patient request to go outside in noc times when family is sleeping, asking to drink alcohol and smoke. Patient is getting more treatment for his neurological status as per request of the family to see if he is having any cognitive declines. Patient verbalizes he is feeling fine. TOOL REPAIRER BENCH has had some difficulty assisting the patient with adl's as he is resistant at times to changing wet linens and bedding. Plan: hemodialysis this afternoon at 4pm. Narciso Minor RN
[2020-11-05 16:00] VITALS: BP 148/76
[2020-11-05 20:00] VITALS: BP 146/81
--- NOTE | 2020-11-05 20:00 | NUR ---
RN OPENING NOTE TELE. PATIENT SEEN IN ROOM SITTING AT THE BEDSIDE WITH 2 FAMILY MEMBERS PRESENT. FAMILY WISHING TO SPEAK WITH DOCTOR REGUARDING PATIENTS CONDITION AND TREATMENT. INFORMED THEM THAT THE DOCTORS HAD MADE THEIR ROUNDS EARLIER TODAY AND THAT THE CLINICAL ACCOUNT SPECIALIST [facility] PROVIDER CLINICAL ACCOUNT SPECIALIST FOR EMERGENCIES OR CHANGES IN CONDITION. FAMILY STAETS THEY CAN RETURN TOMORROW IN THE AM TO SPEAK WITH DOCTORS. PATIENT VS WNL. PATIENT HAD DIALYSIS TODAY AND THEY REMOVED 3.5 LITERS OFF. PATIENT NOTED TO HAVE PLUS 3 EDEMA PITTING TO LEGS AND SEVERE. SCROTAL EDEMA. PT IS UPPER SORBIAN SPEAKING PER THE FAMILY, PATIENT ISN'T TALKING MUCH AND APPEARS TO BE ORIENTED TO PERSON AND PLACE. REVIEWED POC WITH FAMILY QUESTIONS CONCERNS ADDRESSED. PT DENIES SOB IN NO APPARENT RESP DISTRESS. BED ALARM ACTIVE. PT IS SR ON MONITOR MELBA CONT TO MONITOR. .
--- NOTE | 2020-11-05 20:47 | NUR ---
CONTACTED HERB CATES DNP REGUARDING PATIENT COMPLAINTS OF FEELING ITCHY. FAMILY IS REQUESTING BENADRYL BE GIVEN HE TAKES IT AT HOME. NEW ORDER FOR BENADRYL RECIEVED AND PLACED IN COMPUTER.
[2020-11-05] MEDS: diphenhydrAMINE HCL 50 MG CAPSULE PO PRN (21:19)
[2020-11-06] VITALS: BP_SYST 103; BP_SYST 162; BP_DIAS 101; BP_DIAS 67
--- NOTE | 2020-11-06 00:54 | NUR ---
ATTEMPTED HYDRALAZINE FOLLOW UP REASSESSMENT PATIENT REFUSED. STATES, " LEAVE ME ALONE I WANT TO SLEEP." HR FROM 101 DOWN TO 69. WILL CONT TO MONITOR. IN NO APPARENT ACUTE DISTRESS. DENIES DIZZINESS. FALL PRECAUTIONS IN PLACE.
[2020-11-06 04:00] VITALS: BP 176/90
[2020-11-06] MEDS: BLOOD SUGAR DIAGNOSTIC 1 EACH STRIP IN SCH ×4 (06:50→22:32)
--- NOTE | 2020-11-06 07:20 | NUR ---
RN OPENING NOTE RECEIVED PT IN BED, AWAKE, A/O X3, WITH FAMILY AT BEDSIDE. BREATHING EVEN AND UNLABORED. HE DENIES ANY PAIN OR DISCOMFORT AT THIS TIME. IV ACCESS TO R-AC #20 INTACT AND PATENT. HD PERMA CATH TO L-CHEST WALL INTACT. PT IN NO ACUTE DISTRESS. SAFETY MEASURES IN PLACE: BED IN LOWEST LOCKED POSITION, S/R UP X2, CALL LIGHT WITHIN EASY REACH. WILL CONTINUE TO MONITOR. Addendum: 11/06/20 at 2159 by THA CANTOR RN ABOVE NOTE FOR 7P-7A SHIFT, DOCUMENTED @1920
[2020-11-06 08:00] VITALS: BP 134/69
--- NOTE | 2020-11-06 08:23 | NUR ---
RN OPENING NOTE- PT IN BED. ORIENTED TO PERSON AND PLACE. SOME CONFUSION PRESENT. ASKS TO CALL , WHEN ASSISTED, FORGETS DIRECTLY THAT HE HAS TALKED TO HER. SPOKE W RHONDA () REVIEWED POC WITH FAMILY QUESTIONS CONCERNS ADDRESSED. PT DENIES SOB IN NO APPARENT RESP DISTRESS. BED ALARM ACTIVE. PT IS SR ON MONITOR WILL CONT TO MONITOR. .
[2020-11-06] MEDS: HEPARIN SODIUM, PORCINE 5000 UNITS/1 ML VIAL SQ SCH ×2 (09:08→21:00)
[2020-11-06] MEDS: diphenhydrAMINE HCL 50 MG CAPSULE PO PRN ×2 (09:48→18:41)
--- NOTE | 2020-11-06 09:53 | NUR ---
RN NOTE- PT W PRURITIS TO LOWER EXTREMITIES, BENADRYL PO ADMINISTERED. LOTION APPLIED TO LEGS
[2020-11-06 10:48] LABS: CALCIUM, SERUM 7.7 mg/dL (8.5-10.1); CREATININE 3.3 mg/dL (0.6-1.3); MAGNESIUM 1.6 mg/dL (1.8-2.4); PHOSPHORUS 4.4 mg/dL (2.5-4.9); POTASSIUM 3.3 mmol/L (3.5-5.1)
[2020-11-06 10:52] LABS: BASOPHILS # (AUTO) 0.1 K/uL (0.0-0.2); BASOPHILS % (AUTO) 1.4 % (0.0-2.0); EOSINOPHILS % (AUTO) 4.4 % (0.0-6.0); HEMATOCRIT 22 % (39-51); HEMOGLOBIN 7.8 g/dL (13.5-17.5); LYMPHOCYTES # (AUTO) 1.4 K/uL (0.8-4.8); LYMPHOCYTES % (AUTO) 25.8 % (20.0-44.0); MEAN CORPUSCULAR HGB CONC 35 g/dl (31.0-36.0); MEAN CORPUSCULAR VOLUME 96 fL (80-96); MONOCYTES # (AUTO) 0.7 K/uL (0.1-1.30); MONOCYTES % (AUTO) 12.9 % (2.0-12.0); NEUTROPHILS # (AUTO) 3.1 K/uL (1.8-8.9); NEUTROPHILS % (AUTO) 55.5 % (43.0-81.0); PLATELET COUNT (AUTO) 195 K/uL (150-450); RED BLOOD CELL COUNT(AUTO) 2.31 MIL/uL (4.5-6.0); WHITE BLOOD COUNT (AUTO) 5.6 K/uL (4.3-11.0)
[2020-11-06] MEDS ORDERED: EPOETIN ALFA (10,000 UNIT) 10,000 UNIT/ML VIAL SQ ONE (11:00)
[2020-11-06] MEDS ORDERED: LACTULOSE 10 G/15 ML UDC (PYXIS) PO PRN (11:30)
--- NOTE | 2020-11-06 12:15 | NUR ---
RN NOTE- AMMONIA LEVEL 97. PULP BEATER SAMUEL AT UNIT TO ASSESS. SPOKE W DAUGHTER WELL. UPDATED ON PLAN OF CARE. WILL TRY TO SCHEDULE HD TODAY PER SAMUEL
[2020-11-06] MEDS ORDERED: LACTULOSE 10 G/15 ML UDC (PYXIS) PO SCH (13:00)
--- NOTE | 2020-11-06 14:25 | NUR ---
RN NOTE- HD RN AT BEDSIDE . FAMILY AT BEDSIDE WELL. DISCUSSED CONDITION AND PLAN OF CARE.
[2020-11-06] MEDS: INSULIN REGULAR, HUMAN 100 UNIT/ML 3 ML VIAL SQ PRN ×3 (14:48→21:17)
[2020-11-06 16:00] VITALS: BP 148/89
--- NOTE | 2020-11-06 16:10 | NUR ---
RN NOTE- HD RN TOLD ME THAT HE REMOVED 3.5 L FLUID. PT SITTING UP W FAMILY TALKING. LESS CONFUSED , INCREASED INTERACTION.
--- NOTE | 2020-11-06 16:30 | NUR ---
RN NOTE- C/O PAIN TO ABDOMEN. FAWAD BAKER ORDERED NORCO 5/325 X ONE DOSE NOW. COMPLIED.
[2020-11-06] MEDS: PROPRANOLOL HCL 40 MG TABLET PO SCH (16:35)
[2020-11-06] MEDS: RIFAXIMIN 550 MG TABLET PO SCH (16:35)
[2020-11-06] MEDS ORDERED: HYDROCODONE/APAP 5/325MG TABLET PO STA (16:36)
--- NOTE | 2020-11-06 17:30 | NUR ---
RN NOTE- PT STATES PAIN TO ABD DIMINISHED. RX EFFECTIVE.
--- NOTE | 2020-11-06 18:37 | NUR ---
RN CLOSING NOTE- PT HAD HEMODIALYSIS TODAY. 3.5 L REMOVED. PT IS LESS LETHARGIC, CONFUSED AND IRRITABLE. FAMILY AT BEDSIDE MOST OF DAY. PO INTAKE GOOD. +4 EDEMA TO BLE, ELEVATING. APPLIED TOPICAL TO LEGS TO DECREASE PRURITIS. NO WEEPING NOTED AT PRESENT. SCROTAL EDEMA CONTINUES. SIDE RAILS UP. BED LOCKED. NEEDS ATTENDED. MONITOR FOR SAFETY
--- NOTE | 2020-11-06 18:41 | NUR ---
RN NOTE- C/O PRURITIS TO LOWER LEGS. BENADRYL 50 MG GIVEN. LOTION APPLIED
--- NOTE | 2020-11-06 19:20 | NUR ---
RN OPENING NOTES RECEIVED PT IN BED, AWAKE, A/O X3, WITH FAMILY AT BEDSIDE. BREATHING EVEN AND UNLABORED. HE DENIES ANY PAIN OR DISCOMFORT AT THIS TIME. IV ACCESS TO R-AC #20 INTACT AND PATENT. HD PERMA CATH TO L-CHEST WALL INTACT. PT IN NO ACUTE DISTRESS. SAFETY MEASURES IN PLACE: BED IN LOWEST LOCKED POSITION, S/R UP X2, CALL LIGHT WITHIN EASY REACH. WILL CONTINUE TO MONITOR.
[2020-11-06 20:00] VITALS: BP 154/75
--- NOTE | 2020-11-06 21:15 | NUR ---
RN NOTE PT REFUSED SQ HEPARIN. PROVIDED EXPLANATION BUT STILL REFUSED, SAYING "NO, I DON'T WANT IT."
--- NOTE | 2020-11-06 21:17 | NUR ---
BS 147 MG/DL, GIVEN 2 UNITS REGULAR INSULIN PER SLIDING SCALE
[2020-11-07] VITALS (9 sets, daily range): BP systolic 127–178; BP diastolic 74–92
--- NOTE | 2020-11-07 03:44 | NUR ---
RN NOTES PATIENT COMPLAINED OF CHEST PAIN- DR. CATES GAVE AN ORDER OF MORPHINE 2MG IV PRN, ORDER NOTED AND CARRIED OUT
[2020-11-07] MEDS: MORPHINE SULFATE INJ 2 MG/ML DISP.SYRIN IV PRN ×3 (03:57→21:18)
--- NOTE | 2020-11-07 04:02 | NUR ---
RN NOTES COMPLAINED OF CHES PAIN- MORPHINE 2 MG IV GIVEN ORDERED, V/S STABLE
[2020-11-07 06:10] LABS: BASOPHILS # (AUTO) 0.1 K/uL (0.0-0.2); BASOPHILS % (AUTO) 1.5 % (0.0-2.0); EOSINOPHILS % (AUTO) 5.4 % (0.0-6.0); HEMATOCRIT 21 % (39-51); HEMOGLOBIN 7.2 g/dL (13.5-17.5); LYMPHOCYTES # (AUTO) 1.6 K/uL (0.8-4.8); LYMPHOCYTES % (AUTO) 22.4 % (20.0-44.0); MEAN CORPUSCULAR HGB CONC 35 g/dl (31.0-36.0); MEAN CORPUSCULAR VOLUME 96 fL (80-96); NEUTROPHILS # (AUTO) 3.9 K/uL (1.8-8.9); NEUTROPHILS % (AUTO) 55.7 % (43.0-81.0); PLATELET COUNT (AUTO) 167 K/uL (150-450); RED BLOOD CELL COUNT(AUTO) 2.17 MIL/uL (4.5-6.0); WHITE BLOOD COUNT (AUTO) 6.9 K/uL (4.3-11.0)
--- NOTE | 2020-11-07 06:21 | NUR ---
BS 119 MG/DL
--- NOTE | 2020-11-07 06:36 | NUR ---
RN CLOSING NOTES PT SITTING UP IN BED, A/O X3, ABLE TO VERBALIZE NEEDS. DENIES ANY PAIN OR DISCOMFORT AT THIS TIME. BREATHING EVEN/UNLABORED, ON ROOM AIR. IV ACCESS TO R-AC INTACT/PATENT/FLUSHES WELL. PT'S EXTERNAL MEDICAID SERVICE COORDINATOR ON STANDBY, PT REFUSED TO HAVE IT ON AT THIS TIME. PT WITH NO C/O CARDIAC DISTRESS. SAFETY MEASURES IN PLACE, BED IN LOWEST LOCKED POSITION, S/R UP X2, CALL LIGHT WITHIN EASY REACH. WILL ENDORSE TO NEXT SHIFT NURSE.
[2020-11-07] MEDS: BLOOD SUGAR DIAGNOSTIC 1 EACH STRIP IN SCH ×4 (06:42→21:31)
[2020-11-07 06:54] LABS: BILIRUBIN,TOTAL 0.9 mg/dL (0.2-1.0); CALCIUM, SERUM 7.4 mg/dL (8.5-10.1); CREATININE 3.3 mg/dL (0.6-1.3); MAGNESIUM 1.6 mg/dL (1.8-2.4); PHOSPHORUS 4.2 mg/dL (2.5-4.9); POTASSIUM 3.4 mmol/L (3.5-5.1); TOTAL PROTEIN, SERUM 6.2 g/dL (6.4-8.2)
[2020-11-07 06:57] LABS: ALBUMIN 1.1 g/dL (3.4-5.0)
--- NOTE | 2020-11-07 07:51 | NUR ---
RN OPENING NOTES RECEIVED PATIENT IN BED, RESTING. EASY TO AROUSE. A/O X3. STABLE ON ROOM AIR - NO SOB NOTED. NO DISTRESS/DISCOMFORT NOTED. NO PAIN NOTED AT THIS TIME. IV ACCESS TO RIGHT AC #20 - INTACT AND PATENT - S/L. HD PERMA CATH TO L-CHEST WALL INTACT. SAFETY MEASURES IN PLACE. CALL LIGHT WITHIN REACH. WILL CONTINUE TO MONITOR.
[2020-11-07] MEDS: RIFAXIMIN 550 MG TABLET PO SCH ×2 (08:47→16:04)
[2020-11-07] MEDS: PROPRANOLOL HCL 40 MG TABLET PO SCH ×2 (08:47→16:04)
[2020-11-07] MEDS: FUROSEMIDE 40 MG TABLET PO SCH (08:48)
[2020-11-07] MEDS: HEPARIN SODIUM, PORCINE 5000 UNITS/1 ML VIAL SQ SCH ×2 (08:49→21:26)
[2020-11-07] MEDS ORDERED: METFORMIN 500 MG TABLET PO SCH (09:00)
[2020-11-07] MEDS ORDERED: K PHOS NEUTRAL 250 MG TABLET PO SCH (09:00)
[2020-11-07] MEDS ORDERED: Medication Not On Formulary EA (Lactulose (Duphalac) 10 GM) PO SCH (09:00)
[2020-11-07] MEDS ORDERED: Sodium Phosphate 15 MMOL in IV NS 0.9% 245 ML IV SCH (09:00)
[2020-11-07 10:47] LABS: EOSINOPHILS % (MANUAL) 4 % (0-4); LYMPHOCYTES % (MANUAL) 22 % (16-48); MONOCYTES % (MANUAL) 12 % (0-11.0); NEUTROPHILS % (MANUAL) 62 (42-76)
[2020-11-07] MEDS: INSULIN REGULAR, HUMAN 100 UNIT/ML 3 ML VIAL SQ PRN ×2 (12:39→17:12)
--- NOTE | 2020-11-07 15:00 | NUR ---
PLATE DRILLER NOTE TRANSFUSION FINISHED @ 1455. PATIENT STABLE, VITALS STABLE.
--- NOTE | 2020-11-07 17:30 | NUR ---
CALL CENTER SUPPORT REPRESENTATIVE NOTE OFFERED LACTULOSE FOR AMMONIA LEVEL OF 52. PATIENT STATED HE DOES NOT WANT IT BECAUSE IT MAKES HIM GO TO THE BATHROOM OFTEN.
--- NOTE | 2020-11-07 18:21 | NUR ---
SIGN ERECTOR AND REPAIRER CLOSING NOTES PATIENT CURRENTLY LYING IN BED, TALKING ON THE PHONE. A/O X3. STABLE ON ROOM AIR - NO SOB NOTED. NO DISTRESS/DISCOMFORT NOTED. NO PAIN NOTED AT THIS TIME. PATIENT IS AMBULATORY. S/P HEMODIALYSIS WITH 3.5L OUTPUT. PATIENT ALSO HAD 1 UNIT PRBC TRANSFUSED THIS SHIFT. IV ACCESS TO RIGHT AC #20 - INTACT AND PATENT - S/L. HD PERMA CATH TO L-CHEST WALL INTACT. SAFETY MEASURES IN PLACE. CALL LIGHT WITHIN REACH. WILL ENDORSE TO [employer]ARM ELECTRICAL SYSTEMS DESIGNER NURSE FOR WENDY.
--- NOTE | 2020-11-07 19:30 | NUR ---
RN OPENING NOTE PATIENT IS IN BED, EYES CLOSED. EASILY AROUSED. PATIENT IS A/O X 3 AT THIS TIME, VIETNAMESE SPEAKING BUT IS ABLE TO MAKE NEEDS KNOWN AND UNDERSTANDS SOME SURINAMESE. PATIENT'S AT BEDSIDE. NO COMPLAINS OF PAIN AT THIS TIME. NO SOB NOTED, TOLERATES ROOM AIR 96% O2 SAT, BREATHING EVEN AND UNLABORED. PATIENT'S IV ACCESS PATENT AND INTACT, PERMACATH ON LEFT CHEST INTACT WELL. PATIENT REFUSES TO HAVE TELE MONITOR ON AT THIS TIME, WILL TRY AGAIN AT A LATER TIME. SAFETY MEASURES IN PLACE: BED IN LOCKED AND IN LOWEST POSITION, CALL LIGHT WITHIN REACH, SIDE RAILS UP. WILL MONITOR PATIENT CLOSELY.
--- NOTE | 2020-11-07 21:20 | NUR ---
RN NOTE PATIENT GIVEN MORPHINE D/T 01/12 BACK PAIN. WILL REASSESS PAIN
--- NOTE | 2020-11-07 22:00 | NUR ---
RN NOTE BS 118 MG/DL. NO COVERAGE GIVEN.
[2020-11-07] MEDS ORDERED: SUCRALFATE 1 G/10 ML UDC PO PRN (23:00)
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
[2020-11-08 04:00] VITALS: BP 156/75
--- NOTE | 2020-11-08 06:41 | NUR ---
RN CLOSING NOTE PATIENT SITTING UP ON THE BED, AWAKE, ON HIS PHONE. PATIENT'S BREATHING EVEN AND UNLABORED, TOLERATING ROOM AIR AT 95%. PATIENT IS A/O X 3, ABLE TO MAKE NEEDS KNOWN. BS 145 MG/DL, REFUSES COVERAGE. PATIENT REFUSING TELE MONITORING. ALL NEEDS MET AND ATTENDED, ALL ORDERS CARRIED OUT. SAFETY MEASURES IMPLEMENTED. WILL ENDORSE TO DAY SHIFT NURSE FOR WENDY.
[2020-11-08 06:42] LABS: BASOPHILS # (AUTO) 0.1 K/uL (0.0-0.2); BASOPHILS % (AUTO) 1.2 % (0.0-2.0); EOSINOPHILS % (AUTO) 6.1 % (0.0-6.0); HEMATOCRIT 23 % (39-51); HEMOGLOBIN 8.1 g/dL (13.5-17.5); LYMPHOCYTES # (AUTO) 1.9 K/uL (0.8-4.8); LYMPHOCYTES % (AUTO) 26.6 % (20.0-44.0); MEAN CORPUSCULAR HGB CONC 35 g/dl (31.0-36.0); MEAN CORPUSCULAR VOLUME 94 fL (80-96); MONOCYTES % (AUTO) 14.6 % (2.0-12.0); NEUTROPHILS # (AUTO) 3.6 K/uL (1.8-8.9); NEUTROPHILS % (AUTO) 51.5 % (43.0-81.0); PLATELET COUNT (AUTO) 168 K/uL (150-450); RED BLOOD CELL COUNT(AUTO) 2.46 MIL/uL (4.5-6.0)
[2020-11-08 06:55] LABS: CALCIUM, SERUM 7.4 mg/dL (8.5-10.1); CREATININE 2.9 mg/dL (0.6-1.3); MAGNESIUM 1.6 mg/dL (1.8-2.4); PHOSPHORUS 4.2 mg/dL (2.5-4.9); POTASSIUM 3.2 mmol/L (3.5-5.1)
[2020-11-08 08:00] VITALS: BP 156/96
--- NOTE | 2020-11-08 08:00 | NUR ---
RN OPENING NOTE PT IS AWAKE IN BED RESTING. ON RA WITH NO SOB OR RESPIRATORY DISTRESS PRESENT. A/O X3 AND AZERI SPEAKING. NO COMPLAINT OF PAIN OR NAUSEA. PT REFUSES OVEREDGER. NO EDEMA PRESENT. SELF AMBULATORY WITH BATHROOM PRIVILEGES. SKIN IS INTACT. IV PRESENT ON RAC 20G AND FLUSHES WELL. R CW PERMACATH. HD TO BE DONE TODAY. LABS AND ORDERS REVIEWED. SAFETY MEASURES IN PLACE. SIDE RAILS RAISED. BED LOWERED. CALL LIGHT WITHIN REACH. WILL CONTINUE TO MONITOR.
[2020-11-08] MEDS: HEPARIN SODIUM, PORCINE 5000 UNITS/1 ML VIAL SQ SCH (09:00)
[2020-11-08] MEDS ORDERED: POTASSIUM CHLORIDE 20 MEQ TAB.PRT.SR PO ONE (09:00)
[2020-11-08] MEDS ORDERED: LACTULOSE 10 G/15 ML UDC (PYXIS) PO SCH (09:00)
[2020-11-08] MEDS: BLOOD SUGAR DIAGNOSTIC 1 EACH STRIP IN SCH ×2 (09:24→12:54)
[2020-11-08] MEDS: Magnesium 1GM/D5W 100ML PREMIX 100 ML IV SCH ×2 (09:24→12:57)
[2020-11-08] MEDS: FUROSEMIDE 40 MG TABLET PO SCH (09:25)
[2020-11-08] MEDS: PROPRANOLOL HCL 40 MG TABLET PO SCH ×2 (09:26→16:57)
[2020-11-08] MEDS: RIFAXIMIN 550 MG TABLET PO SCH ×2 (09:26→16:56)
[2020-11-08] MEDS: LACTULOSE 10 G/15 ML UDC (PYXIS) PO SCH ×2 (09:27→16:56)
[2020-11-08] MEDS ORDERED: AMLODIPINE BESYLATE 5 MG TABLET PO SCH (09:30)
[2020-11-08 16:57] VITALS: BP 130/80
--- NOTE | 2020-11-08 17:35 | NUR ---
RN AMA NOTE PT LEFT AMA AGAINST PHYSICIAN INSTRUCTIONS. PT REFUSED EXITCARE EDUCATION, SKIN ASSESSMENT. PT REFUSED TO SIGN BELONGINGS LIST, STATING THAT HE HAS EVERYTHING. AMA FORM REFUSED TO BE SIGNED BY PT, ASKED BY PT FOR TO SIGN. IV LINE REMOVED. ID BAND REMOVED. NOTIFIED, ASKED TO NOTIFY PT TO TAKE LACTULOSE TID. INFORMED PT AND PT IS AGREEABLE TO TAKE MEDS DIRECTED. CN NOTIFIED. PT REFUSED TO TAKE V/S PRIOR TO LEAVING. PT LEFT HOSPITAL ACCOMPANIED BY MEDICAL STAFF. PT TRANSPORTED VIA PRIVATE CAR ACCOMPANIED BY .
== END 2020-11-08 17:35 | disposition left against medical advice (07) | DRG 279 ==
LOC: ER 03:09 → TRANSITION 07:35 → TELE 08:42
PROVIDERS: ADMIT Registered Nurse; ATTEND Internal Medicine
PROC: 5A1D70Z Performance of Urinary Filtration, Intermittent, Less than 6 Hours Per Day (ICD-10-PCS; principal; 2020-11-05)
DX: K72.00 Acute and subacute hepatic failure without coma (principal); J90 Pleural effusion, not elsewhere classified; E11.22 Type 2 diabetes mellitus with diabetic chronic kidney disease; N18.6 End stage renal disease; K72.10 Chronic hepatic failure without coma; E66.01 Morbid (severe) obesity due to excess calories; B19.10 Unspecified viral hepatitis B without hepatic coma; E88.09 Other disorders of plasma-protein metabolism, not elsewhere classified; K70.30 Alcoholic cirrhosis of liver without ascites; I12.9 Hypertensive chronic kidney disease with stage 1 through stage 4 chronic kidney disease, or unspecified chronic kidney disease; J44.9 Chronic obstructive pulmonary disease, unspecified; J98.11 Atelectasis; D63.1 Anemia in chronic kidney disease; N18.9 Chronic kidney disease, unspecified; Z20.822 Contact with and (suspected) exposure to COVID-19; E78.5 Hyperlipidemia, unspecified; B19.20 Unspecified viral hepatitis C without hepatic coma; F17.200 Nicotine dependence, unspecified, uncomplicated; G89.4 Chronic pain syndrome; K80.20 Calculus of gallbladder without cholecystitis without obstruction; Z99.2 Dependence on renal dialysis; Z79.899 Other long term (current) drug therapy; Z68.38 Body mass index [BMI] 38.0-38.9, adult; B15.9 Hepatitis A without hepatic coma; Z79.4 Long term (current) use of insulin
CPT/HCPCS: 36415; 71045-TC; 80048-TC; 80053-TC; 80061-TC; 82140-TC; 82962-TC; 83735-TC; 83880; 84100-TC; 84484-TC; 85025-TC; 86850-TC; 87081-TC; 90935-TC; A6403; C9803; G0378; J0360; J0885; J1644; J1815; J2270; J3475; J7040; J7050; P9016; Q0163

== ENCOUNTER 2020-11-19 00:27 | Inpatient (IN) | payer MEDICAID ==
[~2020-11-19] VITALS: Ht 203.2 cm; Wt 109.3 kg
[~2020-11-19 00:27] MED LIST changes: -AMLO-212 PO; -FERR325T23 PO; +HYDR-4209 PO; -INSU100V7 SQ; +METF-440 PO; -PANT40TA2 PO; -RIFA550T PO; -RISP1TAB7 PO
--- NOTE | 2020-11-19 00:54 | NUR ---
DAUGHTER, SEBASTIAN: [phone] , RHONDA: [phone]
[2020-11-19 00:55] LABS: BASOPHILS % (AUTO) 0.5 % (0.0-2.0); EOSINOPHILS % (AUTO) 5.2 % (0.0-6.0); HEMATOCRIT 24 % (39-51); HEMOGLOBIN 8.3 g/dL (13.5-17.5); LYMPHOCYTES # (AUTO) 1.9 K/uL (0.8-4.8); LYMPHOCYTES % (AUTO) 21.7 % (20.0-44.0); MEAN CORPUSCULAR HGB CONC 34 g/dl (31.0-36.0); MEAN CORPUSCULAR VOLUME 98 fL (80-96); MONOCYTES # (AUTO) 1.1 K/uL (0.1-1.30); MONOCYTES % (AUTO) 12.8 % (2.0-12.0); NEUTROPHILS # (AUTO) 5.1 K/uL (1.8-8.9); NEUTROPHILS % (AUTO) 59.8 % (43.0-81.0); PLATELET COUNT (AUTO) 182 K/uL (150-450); RED BLOOD CELL COUNT(AUTO) 2.47 MIL/uL (4.5-6.0); WHITE BLOOD COUNT (AUTO) 8.6 K/uL (4.3-11.0)
[2020-11-19 01:16] LABS: CALCIUM, SERUM 7.6 mg/dL (8.5-10.1); CREATININE 3.3 mg/dL (0.6-1.3); POTASSIUM 3.8 mmol/L (3.5-5.1)
--- NOTE | 2020-11-19 01:20 | NUR ---
MRSA SWAB COLLECTED AND SENT TO LAB. PATIENT'S BELONGINGS LIST DONE
[2020-11-19 01:22] LABS: BILIRUBIN,DIRECT 0.2 mg/dL (0.0-0.2); BILIRUBIN,TOTAL 0.6 mg/dL (0.2-1.0); TOTAL PROTEIN, SERUM 6.8 g/dL (6.4-8.2)
[2020-11-19 01:28] LABS: ALBUMIN 1.2 g/dL (3.4-5.0)
--- NOTE | 2020-11-19 01:43 | NUR ---
COVID SWAB TAKEN AND SENT TO LAB.
[2020-11-19] MEDS ORDERED: LACTULOSE 10 G/15 ML UDC (PYXIS) ONE (02:15)
[2020-11-19] MEDS ORDERED: LACTULOSE 10 G/15 ML UDC (PYXIS) PO ONE (02:30)
--- NOTE | 2020-11-19 03:58 | NUR ---
PATIENT TRANSFERRED UNDER ACLS
[2020-11-19 04:00] VITALS: BP 169/80
--- NOTE | 2020-11-19 04:00 | NUR ---
TELE/RN ADMITTING NOTE RECEIVED REPORT FROM COOKER LOADER ELIZABETH. PATIENT ARRIVED TO UNIT VIA GURNEY AND 2 STAFF MEMBERS. PATIENT BEING ADMITTED FOR HIGH AMMONIA LEVEL AND ALTERED MENTAL STATUS. PATIENT IS ALERT AND ORIENTED TO PERSON AND DATE OF . DENIES PAIN AT THIS TIME. PRIMARILY BANGLADESHI SPEAKING BUT UNDERSTANDS VIETNAMESE. CONTINUES ON ROOM AIR WITH NO S/SX OF RESPIRATORY DISTRESS NOTED. IV ACCESS TO RIGHT AC #20G AND LEFT AC #20G BOTH INTACT, PATENT AND SALINE LOCKED. RIGHT CHEST WALL PERMACATH FOR HD INTACT. SKIN CHECK PERFORMED WITH RIGHT CALF ABRASION NOTED. WOUND CONSULT ORDERED. BLE EDEMA NOTED. TELE MONITOR CURRENTLY READING SR 70. PATIENT ORIENTED TO ROOM, CALL LIGHT AND UNIT. CALL LIGHT WITHIN REACH. ASPIRATION, FALL AND SAFETY PRECAUTIONS MAINTAINED. WILL CONTINUE TO MONITOR.
--- NOTE | 2020-11-19 04:30 | NUR ---
TELE/RN NOTE PATIENT WITH INCREASED AGITATION. PATIENT OUT OF BED AND REFUSING TO SIT OR LAY DOWN. PATIENT IS UNSTEADY WITH CONSTANT SUPERVISION NEEDED WHILE UP OOB. ATTEMPTED TO REORIENT PATIENT WITH PATIENT REFUSING TO LISTEN OR SIT DOWN. MULTIPLE PERSONAL DRIVER AND STAFF ATTEMPTED TO ORIENT WITH TUNISIAN SPEAKING RN ASSISTING. PATIENT CONTINUES TO BE CONFUSED AND NON-COMPLIANT. NOTIFIED SPLITTING MACHINE OPERATOR MD ARIZA WITH NEW ORDERS FOR BILATERAL SOFT WRIST RESTRAINTS AND HALDOL 3MG IM X 1 NOW. ORDERS INPUTTED AND CARRIED OUT.
[2020-11-19] MEDS ORDERED: HALOPERIDOL LACTATE INJ 5 MG/ML VIAL IM ONE (04:42)
--- NOTE | 2020-11-19 04:45 | NUR ---
TELE/RN NOTE PATIENT TOLERATED INJECTION WELL. APPLIED BILATERAL WRIST RESTRAINTS. BED ALARM ON AND BED IN LOW POSITION. FREQUENT SAFETY CHECKS MADE. TELE MONITOR ON WITH READING OF SR 78. PATIENT CURRENTLY RESTING IN BED. WILL CONTINUE TO MONITOR.
[2020-11-19 05:30] VITALS: BP 140/71
--- NOTE | 2020-11-19 05:30 | NUR ---
TELE/RN NOTE PATIENTS BP DECREASED TO 140/72. NO S/SX OF SOB OR CHEST PAIN. WILL CONTINUE TO MONITOR.
--- NOTE | 2020-11-19 06:15 | NUR ---
TELE/RN NOTE SPOKE WITH PATIENTS , RHONDA. GAVE UPDATE ON PATIENT REGARDING RESTRAINTS AND PATIENTS SAFETY WITH UNDERSTANDING. STATES SHE WILL BE IN TO VISIT LATER TODAY.
--- NOTE | 2020-11-19 06:45 | NUR ---
TELE/RN CLOSING NOTE PATIENT CURRENTLY SLEEPING IN BED. ALERT AND ORIENTED X 1-2. DENIES PAIN AT THIS TIME. CONTINUES ON ROOM AIR WITH NO S/SX OF RESPIRATORY DISTRESS NOTED. IV ACCESS TO RIGHT AC #20G AND LEFT AC #20G BOTH INTACT, PATENT AND SALINE LOCKED. RIGHT CHEST WALL PERMACATH INTACT. CONTINUES ON BILATERAL SOFT WRIST RESTRAINTS WITH POSITIVE CIRCULATION AND FREQUENT SAFETY CHECKS. TELE MONITOR READING SR 81. CALL LIGHT WITHIN REACH. ASPIRATION, FALL AND SAFETY PRECAUTIONS MAINTAINED. WILL CONTINUE TO MONITOR.
[2020-11-19] MEDS: BLOOD SUGAR DIAGNOSTIC 1 EACH STRIP IN SCH ×2 (06:55→11:32)
[2020-11-19] MEDS ORDERED: ONDANSETRON HCL/PF 4 MG/2 ML VIAL IVP PRN (07:00)
[2020-11-19] MEDS ORDERED: DEXTROSE 50%-WATER 50 ML DISP.SYRIN IV PRN ×2 (07:00→11:30)
[2020-11-19] MEDS ORDERED: INSULIN REGULAR, HUMAN 100 UNIT/ML 3 ML VIAL SQ PRN (07:00)
[2020-11-19 07:30] LABS: BASOPHILS # (AUTO) 0.1 K/uL (0.0-0.2); BASOPHILS % (AUTO) 1.3 % (0.0-2.0); EOSINOPHILS % (AUTO) 5.1 % (0.0-6.0); HEMATOCRIT 25 % (39-51); HEMOGLOBIN 8.4 g/dL (13.5-17.5); LYMPHOCYTES # (AUTO) 1.6 K/uL (0.8-4.8); LYMPHOCYTES % (AUTO) 19.8 % (20.0-44.0); MEAN CORPUSCULAR HGB CONC 34 g/dl (31.0-36.0); MEAN CORPUSCULAR VOLUME 98 fL (80-96); MONOCYTES % (AUTO) 12.6 % (2.0-12.0); NEUTROPHILS # (AUTO) 5.1 K/uL (1.8-8.9); NEUTROPHILS % (AUTO) 61.2 % (43.0-81.0); PLATELET COUNT (AUTO) 174 K/uL (150-450); RED BLOOD CELL COUNT(AUTO) 2.51 MIL/uL (4.5-6.0); WHITE BLOOD COUNT (AUTO) 8.3 K/uL (4.3-11.0)
--- NOTE | 2020-11-19 07:38 | NUR ---
ADMINISTRATIVE SECRETARY OPENING NOTES RECEIVED PATIENT IN BED, AWAKE, A/O X1, CONFUSED. DENIES PAIN AT THIS TIME. CONTINUES ON ROOM AIR WITH NO S/SX OF RESPIRATORY DISTRESS NOTED. IV ACCESS TO RIGHT AC #20G AND LEFT AC #20G BOTH INTACT, PATENT AND SALINE LOCKED. RIGHT CHEST WALL PERMA-CATH INTACT. CONTINUES ON BILATERAL SOFT WRIST RESTRAINTS WITH POSITIVE CIRCULATION AND FREQUENT SAFETY CHECKS. CURRENT TELE MONITOR READING SR 81. CALL LIGHT WITHIN REACH. ASPIRATION, FALL AND SAFETY PRECAUTIONS MAINTAINED. WILL CONTINUE TO MONITOR PATIENT.
[2020-11-19 07:47] LABS: BILIRUBIN,TOTAL 0.7 mg/dL (0.2-1.0); CALCIUM, SERUM 7.9 mg/dL (8.5-10.1); CREATININE 3.4 mg/dL (0.6-1.3); MAGNESIUM 1.8 mg/dL (1.8-2.4); POTASSIUM 3.8 mmol/L (3.5-5.1); TOTAL PROTEIN, SERUM 6.6 g/dL (6.4-8.2)
[2020-11-19 07:52] LABS: ALBUMIN 1.1 g/dL (3.4-5.0)
[2020-11-19 08:00] VITALS: BP 118/92
--- NOTE | 2020-11-19 08:37 | NUR ---
SEED PACKER NOTES LAB CALLED WITH CRITICAL ALBUMIN OF 1.1 MADE AWARE
[2020-11-19] MEDS: PANTOPRAZOLE 40 MG TABLET.DR PO SCH (08:46)
[2020-11-19] MEDS: PROPRANOLOL HCL 40 MG TABLET PO SCH ×2 (08:47→17:00)
[2020-11-19] MEDS: IV 1/2NS 1000 ML 1,000 ML IV PRN (08:54)
[2020-11-19 09:15] LABS: THYROID STIMULATING HORMONE 7.58 uIU/mL (0.358-3.74)
[2020-11-19] MEDS ORDERED: LACTULOSE UDC 200 G in SODIUM CHLORIDE IRRIG SOLUTION 400 ML IR SCH (11:00)
[2020-11-19] MEDS ORDERED: *INSULIN REGULAR(HUMULIN R)HUM 100 UNIT/ML VIAL SQ PRN (11:30)
[2020-11-19] MEDS: BLOOD SUGAR DIAGNOSTIC 1 EACH STRIP VI SCH ×3 (11:41→21:58)
[2020-11-19 12:00] VITALS: BP 118/92
[2020-11-19] MEDS ORDERED: LACTULOSE UDC 200 G in SODIUM CHLORIDE IRRIG SOLUTION 400 ML IR ONE (12:00)
[2020-11-19 16:46] VITALS: BP 136/81
--- NOTE | 2020-11-19 17:09 | NUR ---
GOLD ASSAYER NOTES 1700 PROPRANOLOL NOT ADMINISTERED. PATIENT IS SCHEDULED FOR HEMODIALYSIS THIS PM. CONSENT OBTAINED FROM OVER THE PHONE WITH CHARGE NURSE WITNESS.
[2020-11-19] MEDS: LACTULOSE 10 G/15 ML UDC (PYXIS) PO SCH (17:13)
--- NOTE | 2020-11-19 18:50 | NUR ---
GRAPHIC DESIGN TEACHER CLOSING NOTES PATIENT REMAINS IN BED, AWAKE, A/O X1, CONFUSED. DENIES PAIN DURING SHIFT. CONTINUES ON ROOM AIR WITH NO S/SX OF RESPIRATORY DISTRESS NOTED. IV ACCESS TO RIGHT AC #20G AND LEFT AC #20G BOTH INTACT, PATENT AND INTACT INFUSING 1/2NS @70 MLS/HR. RIGHT CHEST WALL PERMA-CATH INTACT. CONTINUES ON BILATERAL SOFT WRIST RESTRAINTS WITH POSITIVE CIRCULATION AND FREQUENT SAFETY CHECKS. CURRENT TELE MONITOR READING SR 75. CALL LIGHT WITHIN REACH. ALL NEEDS ATTENDED DURING THE DAY. ASPIRATION, FALL AND SAFETY PRECAUTIONS MAINTAINED. WILL ENDORSE TO CONVENTIONS RESERVATIONIST NURSE.
--- NOTE | 2020-11-19 19:30 | NUR ---
ultrasound tech Opening Notes Patient was last seen awake in bed resting. Patient's alert and oriented x2. Patient's stable on room air. Patient's connected to a tele monitor showing sinus rhythm with a HR of 74. Patient has IV accesses on his RAC and LAC gauges #20. Patient's in no acute distress at this time. Safety measures in place: Bed locked, bed alarm on, side rails up x3, and call light within reach of the patient. Will continue to monitor the patient.
[2020-11-19 20:00] VITALS: BP 150/84
--- NOTE | 2020-11-19 22:00 | NUR ---
physical fitness teacher Notes Patient's blood sugar at 2155 was 142mg/dL. Will give 2 units of insulin & monitor the patient.
--- NOTE | 2020-11-19 23:50 | NUR ---
blood bank order control clerk Notes Patient finished HD. Output= 2,700mL.
[2020-11-20] VITALS: BP 156/79
[2020-11-20] MEDS: IV 1/2NS 1000 ML 1,000 ML IV PRN (03:08)
[2020-11-20 04:00] VITALS: BP 161/80
[2020-11-20] MEDS ORDERED: HYDROCODONE/APAP 5/325MG TABLET PO PRN (04:00)
--- NOTE | 2020-11-20 04:04 | NUR ---
stage technician Notes Patient c/o 10 pain. Patient was given 1 tablet of [place] (5mg/325mg). Will continue to monitor the patient.
[2020-11-20] MEDS ORDERED: hydrALAZINE HCL IV 20 MG VIAL IV PRN (05:00)
[2020-11-20 06:13] LABS: BASOPHILS # (AUTO) 0.1 K/uL (0.0-0.2); BASOPHILS % (AUTO) 1.2 % (0.0-2.0); HEMATOCRIT 23 % (39-51); HEMOGLOBIN 7.8 g/dL (13.5-17.5); LYMPHOCYTES # (AUTO) 1.4 K/uL (0.8-4.8); LYMPHOCYTES % (AUTO) 20.7 % (20.0-44.0); MEAN CORPUSCULAR HGB CONC 35 g/dl (31.0-36.0); MEAN CORPUSCULAR VOLUME 98 fL (80-96); MONOCYTES # (AUTO) 0.8 K/uL (0.1-1.30); MONOCYTES % (AUTO) 11.9 % (2.0-12.0); NEUTROPHILS # (AUTO) 4.2 K/uL (1.8-8.9); NEUTROPHILS % (AUTO) 62.2 % (43.0-81.0); PLATELET COUNT (AUTO) 152 K/uL (150-450); RED BLOOD CELL COUNT(AUTO) 2.33 MIL/uL (4.5-6.0); WHITE BLOOD COUNT (AUTO) 6.7 K/uL (4.3-11.0)
[2020-11-20 06:52] LABS: BILIRUBIN,TOTAL 0.8 mg/dL (0.2-1.0); CALCIUM, SERUM 7.6 mg/dL (8.5-10.1); CREATININE 2.8 mg/dL (0.6-1.3); POTASSIUM 3.4 mmol/L (3.5-5.1)
[2020-11-20] MEDS: INSULIN REGULAR, HUMAN 100 UNIT/ML 3 ML VIAL SQ PRN ×2 (07:30→21:37)
[2020-11-20] MEDS: BLOOD SUGAR DIAGNOSTIC 1 EACH STRIP VI SCH ×4 (07:31→21:28)
[2020-11-20 08:00] VITALS: BP 164/82
[2020-11-20] MEDS: PANTOPRAZOLE 40 MG TABLET.DR PO SCH (08:05)
[2020-11-20] MEDS: LACTULOSE 10 G/15 ML UDC (PYXIS) PO SCH ×2 (08:06→16:34)
[2020-11-20] MEDS: PROPRANOLOL HCL 40 MG TABLET PO SCH ×2 (08:14→16:34)
[2020-11-20 11:57] VITALS: BP 168/87
[2020-11-20] MEDS ORDERED: POTASSIUM CHLORIDE 20 MEQ TAB.PRT.SR PO ONE (14:00)
[2020-11-20 16:00] VITALS: BP 152/84
--- NOTE | 2020-11-20 19:30 | NUR ---
FURNITURE ASSEMBLER NOTES RECEIVED LYING COMFORTABLY ON BED,BREATHING EASY,NO SOB,IVF 1/2 NS AT 70ML/HR RATE INFUSING WELL ON LEFT AC SALINE LOCK.RESTRAINTS OF THIS TIME.CALL LIGHT IN REACH,NEEDS ANTICIPATED.
[2020-11-20 20:00] VITALS: BP 157/81
--- NOTE | 2020-11-20 22:15 | NUR ---
PRODUCT SUPPORT ANALYST NOTES ACCU-CHECK BLOOD SUGAR CHECK 134,COVERED WITH HUMULIN R 2 UNITS PER SLIDING SCALE.IVF IN PROGRESS.
--- NOTE | 2020-11-20 22:30 | NUR ---
ACCORDION REPAIRER NOTES REFUSED IV FLUIDS,HE RIPPED OFF HIS IV TUBINGS
[2020-11-21] VITALS: BP 149/85
--- NOTE | 2020-11-21 02:23 | NUR ---
SPEECH WRITER NOTES REFUSED TELE MONITOR THIS TIME.HE RIPPED OFF TELE WIRING EARLIER,LAYOUT ARTIST AIRTO MADE AWARE AND PUT TELE ON STANDBY.CHARGE NURSE SOWMYA MADE AWARE.
[2020-11-21 04:00] VITALS: BP 137/80
--- NOTE | 2020-11-21 04:00 | NUR ---
UNBUNDLER NOTES FOUND OLD DRESSING ON THE FLOOR, AND IT WAS FROM THE DOUBLE LUMEN RIGHT UPPER CHEST HD CATH.REDRESS SITE ASEPTICALLY.
--- NOTE | 2020-11-21 05:45 | NUR ---
DICER MACHINE OPERATOR NOTES ACCU-CHECK BLOOD SUGAR CHECK 108,NO INSULIN COVERAGE.
[2020-11-21] MEDS: BLOOD SUGAR DIAGNOSTIC 1 EACH STRIP VI SCH ×2 (05:56→12:20)
--- NOTE | 2020-11-21 06:23 | NUR ---
SAS STATISTICAL PROGRAMMER NOTES SLEPT WITH INTERVALS,NON COMPLIANT WITH CARE,POSSIBLE HD TODAY.CALL LIGHT IN REACH,NEEDS ATTENDED,WILL ENDORSE TO DAY NURSE FOR WENDY.
[2020-11-21 06:38] LABS: BASOPHILS # (AUTO) 0.1 K/uL (0.0-0.2); BASOPHILS % (AUTO) 1.2 % (0.0-2.0); EOSINOPHILS % (AUTO) 5.5 % (0.0-6.0); HEMATOCRIT 26 % (39-51); HEMOGLOBIN 8.9 g/dL (13.5-17.5); LYMPHOCYTES # (AUTO) 1.8 K/uL (0.8-4.8); LYMPHOCYTES % (AUTO) 26.1 % (20.0-44.0); MEAN CORPUSCULAR HGB CONC 34 g/dl (31.0-36.0); MEAN CORPUSCULAR VOLUME 99 fL (80-96); MONOCYTES # (AUTO) 0.9 K/uL (0.1-1.30); MONOCYTES % (AUTO) 13.1 % (2.0-12.0); NEUTROPHILS # (AUTO) 3.6 K/uL (1.8-8.9); NEUTROPHILS % (AUTO) 54.1 % (43.0-81.0); PLATELET COUNT (AUTO) 153 K/uL (150-450); RED BLOOD CELL COUNT(AUTO) 2.63 MIL/uL (4.5-6.0); WHITE BLOOD COUNT (AUTO) 6.7 K/uL (4.3-11.0)
[2020-11-21 07:06] LABS: CALCIUM, SERUM 7.8 mg/dL (8.5-10.1); CREATININE 3.1 mg/dL (0.6-1.3); POTASSIUM 3.4 mmol/L (3.5-5.1)
[2020-11-21 08:00] VITALS: BP 153/79
[2020-11-21 09:00] VITALS: BP 120/60
[2020-11-21] MEDS: PROPRANOLOL HCL 40 MG TABLET PO SCH (09:00)
[2020-11-21] MEDS: LACTULOSE 10 G/15 ML UDC (PYXIS) PO SCH (10:10)
[2020-11-21] MEDS: PANTOPRAZOLE 40 MG TABLET.DR PO SCH (10:10)
[2020-11-21] MEDS ORDERED: PANT40TA2 PO (12:33)
[2020-11-21] MEDS ORDERED: LACT10SO58 PO (12:33)
--- NOTE | 2020-11-21 12:45 | NUR ---
MS/RN S/B Dr Hamm Seen by Dr Hamm - patient to be discharged to home today.
[2020-11-21] MEDS ORDERED: POTASSIUM CHLORIDE 20 MEQ TAB.PRT.SR PO ONE (13:00)
--- NOTE | 2020-11-21 13:11 | NUR ---
MS/care provider Patient discharged to home in stable condition. All personal belongings accounted for and signed off on belongings list. Heplock removed, pressure dressing applied. Name bands and tele monitor removed. Exit care prepared and signed by , provided with copies, along with copy of medical record. Prescription given to patient for portonix and lactulose. Instructed to take lactulose twice a day, one in the morning and again in the evening. Made aware that this medication would may cause frequent and loose bowel movements, but it was still important to continue taking to help decrease the ammonia level and therefore help with decreasing confusion. stated understanding. Instructed to make follow up appointment with primary care doctor, GI and manual winder for 7-10 days, stated understanding. Escorted to main lobby my RN.
[2020-11-21] MEDS ORDERED: EPOETIN ALFA-EPBX 10,000 UNIT/ML VIAL SQ SCH (15:00)
== END 2020-11-21 13:24 | disposition home or self-care (01) | DRG 280 ==
LOC: ER 00:27 → TELE 03:30
PROVIDERS: ADMIT Internal Medicine; ATTEND Internal Medicine
PROC: 5A1D70Z Performance of Urinary Filtration, Intermittent, Less than 6 Hours Per Day (ICD-10-PCS; principal; 2020-11-19)
DX: K70.40 Alcoholic hepatic failure without coma (principal); K70.30 Alcoholic cirrhosis of liver without ascites; N17.0 Acute kidney failure with tubular necrosis; D63.1 Anemia in chronic kidney disease; E88.09 Other disorders of plasma-protein metabolism, not elsewhere classified; E83.9 Disorder of mineral metabolism, unspecified; E11.22 Type 2 diabetes mellitus with diabetic chronic kidney disease; Z20.822 Contact with and (suspected) exposure to COVID-19; E78.5 Hyperlipidemia, unspecified; F17.210 Nicotine dependence, cigarettes, uncomplicated; J44.9 Chronic obstructive pulmonary disease, unspecified; K80.20 Calculus of gallbladder without cholecystitis without obstruction; Z91.19 Patient's noncompliance with other medical treatment and regimen; I12.9 Hypertensive chronic kidney disease with stage 1 through stage 4 chronic kidney disease, or unspecified chronic kidney disease; Z79.4 Long term (current) use of insulin; B19.20 Unspecified viral hepatitis C without hepatic coma; Z99.2 Dependence on renal dialysis; N18.9 Chronic kidney disease, unspecified
CPT/HCPCS: 36415; 71045-TC; 80048-TC; 80053-TC; 80076-TC; 82140-TC; 82962-TC; 83540-TC; 83605-TC; 83735-TC; 84100-TC; 84443-TC; 85025-TC; 87081-TC; 90935-TC; 93926-TC; A4217; A6253; C9803; G0378; J0360; J1630; J1815; J3490

== ENCOUNTER 2020-12-02 10:41 | Emergency (ER) | payer MEDICAID ==
[~2020-12-02] VITALS: Ht 175.3 cm; Wt 111.6 kg
[~2020-12-02 10:41] MED LIST changes: -LACT10SO3 PO; +LACT10SO58 PO; +PANT40TA2 PO
--- NOTE | 2020-12-02 10:41 | NUR ---
TO ER BED 4, FROM HOME C/O ALTERED MENTAL STATUS, RESPONSE TO NAME AND PAIN STIMULI, ATTACHED TO MONITOR.
--- NOTE | 2020-12-02 10:57 | NUR ---
SALINE LOCK ESTABLISHED, BLOOD DRAWN AND PICKED UP BY LAB
--- NOTE | 2020-12-02 11:01 | NUR ---
MANAGER FOOD AT BEDSIDE
[2020-12-02] MEDS ORDERED: PARO20TA7 PO (11:06)
[2020-12-02] MEDS ORDERED: ALPR0.5T8 PO (11:06)
[2020-12-02] MEDS ORDERED: OMEP20TA5 PO (11:06)
[2020-12-02] MEDS ORDERED: AMLO-212 PO (11:06)
[2020-12-02] MEDS ORDERED: RISP0.2515 PO (11:06)
--- NOTE | 2020-12-02 11:07 | NUR ---
MOVE SHEET SUBMITTED AND CALLED FOR TELE BED.
[2020-12-02] MEDS ORDERED: PANT40TA2 PO (11:10)
[2020-12-02] MEDS ORDERED: METF-440 PO (11:10)
[2020-12-02 11:13] LABS: BASOPHILS # (AUTO) 0.1 K/uL (0.0-0.2); BASOPHILS % (AUTO) 1.4 % (0.0-2.0); EOSINOPHILS % (AUTO) 3.9 % (0.0-6.0); HEMATOCRIT 26 % (39-51); HEMOGLOBIN 8.9 g/dL (13.5-17.5); LYMPHOCYTES # (AUTO) 1.8 K/uL (0.8-4.8); LYMPHOCYTES % (AUTO) 22.5 % (20.0-44.0); MEAN CORPUSCULAR HGB CONC 34 g/dl (31.0-36.0); MEAN CORPUSCULAR VOLUME 98 fL (80-96); MONOCYTES # (AUTO) 1.1 K/uL (0.1-1.30); MONOCYTES % (AUTO) 13.1 % (2.0-12.0); NEUTROPHILS # (AUTO) 4.8 K/uL (1.8-8.9); NEUTROPHILS % (AUTO) 59.1 % (43.0-81.0); PLATELET COUNT (AUTO) 178 K/uL (150-450); RED BLOOD CELL COUNT(AUTO) 2.68 MIL/uL (4.5-6.0); WHITE BLOOD COUNT (AUTO) 8.1 K/uL (4.3-11.0)
[2020-12-02 11:14] LABS: CALCIUM, SERUM 8.4 mg/dL (8.5-10.1); CREATININE 3.1 mg/dL (0.6-1.3); POTASSIUM 3.6 mmol/L (3.5-5.1)
[2020-12-02 11:20] LABS: BILIRUBIN,DIRECT 0.2 mg/dL (0.0-0.2); BILIRUBIN,TOTAL 0.6 mg/dL (0.2-1.0); TOTAL PROTEIN, SERUM 6.6 g/dL (6.4-8.2)
--- NOTE | 2020-12-02 11:20 | NUR ---
COVID SWAB DONE AND SENT TO LAB
[2020-12-02 12:02] LABS: ALBUMIN 1.1 g/dL (3.4-5.0)
--- NOTE | 2020-12-02 12:20 | NUR ---
CALLED , RHONDA, PER DR TRIMBLE ADVICE, WANT PT TO BE ADMITTED. INFORMED
--- NOTE | 2020-12-02 12:32 | NUR ---
CARLOS FROM [facility] CALLED FAX NUMBER IS [phone]
--- NOTE | 2020-12-02 13:06 | NUR ---
CARLOS FROM [facility] INFORMED THAT PT NEEDS TO BE PLACED IN SNF.
--- NOTE | 2020-12-02 13:07 | NUR ---
SPOKE TO RHONDA, WHO JUST HAD A CONVERSATION WITH DR COOLEY INFORMING HER THAT PT WILL GO TO REHAB. WILL CALL ONCE WE HAVE MORE INFORMATION
[2020-12-02] MEDS ORDERED: AMLO10TA4 PO ×2 (13:57→13:58)
--- NOTE | 2020-12-02 13:59 | NUR ---
CARLOS FROM [facility] FAXED CLINICALS FOR PT TO GO TO SNF
[2020-12-02] MEDS ORDERED: LORAZEPAM INJ 2 MG/ML VIAL ONE (14:10)
[2020-12-02] MEDS ORDERED: LORAZEPAM 0.5 MG TABLET PO ONE (14:30)
[2020-12-02] MEDS ORDERED: LORAZEPAM INJ 2 MG/ML VIAL IV ONE (15:30)
--- NOTE | 2020-12-02 16:28 | NUR ---
GENO CALLED REGARDING PT'S BED. NOTIFIED THAT THE PT WILL BE MOVED TO [address] [place] [address]. NUMBER FOR REPORT IS [phone]. PT'S BED NUMBER IS [id number] AND ADMITTING DOCTOR IS DR. GUTIERREZ. ALSO NOTIFIED THAT [facility] WILL ARRIVE AT 19:30 TO TRANSPORT PATIENT.
--- NOTE | 2020-12-02 16:40 | NUR ---
REPORT GIVEN TO DEONTE OF [facility]
--- NOTE | 2020-12-02 19:12 | NUR ---
REPORT GIVEN TO RONEN JARA FOR WENDY
--- NOTE | 2020-12-02 19:35 | NUR ---
EMT ARRIVED AT UNIT, PT BP 167/94, DR BARBA WAS NOTIFIED AND ORDER RECEIVED FOR AMLODIPINE 5 MG PO ONCE.
[2020-12-02] MEDS ORDERED: AMLODIPINE BESYLATE 5 MG TABLET ONE (19:45)
[2020-12-02] MEDS ORDERED: AMLODIPINE BESYLATE 5 MG TABLET PO ONE (20:00)
--- NOTE | 2020-12-02 20:00 | NUR ---
PT DISCHARGED TO [facility] VIA GURNEY ACCOMPANIED BY 2 EMT PERSONNEL. REPORT GIVEN TO LA SALDANA. LATEST BP 144/93.
--- NOTE | 2020-12-02 20:00 | NUR ---
PT TRANSFERRED TO [facility] VIA RBANGOR ACCOMPANIED BY 2 EMT STAFF, IN STABLE CONDITION. LATEST BP 144/92
[2020-12-02 20:01] VITALS: BP 167/94
== END 2020-12-02 20:00 ==
LOC: ER 10:46
DX: G93.40 Encephalopathy, unspecified (principal); R53.1 Weakness; E11.22 Type 2 diabetes mellitus with diabetic chronic kidney disease; I12.0 Hypertensive chronic kidney disease with stage 5 chronic kidney disease or end stage renal disease; N18.6 End stage renal disease; Z99.2 Dependence on renal dialysis; Z79.4 Long term (current) use of insulin; E78.5 Hyperlipidemia, unspecified; E66.01 Morbid (severe) obesity due to excess calories; Z68.36 Body mass index [BMI] 36.0-36.9, adult; K74.60 Unspecified cirrhosis of liver; B19.20 Unspecified viral hepatitis C without hepatic coma; Z20.822 Contact with and (suspected) exposure to COVID-19; F17.200 Nicotine dependence, unspecified, uncomplicated; D64.9 Anemia, unspecified; R94.31 Abnormal electrocardiogram [ECG] [EKG]
CPT/HCPCS: 36415; 71045; 80048; 80076; 82140; 85025; 87081; 87426; 93005; 96374; 99285; C9803; J2060

== ENCOUNTER 2020-12-02 22:02 | Inpatient (IN) | payer MEDICAID ==
[~2020-12-02] VITALS: Ht 175.3 cm; Wt 110.7 kg
[~2020-12-02 22:02] MED LIST changes: +ALPR0.5T8 PO; +AMLO-212 PO; +AMLO10TA4 PO; +OMEP20TA5 PO; +PARO20TA7 PO; +RISP0.2515 PO
--- NOTE | 2020-12-02 22:14 | NUR ---
BED 304-2 PER RN MICROMATIC HONE OPERATOR.
--- NOTE | 2020-12-02 22:17 | NUR ---
PT PROVIDED WITH WARM BLANKETS.
--- NOTE | 2020-12-02 22:25 | NUR ---
SHADIA FROM [facility], PT WAS SUPPOSE TO BE ADMITTED THERE BUT FACILITY DID NOT ACCEPT THE PT UPON ARRIVAL THERE. PT WAS HERE AT THE HOSPITAL FOR GENERALIZED WEAKNESS AND GOING TO A SNF FOR CONTINUATION OF CARE. MD WAS AT THE BEDSIDE FOR EVAL.
--- NOTE | 2020-12-02 23:08 | NUR ---
THE PATIENT WILL BE UNDER PUI; HE IS NOT VACCINATED FOR COVID PER RECORDS, DESPITE NEGATIVE COVID 19 RESULTS
--- NOTE | 2020-12-03 05:49 | NUR ---
PT PROVIDED WITH WATER.
--- NOTE | 2020-12-03 07:34 | NUR ---
The patient in ER bed#12. Alert x1. In room air and denies SOB. Respiration regular and unlabored. The patient is in no apparent distress. Will continue to monitor the patient.
[2020-12-03] MEDS ORDERED: HYDROCODONE/APAP 5/325MG TABLET PO PRN (11:30)
[2020-12-03] MEDS ORDERED: METFORMIN 500 MG TABLET PO SCH (11:30)
--- NOTE | 2020-12-03 12:09 | NUR ---
METFORMIN 1000 MG QD DISCONTINUED PER DR COOLEY.
--- NOTE | 2020-12-03 12:17 | NUR ---
[facility] DIET PER DR COOLEY. READ BACK, VERIFIED. NOTED AND CARRIED OUT.
[2020-12-03] MEDS ORDERED: ALPRAZOLAM 0.5 MG TABLET ONE (12:22)
[2020-12-03] MEDS ORDERED: AMLODIPINE BESYLATE 10 MG TABLET ONE (12:22)
[2020-12-03] MEDS ORDERED: PANTOPRAZOLE 40 MG TABLET.DR PO ONE (12:23)
[2020-12-03] MEDS ORDERED: DEXTROSE 50%-WATER 50 ML DISP.SYRIN IV PRN (12:30)
[2020-12-03] MEDS ORDERED: INSULIN REGULAR, HUMAN 100 UNIT/ML 10 ML VIAL ONE (12:31)
[2020-12-03] MEDS: PANTOPRAZOLE 40 MG TABLET.DR PO SCH (12:32)
[2020-12-03] MEDS: BLOOD SUGAR DIAGNOSTIC 1 EACH STRIP VI SCH ×3 (12:34→22:59)
[2020-12-03] MEDS: INSULIN REGULAR, HUMAN 100 UNIT/ML 3 ML VIAL SQ PRN ×2 (12:34→17:53)
--- NOTE | 2020-12-03 12:42 | NUR ---
CONSULT WITH DR HANLEY FOR DIALYSIS PER DR COOLEY. THE ORDER IS READ BACK, VERIFIED. NOTED AND CARRIED OUT.
[2020-12-03] MEDS: risperiDONE 0.25 MG TABLET PO SCH ×2 (13:00→18:09)
[2020-12-03] MEDS: PAROXETINE HCL 20 MG TABLET PO SCH (13:11)
[2020-12-03] MEDS: FUROSEMIDE 40 MG TABLET PO SCH (13:11)
[2020-12-03] MEDS: AMLODIPINE BESYLATE 10 MG TABLET PO SCH (13:11)
[2020-12-03 13:15] LABS: BASOPHILS # (AUTO) 0.1 K/uL (0.0-0.2); BASOPHILS % (AUTO) 1.3 % (0.0-2.0); EOSINOPHILS % (AUTO) 6.1 % (0.0-6.0); HEMATOCRIT 31 % (39-51); HEMOGLOBIN 10.5 g/dL (13.5-17.5); LYMPHOCYTES # (AUTO) 1.7 K/uL (0.8-4.8); LYMPHOCYTES % (AUTO) 20.5 % (20.0-44.0); MEAN CORPUSCULAR HGB CONC 34 g/dl (31.0-36.0); MEAN CORPUSCULAR VOLUME 98 fL (80-96); MONOCYTES # (AUTO) 0.7 K/uL (0.1-1.30); MONOCYTES % (AUTO) 8.9 % (2.0-12.0); NEUTROPHILS # (AUTO) 5.1 K/uL (1.8-8.9); NEUTROPHILS % (AUTO) 63.2 % (43.0-81.0); PLATELET COUNT (AUTO) 215 K/uL (150-450); WHITE BLOOD COUNT (AUTO) 8.1 K/uL (4.3-11.0)
[2020-12-03 13:35] LABS: BILIRUBIN,TOTAL 0.7 mg/dL (0.2-1.0); CALCIUM, SERUM 8.5 mg/dL (8.5-10.1); CREATININE 3.1 mg/dL (0.6-1.3); POTASSIUM 3.4 mmol/L (3.5-5.1); TOTAL PROTEIN, SERUM 7.4 g/dL (6.4-8.2)
[2020-12-03 13:38] LABS: ALBUMIN 1.2 g/dL (3.4-5.0)
--- NOTE | 2020-12-03 16:56 | NUR ---
THE PATIENT IS SLEEPING IN BED. EASILY RESPONSIVE TO VERBAL STIMULI. IN NO APPARENT DISTRESS. RESPIRATION REGULAR AND UNLABORED. WILL CONTINUE TO MONITOR THE PATIENT.
--- NOTE | 2020-12-03 17:43 | NUR ---
COVID SWAB DONE AND SENT TO THE LAB.
--- NOTE | 2020-12-03 17:48 | NUR ---
REPORT GIVEN TO NURSE ZEPEDA FROM [facility]
--- NOTE | 2020-12-03 17:48 | NUR ---
ROOM [facility]
[2020-12-03] MEDS ORDERED: LACTULOSE 10 G/15 ML UDC (PYXIS) ONE (17:57)
[2020-12-03] MEDS ORDERED: risperiDONE 0.25 MG TABLET PO ONE (17:57)
[2020-12-03] MEDS: LACTULOSE 10 G/15 ML UDC (PYXIS) PO SCH (18:09)
[2020-12-03] MEDS: PROPRANOLOL HCL 10 MG TABLET PO SCH (18:09)
--- NOTE | 2020-12-03 18:20 | NUR ---
RN NOTE PATIENT RECEIVED FROM ER VIA GURNEY, AMBULATED TO THE BATHROOM WITH MINIMAL ASSIST, VTS DONE, WILL CONTINUE TO MONITOR PATIENT.
--- NOTE | 2020-12-03 18:23 | NUR ---
THE PATIENT IS TRANSFERED TO ASSIGNED ROOM IN STABLE CONDITION AND PER POLICY.
--- NOTE | 2020-12-03 18:37 | NUR ---
RECEIVED FROM ER VIA STRETCHER WILL ENDORSED TO NIGHT RN FOR CONTINUITY OF CARE/ADMISSION.
[2020-12-03 18:51] VITALS: BP 158/91
--- NOTE | 2020-12-03 19:30 | NUR ---
MS RN NOTE PT ADMITTED FROM ER WITH THE DX OF HEPATIC ENCEPHALOPATHY. A/O X 4, NO SOB NO DISTRESS OR DISCOMFORT NOTED. PT REMAIN IN ISOLATION FOR COVID SUSPECTED. NO FEVER NO COUGHING NOTED. RCW WITH HD CATH. RFA SL #20G INTACT AND PATENT. SKIN ASSESSMENT DONE AND PICTURE TAKEN AND PLACE THEM IN THE CHART. ORIENTED THE PT TO HIS ROOM. SIDE RAILS UP X2 AND CALL LIGHT WITHIN REACH. VSS. CONTINUE TO MONITOR HIM.
[2020-12-03 20:00] VITALS: BP 144/85
[2020-12-03] MEDS: *INSULIN REGULAR(HUMULIN R)HUM 100 UNIT/ML VIAL SQ PRN (23:00)
[2020-12-04 04:00] VITALS: BP 151/84
--- NOTE | 2020-12-04 06:22 | NUR ---
MS RN NOTE PT IN BED ASLEEP, NO DISTRESS OR DISCOMFORT NOTED. NO S/S OF PAIN NOTED. ALL NEEDS ATTENDED. SIDE RAILS UP X 2 AND CALL LIGHT WITHIN REACH. WILL ENDORSE TO DAY SHIFT NURSE FOR CONTINUE TO CARE.
--- NOTE | 2020-12-04 07:39 | NUR ---
RN OPENING NOTE Pt is Awake, A/O X 2-3, verbally responsive, No SOB, No respiratory distress, denies any pain or discomfort states he is feeling well. Expecting HD Tx today. Safety precautions implemented, bed locked in lowest position, call light within reach.
[2020-12-04] MEDS: LACTULOSE 10 G/15 ML UDC (PYXIS) PO SCH ×3 (08:07→17:00)
[2020-12-04] MEDS: BLOOD SUGAR DIAGNOSTIC 1 EACH STRIP VI SCH ×4 (08:07→22:02)
[2020-12-04] MEDS: FUROSEMIDE 40 MG TABLET PO SCH (08:09)
[2020-12-04] MEDS: PANTOPRAZOLE 40 MG TABLET.DR PO SCH (08:10)
[2020-12-04] MEDS: risperiDONE 0.25 MG TABLET PO SCH ×3 (08:11→16:18)
[2020-12-04] MEDS: PAROXETINE HCL 20 MG TABLET PO SCH (08:11)
[2020-12-04] MEDS: PROPRANOLOL HCL 10 MG TABLET PO SCH ×2 (08:14→16:18)
[2020-12-04] MEDS: AMLODIPINE BESYLATE 10 MG TABLET PO SCH (08:15)
[2020-12-04] MEDS: INSULIN REGULAR, HUMAN 100 UNIT/ML 3 ML VIAL SQ PRN ×2 (09:03→13:29)
[2020-12-04 12:00] VITALS: BP 144/80
[2020-12-04] MEDS: ALPRAZOLAM 0.5 MG TABLET PO PRN (17:36)
--- NOTE | 2020-12-04 18:59 | NUR ---
RN CLOSING NOTE Pt is A/O X 3, no respiratory distress, no SOB, on room air. RFA IV site clean patent, flushed. HD done today with 2Liters of output. Refused lactulose, at bedside, explained importance continues to decline. Ambulatory with supervision only. Safety precautions implemented, bed locked in lowest position, call light within reach. Patient for D/C to SNF today, spoke with RN gave pertinent report, per patient refuses to go back to SNF, spoke with -she states she is +covid and patient can not go back home. Administered xanax for anxiety with relief. Will endorse accordingly. B/S [id number] per insulin protocol B/S [id number] covered per insulin protocol B/S [id number] no coverage.
--- NOTE | 2020-12-04 19:00 | NUR ---
RECEIVED PATIENT IN BED, AO X 2, FRENCH SPEAKING BUT UNDERSTANDS BASIC FRISIAN AND ABLE TO TRANSLATE OVER THE PHONE IF NEEDED, IN NO S/SX OF ACUTE DISTRESS AT THIS TIME, BREATHING EVEN AND UNLABORED, SATURATION AT 96% ON ROOM AIR, HR IS 66. NOTED IV SITE AT RFA 20G, PATENT AND FLUSHING WELL, NO S/S OF INFECTION OR INFILTRATION. SAFETY MEASURES IMPLEMENTED. PATIENT BED ALARM IS ON. HEAD OF BED ELEVATED. BED IS LOCKED, IN LOWEST POSITION AND SIDE RAILS UP. CALL LIGHT WITHIN REACH OF THE PATIENT. [facility], SCHEDULED COFFEE SOMMELIER IS 2100. WILL CONTINUE TO MONITOR AND REASSESS FOR ANY CHANGES.
[2020-12-04 20:00] VITALS: BP 120/61
--- NOTE | 2020-12-04 20:07 | NUR ---
RN notes [facility] here for half hour and patient refusing to go. has spoken to him several times to convince him. Lorazepam was given as per instructions. Will have to keep patient and will call ambulance [phone] if need to come back. malt house supervisor aware. Will message JYOTI Felipe. notified that patient will stay here tonight. Garrett, primary RN will notify . Patient calm; fall precautions observed. Bed alarm on. Addendum: 12/04/20 at 2025 by MONICA YAP RN 2023 Anuradha from [facility] notified that patient refused to be discharge to SNF Addendum: 12/04/20 at 2117 by MONICA YAP RN 2110 Gwendolyn from [place] called and made aware of the above.
--- NOTE | 2020-12-04 20:10 | NUR ---
RN NOTE PATIENT REFUSED TO GO TO [facility], AMBULANCE LEFT STATING THEY CANNOT FORCE PATIENT TO COME. DR COOLEY WAS NOTIFIED, HE ACKNOWLEDGED AND OK'D FOR PATIENT TO STAY TONIGHT, HE WILL DC TO HOME IN AM. ORDER RECEIVED FOR AM LABS: CBC, BMP, AMMONIA. ELECTRIC STOP INSTALLER AWARE.
[2020-12-04] MEDS: LORAZEPAM INJ 2 MG/ML VIAL IV ONE ×2 (20:14→20:28)
[2020-12-04] MEDS ORDERED: LORAZEPAM INJ 2 MG/ML VIAL IV ONE (21:00)
[2020-12-04] MEDS: *INSULIN REGULAR(HUMULIN R)HUM 100 UNIT/ML VIAL SQ PRN (22:04)
--- NOTE | 2020-12-04 23:00 | NUR ---
PATIENT PULLED OUT IV LINE AT RFA, KEPT GETTING UP AND WALKS AROUND UNIT, SAID HE WANTS TO GO HOME, HOWEVER, GAIT IS UNSTEADY. PATIENT IS NON COMPLIANT AND UNCOOPERATIVE. DR COOLEY WAS NOTIFIED, RECEIVED ORDER FOR B SOFT WRIST RESTRAINTS. SITTER AT BEDSIDE. WILL CONTINUE TO MONITOR.
--- NOTE | 2020-12-04 23:15 | NUR ---
RN NOTE PATIENT REFUSED IV LINE INSERTION, SAID HE WANTS TO GO HOME.
[2020-12-05 04:00] VITALS: BP 124/77
[2020-12-05 07:07] LABS: BILIRUBIN,TOTAL 0.5 mg/dL (0.2-1.0); CALCIUM, SERUM 7.3 mg/dL (8.5-10.1); CREATININE 2.5 mg/dL (0.6-1.3); PHOSPHORUS 4.3 mg/dL (2.5-4.9); POTASSIUM 3.3 mmol/L (3.5-5.1); TOTAL PROTEIN, SERUM 5.5 g/dL (6.4-8.2)
--- NOTE | 2020-12-05 07:31 | NUR ---
RN OPENING NOTE Pt is A/O X 3, awake, verbally responsive. No respiratory distress, no SOB. On bilateral soft wrist restraints. Sitter at bedside. Will attempt D/C of restraints when appropriate. Safety precautions implemented, bed locked in lowest position, call light within reach.
[2020-12-05 07:54] LABS: ALBUMIN 0.9 g/dL (3.4-5.0)
[2020-12-05] MEDS: PANTOPRAZOLE 40 MG TABLET.DR PO SCH (08:04)
[2020-12-05] MEDS: FUROSEMIDE 40 MG TABLET PO SCH (08:05)
[2020-12-05] MEDS: BLOOD SUGAR DIAGNOSTIC 1 EACH STRIP VI SCH ×2 (08:05→12:34)
[2020-12-05] MEDS: PAROXETINE HCL 20 MG TABLET PO SCH (08:09)
[2020-12-05] MEDS: ALPRAZOLAM 0.5 MG TABLET PO PRN (08:10)
[2020-12-05] MEDS: risperiDONE 0.25 MG TABLET PO SCH ×2 (08:10→12:36)
[2020-12-05] MEDS: PROPRANOLOL HCL 10 MG TABLET PO SCH (08:16)
[2020-12-05] MEDS: AMLODIPINE BESYLATE 10 MG TABLET PO SCH (08:16)
[2020-12-05] MEDS: INSULIN REGULAR, HUMAN 100 UNIT/ML 3 ML VIAL SQ PRN ×2 (08:20→12:39)
[2020-12-05] MEDS: LACTULOSE 10 G/15 ML UDC (PYXIS) PO SCH (08:28)
[2020-12-05] MEDS ORDERED: POTASSIUM CHLORIDE 10 MEQ TABLET.SA PO ONE (09:30)
[2020-12-05 09:41] LABS: BASOPHILS # (AUTO) 0.1 K/uL (0.0-0.2); BASOPHILS % (AUTO) 1.8 % (0.0-2.0); EOSINOPHILS % (AUTO) 6.6 % (0.0-6.0); HEMATOCRIT 25 % (39-51); HEMOGLOBIN 8.6 g/dL (13.5-17.5); LYMPHOCYTES # (AUTO) 1.5 K/uL (0.8-4.8); LYMPHOCYTES % (AUTO) 26.9 % (20.0-44.0); MEAN CORPUSCULAR HGB CONC 34 g/dl (31.0-36.0); MEAN CORPUSCULAR VOLUME 98 fL (80-96); MONOCYTES # (AUTO) 0.6 K/uL (0.1-1.30); MONOCYTES % (AUTO) 11.4 % (2.0-12.0); NEUTROPHILS # (AUTO) 2.9 K/uL (1.8-8.9); NEUTROPHILS % (AUTO) 53.3 % (43.0-81.0); PLATELET COUNT (AUTO) 159 K/uL (150-450); RED BLOOD CELL COUNT(AUTO) 2.59 MIL/uL (4.5-6.0); WHITE BLOOD COUNT (AUTO) 5.5 K/uL (4.3-11.0)
[2020-12-05] MEDS ORDERED: POTASSIUM CHLORIDE 20 MEQ TAB.PRT.SR PO ONE (10:00)
[2020-12-05 12:00] VITALS: BP 124/70
--- NOTE | 2020-12-05 15:00 | NUR ---
DOOR TECHNICIAN NOTE Pt is A/O X3, No respiratory distress, no SOB. Ambulance picked him up via gurney with assistance of EMT. Pertinent report given to EMT and [place] spoke with Kimberly. Logistics Management Specialist used for patient agreed to be transported to rehab. Patient left in stable condition.
== END 2020-12-05 14:53 | DRG 280 ==
LOC: ER 22:04 → TRANSITION 12-03 03:35 → TELE1 12-03 18:00 → MEDSG1 12-03 18:21
PROVIDERS: ADMIT Internal Medicine; ATTEND Internal Medicine
DX: K70.40 Alcoholic hepatic failure without coma (principal); K70.30 Alcoholic cirrhosis of liver without ascites; N17.0 Acute kidney failure with tubular necrosis; D64.9 Anemia, unspecified; E88.09 Other disorders of plasma-protein metabolism, not elsewhere classified; E11.22 Type 2 diabetes mellitus with diabetic chronic kidney disease; E66.9 Obesity, unspecified; B19.20 Unspecified viral hepatitis C without hepatic coma; E78.5 Hyperlipidemia, unspecified; N18.9 Chronic kidney disease, unspecified; I12.9 Hypertensive chronic kidney disease with stage 1 through stage 4 chronic kidney disease, or unspecified chronic kidney disease; J44.9 Chronic obstructive pulmonary disease, unspecified; K80.20 Calculus of gallbladder without cholecystitis without obstruction; F10.10 Alcohol abuse, uncomplicated; Z68.36 Body mass index [BMI] 36.0-36.9, adult; Z91.19 Patient's noncompliance with other medical treatment and regimen; Z79.84 Long term (current) use of oral hypoglycemic drugs; Z20.822 Contact with and (suspected) exposure to COVID-19
CPT/HCPCS: 36415; 80053-TC; 82140-TC; 82962-TC; 84100-TC; 85025-TC; 86706; 87081-TC; 87340; 90935-TC; G0378; J1815; J2060; U0003

== ENCOUNTER 2020-12-22 23:41 | Inpatient (IN) | payer MEDICAID ==
[~2020-12-22] VITALS: Ht 175.3 cm; Wt 97.5 kg
[~2020-12-22 23:41] MED LIST changes: -AMLO-212 PO; -OMEP20TA5 PO
--- NOTE | 2020-12-23 00:01 | NUR ---
PT JOE 102 FROM HOME FOR ALTERED MENTAL STATUS SINCE 1800. PLACED IN EBD 11 ON NUTRITION THERAPIST AND PULSE OX. ER MD AT BEDSIDE FOR EVAL AND ORDERS. NO ACUTE DISTRESS NOTED. AWAITING ORDERS.
[2020-12-23 00:11] LABS: BASOPHILS # (AUTO) 0.1 K/uL (0.0-0.2); BASOPHILS % (AUTO) 1.6 % (0.0-2.0); EOSINOPHILS % (AUTO) 5.2 % (0.0-6.0); HEMATOCRIT 30 % (39-51); HEMOGLOBIN 10.1 g/dL (13.5-17.5); LYMPHOCYTES # (AUTO) 2.1 K/uL (0.8-4.8); LYMPHOCYTES % (AUTO) 23.6 % (20.0-44.0); MEAN CORPUSCULAR HGB CONC 34 g/dl (31.0-36.0); MEAN CORPUSCULAR VOLUME 95 fL (80-96); MONOCYTES # (AUTO) 1.1 K/uL (0.1-1.30); MONOCYTES % (AUTO) 12.6 % (2.0-12.0); NEUTROPHILS # (AUTO) 5.1 K/uL (1.8-8.9); PLATELET COUNT (AUTO) 247 K/uL (150-450); RED BLOOD CELL COUNT(AUTO) 3.14 MIL/uL (4.5-6.0)
--- NOTE | 2020-12-23 00:16 | NUR ---
CALLED FOR COVID SWAB
[2020-12-23 00:19] LABS: CALCIUM, SERUM 8.4 mg/dL (8.5-10.1); CARBON DIOXIDE 26 mmol/L (21-32); CHLORIDE 105 mmol/L (98-107); CREATININE 3.7 mg/dL (0.6-1.3); GLUCOSE 152 mg/dL (74-106); POTASSIUM 3.2 mmol/L (3.5-5.1); SODIUM SERUM 142 mmol/L (136-145); UREA NITROGEN, BLOOD 28 mg/dL (7-18)
[2020-12-23 00:24] LABS: ALANINE AMINOTRANSFERASE 19 U/L (12-78); ALCOHOL, BLOOD < 3 mg/dL (0-0); ALKALINE PHOSPHATASE 83 U/L (46-116); ASPARTATE AMINOTRANSFERASE 48 U/L (15-37); BILIRUBIN,DIRECT 0.2 mg/dL (0.0-0.2); BILIRUBIN,TOTAL 0.7 mg/dL (0.2-1.0); TOTAL PROTEIN, SERUM 7.5 g/dL (6.4-8.2)
[2020-12-23 00:27] LABS: ACETAMINOPHEN 0 ug/ml (10-30)
--- NOTE | 2020-12-23 00:27 | NUR ---
RADIOLOGY AT BEDSIDE
--- NOTE | 2020-12-23 00:27 | NUR ---
SHAYLAID SWABBED, SENT TO LAB.
[2020-12-23 00:28] LABS: ALBUMIN 1.4 g/dL (3.4-5.0)
--- NOTE | 2020-12-23 00:28 | NUR ---
ALBUMIN 1.4
[2020-12-23 00:34] LABS: SERUM AMMONIA 156 umol/L (11-32)
[2020-12-23 00:40] LABS: THYROID STIMULATING HORMONE 4.116 uIU/mL (0.358-3.74)
--- NOTE | 2020-12-23 00:55 | NUR ---
PT PROVIDED WITH WARM BLANKETS
--- NOTE | 2020-12-23 01:21 | NUR ---
BROUGHT TO CT
[2020-12-23] MEDS ORDERED: LACTULOSE 10 G/15 ML UDC (PYXIS) GT ONE (01:30)
[2020-12-23] MEDS ORDERED: ONDANSETRON HCL/PF - ER 4 MG/2 ML VIAL IV ONE (02:00)
--- NOTE | 2020-12-23 02:00 | NUR ---
Per Karen Akers CM. OK to admit to [facility] under [facility].
--- NOTE | 2020-12-23 02:12 | NUR ---
PT UNABLE TO TOLERATE NG-TUBE INSERETION
--- NOTE | 2020-12-23 02:35 | NUR ---
LACTOLOSE GIVEN VIA RECTUM PER MD ORDER
[2020-12-23] MEDS ORDERED: ONDANSETRON HCL/PF 4 MG/2 ML VIAL ONE (02:37)
[2020-12-23] MEDS ORDERED: DEXTROSE 50%-WATER 50 ML DISP.SYRIN IV PRN (03:00)
[2020-12-23] MEDS ORDERED: ONDANSETRON HCL/PF 4 MG/2 ML VIAL IVP PRN (03:00)
[2020-12-23] MEDS ORDERED: hydrALAZINE HCL IV 20 MG VIAL IV PRN (03:00)
[2020-12-23] MEDS ORDERED: ACETAMINOPHEN 325 MG TABLET PO PRN (03:00)
[2020-12-23] MEDS ORDERED: LABETALOL 20 MG/4 ML VIAL IV PRN (03:00)
[2020-12-23] MEDS ORDERED: MORPHINE SULFATE INJ 2 MG/ML DISP.SYRIN IV PRN (03:00)
[2020-12-23] MEDS ORDERED: INSULIN REGULAR, HUMAN 100 UNIT/ML 3 ML VIAL SQ PRN (03:00)
[2020-12-23] MEDS ORDERED: POTASSIUM CL. PREMIX PERIPHER. 100 ML ONE (03:26)
[2020-12-23] MEDS: POTASSIUM CL. PREMIX PERIPHER. 50 ML IV SCH ×2 (03:33→04:38)
[2020-12-23 04:41] LABS: BILIRUBIN,TOTAL 0.6 mg/dL (0.2-1.0); CALCIUM, SERUM 8.1 mg/dL (8.5-10.1); CREATININE 3.7 mg/dL (0.6-1.3); POTASSIUM 3.3 mmol/L (3.5-5.1); TOTAL PROTEIN, SERUM 6.6 g/dL (6.4-8.2)
[2020-12-23 04:55] LABS: ALBUMIN 1.2 g/dL (3.4-5.0)
[2020-12-23] MEDS: BLOOD SUGAR DIAGNOSTIC 1 EACH STRIP VI SCH ×4 (07:30→22:16)
[2020-12-23] MEDS: PANTOPRAZOLE 40 MG TABLET.DR PO SCH (07:30)
--- NOTE | 2020-12-23 07:33 | NUR ---
PT RESTING COMFORTABLY IN NO DISTRESS EASILY AROUSABLE V/S STABLE. REPORT GIVEN FOR WENDY.
--- NOTE | 2020-12-23 07:56 | NUR ---
REPORT GIVEN TO NURSE HEBERT FROM TELE
--- NOTE | 2020-12-23 08:18 | NUR ---
THE PATIENT IS TRANSFERED TO ROOM 322-2 IN STABLE CONDITION AND PER ACLS POLICY.
--- NOTE | 2020-12-23 08:30 | NUR ---
TELE ADMISSION NOTE RECEIVED ADMISSION. PATIENT ALERT AND ORIENTED X1, CONFUSED AND CONTINUED TO GET UP FROM BED. REPORT RECEIVED BY CARLOS, ED NURSE. NO S/S OF DISTRESS NOTED. NO SOB. BREATHING IS EVEN AND UNLABORED. IV ACCESS REMOVED BY PATIENT. UNABLE TO ORIENT PATIENT TO ROOM, UNIT AND STAFF. PATIENT IN ROOM WITH SITTER AT BEDSIDE. CALL LIGHT WITHIN REACH. SAFETY MEASURES IN PLACE WITH BED LOCKED AT LOWEST POSITION. WILL CONTINUE TO MONITOR PATIENT THROUGHOUT SHIFT
[2020-12-23] MEDS: RIFAXIMIN 550 MG TABLET PO SCH ×2 (08:48→16:36)
[2020-12-23] MEDS: PAROXETINE HCL 20 MG TABLET PO SCH (08:48)
[2020-12-23] MEDS: AMLODIPINE BESYLATE 10 MG TABLET PO SCH (08:48)
[2020-12-23] MEDS: risperiDONE 0.25 MG TABLET PO SCH ×3 (08:48→16:36)
[2020-12-23] MEDS: PROPRANOLOL HCL 40 MG TABLET PO SCH ×2 (08:49→16:36)
[2020-12-23] MEDS ORDERED: LACTULOSE 10 G/15 ML UDC (PYXIS) PO SCH (09:00)
[2020-12-23] MEDS ORDERED: FUROSEMIDE 40 MG TABLET PO SCH (09:00)
[2020-12-23] MEDS: *INSULIN REGULAR(HUMULIN R)HUM 100 UNIT/ML VIAL SQ PRN ×3 (11:44→22:21)
--- NOTE | 2020-12-23 12:00 | NUR ---
MS RN NOTE PATIENT REFUSED EXTERNAL HELICOPTER ENGINEER AND IV REINSERTION. DR. COOLEY MADE AWARE.
[2020-12-23] MEDS: LACTULOSE 10 G/15 ML UDC (PYXIS) PO SCH ×2 (13:06→16:36)
--- NOTE | 2020-12-23 18:55 | NUR ---
MS RN CLOSING NOTE PATIENT IN BED, RESTING COMFORTABLY. ALERT AND ORIENTED X 2. NO S/S OF DISTRESS NOTED. BREATHING IS EVEN AND UNLABORED. ALL NEEDS MET THROUGHOUT SHIFT. PATIENT WITHOUT IV ACCESS-DR. COOLEY AWARE. SAFETY MEASURES MAINTAINED. WILL ENDORSE TO ONCOMING SHIFT.
--- NOTE | 2020-12-23 19:30 | NUR ---
MS RN OPENING NOTE RECEIVED PT AWAKE IN BED. A/O X2 WITH PERIODS OF CONFUSION. SITTER NOTED AT BEDSIDE FOR SAFETY. PT IS STABLE ON ROOM AIR WITH NO SOB OR S/S OF DISTRESS NOTED. PT HAS NO S/O PAIN SUCH FACIAL GRIMACING. PT HAS NO IV ACCESS AT THIS TIME. DR COOLEY AWARE. SAFETY PRECAUTIONS MAINTAINED. BED IN LOWEST LOCKED POSITION, HOB ELEVATED, SIDE RAILS UP X2. CALL LIGHT AND TABLE WITHIN REACH. WILL CONTINUE WITH PLAN OF CARE.
[2020-12-23 20:00] VITALS: BP 134/72
[2020-12-23] MEDS: HEPARIN SODIUM, PORCINE 5000 UNITS/1 ML VIAL SQ SCH (20:10)
[2020-12-24 04:00] VITALS: BP 143/74
--- NOTE | 2020-12-24 06:25 | NUR ---
MS RN CLOSING NOTE PT IS IN BED WITH EYES CLOSED, AROUSABLE TO STIMULATION. A/O X2 WITH PERIODS OF CONFUSION. SITTER NOTED AT BEDSIDE FOR SAFETY. PT IS STABLE ON ROOM AIR WITH NO SOB OR S/S OF DISTRESS NOTED. PT HAS NO S/O PAIN SUCH FACIAL GRIMACING. PT HAS NO IV ACCESS AT THIS TIME. DR COOLEY AWARE. ALL NEEDS HAVE BEEN MET. SAFETY PRECAUTIONS MAINTAINED AT ALL TIMES. BED IN LOWEST LOCKED POSITION, HOB ELEVATED, SIDE RAILS UP X2. CALL LIGHT AND TABLE WITHIN REACH. WILL ENDORSE TO ONCOMING NURSE FOR WENDY.
[2020-12-24] MEDS: BLOOD SUGAR DIAGNOSTIC 1 EACH STRIP VI SCH ×2 (06:30→12:19)
[2020-12-24 06:35] LABS: BASOPHILS # (AUTO) 0.1 K/uL (0.0-0.2); BASOPHILS % (AUTO) 1.2 % (0.0-2.0); EOSINOPHILS % (AUTO) 4.9 % (0.0-6.0); HEMATOCRIT 25 % (39-51); HEMOGLOBIN 8.5 g/dL (13.5-17.5); LYMPHOCYTES # (AUTO) 1.6 K/uL (0.8-4.8); LYMPHOCYTES % (AUTO) 24.4 % (20.0-44.0); MEAN CORPUSCULAR HGB CONC 33 g/dl (31.0-36.0); MEAN CORPUSCULAR VOLUME 95 fL (80-96); MONOCYTES # (AUTO) 0.7 K/uL (0.1-1.30); MONOCYTES % (AUTO) 10.7 % (2.0-12.0); NEUTROPHILS # (AUTO) 3.9 K/uL (1.8-8.9); NEUTROPHILS % (AUTO) 58.8 % (43.0-81.0); PLATELET COUNT (AUTO) 172 K/uL (150-450); RED BLOOD CELL COUNT(AUTO) 2.66 MIL/uL (4.5-6.0); WHITE BLOOD COUNT (AUTO) 6.6 K/uL (4.3-11.0)
[2020-12-24 06:47] LABS: CALCIUM, SERUM 7.7 mg/dL (8.5-10.1); CREATININE 3.7 mg/dL (0.6-1.3)
[2020-12-24 06:54] LABS: BILIRUBIN,TOTAL 0.5 mg/dL (0.2-1.0); MAGNESIUM 2.1 mg/dL (1.8-2.4); PHOSPHORUS 6.7 mg/dL (2.5-4.9); TOTAL PROTEIN, SERUM 5.8 g/dL (6.4-8.2)
--- NOTE | 2020-12-24 07:23 | NUR ---
CORRECTION: CRITICAL LAB VALUE RECEIVED CRITICAL LAB VALUE FOR ALBUMIN 1.0, REPORTED BY AUGUST FROM LAB. READ BACK PROVIDED. DR. COOLEY MADE AWARE. AWAITING ORDERS.
--- NOTE | 2020-12-24 07:23 | NUR ---
CRITICAL LAB VALUE RECEIVED CRITICAL LAB VALUE FOR ALBUMIN 1.0, REPORTED BY AUGUST FROM LAB. READ BACK PROVIDED. DR. VILLANUEVA MADE AWARE. AWAITING ORDERS.
[2020-12-24] MEDS: PANTOPRAZOLE 40 MG TABLET.DR PO SCH (08:20)
[2020-12-24] MEDS: PAROXETINE HCL 20 MG TABLET PO SCH (08:21)
[2020-12-24] MEDS: RIFAXIMIN 550 MG TABLET PO SCH (08:21)
[2020-12-24] MEDS: LACTULOSE 10 G/15 ML UDC (PYXIS) PO SCH ×2 (08:21→12:22)
[2020-12-24] MEDS: risperiDONE 0.25 MG TABLET PO SCH ×2 (08:21→12:22)
[2020-12-24] MEDS: AMLODIPINE BESYLATE 10 MG TABLET PO SCH (08:22)
[2020-12-24 08:25] VITALS: BP 141/80
[2020-12-24] MEDS: PROPRANOLOL HCL 40 MG TABLET PO SCH (08:25)
[2020-12-24] MEDS: HEPARIN SODIUM, PORCINE 5000 UNITS/1 ML VIAL SQ SCH (08:25)
--- NOTE | 2020-12-24 09:20 | NUR ---
WOUND CARE CONSULT: PT PRESENTS WITH RT LOWER LEG WOUND, PRESENT ON ADMISSION. DPM CONSULT CALLED TO DR VALDEZ. CURRENT FELIX SCORE IS 18. WILL SEE PRN.
[2020-12-24] MEDS ORDERED: POTASSIUM CHLORIDE 20 MEQ TAB.PRT.SR PO ONE (10:30)
[2020-12-24] MEDS ORDERED: LACT10SO3 PO (10:55)
[2020-12-24] MEDS: *INSULIN REGULAR(HUMULIN R)HUM 100 UNIT/ML VIAL SQ PRN (12:21)
--- NOTE | 2020-12-24 12:22 | NUR ---
UNABLE TO GIVE PO MEDS DURING DIALYSIS
--- NOTE | 2020-12-24 14:08 | NUR ---
MS CONTACT LENS CURVE GRINDER NOTE PATIENT DISCHARGED FROM HOSPITAL @ 1404 VIA PRIVATE CAR. STABLE, A/O X3. STATUS POST HEMODIALYSIS WITH 1L OUT. VITALS WERE STABLE DURING. PATIENT STATES HE DOES NOT FEEL DIZZY OR WEAK AND IS ABLE TO WALK WITH A STEADY GAIT. ALL EXITCARE AND PATIENT EDUCATION REVIEWED WITH AT BEDSIDE. ALL DISCHARGE PAPERWORK AND PRESCRIPTION GIVEN TO PATIENT'S IN FOLDER. NO IV TO BE REMOVED. WRISTBAND REMOVED. MD AND CHARGE NURSE AWARE OF DC. Addendum: 12/24/20 at 1412 by NAE ROYAL RN PATIENT REFUSED DISCHARGE PHOTOS - WANTED THEM TO LEAVE [facility].
== END 2020-12-24 14:10 | disposition home health service (06) | DRG 279 ==
LOC: ER 23:42 → TRANSITION 12-23 02:54 → TELE 12-23 07:48 → MED 12-23 21:40
PROVIDERS: ADMIT Internal Medicine; ATTEND Internal Medicine
PROC: 5A1D70Z Performance of Urinary Filtration, Intermittent, Less than 6 Hours Per Day (ICD-10-PCS; principal; 2020-12-24)
DX: K72.90 Hepatic failure, unspecified without coma (principal); D69.6 Thrombocytopenia, unspecified; I12.0 Hypertensive chronic kidney disease with stage 5 chronic kidney disease or end stage renal disease; N18.6 End stage renal disease; N17.9 Acute kidney failure, unspecified; E11.22 Type 2 diabetes mellitus with diabetic chronic kidney disease; D63.8 Anemia in other chronic diseases classified elsewhere; I87.313 Chronic venous hypertension (idiopathic) with ulcer of bilateral lower extremity; K70.30 Alcoholic cirrhosis of liver without ascites; Z99.2 Dependence on renal dialysis; Z79.4 Long term (current) use of insulin; Z20.822 Contact with and (suspected) exposure to COVID-19; E78.5 Hyperlipidemia, unspecified; E66.01 Morbid (severe) obesity due to excess calories; K80.20 Calculus of gallbladder without cholecystitis without obstruction; Z91.14 Patient's other noncompliance with medication regimen; Z90.49 Acquired absence of other specified parts of digestive tract; Z87.19 Personal history of other diseases of the digestive system; F41.9 Anxiety disorder, unspecified; B19.20 Unspecified viral hepatitis C without hepatic coma; Z68.31 Body mass index [BMI] 31.0-31.9, adult; I87.2 Venous insufficiency (chronic) (peripheral); L97.929 Non-pressure chronic ulcer of unspecified part of left lower leg with unspecified severity; L97.919 Non-pressure chronic ulcer of unspecified part of right lower leg with unspecified severity; D64.9 Anemia, unspecified; F10.10 Alcohol abuse, uncomplicated; Y90.0 Blood alcohol level of less than 20 mg/100 ml; F17.200 Nicotine dependence, unspecified, uncomplicated; J44.9 Chronic obstructive pulmonary disease, unspecified; Z79.899 Other long term (current) drug therapy
CPT/HCPCS: 36415; 70450-TC; 71045-TC; 76705-TC; 80048-TC; 80053-TC; 80076-TC; 82140-TC; 82962-TC; 83605-TC; 83735-TC; 84100-TC; 84443-TC; 84484-TC; 85025-TC; 85730-TC; 86705; 86706; 86803; 87081-TC; 90935-TC; 92521; 92526; 97112-TC; 97116-TC; 97530-TC; C9803; G0378; G0480; J1644; J1815; J2270; J2405; J3480; J7030

== ENCOUNTER 2020-12-31 11:21 | Inpatient (IN) | payer MEDICAID ==
[~2020-12-31] VITALS: Ht 175.3 cm; Wt 96.2 kg
[~2020-12-31 11:21] MED LIST changes: +LACT10SO3 PO; -LACT10SO58 PO; -METF-440 PO
--- NOTE | 2020-12-31 11:34 | NUR ---
MOVE SHEET SUBMITTED AND CALLED FOR TELE BED.
[2020-12-31] MEDS ORDERED: LACT10SO3 PO (11:36)
[2020-12-31] MEDS ORDERED: LOSA100T31 PO (11:37)
[2020-12-31] MEDS ORDERED: ASPI-1420 PO (11:37)
[2020-12-31 12:13] LABS: BASOPHILS # (AUTO) 0.2 K/uL (0.0-0.2); EOSINOPHILS % (AUTO) 4.6 % (0.0-6.0); HEMATOCRIT 32 % (39-51); HEMOGLOBIN 10.8 g/dL (13.5-17.5); LYMPHOCYTES # (AUTO) 1.5 K/uL (0.8-4.8); MEAN CORPUSCULAR HGB CONC 34 g/dl (31.0-36.0); MEAN CORPUSCULAR VOLUME 93 fL (80-96); MONOCYTES # (AUTO) 0.7 K/uL (0.1-1.30); MONOCYTES % (AUTO) 12.3 % (2.0-12.0); NEUTROPHILS % (AUTO) 53.1 % (43.0-81.0); PLATELET COUNT (AUTO) 177 K/uL (150-450); RED BLOOD CELL COUNT(AUTO) 3.47 MIL/uL (4.5-6.0); WHITE BLOOD COUNT (AUTO) 5.6 K/uL (4.3-11.0)
[2020-12-31 12:24] LABS: CALCIUM, SERUM 8.2 mg/dL (8.5-10.1); CREATININE 3.6 mg/dL (0.6-1.3); POTASSIUM 3.7 mmol/L (3.5-5.1)
[2020-12-31 12:30] LABS: BILIRUBIN,DIRECT 0.2 mg/dL (0.0-0.2); BILIRUBIN,TOTAL 0.8 mg/dL (0.2-1.0)
[2020-12-31 12:37] LABS: ALBUMIN 1.4 g/dL (3.4-5.0)
[2020-12-31] MEDS ORDERED: LACTULOSE 10 G/15 ML UDC (PYXIS) PO ONE (13:30)
[2020-12-31] MEDS ORDERED: LACTULOSE 10 G/15 ML UDC (PYXIS) ONE (13:40)
--- NOTE | 2020-12-31 13:42 | NUR ---
patient refused swallow eval and catheter in and out.offerredx3.will monitor.
--- NOTE | 2020-12-31 13:59 | NUR ---
CALLED DR. COOLEY, SPEAKING WITH DR. TRIMBLE.
[2020-12-31 14:59] LABS: BILIRUBIN,URINE SMALL (NEGATIVE); COLOR,URINE DARK YELLOW (YELLOW); LEUKOCYTE ESTERASE ,URINE Small (NEGATIVE); NITRITE, URINE Negative (NEGATIVE); PH,URINE 6.5 (5.0-8.0); PROTEIN,URINE >=300 mg/dl (NEGATIVE); UGLUCOSE Negative (NEGATIVE); UROBILINOGEN,URINE 0.2 EU/dL (0.2)
[2020-12-31 15:30] LABS: BACTERIA,URINE Many /HPF (None Seen); RBC,URINE 21-50 /HPF (0-2); SQUAMOUS EPITHELIAL CELL,UR Few /HPF (None Seen); WBC,URINE 51-80 /HPF (0-3)
--- NOTE | 2020-12-31 15:50 | NUR ---
CALLED FOR BED
--- NOTE | 2020-12-31 16:13 | NUR ---
GOT BED 117-1 STEPH DEWEY
--- NOTE | 2020-12-31 17:27 | NUR ---
report given to Brooke Lundberg for marita.
--- NOTE | 2020-12-31 18:25 | NUR ---
wheeled patient via gurney accompanied by RN and emt in no distress. RN assigned to patient at bedside to assume care.
[2020-12-31 18:26] VITALS: BP 170/95
[2020-12-31] MEDS ORDERED: *INSULIN REGULAR(HUMULIN R)HUM 100 UNIT/ML VIAL SQ PRN (18:30)
[2020-12-31] MEDS ORDERED: DEXTROSE 50%-WATER 50 ML DISP.SYRIN IV PRN (18:30)
--- NOTE | 2020-12-31 18:40 | NUR ---
ms rn note received patient from er under care dr eduardo with dx hepatic encephalopathy , with confusion with unable to answer all questions, rt chest wall with perma cath in place and rt ac hl inatct, bed in lowest and locked position, call light within reach, belonging checked, bed in lowest and locked position,charge nurse call for admission orders, will endorse for cont care
[2020-12-31] MEDS ORDERED: ALPRAZOLAM 0.5 MG TABLET PO PRN (19:00)
[2020-12-31] MEDS ORDERED: HYDROCODONE/APAP 5/325MG TABLET PO PRN (19:00)
--- NOTE | 2020-12-31 19:30 | NUR ---
RN NOTE RECEIVED PT IN BED. SLEEPING. AROUSES EASILY BY VERBAL STIMULI. NOT IN ANY DISTRESS. PT ORIENTED TO NAME, LIMITED TO WORDS TO COMMUNICATE. DENIES ANY PAIN AT THIS TIME. PT WITH WOUND ON R. LOWER LEG PER PT HE WAS SCRATCHING IT. R. CHEST PERMACATH NOTED DRESSING INTACT, CLEAN AND DRY. ALL SAFETY MEASURES IN PLACE PER PROTOCOL. CALL LIGHT WITHIN REACH. WILL CONTINUE TO MONITOR.
[2020-12-31 20:00] VITALS: BP 143/75
[2020-12-31] MEDS ORDERED: AMLODIPINE BESYLATE 5 MG TABLET PO ONE (20:00)
[2020-12-31] MEDS: BLOOD SUGAR DIAGNOSTIC 1 EACH STRIP VI SCH (22:07)
--- NOTE | 2020-12-31 22:28 | NUR ---
RN NOTE PT AWAKE, AO X 2-3. FINISHED 100% OF DINNER TRAY AND SOME SNACKS. INSULIN COVERAGE GIVEN PER ORDER. ABLE TO MAKE NEEDS KNOWN, CONTINENT TO BLADDER, ASSISTED TO RESTROOM. WILL CONTINUE TO MONITOR.
--- NOTE | 2020-12-31 22:45 | NUR ---
RN NOTE COMPLAINED OF 10/10 BACK PAIN. NORCO GIVEN ORDERED. WILL CONTINUE TO MONITOR.
[2020-12-31] MEDS: LACTULOSE 10 G/15 ML UDC (PYXIS) PO SCH (23:54)
[2021-01-01 04:00] VITALS: BP 121/71
[2021-01-01] MEDS: LACTULOSE 10 G/15 ML UDC (PYXIS) PO SCH ×4 (05:47→18:04)
--- NOTE | 2021-01-01 06:42 | NUR ---
RN NOTE PT ABLE TO MAKE NEEDS KNOWN, TOLERATING ROOM AIR. NO SIGNS OF DISTRESS NOTED. DENIES ANY PAIN AT THIS TIME. ALL SAFETY MEASURES MAINTAINED. CALL LIGHT WITHIN REACH AT ALL TIMES.
[2021-01-01] MEDS: PANTOPRAZOLE 40 MG TABLET.DR PO SCH (07:09)
[2021-01-01 07:33] LABS: BASOPHILS # (AUTO) 0.1 K/uL (0.0-0.2); BASOPHILS % (AUTO) 1.4 % (0.0-2.0); HEMATOCRIT 26 % (39-51); HEMOGLOBIN 8.9 g/dL (13.5-17.5); LYMPHOCYTES # (AUTO) 1.4 K/uL (0.8-4.8); LYMPHOCYTES % (AUTO) 28.8 % (20.0-44.0); MEAN CORPUSCULAR HGB CONC 34 g/dl (31.0-36.0); MEAN CORPUSCULAR VOLUME 93 fL (80-96); MONOCYTES # (AUTO) 0.6 K/uL (0.1-1.30); MONOCYTES % (AUTO) 13.3 % (2.0-12.0); NEUTROPHILS # (AUTO) 2.6 K/uL (1.8-8.9); NEUTROPHILS % (AUTO) 52.5 % (43.0-81.0); PLATELET COUNT (AUTO) 146 K/uL (150-450); RED BLOOD CELL COUNT(AUTO) 2.84 MIL/uL (4.5-6.0); WHITE BLOOD COUNT (AUTO) 4.9 K/uL (4.3-11.0)
[2021-01-01 07:56] LABS: CALCIUM, SERUM 8.2 mg/dL (8.5-10.1); CREATININE 3.6 mg/dL (0.6-1.3); POTASSIUM 3.2 mmol/L (3.5-5.1)
[2021-01-01] MEDS: BLOOD SUGAR DIAGNOSTIC 1 EACH STRIP VI SCH ×4 (08:01→22:14)
[2021-01-01] MEDS: INSULIN REGULAR, HUMAN 100 UNIT/ML 3 ML VIAL SQ PRN ×2 (08:04→12:11)
--- NOTE | 2021-01-01 09:08 | NUR ---
WOUND CARE CONSULT: PT RESTING AT THIS TIME. DR VALDEZ NOTIFIED OF PT READMISSION FOR RT LOWER LEG WOUNDS, PRESENT ON ADMISSION. MD IN AGREEMENT WITH PLAN OF CARE. CURRENT FELIX SCORE IS 19.
[2021-01-01] MEDS: PROPRANOLOL HCL 40 MG TABLET PO SCH ×2 (09:11→16:45)
[2021-01-01] MEDS: FUROSEMIDE 40 MG TABLET PO SCH (09:11)
[2021-01-01] MEDS: ASPIRIN EC 81 MG TABLET.DR PO SCH (09:12)
[2021-01-01] MEDS: LOSARTAN POTASSIUM 50 MG TABLET PO SCH (09:12)
[2021-01-01] MEDS: AMLODIPINE BESYLATE 10 MG TABLET PO SCH (09:12)
[2021-01-01] MEDS: PAROXETINE HCL 20 MG TABLET PO SCH (09:12)
--- NOTE | 2021-01-01 09:58 | NUR ---
RN NOTES, REPORTED TO DR COOLEY CRITICAL LEVEL AMMONIA 205, AND HE REPLIED TO CONTINUE LACTULOSE IS ALREADY ORDERED.
[2021-01-01] MEDS ORDERED: POTASSIUM CHLORIDE 20 MEQ TAB.PRT.SR PO SCH (10:30)
[2021-01-01] MEDS: RIFAXIMIN 550 MG TABLET PO SCH ×2 (11:12→16:44)
--- NOTE | 2021-01-01 11:40 | NUR ---
RN NOTES, INFORMED DR COOLEY THAT PER PATIENT MISSED HD YESTERDAY, PER MD HE DID NOT KNOW THAT PATIENT MISSED HD YESTERDAY, HE WILL INFORM ACTING TEACHER TO F/U.
--- NOTE | 2021-01-01 11:58 | NUR ---
RN NOTES, PATIENT SEEN BY DR HANLEY ICE CRUSHER AT THIS TIME, PER HIM PATIENT WILL HAVE HD TODAY.
[2021-01-01] MEDS: DOCUSATE SODIUM 100 MG CAPSULE PO SCH ×2 (14:19→16:44)
[2021-01-01 16:00] VITALS: BP 122/70
--- NOTE | 2021-01-01 17:20 | NUR ---
RN NOTES Pt started dialysis and tolerating well.
--- NOTE | 2021-01-01 18:07 | NUR ---
STEPH NOTES Held lactulose due to patient receiving hemodialysis. Addendum: 01/01/21 at 1819 by CROW BOND RN Pt tolerating dialysis well.
--- NOTE | 2021-01-01 19:30 | NUR ---
RN NOTE RECEIVED PATIENT IN BED. A/OX3. LANGUAGE BARRIER BUT ABLE TO MAKE BASIC NEEDS KNOWN. TOLERATING ROOM AIR. RESPIRATIONS ARE EVEN AND UNLABORED. NO S/SS OB NOTED. NO C/O PAIN. IN NO APPARENT DISTRESS. IV ACCESS IN RAC#20 PATENT AND SALINE LOCKED, CURRENTLY GETTING HD IN RIGHT CHEST WALL PERMA CATH . AT BED SIDE. BED IS LOW AND LOCKED, HOB ELEVATED IN SEMI FOWLERS, SIDE RIALS UP X2, CALL LIGHT WITHIN REACH. WILL CONTINUE TO MONITOR THROUGHOUT SHIFT.
[2021-01-01 20:00] VITALS: BP 106/67
--- NOTE | 2021-01-01 21:00 | NUR ---
RN NOTE HD RN FINISHED HD. REMOVED 2L. BP 115/60 HR 68.
--- NOTE | 2021-01-01 22:19 | NUR ---
RN NOTE 2200 BLOOD SUGAR 149, PATIENT REFUSED INSULIN COVERAGE PER SCALE, EDUCATED, CONTINUED TO REFUSE
[2021-01-02] MEDS: LACTULOSE 10 G/15 ML UDC (PYXIS) PO SCH ×3 (00:02→11:45)
[2021-01-02 04:00] VITALS: BP 137/72
[2021-01-02 06:43] LABS: BASOPHILS # (AUTO) 0.1 K/uL (0.0-0.2); BASOPHILS % (AUTO) 2.3 % (0.0-2.0); EOSINOPHILS % (AUTO) 3.9 % (0.0-6.0); HEMATOCRIT 27 % (39-51); HEMOGLOBIN 9.2 g/dL (13.5-17.5); LYMPHOCYTES # (AUTO) 1.3 K/uL (0.8-4.8); LYMPHOCYTES % (AUTO) 27.4 % (20.0-44.0); MEAN CORPUSCULAR HGB CONC 34 g/dl (31.0-36.0); MEAN CORPUSCULAR VOLUME 93 fL (80-96); MONOCYTES # (AUTO) 0.6 K/uL (0.1-1.30); MONOCYTES % (AUTO) 13.5 % (2.0-12.0); NEUTROPHILS # (AUTO) 2.5 K/uL (1.8-8.9); NEUTROPHILS % (AUTO) 52.9 % (43.0-81.0); PLATELET COUNT (AUTO) 137 K/uL (150-450); RED BLOOD CELL COUNT(AUTO) 2.93 MIL/uL (4.5-6.0); WHITE BLOOD COUNT (AUTO) 4.8 K/uL (4.3-11.0)
--- NOTE | 2021-01-02 06:45 | NUR ---
RN NOTES RECEIVED REPORT FROM STEPH JONES FOR WENDY.
--- NOTE | 2021-01-02 06:49 | NUR ---
CHARGE AIDE NOTE TRANSFERRED PATIENT FROM 112 TO ROOM 314-1. TRANSFERRED VIA BED. A/OX3, TOLERATING ROOM AIR. NO RESP DISTRESS. NO C/O PAIN. NO DISTRESS. IV ACCESS IN RAC #20 SL. CHART TAKEN, NO MEDICATIONS IN CASETTE. BELONGINGS LIST CHECKED PATIENT ONLY HAS GLASSES, PHONE, PHONE FLOORLEADER AND EXTENSION CORD. BED IS LOW AND LOCKED, HOB ELEVATED IN SEMI FOWLERS, SIDE RAILS UP X2, REPORT GIVEN TO ARJUN CHOI AT BEDSIDE.
--- NOTE | 2021-01-02 07:00 | NUR ---
RN NOTES REPORT GIVEN TO STEPH CHAVEZ FOR WENDY.
[2021-01-02] MEDS: INSULIN REGULAR, HUMAN 100 UNIT/ML 3 ML VIAL SQ PRN ×2 (07:20→11:43)
[2021-01-02] MEDS: BLOOD SUGAR DIAGNOSTIC 1 EACH STRIP VI SCH ×2 (07:20→11:43)
--- NOTE | 2021-01-02 07:21 | NUR ---
MS RN OPENING NOTES RECEIVED PATIENT IN BED AWAKE, A/OX3. ABLE TO MAKE BASIC NEEDS KNOWN, DENIES PAIN OR ANY DISCOMFORTS. PT QUIET, CALMED AND WATCHING MOVIE ON HIS PHONE AT THIS TIME. ACCU-CHECKED DONE AND WAS 131MG/DL, PT REFUSED INSULIN COVERAGE STATED THAT IT'S NOT HIGH. ON ROOM AIR, RESPIRATIONS ARE EVEN AND UNLABORED. NO S/S OF SOB NOTED. IV ACCESS SL ON RAC#20 INTACT AND PATENT. RIGHT CHEST WALL PERMA CATH IN PLACE WITH DRESSING C/D/I. . SAFETY MEASURES IN PLACED: BED IS LOW AND LOCKED, SIDE RAILS UP X2, BED ALARM ON AND CALL LIGHT WITHIN REACH. WILL CONTINUE TO MONITOR PT ACCORDINGLY.
[2021-01-02 07:22] LABS: CALCIUM, SERUM 7.9 mg/dL (8.5-10.1); CREATININE 2.8 mg/dL (0.6-1.3); POTASSIUM 3.8 mmol/L (3.5-5.1)
[2021-01-02] MEDS: PANTOPRAZOLE 40 MG TABLET.DR PO SCH (08:28)
[2021-01-02] MEDS: FUROSEMIDE 40 MG TABLET PO SCH (08:29)
[2021-01-02] MEDS: LOSARTAN POTASSIUM 50 MG TABLET PO SCH (08:30)
[2021-01-02] MEDS: PROPRANOLOL HCL 40 MG TABLET PO SCH (08:30)
[2021-01-02] MEDS: PAROXETINE HCL 20 MG TABLET PO SCH (08:30)
[2021-01-02] MEDS: DOCUSATE SODIUM 100 MG CAPSULE PO SCH (08:31)
[2021-01-02] MEDS: AMLODIPINE BESYLATE 10 MG TABLET PO SCH (08:31)
[2021-01-02] MEDS: ASPIRIN EC 81 MG TABLET.DR PO SCH (08:31)
[2021-01-02] MEDS: RIFAXIMIN 550 MG TABLET PO SCH (08:31)
[2021-01-02 09:07] VITALS: BP 14/79
[2021-01-02] MEDS ORDERED: RIFA550T PO (12:27)
--- NOTE | 2021-01-02 12:44 | NUR ---
RN DISCHARGED NOTES PT DISCHARGED HOME IN STABLE CONDITION. A/O X3-4. ABLE TO VERBALIZED NEEDS. V/S TAKEN, STABLE AND RECORDED. PT AND REFUSED PHOTOS OF SKIN ISSUES ON RLE. IV ACCESS ON RAC REMOVED, NO ACTIVE BLEEDING NOTED, DRY PRESSURE GAUZE APPLIED TO SITE. NAME ARMBAND REMOVED. HEALTH TEACHINGS GIVEN TO PT AND HIS , BOTH VERBALIZED UNDERSTANDING. DISCHARGED PAPER SIGNED BY PT'S AND HANDED FOLDER TO HER. PT LEFT UNIT AT 1241 AMBULATORY ACCOMPANIED BY BOOKER. CHARGE NURSE AWARE OF DISCHARGE.
== END 2021-01-02 12:36 | disposition home or self-care (01) | DRG 280 ==
LOC: ER 11:26 → TELE1 16:40 → MEDSG1 18:34 → MED 01-02 06:39
PROVIDERS: ADMIT Internal Medicine; ATTEND Internal Medicine
PROC: 5A1D70Z Performance of Urinary Filtration, Intermittent, Less than 6 Hours Per Day (ICD-10-PCS; principal; 2021-01-01)
DX: K70.40 Alcoholic hepatic failure without coma (principal); K70.30 Alcoholic cirrhosis of liver without ascites; I12.0 Hypertensive chronic kidney disease with stage 5 chronic kidney disease or end stage renal disease; D63.8 Anemia in other chronic diseases classified elsewhere; E11.22 Type 2 diabetes mellitus with diabetic chronic kidney disease; I87.311 Chronic venous hypertension (idiopathic) with ulcer of right lower extremity; L97.819 Non-pressure chronic ulcer of other part of right lower leg with unspecified severity; E66.9 Obesity, unspecified; E78.5 Hyperlipidemia, unspecified; E87.6 Hypokalemia; J44.9 Chronic obstructive pulmonary disease, unspecified; F17.210 Nicotine dependence, cigarettes, uncomplicated; F10.10 Alcohol abuse, uncomplicated; K59.00 Constipation, unspecified; K80.20 Calculus of gallbladder without cholecystitis without obstruction; Z86.19 Personal history of other infectious and parasitic diseases; Z79.4 Long term (current) use of insulin; N18.6 End stage renal disease; Z99.2 Dependence on renal dialysis; Z20.822 Contact with and (suspected) exposure to COVID-19
CPT/HCPCS: 36415; 71045-TC; 80048-TC; 80076-TC; 81001; 82140-TC; 82962-TC; 83605-TC; 83690-TC; 85025-TC; 85730-TC; 86706; 87040-TC; 87081-TC; 87086-TC; 87186-TC; 87340; 90935-TC; A6253; C9803; G0378; G0480; J1815; J7030

== ENCOUNTER 2021-01-21 16:23 | Emergency (ER) | payer MEDICAID ==
[~2021-01-21] VITALS: Ht 175.3 cm; Wt 97.1 kg
[~2021-01-21 16:23] MED LIST changes: +ASPI-1420 PO; +LOSA100T31 PO; +RIFA550T PO; -RISP0.2515 PO
--- NOTE | 2021-01-21 16:40 | NUR ---
BIB [facility], LOW BP (64/37) AFTER 4 HRS OF TREATMENT STAFF WAS UNABLE TO RETURN FLUID BACK. 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 BP IMPROVED ON ARRIVAL.
[2021-01-21 17:19] LABS: BASOPHILS # (AUTO) 0.2 K/uL (0.0-0.2); BASOPHILS % (AUTO) 2.1 % (0.0-2.0); EOSINOPHILS % (AUTO) 6.4 % (0.0-6.0); HEMATOCRIT 30 % (39-51); HEMOGLOBIN 10.2 g/dL (13.5-17.5); LYMPHOCYTES # (AUTO) 1.8 K/uL (0.8-4.8); LYMPHOCYTES % (AUTO) 21.8 % (20.0-44.0); MEAN CORPUSCULAR HGB CONC 34 g/dl (31.0-36.0); MEAN CORPUSCULAR VOLUME 92 fL (80-96); MONOCYTES # (AUTO) 0.9 K/uL (0.1-1.30); NEUTROPHILS # (AUTO) 4.9 K/uL (1.8-8.9); NEUTROPHILS % (AUTO) 58.7 % (43.0-81.0); PLATELET COUNT (AUTO) 188 K/uL (150-450); RED BLOOD CELL COUNT(AUTO) 3.29 MIL/uL (4.5-6.0); WHITE BLOOD COUNT (AUTO) 8.3 K/uL (4.3-11.0)
[2021-01-21 17:29] LABS: CALCIUM, SERUM 7.9 mg/dL (8.5-10.1); CREATININE 1.9 mg/dL (0.6-1.3)
[2021-01-21 17:31] LABS: POTASSIUM 3.7 mmol/L (3.5-5.1)
--- NOTE | 2021-01-21 20:29 | NUR ---
WILL PICK PATIENT UP
[2021-01-21 20:33] VITALS: BP 145/74
--- NOTE | 2021-01-21 20:33 | NUR ---
Patient discharged to home in stable condition. Written and verbal after care instructions given. Patient verbalizes understanding of instruction.
== END 2021-01-21 20:33 | disposition home or self-care (01) ==
LOC: ER 16:27
DX: I95.9 Hypotension, unspecified (principal); I12.0 Hypertensive chronic kidney disease with stage 5 chronic kidney disease or end stage renal disease; E11.22 Type 2 diabetes mellitus with diabetic chronic kidney disease; N18.6 End stage renal disease; E78.5 Hyperlipidemia, unspecified; F10.10 Alcohol abuse, uncomplicated; F17.200 Nicotine dependence, unspecified, uncomplicated; Y90.9 Presence of alcohol in blood, level not specified; Z99.2 Dependence on renal dialysis; Z86.19 Personal history of other infectious and parasitic diseases; Z98.890 Other specified postprocedural states; Z79.82 Long term (current) use of aspirin; Z79.4 Long term (current) use of insulin; Z79.899 Other long term (current) drug therapy
CPT/HCPCS: 36415; 71045-TC; 80048-TC; 82962-TC; 84484-TC; 85025-TC

== ENCOUNTER 2021-04-06 13:47 | Inpatient (IN) | payer MEDICAID ==
[~2021-04-06] VITALS: Ht 182.9 cm; Wt 97.1 kg
[2021-04-06 15:54] LABS: BASOPHILS # (AUTO) 0.1 K/uL (0.0-0.2); BASOPHILS % (AUTO) 1.3 % (0.0-2.0); EOSINOPHILS % (AUTO) 3.1 % (0.0-6.0); HEMATOCRIT 37 % (39-51); HEMOGLOBIN 12.5 g/dL (13.5-17.5); LYMPHOCYTES # (AUTO) 1.3 K/uL (0.8-4.8); LYMPHOCYTES % (AUTO) 27.9 % (20.0-44.0); MEAN CORPUSCULAR HGB CONC 34 g/dl (31.0-36.0); MEAN CORPUSCULAR VOLUME 92 fL (80-96); MONOCYTES # (AUTO) 0.5 K/uL (0.1-1.30); MONOCYTES % (AUTO) 10.5 % (2.0-12.0); NEUTROPHILS # (AUTO) 2.8 K/uL (1.8-8.9); NEUTROPHILS % (AUTO) 57.2 % (43.0-81.0); PLATELET COUNT (AUTO) 136 K/uL (150-450); RED BLOOD CELL COUNT(AUTO) 4.07 MIL/uL (4.5-6.0); WHITE BLOOD COUNT (AUTO) 4.8 K/uL (4.3-11.0)
[2021-04-06 16:06] LABS: CALCIUM, SERUM 8.8 mg/dL (8.5-10.1); CREATININE 2.3 mg/dL (0.6-1.3); POTASSIUM 3.9 mmol/L (3.5-5.1)
[2021-04-06 16:14] LABS: ALBUMIN 2.8 g/dL (3.4-5.0); TOTAL PROTEIN, SERUM 8.2 g/dL (6.4-8.2)
[2021-04-06] MEDS ORDERED: RIFA550T PO (16:53)
[2021-04-06] MEDS ORDERED: OMEP20CA15 PO (16:53)
--- NOTE | 2021-04-06 17:13 | NUR ---
DR. LAKE SPEAKING WITH AMOL HERRMANN.
[2021-04-06 17:31] LABS: SERUM AMMONIA 46 umol/L (11-32)
[2021-04-06 17:34] LABS: ALCOHOL, BLOOD < 10 mg/dL (0-0)
--- NOTE | 2021-04-06 17:41 | NUR ---
COVID ANTIGEN SWAB COLLECTED AND SENT TO LAB
[2021-04-06] MEDS ORDERED: LACTULOSE 10 G/15 ML UDC (PYXIS) ONE (17:52)
[2021-04-06] MEDS ORDERED: LACTULOSE 10 G/15 ML UDC (PYXIS) PO ONE (18:00)
--- NOTE | 2021-04-06 18:46 | NUR ---
BED 311-2
--- NOTE | 2021-04-06 18:50 | NUR ---
REPORT GIVEN TO SALENA CHOI FOR WEND[facility]
[2021-04-06] MEDS ORDERED: ACETAMINOPHEN 325 MG TABLET PO PRN (19:00)
[2021-04-06] MEDS ORDERED: LACTULOSE 10 G/15 ML UDC (PYXIS) PO PRN (19:00)
[2021-04-06] MEDS ORDERED: DEXTROSE 50%-WATER 50 ML DISP.SYRIN IV PRN (19:00)
[2021-04-06] MEDS ORDERED: *INSULIN REGULAR(HUMULIN R)HUM 100 UNIT/ML VIAL SQ PRN (19:00)
[2021-04-06] MEDS ORDERED: INSULIN REGULAR, HUMAN 100 UNIT/ML 3 ML VIAL SQ PRN (19:00)
--- NOTE | 2021-04-06 19:13 | NUR ---
REPORT GIVEN TO TONI CHOI FOR WEND[facility]
--- NOTE | 2021-04-06 19:23 | NUR ---
PT TRANSFERRING TO 3W VIA ACLS PROTOCOL. ALL BELONGINGS WITH PT.
[2021-04-06 19:30] VITALS: BP 130/80
--- NOTE | 2021-04-06 19:30 | NUR ---
MS/RN ADMITTING NOTE PATIENT ARRIVED TO UNIT VIA GURNEY AND 2 STAFF MEMBERS. PATIENT IS BEING ADMITTED FOR HEPATIC ENCEPHALOPATHY. PMHX OF DM, ESRD ON HD, HTN, HLD, HEP C AND LIVER CIRRHOSIS. PATIENT IS ALERT AND ORIENTED X 2. DENIES PAIN AT THIS TIME. CONTINUES ON ROOM AIR WITH NO S/SX OF RESPIRATORY DISTRESS NOTED. IV ACCESS TO RIGHT AC #18G INTACT, PATENT AND SALINE LOCKED. CONTINUES ON CCHO DIET WITH NO S/SX OF ASPIRATION NOTED. ATTEMPTED SKIN CHECK UPON ADMISSION WITH PATIENT REFUSING. NO VISUAL SKIN ISSUES NOTED. PATIENT ORIENTED TO ROOM, CALL LIGHT AND UNIT. CALL LIGHT WITHIN REACH. ASPIRATION, FALL AND SAFETY PRECAUTIONS MAINTAINED. WILL CONTINUE TO MONITOR.
[2021-04-06 20:00] VITALS: BP 130/80
[2021-04-06] MEDS: RIFAXIMIN 550 MG TABLET PO SCH (20:00)
[2021-04-06] MEDS: BLOOD SUGAR DIAGNOSTIC 1 EACH STRIP VI SCH (21:42)
[2021-04-07 04:00] VITALS: BP 130/69
--- NOTE | 2021-04-07 06:10 | NUR ---
MS/RN CLOSING NOTE PATIENT CURRENTLY SLEEPING IN BED. ALERT AND ORIENTED X 2. ABLE TO MAKE NEEDS KNOWN. DENIES PAIN AT THIS TIME. CONTINUES ON ROOM AIR WITH NO S/SX OF RESPIRATORY DISTRESS NOTED. IV ACCESS TO RIGHT AC 18G INTACT, PATENT AND SALINE LOCKED. PERMACATH TO RIGHT CHEST WALL IN PLACE. CALL LIGHT WITHIN REACH. ASPIRATION, FALL AND SAFETY PRECAUTIONS MAINTAINED. WILL ENDORSE PLAN OF CARE TO ONCOMING SHIFT.
[2021-04-07 07:05] LABS: CALCIUM, SERUM 9.4 mg/dL (8.5-10.1); CREATININE 3.4 mg/dL (0.6-1.3); POTASSIUM 3.5 mmol/L (3.5-5.1)
[2021-04-07 07:09] LABS: BASOPHILS # (AUTO) 0.1 K/uL (0.0-0.2); BASOPHILS % (AUTO) 1.5 % (0.0-2.0); EOSINOPHILS % (AUTO) 3.4 % (0.0-6.0); HEMATOCRIT 34 % (39-51); HEMOGLOBIN 11.4 g/dL (13.5-17.5); LYMPHOCYTES # (AUTO) 1.9 K/uL (0.8-4.8); LYMPHOCYTES % (AUTO) 39.2 % (20.0-44.0); MEAN CORPUSCULAR HGB CONC 34 g/dl (31.0-36.0); MEAN CORPUSCULAR VOLUME 90 fL (80-96); MONOCYTES # (AUTO) 0.6 K/uL (0.1-1.30); MONOCYTES % (AUTO) 12.1 % (2.0-12.0); NEUTROPHILS # (AUTO) 2.1 K/uL (1.8-8.9); NEUTROPHILS % (AUTO) 43.8 % (43.0-81.0); PLATELET COUNT (AUTO) 124 K/uL (150-450); RED BLOOD CELL COUNT(AUTO) 3.75 MIL/uL (4.5-6.0); WHITE BLOOD COUNT (AUTO) 4.8 K/uL (4.3-11.0)
[2021-04-07 07:10] LABS: ALBUMIN 2.4 g/dL (3.4-5.0); BILIRUBIN,TOTAL 0.9 mg/dL (0.2-1.0); TOTAL PROTEIN, SERUM 7.2 g/dL (6.4-8.2)
[2021-04-07] MEDS: BLOOD SUGAR DIAGNOSTIC 1 EACH STRIP VI SCH (07:23)
--- NOTE | 2021-04-07 07:25 | NUR ---
MS RN OPENING NOTES PATIENT RECEIVED AWAKE IN BED IN NO ACUTE SIGNS OF DISTRESS. A/O X2-3. ABLE TO MAKE NEEDS KNOWN. DENIES PAIN OR ANY DISCOMFORTS AT THIS TIME. ON ROOM AIR, TOLERATING WELL WITH NO SOB NOTED. IV ACCESS ON LFA G#22 INTACT, PATENT AND SALINE LOCKED. PERMA CATH TO RIGHT CHEST WALL IN PLACE WITH DRESSING C/D/I. SAFETY PRECAUTIONS MAINTAINED: BED IN LOWEST LOCKED POSITION WITH SR UP X2. CALL LIGHT W/IN REACH. WILL CONTINUE TO MONITOR PT ACCORDINGLY.
[2021-04-07] MEDS ORDERED: PANTOPRAZOLE 40 MG TABLET.DR PO SCH (07:30)
[2021-04-07 08:00] VITALS: BP 116/64
[2021-04-07] MEDS: RIFAXIMIN 550 MG TABLET PO SCH (08:23)
[2021-04-07 08:24] VITALS: BP 116/69
[2021-04-07] MEDS ORDERED: LOSARTAN POTASSIUM 50 MG TABLET PO SCH (09:00)
[2021-04-07] MEDS ORDERED: ASPIRIN EC 81 MG TABLET.DR PO SCH (09:00)
--- NOTE | 2021-04-07 11:14 | NUR ---
RN DISCHARGED NOTES PT SEEN BY DR COOLEY THIS MORNING WITH ORDER TO DISCHARGE PT'S HOME. PT IS A/O X3. ABLE TO MAKE NEEDS KNOWN. AMBULATORY WITH STEADY GAIT. V/S TAKEN, STABLE AND RECORDED. ON ROOM AIR, TOLERATING WELL WITH NO SOB NOTED. PERMA CATH ON RIGHT CHEST WALL IN PLACE WITH DRESSING C/D/I. IV ACCESS ON LFA G#22 REMOVED WITH MINIMAL BLEEDING NOTED, DRY PRESSURE DRESSING APPLIED AT SITE. NAME ARMBAND REMOVED. HEALTH TEACHINGS/DISCHARGED INSTRUCTIONS GIVEN TO PT AND HIS , BOTH VERBALIZED UNDERSTANDING. NEW PRESCRIPTION AND EXIT FOLDER HANDED TO PT'S . PT LEFT UNIT AT 1100 AMBULATORY ACCOMPANIED BY HIS RHONDA. CHARGE NURSE AWARE OF DISCHARGE.
[2021-04-07 20:53] LABS: BILIRUBIN,URINE SMALL (NEGATIVE); COLOR,URINE YELLOW (YELLOW); LEUKOCYTE ESTERASE ,URINE NEGATIVE (NEGATIVE); NITRITE, URINE NEGATIVE (NEGATIVE); PH,URINE 5.5 (5.0-8.0); PROTEIN,URINE >=300 mg/dl (NEGATIVE); UGLUCOSE NEGATIVE (NEGATIVE); UROBILINOGEN,URINE 0.2 EU/dL (0.2)
[2021-04-08 06:52] LABS: BACTERIA,URINE None seen /HPF (None Seen); SQUAMOUS EPITHELIAL CELL,UR Few /HPF (None Seen); URINE AMORPHOUS URATE Moderate /HPF (None Seen)
== END 2021-04-07 11:00 | disposition home or self-care (01) | DRG 279 ==
LOC: ER 13:52 → TELE 18:48 → MED 20:34
PROVIDERS: ADMIT Internal Medicine; ATTEND Internal Medicine
DX: K72.90 Hepatic failure, unspecified without coma (principal); I12.0 Hypertensive chronic kidney disease with stage 5 chronic kidney disease or end stage renal disease; E11.22 Type 2 diabetes mellitus with diabetic chronic kidney disease; N18.6 End stage renal disease; I85.10 Secondary esophageal varices without bleeding; Z99.2 Dependence on renal dialysis; B19.20 Unspecified viral hepatitis C without hepatic coma; K70.30 Alcoholic cirrhosis of liver without ascites; Z20.822 Contact with and (suspected) exposure to COVID-19; E78.5 Hyperlipidemia, unspecified; E66.01 Morbid (severe) obesity due to excess calories; K80.20 Calculus of gallbladder without cholecystitis without obstruction; Z79.82 Long term (current) use of aspirin; Z79.4 Long term (current) use of insulin; Z79.899 Other long term (current) drug therapy; F17.210 Nicotine dependence, cigarettes, uncomplicated; J44.9 Chronic obstructive pulmonary disease, unspecified; Z98.890 Other specified postprocedural states; Z68.29 Body mass index [BMI] 29.0-29.9, adult
CPT/HCPCS: 36415; 70450-TC; 71045-TC; 80053-TC; 81001; 82140-TC; 82962-TC; 85025-TC; 87081-TC; C9803; G0378; G0480

== ENCOUNTER 2021-11-23 23:07 | Inpatient (IN) | payer MEDICAID ==
[~2021-11-23] VITALS: Ht 190.5 cm; Wt 110.2 kg
[~2021-11-23 23:07] MED LIST changes: -ALPR0.5T8 PO; -AMLO10TA4 PO; -FURO-144 PO; -HYDR-4209 PO; +OMEP20CA15 PO; -PANT40TA2 PO; -PARO20TA7 PO; -PROP40TA7 PO
--- NOTE | 2021-11-23 23:30 | NUR ---
Received a 56 year old male with complaints of left toe infection. Noted with small circular wound on left toe. No drainage/bleeding at this time. Patient states wound started 1 month ago as a scratch and developed into an open wound. Patient states he is diabetic.
[2021-11-24] MEDS ORDERED: PIPERACILLIN /TAZOBACTAM 3.375 G in IV D5W 50 ML IV ONE ×2 (00:30→06:30)
[2021-11-24] MEDS ORDERED: VANCOMYCIN 1 GM in IV D5W 250 ML IV ONE (00:30)
[2021-11-24] MEDS ORDERED: VANCOMYCIN 1 GM VIAL ONE (00:43)
[2021-11-24] MEDS ORDERED: PIPERACILLIN /TAZOBACTAM 3.375 G VIAL IV ONE ×2 (00:44→05:43)
--- NOTE | 2021-11-24 00:46 | NUR ---
BLOOD COLLECTED AND SENT TO LAB
--- NOTE | 2021-11-24 00:49 | NUR ---
COVID SWAB DONE AND SENTT O LAB
[2021-11-24 01:00] LABS: HEMATOCRIT 32 % (39-51); MEAN CORPUSCULAR HGB CONC 34 g/dl (31.0-36.0); MEAN CORPUSCULAR VOLUME 93 fL (80-96); PLATELET COUNT (AUTO) 99 K/uL (150-450); RED BLOOD CELL COUNT(AUTO) 3.46 MIL/uL (4.5-6.0); WHITE BLOOD COUNT (AUTO) 5.1 K/uL (4.3-11.0)
[2021-11-24 01:01] LABS: BASOPHILS # (AUTO) 0.1 K/uL (0.0-0.2); BASOPHILS % (AUTO) 1.1 % (0.0-2.0); EOSINOPHILS % (AUTO) 4.7 % (0.0-6.0); LYMPHOCYTES # (AUTO) 1.3 K/uL (0.8-4.8); LYMPHOCYTES % (AUTO) 24.6 % (20.0-44.0); MONOCYTES # (AUTO) 0.7 K/uL (0.1-1.30); MONOCYTES % (AUTO) 13.6 % (2.0-12.0); NEUTROPHILS # (AUTO) 2.9 K/uL (1.8-8.9)
[2021-11-24 01:12] LABS: CALCIUM, SERUM 8.4 mg/dL (8.5-10.1); CREATININE 2.8 mg/dL (0.6-1.3); POTASSIUM 4.8 mmol/L (3.5-5.1)
[2021-11-24 01:16] LABS: BILIRUBIN,DIRECT 0.2 mg/dL (0.0-0.2); BILIRUBIN,TOTAL 0.7 mg/dL (0.2-1.0); TOTAL PROTEIN, SERUM 6.7 g/dL (6.4-8.2)
[2021-11-24] MEDS ORDERED: *INSULIN REGULAR(HUMULIN R)HUM 100 UNIT/ML VIAL SQ PRN (02:00)
[2021-11-24] MEDS ORDERED: MAG HYDROX/AL HYDROX/SIMETH 30 ML UDC PO PRN (02:00)
[2021-11-24] MEDS ORDERED: DEXTROSE 50%-WATER 50 ML DISP.SYRIN IV PRN (02:00)
[2021-11-24] MEDS ORDERED: MORPHINE SULFATE INJ 2 MG/ML DISP.SYRIN IV PRN (02:00)
[2021-11-24] MEDS ORDERED: MAGNESIUM HYDROXIDE 30 ML UDC PO PRN (02:00)
[2021-11-24] MEDS ORDERED: ONDANSETRON HCL/PF 4 MG/2 ML VIAL IVP PRN (02:00)
[2021-11-24] MEDS ORDERED: ACETAMINOPHEN 325 MG TABLET PO PRN (02:00)
[2021-11-24] MEDS ORDERED: IV NS 0.9% 1,000 ML IV PRN (02:00)
[2021-11-24] MEDS ORDERED: ZOLPIDEM TARTRATE 5 MG TABLET PO PRN (02:00)
[2021-11-24] MEDS ORDERED: Z GUARD REMEDY 4 OZ OINT TP PRN (02:00)
[2021-11-24] MEDS ORDERED: LACTULOSE 10 G/15 ML UDC (PYXIS) PO SCH (05:00)
[2021-11-24] MEDS ORDERED: LACTULOSE 10 G/15 ML UDC (PYXIS) ONE (05:01)
[2021-11-24] MEDS ORDERED: PIPERACILLIN /TAZOBACTAM 3.375 G in IV D5W 50 ML IV SCH (06:00)
--- NOTE | 2021-11-24 07:20 | NUR ---
RECEVED PT ASLEEPY NO SOB OR PAIN LT BIG TOE SWALLEN AND REDNESS
--- NOTE | 2021-11-24 07:30 | NUR ---
SEEN BY HOSPTALIST Xin PERSON NP
--- NOTE | 2021-11-24 07:48 | NUR ---
REPORT GIVEN TO SHAINA CHOI, AWAITING TRANSFER TO FLOOR.
[2021-11-24] MEDS: BLOOD SUGAR DIAGNOSTIC 1 EACH STRIP VI SCH ×4 (07:56→21:01)
--- NOTE | 2021-11-24 07:57 | NUR ---
ACCU CHECK 155MG/DL
[2021-11-24] MEDS ORDERED: PANTOPRAZOLE 40 MG TABLET.DR PO ONE (07:59)
[2021-11-24] MEDS: PANTOPRAZOLE 40 MG TABLET.DR PO SCH (07:59)
--- NOTE | 2021-11-24 08:09 | NUR ---
TO ROOM 309 VIA WC STABLE VS AWAKE AND ALERT
--- NOTE | 2021-11-24 08:15 | NUR ---
MS RN NOTE ADMITTED FROM ER IS A MALE PATIENT TRANSPORTED ON A GURNEY ACCOMPANIED BY 2 NURSES. PATIENT ABLE TO TRANSFER TO BED AND AMBULATE WITH LITTLE ASSISTANCE. PATIENT IS IN BED AND COMFORT MEASURES PROVIDED. PATIENT IS ALERT AND ORIENTED X 4 MOSTLY TURKMEN/ GAMBIAN SPEAKING. PATIENT ON ROOM AIR WITH EQUAL AND UNLABORED BREATHING, WITH NO SIGNS OF RESPIRATORY DISTRESS. WITH IV ACCESS ON THE LEFT AC G 20, ON SALINE LOCK, PATENT AND INTACT. WITH AV SHUNT ON THE LEFT FOREARM FOR HD. WITH WOUND ON THE LEFT GREAT TOE, WITH NO COMPLAIN OF PAIN OR DISCOMFORT AT THIS TIME. HEALTH TEACHING DONE REGARDING ADMISSION. VERBALIZED UNDERSTANDING AND APPRECIATION. SAFETY MEASURES ENSURED WITH BED LOCKED AND AT LOWEST POSITION. SIDERAILS RAISED. CALL LIGHT WITHIN REACH AT ALL TIMES. HOSPITALIST MARY JANE AWARE OF ADMISSION. WILL CONTINUE TO MONITOR PATIENT.
[2021-11-24] MEDS: LOSARTAN POTASSIUM 50 MG TABLET PO SCH (09:00)
--- NOTE | 2021-11-24 09:08 | NUR ---
WOUND CARE CONSULT: PT PRESENTS WITH LEFT GREAT TOE ULCER, PRESENT ON ADMISSION. DR VALDEZ NOTIFIED OF DPM CONSULT REQUEST. RECOMMENDATIONS MADE FOR SKIN PROTECTION. DISCUSSED WITH NURSING STAFF. MD IN AGREEMENT WITH PLAN OF CARE.
[2021-11-24] MEDS: ASPIRIN EC 81 MG TABLET.DR PO SCH (09:53)
[2021-11-24] MEDS: RIFAXIMIN 550 MG TABLET PO SCH (09:53)
[2021-11-24] MEDS: LACTULOSE 10 G/15 ML UDC (PYXIS) PO SCH ×4 (09:54→23:19)
--- NOTE | 2021-11-24 10:05 | NUR ---
MS RN NOTE PATIENT REFUSED VS CHECK. WILL TRY AGAIN LATER.
[2021-11-24] MEDS: ZOSYN IVPB 2.25 G in IV D5W 50ml IV SCH ×3 (12:05→23:26)
[2021-11-24 16:00] VITALS: BP 121/66
--- NOTE | 2021-11-24 18:10 | NUR ---
MS RN NOTE PATIENT REFUSED INSULIN COVERAGE. HEALTH TEACHING DONE REGARDING IMPORTANCE OF INSULIN, VERBALIZED UNDERSTANDING. WILL CONTINUE TO MONITOR PATIENT.
--- NOTE | 2021-11-24 18:42 | NUR ---
MS CLOSING NOTE PATIENT IS ALERT AND ORIENTED X 4. PATIENT ON ROOM AIR WITH EQUAL AND UNLABORED BREATHING, WITH NO SIGNS OF RESPIRATORY DISTRESS. WITH IV ACCESS ON THE LEFT AC G 20, ON SALINE LOCK, PATENT AND INTACT. WITH AV SHUNT ON THE LEFT FOREARM FOR HD. WITH WOUND ON THE LEFT GREAT TOE, WITH NO COMPLAIN OF PAIN OR DISCOMFORT AT THIS TIME. HEALTH TEACHING DONE REGARDING ADMISSION. VERBALIZED UNDERSTANDING AND APPRECIATION. SAFETY MEASURES ENSURED WITH BED LOCKED AND AT LOWEST POSITION. SIDERAILS RAISED. CALL LIGHT WITHIN REACH AT ALL TIMES. ENDORSED TO NEXT SHIFT FOR CONTINUITY OF CARE.
--- NOTE | 2021-11-24 20:00 | NUR ---
refused 1999 vitals no reason given ambulating in the room angry 3expression on his face right arm SL flushed w/o problems
[2021-11-25] MEDS ORDERED: VANCOMYCIN 1 GM in IV D5W 250 ML IV SCH (01:00)
--- NOTE | 2021-11-25 04:18 | NUR ---
CLOSING NOTES: ALERT AND ORIENTATED X4 AMBULATES THE CORRIDOR FOOD FROM HOME BROUGHT IN AND HE ENJOYED 100% HE REFUSED VITAL SIGNS THIS SHIFT NO EXPLAINATION GIVEN HE SAYSz"I'M FINE" BLOOD SUGAR 89 LAST NIGHT HE DOES GO DOWN TO SMOKE PAPER SIGNED SCHEDULED FOR A DEBRIDMENT THIS AM CONSENT SIGNED SORE ON THE LEFT GREAT TOE
[2021-11-25] MEDS: ZOSYN IVPB 2.25 G in IV D5W 50ml IV SCH ×4 (05:32→23:08)
[2021-11-25] MEDS: LACTULOSE 10 G/15 ML UDC (PYXIS) PO SCH ×4 (05:34→23:08)
[2021-11-25] MEDS: BLOOD SUGAR DIAGNOSTIC 1 EACH STRIP VI SCH ×4 (06:10→21:24)
[2021-11-25 06:32] LABS: BASOPHILS % (AUTO) 1.2 % (0.0-2.0); EOSINOPHILS % (AUTO) 6.3 % (0.0-6.0); HEMATOCRIT 30 % (39-51); LYMPHOCYTES % (AUTO) 24.3 % (20.0-44.0); MEAN CORPUSCULAR HGB CONC 34 g/dl (31.0-36.0); MEAN CORPUSCULAR VOLUME 94 fL (80-96); MONOCYTES # (AUTO) 0.6 K/uL (0.1-1.30); MONOCYTES % (AUTO) 13.4 % (2.0-12.0); NEUTROPHILS # (AUTO) 2.3 K/uL (1.8-8.9); NEUTROPHILS % (AUTO) 54.8 % (43.0-81.0); PLATELET COUNT (AUTO) 95 K/uL (150-450); RED BLOOD CELL COUNT(AUTO) 3.18 MIL/uL (4.5-6.0); WHITE BLOOD COUNT (AUTO) 4.2 K/uL (4.3-11.0)
[2021-11-25 07:02] LABS: CALCIUM, SERUM 8.1 mg/dL (8.5-10.1); CREATININE 2.5 mg/dL (0.6-1.3); MAGNESIUM 2.3 mg/dL (1.8-2.4); PHOSPHORUS 3.9 mg/dL (2.5-4.9); POTASSIUM 4.4 mmol/L (3.5-5.1)
--- NOTE | 2021-11-25 07:48 | NUR ---
MS RN OPENIGN NOTE Patient in bed, asleep. A/O x 4. On room air, breathing evenly and unlabored. No SOB or s/s of distress noted. IV access on LAC #20, intact and patent. LFA AV shunt noted. Safety precautions in place: bed in low, locked position; siderails up x 2; call light within reach. Will continue to monitor.
[2021-11-25 08:05] LABS: BAND % (MANUAL) 6 % (0.0-5.0); EOSINOPHILS % (MANUAL) 6 % (0-4); LYMPHOCYTES % (MANUAL) 22 % (16-48); MONOCYTES % (MANUAL) 6 % (0-11.0); NEUTROPHILS % (MANUAL) 60 (42-76)
[2021-11-25 08:32] VITALS: BP 126/85
[2021-11-25] MEDS: ASPIRIN EC 81 MG TABLET.DR PO SCH (09:00)
[2021-11-25] MEDS: RIFAXIMIN 550 MG TABLET PO SCH (09:00)
[2021-11-25] MEDS: LOSARTAN POTASSIUM 50 MG TABLET PO SCH (09:00)
[2021-11-25] MEDS: PANTOPRAZOLE 40 MG TABLET.DR PO SCH (09:00)
[2021-11-25] MEDS: THERAHONEY GEL 1.5 OZ TUBE TP SCH (09:02)
--- NOTE | 2021-11-25 09:30 | NUR ---
RN NOTE Patient not found in room, searched for patient and found him in the smoking area. Instructed patient to let staff know when he's going down to smoke.
--- NOTE | 2021-11-25 10:57 | NUR ---
RN NOTE Upon rounds, patient not found in room again; found him in the smoking area. Re-instructed patient to let staff know when he's going down to smoke. Security alerted about patient's smoking habit. Charge nurse and [employer] made aware. Charge nurse notified Dr. Acharya as well.
[2021-11-25] MEDS ORDERED: VANCOMYCIN POST DIALYSIS 500MG IV PRN ×2 (11:00)
[2021-11-25] MEDS: INSULIN REGULAR, HUMAN 100 UNIT/ML 3 ML VIAL SQ PRN (12:44)
[2021-11-25 16:08] VITALS: BP 123/59
--- NOTE | 2021-11-25 19:32 | NUR ---
MS RN CLOSING NOTE Patient in bed, resting. A/O x 4, able to make needs known. Stable on room air, breathing evenly and unlabored. No SOB or s/s of distress noted. IV access on RAC #20, intact and patent. LFA AV shunt noted. Hemodialysis done today, 2L out. All needs attended to. Due meds given. Patient denies any pain or discomfort at this time. Wound care done, as ordered, before debridement. Safety precautions maintained: bed in low, locked position; siderails up x 2; call light within reach. Will endorse to plant operator/shift supervisor nurse for [facility].
--- NOTE | 2021-11-25 19:50 | NUR ---
RN OPENING NOTES; RECEIVED PT IN BED AAOX4 WATCHING TV.ANNA WELL ON RM AIR,NO SIGN SOB/DISTRESS NOTED.NO COMPLAINE OF PAIN/DISCOMFORT AT THIS TIME,IV SITE ON RAC 20G PATENT AND INTACT.SAFETY MEASURE IN PLACE,CALL LIGHT WITHIN REACH,WILL CONTINUE TO MONITOR.
[2021-11-26] MEDS: LACTULOSE 10 G/15 ML UDC (PYXIS) PO SCH ×2 (05:40→12:13)
[2021-11-26] MEDS: ZOSYN IVPB 2.25 G in IV D5W 50ml IV SCH ×2 (05:40→12:00)
[2021-11-26 06:11] LABS: BILIRUBIN,URINE NEGATIVE (NEGATIVE); COLOR,URINE YELLOW (YELLOW); LEUKOCYTE ESTERASE ,URINE NEGATIVE (NEGATIVE); NITRITE, URINE NEGATIVE (NEGATIVE); PROTEIN,URINE 100 mg/dl (NEGATIVE); UGLUCOSE NEGATIVE (NEGATIVE); UROBILINOGEN,URINE 0.2 EU/dL (0.2)
--- NOTE | 2021-11-26 06:18 | NUR ---
RN CLOSING OTES;328 PT IN BED AAOX4 WATCHING TV.ANNA WELL ON RM AIR,NO SIGN SOB/DISTRESS NOTED.NO COMPLAINE OF PAIN/DISCOMFORT DURING SHIFT,DUE MEDS GIVEN ORDERED,ALL NEEDS ATTENDED,IV SITE ON RAC 20G PATENT AND INTACT.SAFETY MEASURE IN PLACE,CALL LIGHT WITHIN REACH,WILL ENDORSED TO NEXT SHIFT.
[2021-11-26 06:26] LABS: CALCIUM, SERUM 8.2 mg/dL (8.5-10.1); CREATININE 2.4 mg/dL (0.6-1.3); POTASSIUM 4.1 mmol/L (3.5-5.1)
[2021-11-26 06:31] LABS: CREATININE, URINE 155.9 MG/DL (30.0-125.0)
[2021-11-26 06:32] LABS: BACTERIA,URINE 1+ /HPF (None Seen); RBC,URINE 0-2 /HPF (0-2); WBC,URINE 51-80 /HPF (0-3)
[2021-11-26] MEDS: BLOOD SUGAR DIAGNOSTIC 1 EACH STRIP VI SCH ×2 (06:43→12:09)
--- NOTE | 2021-11-26 07:29 | NUR ---
MS RN OPENING NOTE RECEIVED PT ASLEEP IN BED, EASILY AROUSED.. PT IS A/O X4, ABLE TO MAKE NEEDS KNOWN. PT ON RA, TOLERATING WELL. NO SOB NOTED AT THIS TIME. NOT IN ANY SIGN OF RESPIRATORY DISTRESS. IV ACCESS IN RAC G #20 SALINE LOCK, INTACT AND PATENT. SAFETY MEASURES IN PLACE: BED IN LOWEST AND LOCKED POSITION, BED ALARM ON, SIDE RAILS UPX2, AND CALL LIGHT WITHIN REACH. WILL CONTINUE TO MONITOR PT.
[2021-11-26] MEDS: PANTOPRAZOLE 40 MG TABLET.DR PO SCH ×2 (07:30→09:02)
[2021-11-26 08:00] VITALS: BP 131/70
--- NOTE | 2021-11-26 08:00 | NUR ---
RN NOTE PT WAS SEEN BY DR. MCLAUGHLIN AND WAS VERY AGGRESSIVE THIS MORNING. PT PULLED OUT HIS IV ACCES IN RAC G#20. PRESSURED APPLIED TO THE SLIGHT BLEEDING ON THE SITE AND DRY PRESSURE DRESSING APPLIED. PT REFUSED TO HAVE ANOTHER IV ACCESS TO BE REINSERTED. DR. MCLAUGHLIN AWARE.
[2021-11-26 09:02] VITALS: BP 131/70
[2021-11-26] MEDS: RIFAXIMIN 550 MG TABLET PO SCH (09:02)
[2021-11-26] MEDS: LOSARTAN POTASSIUM 50 MG TABLET PO SCH (09:02)
[2021-11-26] MEDS: ASPIRIN EC 81 MG TABLET.DR PO SCH (09:02)
[2021-11-26] MEDS: THERAHONEY GEL 1.5 OZ TUBE TP SCH (09:03)
--- NOTE | 2021-11-26 11:17 | NUR ---
RN NOTE KRISTA PERERA REPORTED THAT SHE FOUND A KNIFE IN THE PT'S ROOM TABLE. KNIFE WAS CONFISCATED AND GIVEN TO CHARGED NURSE. PT WAS ANGRY AND WANTED HIS KNIFE BACK. EXPLAINED TO PT THAT IT WAS CONFISCATED DUE TO SAFETY REASONS. WILL CONTINUE TO MONITOR PT. AWARE.
[2021-11-26] MEDS: INSULIN REGULAR, HUMAN 100 UNIT/ML 3 ML VIAL SQ PRN (12:09)
--- NOTE | 2021-11-26 12:15 | NUR ---
RN NOTE PT REFUSED THE ZOSYN IV ANTIBIOTIC THAT WAS SCHEDULED AT 1200. EXPLAINED TO PATIENT THAT AN IV ACCESS IS NEEDED FOR THE ZOSYN IV ANTIBIOTIC. ALSO EXPLAINED RISK AND BENEFITS X3, PT STILL STRONGLY REFUSED IV REINSERTION AND THE ANTIBIOTIC.
[2021-11-26] MEDS ORDERED: AMOX-430 PO (17:42)
[2021-11-26] MEDS ORDERED: DOXY100C2 PO (17:42)
--- NOTE | 2021-11-26 17:55 | NUR ---
CANE PILER NOTE PT DISCHARGED TO HOME IN STABLE CONDITION. PT A/O X4, ABLE TO MAKE NEEDS KNOWN. ON RA, TOLERATING WELL WITH SPO2 97%. NO SOB NOTED. NOT IN ANY SIGN OF RESPIRATORY DISTRESS. VITAL SIGNS TAKEN, STABLE, AND RECORDED. PT REFUSED BODY ASSESSMENTS AND REFUSED FOR HIS SKIN ISSUES TO BE PHOTOGRAPH. ALL BELONGINGS ACCOUNTED FOR. DISCHARGED INSTRUCTIONS AND HEALTH TEACHINGS GIVEN TO PT AND AND PT VERBALIZED UNDERSTANDING. PT HAS NO IV ACCESS. PT LEFT THE UNIT AMBULATORY. PT REFUSED TO BE ACCOMPANIED BY AIRLINE FLIGHT ATTENDANT OR ANY STAFF. PT PICKED UP BY . MD AND CHARGED NURSE AWARE OF DISCHARGED.
== END 2021-11-26 13:15 | disposition home or self-care (01) | DRG 344 ==
LOC: ER 23:13 → TRANSITION 11-24 02:27 → MED 11-24 07:42
PROVIDERS: ADMIT Nurse Practitioner Acute Care; ATTEND Internal Medicine
PROC: 0JBR0ZZ Excision of Left Foot Subcutaneous Tissue and Fascia, Open Approach (ICD-10-PCS; principal; 2021-11-25)
PROC: 5A1D70Z Performance of Urinary Filtration, Intermittent, Less than 6 Hours Per Day (ICD-10-PCS; 2021-11-25)
DX: E11.69 Type 2 diabetes mellitus with other specified complication (principal); M86.8X7 Other osteomyelitis, ankle and foot; I13.2 Hypertensive heart and chronic kidney disease with heart failure and with stage 5 chronic kidney disease, or end stage renal disease; I85.10 Secondary esophageal varices without bleeding; K72.90 Hepatic failure, unspecified without coma; N18.6 End stage renal disease; D63.8 Anemia in other chronic diseases classified elsewhere; D69.59 Other secondary thrombocytopenia; E88.09 Other disorders of plasma-protein metabolism, not elsewhere classified; E11.621 Type 2 diabetes mellitus with foot ulcer; L03.032 Cellulitis of left toe; E11.22 Type 2 diabetes mellitus with diabetic chronic kidney disease; B19.20 Unspecified viral hepatitis C without hepatic coma; K70.30 Alcoholic cirrhosis of liver without ascites; Z20.822 Contact with and (suspected) exposure to COVID-19; Z99.2 Dependence on renal dialysis; J44.9 Chronic obstructive pulmonary disease, unspecified; Z79.4 Long term (current) use of insulin; F17.210 Nicotine dependence, cigarettes, uncomplicated; M89.8X9 Other specified disorders of bone, unspecified site; E66.9 Obesity, unspecified; Z68.30 Body mass index [BMI] 30.0-30.9, adult; E78.5 Hyperlipidemia, unspecified; L97.519 Non-pressure chronic ulcer of other part of right foot with unspecified severity; E11.40 Type 2 diabetes mellitus with diabetic neuropathy, unspecified; M79.672 Pain in left foot
CPT/HCPCS: 36415; 73630-TC; 80048-TC; 80076-TC; 80202-TC; 81001; 82570-TC; 82962-TC; 83605-TC; 83735-TC; 84100-TC; 84300-TC; 85025-TC; 85652-TC; 86140-TC; 86704; 86803; 87040-TC; 87070-TC; 87081-TC; 87086-TC; 87340; 87806; 90935-TC; 93971-TC; A4217; A4349; A6403; C9803; G0378; J1815; J2543; J3370; J7030; J7040; J7060

== ENCOUNTER 2021-12-01 11:49 | Emergency (ER) | payer MEDICAID ==
[~2021-12-01] VITALS: Ht 190.5 cm; Wt 104.8 kg
[~2021-12-01 11:49] MED LIST changes: +AMOX-430 PO; +DOXY100C2 PO
[2021-12-01 11:58] VITALS: BP 146/88
[2021-12-01] MEDS ORDERED: SILVER SULFADIAZINE CREAM 25 GM TUBE ONE (12:12)
[2021-12-01] MEDS ORDERED: SILV20CR13 TP (12:13)
--- NOTE | 2021-12-01 12:18 | NUR ---
Patient discharged to home in stable condition. Written and verbal after care instructions given. Patient verbalizes understanding of instruction.
[2021-12-01] MEDS ORDERED: SILVER SULFADIAZINE CREAM 25 GM TUBE TP PRN (12:30)
== END 2021-12-01 12:18 | disposition home or self-care (01) ==
LOC: ER 11:58
DX: E11.621 Type 2 diabetes mellitus with foot ulcer (principal); L97.529 Non-pressure chronic ulcer of other part of left foot with unspecified severity; I13.2 Hypertensive heart and chronic kidney disease with heart failure and with stage 5 chronic kidney disease, or end stage renal disease; E11.22 Type 2 diabetes mellitus with diabetic chronic kidney disease; N18.6 End stage renal disease; I50.9 Heart failure, unspecified; D63.1 Anemia in chronic kidney disease; E78.5 Hyperlipidemia, unspecified; F17.210 Nicotine dependence, cigarettes, uncomplicated; Z99.2 Dependence on renal dialysis; Z98.890 Other specified postprocedural states; Z79.899 Other long term (current) drug therapy; Z79.82 Long term (current) use of aspirin; Z79.4 Long term (current) use of insulin

== ENCOUNTER 2023-02-08 00:48 | Inpatient (IN) | payer MEDICAID ==
[~2023-02-08] VITALS: Ht 190.5 cm; Wt 127.0 kg
[2023-02-08] VITALS (11 sets, daily range): BP systolic 129–142; BP diastolic 65–71; TEMP 97.7–98.7; O2SAT 95–100
[~2023-02-08 00:48] MED LIST changes: +SILV20CR13 TP
[2023-02-08] MEDS ORDERED: ALBUTEROL FS 2.5 MG/3 ML VIAL.NEB NEB ONE (01:00)
[2023-02-08] MEDS ORDERED: methylPREDNISolone SOD SUCC 125 MG/2ML VIAL ONE (01:04)
[2023-02-08] MEDS ORDERED: ALBUTEROL FS 2.5 MG/0.5 ML VIAL.NEB ONE (01:07)
[2023-02-08] MEDS ORDERED: methylPREDNISolone SOD SUCC 125 MG/2ML VIAL IV ONE (01:30)
[2023-02-08 01:54] LABS: BASOPHILS # (AUTO) 0.1 K/uL (0.0-0.2); BASOPHILS % (AUTO) 0.6 % (0.0-2.0); EOSINOPHILS # (AUTO) 0.2 K/uL (0.0-0.7); EOSINOPHILS % (AUTO) 1.7 % (0.0-6.0); HEMATOCRIT 26 % (39-51); HEMOGLOBIN 8.6 g/dL (13.5-17.5); MEAN CORPUSCULAR HEMOGLOBIN 33 PG (26.0-33.0); MEAN CORPUSCULAR HGB CONC 33 g/dl (31.0-36.0); MEAN CORPUSCULAR VOLUME 99 fL (80-96); MONOCYTES # (AUTO) 0.8 K/uL (0.1-1.30); MONOCYTES % (AUTO) 8.2 % (2.0-12.0); NEUTROPHILS # (AUTO) 7.8 K/uL (1.8-8.9); NEUTROPHILS % (AUTO) 79.5 % (43.0-81.0); PLATELET COUNT (AUTO) 132 K/uL (150-450); RED BLOOD CELL COUNT(AUTO) 2.65 MIL/uL (4.5-6.0); RED CELL DISTRIBUTION WIDTH 17.5 % (11.5-15.0); WHITE BLOOD COUNT (AUTO) 9.8 K/uL (4.3-11.0)
[2023-02-08 01:59] LABS: CALCIUM, SERUM 8.3 mg/dL (8.5-10.1); CARBON DIOXIDE 15 mmol/L (21-32); CHLORIDE 109 mmol/L (98-107); CREATININE 3.1 mg/dL (0.6-1.3); GLUCOSE 373 mg/dL (74-106); POTASSIUM 5.1 mmol/L (3.5-5.1); SODIUM SERUM 138 mmol/L (136-145); UREA NITROGEN, BLOOD 47 mg/dL (7-18)
[2023-02-08] MEDS ORDERED: AZITHROMYCIN 500 MG in IV D5W 250 ML IV ONE (02:00)
[2023-02-08] MEDS ORDERED: CEFTRIAXONE 1GM BAG (ER ONLY) 1 GM/50 ML PIGGYBACK IV ONE (02:00)
[2023-02-08] MEDS ORDERED: CEFTRIAXONE 1GM BAG (ER ONLY) 50 ML IV ONE (02:02)
[2023-02-08] MEDS ORDERED: AZITHROMYCIN 500 MG VIAL ONE ×2 (02:03→02:39)
[2023-02-08 02:07] LABS: LACTIC ACID 1.5 mmol/L (0.4-2.0)
[2023-02-08 02:09] LABS: INR 1.21 (0.91-1.10); PARTIAL THROMBOPLASTIN TIME 29.3 SEC (24.3-34.3); PROTHROMBIN TIME 12.7 SECS (9.2-11.1)
[2023-02-08 02:12] LABS: ALANINE AMINOTRANSFERASE 24 U/L (12-78); ALBUMIN 1.8 g/dL (3.4-5.0); ALKALINE PHOSPHATASE 141 U/L (46-116); ASPARTATE AMINOTRANSFERASE 28 U/L (15-37); BILIRUBIN,DIRECT 1.2 mg/dL (0.0-0.2); BILIRUBIN,TOTAL 1.6 mg/dL (0.2-1.0); NT-PRO BNP 2830 pg/mL (0-125); TOTAL PROTEIN, SERUM 6.3 g/dL (6.4-8.2)
[2023-02-08] MEDS ORDERED: ASPIRIN 325 MG TABLET ONE (02:17)
[2023-02-08] MEDS ORDERED: ASPIRIN 325 MG TABLET PO ONE (02:30)
[2023-02-08] MEDS ORDERED: FUROSEMIDE 40 MG/4 ML VIAL ONE (02:52)
[2023-02-08] MEDS ORDERED: FUROSEMIDE 40 MG/4 ML VIAL IV ONE (03:00)
[2023-02-08] MEDS ORDERED: diphenhydrAMINE HCL 25 MG CAPSULE ONE (03:50)
[2023-02-08] MEDS ORDERED: diphenhydrAMINE HCL 25 MG CAPSULE PO ONE (04:00)
[2023-02-08] MEDS ORDERED: hydrALAZINE HCL IV 20 MG VIAL IV PRN (04:30)
[2023-02-08] MEDS ORDERED: MORPHINE SULFATE INJ 2 MG/ML DISP.SYRIN IV PRN (04:30)
[2023-02-08] MEDS ORDERED: ALBUTEROL FS 2.5 MG/0.5 ML VIAL.NEB NEB PRN (04:30)
[2023-02-08] MEDS ORDERED: *INSULIN REGULAR(HUMULIN R)HUM 100 UNIT/ML VIAL SQ PRN ×2 (04:30→18:00)
[2023-02-08] MEDS ORDERED: DEXTROSE 50%-WATER 50 ML DISP.SYRIN IV PRN ×2 (04:30→18:00)
[2023-02-08] MEDS ORDERED: ONDANSETRON HCL/PF 4 MG/2 ML VIAL IVP PRN (04:30)
[2023-02-08] MEDS ORDERED: ACETAMINOPHEN 325 MG TABLET PO PRN (04:30)
[2023-02-08] MEDS: BLOOD SUGAR DIAGNOSTIC 1 EACH STRIP VI SCH ×4 (05:53→17:32)
[2023-02-08] MEDS: INSULIN REGULAR, HUMAN 100 UNIT/ML 3 ML VIAL SQ PRN ×5 (05:57→17:54)
[2023-02-08] MEDS ORDERED: IPRATROPIUM/ALBUTEROL INHALER IH SCH (06:00)
[2023-02-08] MEDS: ALBUTEROL FS 2.5 MG/0.5 ML VIAL.NEB NEB SCH ×3 (07:42→20:51)
[2023-02-08] MEDS: IPRATROPIUM NEB FS 0.5 MG/2.5 ML AMPUL.NEB IH SCH ×3 (07:42→20:51)
[2023-02-08] MEDS ORDERED: METO-358 PO (07:50)
[2023-02-08] MEDS ORDERED: FURO-144 PO (07:50)
[2023-02-08] MEDS ORDERED: ZOLP5TAB2 PO (07:50)
[2023-02-08] MEDS ORDERED: BLOO-668 IN (07:50)
[2023-02-08] MEDS ORDERED: INSU100I26 SQ (07:50)
[2023-02-08] MEDS: HEPARIN SODIUM, PORCINE 5000 UNITS/1 ML VIAL SQ SCH ×2 (09:22→21:39)
[2023-02-08 09:31] LABS: BASOPHILS % (AUTO) 0.2 % (0.0-2.0); HEMATOCRIT 26 % (39-51); HEMOGLOBIN 8.6 g/dL (13.5-17.5); LYMPHOCYTES # (AUTO) 0.5 K/uL (0.8-4.8); MEAN CORPUSCULAR HEMOGLOBIN 32 PG (26.0-33.0); MEAN CORPUSCULAR HGB CONC 33 g/dl (31.0-36.0); MEAN CORPUSCULAR VOLUME 99 fL (80-96); MONOCYTES # (AUTO) 0.5 K/uL (0.1-1.30); MONOCYTES % (AUTO) 3.7 % (2.0-12.0); NEUTROPHILS # (AUTO) 11.5 K/uL (1.8-8.9); NEUTROPHILS % (AUTO) 92.1 % (43.0-81.0); PLATELET COUNT (AUTO) 123 K/uL (150-450); RED BLOOD CELL COUNT(AUTO) 2.66 MIL/uL (4.5-6.0); RED CELL DISTRIBUTION WIDTH 17.7 % (11.5-15.0); WHITE BLOOD COUNT (AUTO) 12.5 K/uL (4.3-11.0)
[2023-02-08 09:47] LABS: ALBUMIN 1.8 g/dL (3.4-5.0); BILIRUBIN,TOTAL 1.6 mg/dL (0.2-1.0); CALCIUM, SERUM 8.3 mg/dL (8.5-10.1); CREATININE 3.1 mg/dL (0.6-1.3); PHOSPHORUS 3.6 mg/dL (2.5-4.9); POTASSIUM 5.4 mmol/L (3.5-5.1); TOTAL PROTEIN, SERUM 6.5 g/dL (6.4-8.2)
[2023-02-08 10:21] LABS: THYROID STIMULATING HORMONE 1.509 uIU/mL (0.358-3.74)
[2023-02-08] MEDS ORDERED: ZOLPIDEM TARTRATE 5 MG TABLET PO PRN (12:00)
[2023-02-08] MEDS ORDERED: INSULIN REGULAR, HUMAN 100 UNIT/ML 3 ML VIAL SQ SCH (12:00)
[2023-02-08] MEDS: INSULIN GLARGINE, 100 UNIT/ML CARTRIDGE SQ SCH ×2 (12:44→21:44)
[2023-02-08] MEDS ORDERED: LACTULOSE 10 G/15 ML UDC (PYXIS) PO STA (15:15)
[2023-02-08] MEDS ORDERED: ALPRAZOLAM 0.25 MG TABLET PO ONE (17:00)
[2023-02-08] MEDS: BLOOD SUGAR DIAGNOSTIC 1 EACH STRIP IN SCH ×2 (17:50→22:29)
[2023-02-08] MEDS ORDERED: diphenhydrAMINE HCL 50 MG/ML VIAL IV PRN (20:30)
[2023-02-08] MEDS: LACTULOSE 10 G/15 ML UDC (PYXIS) PO SCH (20:37)
[2023-02-08] MEDS ORDERED: CEFEPIME 1 GM in IV D5W 50 ML IV SCH (21:00)
[2023-02-08] MEDS ORDERED: ZOLPIDEM TARTRATE 10 MG TABLET PO PRN (21:00)
[2023-02-08] MEDS ORDERED: VANCOMYCIN 500 MG in IV D5W 100 ML IV ONE (21:30)
[2023-02-09] VITALS (13 sets, daily range): BP systolic 145–161; BP diastolic 56–83; TEMP 97.7–97.9; O2SAT 95–99
[2023-02-09] MEDS: ALPRAZOLAM 0.25 MG TABLET PO PRN ×4 (00:09→17:11)
[2023-02-09] MEDS: ALBUTEROL FS 2.5 MG/0.5 ML VIAL.NEB NEB SCH ×3 (00:38→12:40)
[2023-02-09] MEDS: IPRATROPIUM NEB FS 0.5 MG/2.5 ML AMPUL.NEB IH SCH ×3 (00:38→12:40)
[2023-02-09] MEDS ORDERED: CEFTRIAXONE 1 G in IV D5W 50 ML IV SCH (02:00)
[2023-02-09] MEDS ORDERED: AZITHROMYCIN 500 MG in IV D5W 250 ML IV SCH (03:00)
[2023-02-09] MEDS: BLOOD SUGAR DIAGNOSTIC 1 EACH STRIP IN SCH ×2 (05:26→11:31)
[2023-02-09 06:31] LABS: BASOPHILS % (AUTO) 0.1 % (0.0-2.0); HEMATOCRIT 26 % (39-51); HEMOGLOBIN 8.2 g/dL (13.5-17.5); LYMPHOCYTES # (AUTO) 0.4 K/uL (0.8-4.8); LYMPHOCYTES % (AUTO) 3.2 % (20.0-44.0); MEAN CORPUSCULAR HEMOGLOBIN 32 PG (26.0-33.0); MEAN CORPUSCULAR HGB CONC 32 g/dl (31.0-36.0); MEAN CORPUSCULAR VOLUME 101 fL (80-96); MONOCYTES % (AUTO) 6.8 % (2.0-12.0); NEUTROPHILS # (AUTO) 12.7 K/uL (1.8-8.9); NEUTROPHILS % (AUTO) 89.9 % (43.0-81.0); PLATELET COUNT (AUTO) 126 K/uL (150-450); RED BLOOD CELL COUNT(AUTO) 2.56 MIL/uL (4.5-6.0); RED CELL DISTRIBUTION WIDTH 17.5 % (11.5-15.0); WHITE BLOOD COUNT (AUTO) 14.1 K/uL (4.3-11.0)
[2023-02-09 06:44] LABS: ALBUMIN 1.8 g/dL (3.4-5.0); BILIRUBIN,TOTAL 1.2 mg/dL (0.2-1.0); CALCIUM, SERUM 8.5 mg/dL (8.5-10.1); CREATININE 3.5 mg/dL (0.6-1.3); MAGNESIUM 2.3 mg/dL (1.8-2.4); PHOSPHORUS 4.5 mg/dL (2.5-4.9); POTASSIUM 5.7 mmol/L (3.5-5.1); TOTAL PROTEIN, SERUM 6.5 g/dL (6.4-8.2)
[2023-02-09] MEDS: INSULIN REGULAR, HUMAN 100 UNIT/ML 3 ML VIAL SQ PRN ×2 (06:46→11:32)
[2023-02-09] MEDS ORDERED: FUROSEMIDE 20 MG/2 ML VIAL IV SCH (08:30)
[2023-02-09] MEDS ORDERED: SODIUM POLYSTYRENE SULFONATE 15 G/60 ML BOTTLE PO ONE (08:30)
[2023-02-09] MEDS: CITRIC ACID/SODIUM CITRATE (BICITRA)15 ML UDC PO SCH ×3 (09:00→16:38)
[2023-02-09] MEDS ORDERED: ASPIRIN EC 81 MG TABLET.DR PO SCH (09:00)
[2023-02-09] MEDS ORDERED: THERAHONEY GEL 1.5 OZ TUBE TP SCH (09:00)
[2023-02-09] MEDS ORDERED: METOPROLOL SUCCINATE 50 MG TAB.SR.24H PO SCH (09:00)
[2023-02-09] MEDS: LACTULOSE 10 G/15 ML UDC (PYXIS) PO SCH ×2 (09:00→09:05)
[2023-02-09] MEDS: HEPARIN SODIUM, PORCINE 5000 UNITS/1 ML VIAL SQ SCH (09:05)
[2023-02-09] MEDS: INSULIN GLARGINE, 100 UNIT/ML CARTRIDGE SQ SCH (09:22)
[2023-02-09] MEDS ORDERED: DEXTROSE 50%-WATER 50 ML DISP.SYRIN IV PRN (15:30)
[2023-02-09] MEDS ORDERED: INSULIN REGULAR, HUMAN 100 UNIT/ML 3 ML VIAL SQ PRN (15:30)
[2023-02-09 15:45] LABS: ABG BASE EXCESS -10.5 mmol/L; ABG OXYGEN SATURATION 96.1 % (92.0-98.5); ABG PCO2 28.1 mmHg (35.0-45.0); ABG PH 7.325 (7.350-7.450); ABG PO2 90.3 mmHg (75.0-100.0); ABG TOTAL HEMOGLOBIN 9.3 G/dL (13.5-18.0); AaDO2 76.2 mmHg; COHb 0.3 % (0.5-1.5); MetHb 0.1 % (0.0-1.5); O2Hb 95.7 % (94.0-97.0); SITE, ABG Right Radial; VENT MODE, BG 2 LPM NC
[2023-02-09 16:20] LABS: CALCIUM, SERUM 8.5 mg/dL (8.5-10.1); CREATININE 3.3 mg/dL (0.6-1.3); POTASSIUM 5.9 mmol/L (3.5-5.1)
[2023-02-09] MEDS ORDERED: INSULIN REGULAR, HUMAN 100 UNIT in IV NS 0.9% 99 ML IV PRN ×2 (16:30)
[2023-02-09] MEDS ORDERED: IV D5/0.45 NACL 1,000 ML IV PRN (16:30)
[2023-02-09] MEDS ORDERED: INS (REG) DRIP 100 U/100 ML NS IV PRN ×2 (16:30)
[2023-02-09] MEDS ORDERED: BLOOD SUGAR DIAGNOSTIC 1 EACH STRIP IN SCH ×2 (17:00)
[2023-02-09] MEDS ORDERED: HEPARIN INFUSION/D5W 500 ML IV PRN (18:00)
== END 2023-02-09 18:14 | disposition left against medical advice (07) | DRG 720 ==
LOC: ER 00:50 → TELE 03:38 → ICU 02-09 15:34
PROVIDERS: ADMIT Student in an Organized Health Care Education/Training Program; ATTEND Nurse Practitioner Acute Care
PROC: 0JBR0ZZ Excision of Left Foot Subcutaneous Tissue and Fascia, Open Approach (ICD-10-PCS; principal; 2023-02-08)
DX: A41.9 Sepsis, unspecified organism (principal); I21.A1 Myocardial infarction type 2; K76.82 Hepatic encephalopathy; I13.2 Hypertensive heart and chronic kidney disease with heart failure and with stage 5 chronic kidney disease, or end stage renal disease; N17.9 Acute kidney failure, unspecified; J15.9 Unspecified bacterial pneumonia; E87.1 Hypo-osmolality and hyponatremia; E66.2 Morbid (severe) obesity with alveolar hypoventilation; D63.1 Anemia in chronic kidney disease; E87.20 Acidosis, unspecified; I85.10 Secondary esophageal varices without bleeding; I50.9 Heart failure, unspecified; N18.6 End stage renal disease; D69.59 Other secondary thrombocytopenia; E11.621 Type 2 diabetes mellitus with foot ulcer; L97.529 Non-pressure chronic ulcer of other part of left foot with unspecified severity; K70.30 Alcoholic cirrhosis of liver without ascites; I25.10 Atherosclerotic heart disease of native coronary artery without angina pectoris; B19.20 Unspecified viral hepatitis C without hepatic coma; E11.42 Type 2 diabetes mellitus with diabetic polyneuropathy; E78.5 Hyperlipidemia, unspecified; E87.5 Hyperkalemia; R74.01 Elevation of levels of liver transaminase levels; F17.210 Nicotine dependence, cigarettes, uncomplicated; E11.65 Type 2 diabetes mellitus with hyperglycemia; E11.22 Type 2 diabetes mellitus with diabetic chronic kidney disease; J98.11 Atelectasis; Z79.4 Long term (current) use of insulin; Z20.822 Contact with and (suspected) exposure to COVID-19; Z68.35 Body mass index [BMI] 35.0-35.9, adult
CPT/HCPCS: 36415; 36600; 71045-TC; 76770-TC; 80048-TC; 80053-TC; 80061-TC; 80076-TC; 82010-TC; 82728-TC; 82803-TC; 82962-TC; 83540-TC; 83605-TC; 83735-TC; 83880; 84100-TC; 84439-TC; 84443-TC; 84484-TC; 85025-TC; 85730-TC; 87040-TC; 93307-TC; 94799-TC; A4223; A6403; C9803; G0378; J0456; J0692; J0696; J1200; J1644; J1815; J1940; J2930; J3370; J3490; J7030; J7040; J7050; J7060; Q0163